=== PATIENT | male | born 1935 | race Caucasian/White ===

== ENCOUNTER 2017-06-16 09:56 | Inpatient (IN) | payer MEDICARE ==
[~2017-06-16] VITALS: Ht 180.3 cm; Wt 91.7 kg
[~2017-06-16 09:56] MED LIST: AMLO5TAB2 PO; ASP325T PO; ASPI-933 PO; CARV80CP PO; CYAN10007 PO; DCS100C PO; EZET10TA5 PO; FENO134C PO; HYDR-3714 PO; METF-380 PO; MTF500T PO; OMEG1CAP PO; RAMI10CA PO; TELM40T PO; TRAV5DRO OP; [UNRECOGNIZED DRUG - CODE] PO
[2017-06-16] MEDS ORDERED: METF1000 PO (13:32)
[2017-06-16] MEDS ORDERED: RAMI10CA PO (13:32)
[2017-06-16] MEDS ORDERED: FENO130C5 PO (13:32)
[2017-06-16] MEDS ORDERED: TELM80TA5 PO (13:32)
[2017-06-16] MEDS ORDERED: OMEG-105 PO (13:32)
[2017-06-16] MEDS ORDERED: OMEP20CA12 PO (13:32)
[2017-06-16 13:40] VITALS: BP 166/76
[2017-06-16] MEDS ORDERED: RT-ALBUTEROL SULF 2.5 MG/3 ML PRE-MIX VIAL IH PRN (16:15)
[2017-06-16 16:59] VITALS: BP 177/79
[2017-06-16] MEDS ORDERED: fentaNYL INJECTION 100 MCG/2 ML AMP IVP PRN (17:15)
[2017-06-16] MEDS ORDERED: CATHETER FLUSH 10 ML SYR IV PRN (17:30)
--- NOTE | 2017-06-16 20:00 | Diagnostic Imaging Report ---
EXAM: CHEST 1 VIEW, AP/PA ONLY INDICATION: Shortness of breath. COMPARISON: None. FINDINGS: Low lung volumes accentuate the heart size and pulmonary vascularity. There is a large airspace opacity in the perihilar left lung. Smaller airspace opacity in the right mid and lower lung. Small right pleural effusion. No pneumothorax. No acute osseous findings. IMPRESSION: Bilateral airspace opacities, greater on the left. Dictated by: Dictated on workstation # [id number]
[2017-06-16] MEDS: RT-ALBUTEROL/IPRATROPIUM 3 ML (DUONEB) VIAL INH SCH (20:12)
[2017-06-16 20:59] VITALS: BP 174/81
[2017-06-16] MEDS ORDERED: NITROGLYCERIN SUBLINGUAL 0.4 MG TAB (NITROSTAT) SL PRN (22:15)
[2017-06-16] MEDS ORDERED: ACETAMINOPHEN 500 MG TAB (TYLENOL) PO PRN (22:15)
[2017-06-16] MEDS: CATHETER FLUSH 10 ML SYR IV SCH (22:25)
[2017-06-16] MEDS: inSUlin (REGULAR) HUMAN 1 UNIT/0.01 ML (CHARGE PER UNIT) SC SCH (23:12)
[2017-06-17] VITALS: BP 169/77
[2017-06-17 04:00] VITALS: BP 152/62
[2017-06-17 06:21] LABS: BASOPHILS % (AUTO) 0 % (0-10); EOSINOPHILS % (AUTO) 0 % (0-10); LYMPHOCYTES # (AUTO) 1.1 X 10^3 (1.0-4.0); LYMPHOCYTES % (AUTO) 17 % (12-44); MEAN CORPUSCULAR HEMOGLOBIN 34 PG (25-34); MEAN CORPUSCULAR HGB CONC 34 G/DL (32-36); MEAN CORPUSCULAR VOLUME 100 FL (80-99); MEAN PLATELET VOLUME 9.7 FL (7.4-10.4); MONOCYTES # (AUTO) 4.1 X 10^3 (0.0-1.0); MONOCYTES % (AUTO) 64 % (0-12); NEUTROPHILS # (AUTO) 1.2 X 10^3 (1.8-7.8); NEUTROPHILS % (AUTO) 19 % (42-75); PLATELET COUNT 89 10^3/uL (130-400); RED BLOOD COUNT 2.53 10^6/uL (4.35-5.85); RED CELL DISTRIBUTION WIDTH 15.5 % (10.0-14.5); WHITE BLOOD COUNT 6.4 10^3/uL (4.3-11.0)
[2017-06-17] MEDS: inSUlin (REGULAR) HUMAN 1 UNIT/0.01 ML (CHARGE PER UNIT) SC SCH ×4 (06:21→20:53)
[2017-06-17] MEDS: CATHETER FLUSH 10 ML SYR IV SCH ×3 (06:21→22:30)
[2017-06-17] MEDS: PANTOPRAZOLE 40 MG (PROTONIX) TAB PO SCH (06:39)
[2017-06-17 06:45] LABS: ALBUMIN 2.8 GM/DL (3.2-4.5); BILIRUBIN,TOTAL 0.9 MG/DL (0.1-1.0); CALCIUM 9.7 MG/DL (8.5-10.1); CREATININE SERUM 1.67 MG/DL (0.60-1.30); POTASSIUM 3.6 MMOL/L (3.6-5.0); TOTAL PROTEIN 5.8 GM/DL (6.4-8.2); URIC ACID 5.8 MG/DL (2.6-7.2)
[2017-06-17] MEDS: RT-ALBUTEROL/IPRATROPIUM 3 ML (DUONEB) VIAL INH SCH ×3 (07:20→19:09)
[2017-06-17] MEDS: IBUPROFEN 600 MG (MOTRIN) TAB PO PRN ×2 (08:11→19:16)
[2017-06-17 08:31] VITALS: BP 172/86
[2017-06-17 08:44] LABS: BAND NEUTROPHILS 2 %; BASOPHILS % (MANUAL) 0 %; EOSINOPHILS % (MANUAL) 0 %; LYMPHOCYTES % (MANUAL) 26 %; MYELOCYTES % 3 %; NEUTROPHILS % (MANUAL) 25 %; PROMYELOCYTES % 1 %
[2017-06-17 08:45] LABS: ANISOCYTOSIS SLIGHT; POLYCHROMASIA SLIGHT
--- NOTE | 2017-06-17 10:00 | CONSULTATION REPORT ---
DATE OF CONSULTATION: 06/16/2017 The patient is admitted to room 411. REFERRING PHYSICIAN: Sebastian Gonzalez M.D. PRIMARY PHYSICIAN: Faustino Pearce M.D. IMPRESSION: 1. 82-year-old male with recent pancytopenia, status post bone marrow aspiration and biopsy on 06/13/2017 with preliminary report showing acute myeloid leukemia. 2. History of coronary artery disease and diabetes melitis type II. RECOMMENDATIONS: 1. Await final pathology report from the bone marrow aspiration and biopsy including cytogenetics. 2. Discussed broadly with the patient and family that if this is a primary acute myeloid leukemia, he will not be a candidate for induction therapy because of his age and general condition. If this is a secondary acute leukemia or a myelodysplastic syndrome in transformation, he may be a candidate for treatment with agents like decitabine. 3. If temperature spikes more than 101 degrees Fahrenheit, we will obtain casillas cultures and start on broad spectrum antibiotics because of the risk of infection. 4. Recommend cardiology evaluation concurrently because of history of coronary artery disease and recent fluid overload. 5. Obtain lab work including peripheral smear tomorrow morning and will transfuse as needed based on his blood counts. Mr. Hernandez is an 82-year-old male who was transferred from [facility] to [place] because of diagnosis of acute myeloid leukemia. The patient and his family indicated that he has not been feeling well for the last several months. Initially was felt to have a tickborne illness and treated for this without benefit. Then he started developing cellulitis in the perianal area and groin and was treated for staph aureus. He was brought to the hospital last week because of significantly increasing weakness and was found to be anemic as well as thrombocytopenic. He received a transfusion with 3 units of packed red blood cells as well as IV fluids and had fluid overload. He was also complaining of generalized pain which was being treated with morphine and fentanyl. Because of the pancytopenia, he underwent a bone marrow aspiration and biopsy on Friday with the initial report showing possible acute myeloid leukemia and hence the transfer. PAST MEDICAL HISTORY: Significant for: 1. Coronary artery disease requiring cardiac stent in 1999. 2. He had an arrhythmia requiring electrical cardioversion whether it was atrial flutter or not, it is unclear. 3. He has diabetes melitis that is controlled with diet and medications. PRIOR SURGERIES: 4. Plastic surgery on his face. 5. TURP. 6. Appendectomy. 7. Cardiac stents. SOCIAL HISTORY: The patient is and lives in [place], [place]. 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 Prior to that, he worked for the [employer] for a few years. He denied any exposure to chemicals. He has 3 daughters all of whom live close by. He denied any tobacco use and used alcohol socially. No history of any recreational drug use. FAMILY HISTORY: Significant for coronary artery disease and diabetes melitis in his family. No significant malignancies or hematologic problems in the family that the patient knows of. PHYSICAL EXAMINATION: Today showed an elderly male, morbidly obese, awake and in mild discomfort at the time of evaluation. His temperature was 100.8, pulse rate 99, respirations 20, blood pressure 177/79 with oxygen saturation of 90% on 6 liters of oxygen by nasal cannula. HEENT: Normocephalic with male pattern baldness. Extraocular muscles intact. Conjunctivae slightly pale, oral mucosa moist without lesions. NECK: Supple with no JVD. No cervical, supraclavicular, or axillary lymphadenopathy palpable. CHEST: Chest was symmetrical. LUNGS: With slightly diminished breath sounds bilaterally with few scattered wheezes especially in the lower lobes. No rales heard. CARDIOVASCULAR EXAM: Was regular without murmurs or gallops. ABDOMEN: Obese, soft, nontender with no hepatosplenomegaly or other masses palpable. EXTREMITIES: Showed trace edema of the lower extremities. No petechiae noted. There is erythema of the left upper thigh area with dressing from recent attempted incision and drainage. NEUROLOGICAL EXAM: Showed no focal motor deficits. Overall motor strength was 4/5 bilaterally. The patient did not have any lab work done here at [place] today. His recent labs from [facility] were reviewed. The total white blood cell count was in the 5 to 6 range. I do not have a manual differential to compare. Hemoglobin has been low in the 7 g/dL range pretransfusion. Platelet count has been in 70,000 range. The flow cytometry from a bone marrow aspiration and biopsy done on 06/13/2017 showed increased population of myeloid blasts accounting for 46% of viable cells. The rest of the bone marrow report as well as cytogenetic results are pending. Thank you for allowing me to participate in this patient's care. I will follow the patient with you and make appropriate recommendations. Job ID: [id number] Dictated Date: 06/16/2017 17:33:59 Driver License Reviewing Officer Date: 06/17/2017 09:27:38/jaquelin HILL
[2017-06-17 12:00] VITALS: BP 149/85
--- NOTE | 2017-06-17 12:00 | Consultation-Cardiology ---
HPI-Cardiology Cardiology Consultation: Date of Consultation 06/17/17 Date of Admission Attending Physician Sebastian Gonzalez MD Admitting Physician Faustino Pearce MD Consulting Physician Asher ABREU MD HPI: Time Seen by Provider: 11:56 Chief Complaint: Irregular heart rhythm This is a 82-year-old gentleman who has history of coronary artery disease with PCI and stent 15 years ago. 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 He also had an ablation for SVT. He presents with possible AML. He was found to be tachycardic. EKG showed atrial fibrillation with rapid ventricular rate. The patient denies having having any chest pain, shortness of breath or palpitations. Review of Systems-Cardiology Review of Systems Constitutional: No As described under HPI, No no symptoms reported, No chills, No fever, No lightheadedness, No malaise, No tiredness, No weight loss, No weight gain, No other Eyes: No As described under HPI, No no symptoms reported, No blindness, No blurred vision, No contact lenses, No drainage, No decreased acuity, No foreign body sensation, No glasses, No inflammation, No pain, No photophobia, No previous injury, No shadows, No tunnel vision, No other, No vision change Ears/Nose/Throat: No As described under HPI, No no symptoms reported, No chronic hearing loss, No epistaxis, No ear discharge, No ear pain, No loose teeth, No mouth pain, No mouth swelling, No nasal drainage, No nose pain, No recent hearing loss, No throat pain, No throat swelling, No ulcerations, No other Respiratory: No no symptoms reported, No As described under HPI, No cough, No orthopnea, No shortness of breath, No SOB with excertion, No SOB at rest, No stridor, No wheezing, No other Cardiovascular: irregular heart rate Gastrointestinal: No no symptoms reported, No As described under HPI, No abdomen distended, No abdominal pain, No blood streaked bowels, No constipation , No diarrhea, No difficulty swallowing, No nausea, No poor appetite, No poor fluid intake, No rectal bleeding, No vomiting, No other, No nausea/vomiting/ diarrhea, No stool coloration changes Genitourinary: No no symptoms reported, No As described under HPI, No burning, No dysuria, No discharge, No frequency, No flank pain, No hematuria, No incontinence, No pain, No urgency, No other, No urine frequency changes, No urine coloration changes Musculoskeletal: No no symptoms reported, No As describe under HPI, No back pain, No gout, No joint pain, No joint swelling, No muscle pain, No muscle stiffness, No neck pain, No other Skin: No no symptoms reported, No As described under HPI, No change in color, No change in hair/nails, No dryness, No lesions, No lumps, No rash, No other, No skin related problems, No ulcerations, No rash on exposed areas, No ulcerations on exposed areas Psychiatric/Neurological: No As described under HPI, No anxiety, No depression , No emotional problems, No focal weakness, No headache, No no symptoms reported , No numbness, No other, No pre-existing deficit, No seizure, No syncope, No tingling, No tremors, No weakness NXG-Fidljx-Mekahj Hx Patient Social History Alcohol Use: Denies Use Recreational Drug Use: No Smoking Status: Never a Smoker Recent Foreign Travel: No Recent Infectious Disease Expo: No Hospitalization with Isolation: Denies Physical Abuse Screen: No Sexual Abuse: No Past Medical History PMH As described under Assessment. Family Medical History Family History: Cardiovascular disease Deafness or hearing loss Diabetes mellitus Myocardial infarction Allergies and Home Medications Allergies Coded Allergies: saxagliptin (Verified Allergy, Intermediate, 06/16/17) swelling Pentazocine Lactate (Unverified Allergy, Unknown, 06/16/17) sulfamethoxazole (Verified Allergy, Unknown, 06/16/17) METABOLIC REACTION trimethoprim (Verified Allergy, Unknown, 06/16/17) CHEST TIGHTNESS doxycycline (Verified Adverse Reaction, Unknown, HIVES, ACHES, 06/16/17) hydrocodone (Verified Adverse Reaction, Unknown, 06/16/17) HALUCINATIONS Home Medications Amlodipine Besylate 5 Mg Tablet, 5 MG PO BID, (Reported) Aspirin 81 Mg Tablet.dr, 81 MG PO MoWeFr, (Reported) Carvedilol Phosphate 80 Mg Cpmp.24hr, 80 MG PO DAILY, (Reported) Cyanocobalamin 1,000 Mcg Tablet.sa, 1,000 MCG PO DAILY, (Reported) Ezetimibe 10 Mg Tablet, 10 MG PO HS, (Reported) Fenofibrate,Micronized 130 Mg Capsule, 135 MG PO 1200, (Reported) Metformin HCl 1,000 Mg Tablet, 1,000 MG PO BID WITH MEALS, (Reported) Multivits,Stress Formula/Zinc 1 Each Tablet, 1 TAB PO DAILY, (Reported) [place]-3 Acid Ethyl Esters 1 Gm Capsule, 1 GM PO HS, (Reported) Omeprazole 20 Mg Capsule.dr, 20 MG PO DAILY PRN for HEARTBURN, (Reported) Ramipril 10 Mg Capsule, 10 MG PO DAILY, (Reported) Telmisartan 80 Mg Tablet, 80 MG PO DAILY, (Reported) Physical Exam-Cardiology Physical Exam Vital Signs/I&O Vital Sign - Last 12Hours 06/17/17 06/17/17 06/17/17 06/17/17 00:00 01:00 04:00 07:20 Temp 98.6 98.9 Pulse 91 90 92 Resp 20 24 B/P (MAP) 169/77 152/62 Pulse Ox 93 92 93 O2 Delivery Nasal Cannula Nasal Cannula Nasal Cannula O2 Flow Rate 6.00 6.00 5.00 06/17/17 08:31 Temp 99.8 Pulse 107 Resp 22 B/P (MAP) 172/86 Pulse Ox 93 O2 Delivery Nasal Cannula O2 Flow Rate 6.00 Intake and Output 06/17/17 00:00 Intake Total 400 ml Output Total 500 ml Balance -100 ml Capillary Refill : Constitutional: No appears stated age, No AAO x 3, No apparent distress, No PERRL, No well-developed, No well-nourished, No other HEENT: No PERRL, No normal ENT inspection, No TMs normal, No pharynx normal, No scleral icterus (R), No scleral icterus (L), No pale conjunctivae (R), No pale conjunctivae (L), No photophobia, No TM abnormal (R), No TM abnormal (L), No pharyngeal erythema, No tonsillar exudate, No other, No discharge, No EOMI, No hearing is well preserved, No hard of hearing, No oral hygience is good, No ulceration, No xanthelasmas are seen Neck: No non-tender, No full range of motion, No supple, No normal inspection, No carotid bruit, No limited range of motion, No lymphadenopathy (R), No lymphadenopathy (L), No tender lateral, No tender midline, No thyromegaly, No other, No carotid pulses are 2 + bilaterally, No with good upstrokes Respiratory: No accessory muscle use, No respiratory distress, No chest tender , No chest expansion is symmetric, No chest is bilaterally symmetric, No lungs clear to percussion, No lungs clear to auscultation, No crackles, No rhonchi, No rales, No stridor, No wheezing, No pleural rub, No other Cardiovascular: regular rate-rhythm, S1 and S2 Gastrointestinal: No tender, No soft, No round, No distended, No pulsatile mass , No organomegaly, No guarding, No rebound, No tenderness, No hernia, No mass, No audible bowel sounds, No abnormal bowel sounds, No abdominal bruits, No spleenomegaly, No other Rectal: deferred Extremities: No normal range of motion, No non-tender, No normal inspection, No pedal edema, No calf tenderness, No normal capillary refill, No pelvis stable , No calf tenderness, No inflammation, No pedal edema, No slow capillary refill , No swelling, No other, No abrasion, No clubbing, No cyanosis, No ecchymosis, No laceration, No no lower extremity edema bilateral, No significant edema, No tenderness, No wound Neurologic/Psychiatric: No shell core and molding supervisor II-XII nml as tested, No no motor/sensory deficits, No alert, No normal mood/affect, No oriented x 3, No abnormal cerebellar tests, No abnormal shell core and molding supervisor II-XII, No abnormal gait, No aphasia, No EOM palsy, No facial droop, No motor weakness, No sensory deficit, No depressed affect, No disoriented x 3, No other, No grossly intact, No power is 5/5 both on sides Skin: No normal color, No warm/dry, No cyanosis, No cool, No diaphoresis, No damp, No ecchymosis, No jaundice, No mottled, No pallor, No rash, No tattoos/ piercings, No ulcerations, No rash on exposed areas, No ulcerations on exposed areas, No other Data Review Labs Laboratory Tests 06/16/17 14:45: Glucometer 160H 06/16/17 21:21: Glucometer 229H 06/17/17 05:56: Glucometer 178H 06/17/17 06:08: White Blood Count 6.4, Red Blood Count 2.53L, Hemoglobin 8.6L, Hematocrit 25L, Mean Corpuscular Volume 100H, Mean Corpuscular Hemoglobin 34, Mean Corpuscular Hemoglobin Concent 34, Red Cell Distribution Width 15.5H, Platelet Count 89L, Mean Platelet Volume 9.7, Neutrophils (%) (Auto) 19L, Lymphocytes (%) (Auto) 17 , Monocytes (%) (Auto) 64H, Eosinophils (%) (Auto) 0, Basophils (%) (Auto) 0, Neutrophils # (Auto) 1.2L, Lymphocytes # (Auto) 1.1, Monocytes # (Auto) 4.1H, Eosinophils # (Auto) 0.0, Basophils # (Auto) 0.0, Neutrophils % (Manual) 25, Lymphocytes % (Manual) 26, Monocytes % (Manual) 23, Eosinophils % (Manual) 0, Basophils % (Manual) 0, Myelocytes % 3, Promyelocytes % 1, Band Neutrophils 2, Nucleated Red Blood Cells 2, Blast Cells 20, Polychromasia SLIGHT, Anisocytosis SLIGHT, Macrocytosis SLIGHT, Sodium Level 139, Potassium Level 3.6, Chloride Level 110H, Carbon Dioxide Level 18L, Anion Gap 11, Blood Urea Nitrogen 13, Creatinine 1.67H, Estimat Glomerular Filtration Rate 39, BUN/Creatinine Ratio 8 , Glucose Level 174H, Uric Acid 5.8, Calcium Level 9.7, Total Bilirubin 0.9, Aspartate Amino Transf (AST/SGOT) 42H, Alanine Aminotransferase (ALT/SGPT) 54, Alkaline Phosphatase 89, Lactate Dehydrogenase 254H, Total Protein 5.8L, Albumin 2.8L 06/17/17 11:01: Glucometer 207H ECG Impression ECG Initial ECG Impression: Atrial Fibrillation w/RVR Comment One EKG shows atrial fibrillation with rapid ventricular rate. Another EKG shows normal sinus rhythm. A/P-Cardiology Assessment/Admission Diagnosis 1.AML. 2. Atrial fibrillation. 3. CAD. Plan Deferred treatment of AML to Dr. Scott and the primary team. Continue outpatient medications for CAD including aspirin, ezetimibe, DANIELA inhibitor, beta german. Paroxysmal atrial fibrillation. Continue beta german. I will not start oral anti-coagulation therapy till we know final diagnosis, treatment and bleeding risk of the primary diagnosis. Discussed with patient and family as well. Thank you for your consultation. Please call me if you have any questions. Rogelio Abreu MD, FACP, FACC, FSCAI, FHRS, CCDS Interventional Cardiology Cardiac Electrophysiology Vascular Medicine and Endovascular Interventions Clinical Quality Measures DVT/VTE Risk/Contraindication: Risk Factor Score Per Nursin RFS Level Per Nursing on Admit: 4+=Very High Asher ABREU MD Jun 17, 2017 12:00 pm
[2017-06-17] MEDS ORDERED: OMEPRAZOLE 20 MG (PriLOSEC) CAP NON-FORMULARY PO PRN (13:45)
--- NOTE | 2017-06-17 13:50 | History & Physical-Hospitalist ---
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 He was referred here by Dr. Faustino Pearce his primary care. In a workup at [place] over the past week it has become apparent that he has AML although the final details are still pending referral lab processing. His daughter who has been known to me for 40 years as she was a new nursing grad when I came here at that time, reports that he has been in a slow decline for some 6-9 months. This was mostly characterized by declining vigor and activity. He had a tick bite on the right thigh or groin area about 4 months ago. About 5 weeks ago developed a nodule on his left thigh. This was treated with hot compresses and eventually pointed and was incised and drained by a [place] surgeon. There was a minimum of creamy material obtained. He reports that very shortly after that 2 new areas appeared in the same vicinity. Dr. Pearce said that this was first thought to be recurrent cellulitis or abscesses however with the relative casillas cytopenia, on the CBC, a bone marrow was done and a preliminary report stated AML although a final diagnosis has not been returned. The initial data showed clearly malignant elements with greatest likelihood of AML Source: patient Exam Limitations: no limitations Date Seen 06/17/17 Time Seen by Provider: 13:45 Attending Physician Sebastian Marcos MD PCP Faustino Pearce MD Referring Physician Date of Admission Jun 16, 2017 at 13:10 Home Medications & Allergies Home Medications Reviewed patient Home Medication Reconciliation Form Allergies Allergies Coded Allergies saxagliptin (Verified Allergy, Intermediate, 06/16/17) swelling Pentazocine Lactate (Unverified Allergy, Unknown, 06/16/17) sulfamethoxazole (Verified Allergy, Unknown, 06/16/17) METABOLIC REACTION trimethoprim (Verified Allergy, Unknown, 06/16/17) CHEST TIGHTNESS doxycycline (Verified Adverse Reaction, Unknown, HIVES, ACHES, 06/16/17) hydrocodone (Verified Adverse Reaction, Unknown, HALLUCINATIONS, 06/23/17) HALUCINATIONS Past Dlasjxe-Oilbjf-Nfbtum Hx Patient Social History Alcohol Use: Denies Use Recreational Drug Use: No Smoking Status: Never a Smoker Physical Abuse Screen: No Sexual Abuse: No Recent Foreign Travel: No Contact w/other who traveled: No Recent Hopitalizations: Yes ([facility] ) Recent Infectious Disease Expo: No Seasonal Allergies Seasonal Allergies: No Respiratory Hx Respiratory Disorders: No Cardiovascular Hx Cardiovascular Disorders: Yes Neurological Hx Neurological Disorders: No Reproductive System Sexually Transmitted Disease: No HIV/AIDS: No Genitourinary Hx Genitourinary Disorders: No Gastrointestinal Hx Gastrointestinal Disorders: Yes (HIATAL HERNIA, ) Gastrointestinal Disorders: Gastroesophageal Reflux Musculoskeletal Hx Musculoskeletal Disorders: No Musculoskeletal Disorders: Degenerate Disk Disease Endocrine Hx Endocrine Disorders: Yes HEENT HX ENT Disorders: Yes (DENTURES) HEENT Disorders: Cataract, Glaucoma Loss of Vision: Denies Hearing Impairment: Hard of Hearing Integumentary Skin/Integumentary Disorders: Eczema Blood Transfusions Hx Blood Disorders: No Adverse Reaction to a Blood Tr: No Family Medical History Family Hx: Cardiovascular disease Deafness or hearing loss Diabetes mellitus Myocardial infarction Review of Systems Constitutional: see HPI EENTM: no symptoms reported Respiratory: no symptoms reported Cardiovascular: other Gastrointestinal: no symptoms reported Genitourinary: frequency, hesitancy, other (2 previous TURPs) Musculoskeletal: muscle weakness Skin: lumps, other (skin lesions as described in history and physical) Psychiatric/Neurological: Other Physical Exam Physical Exam Vital Signs Capillary Refill : General Appearance: Other (alert elderly white male who is slightly tachypneic at rest) Eyes: Bilateral Eye Normal Inspection HEENT: Normal ENT Inspection Neck: Full Range of Motion, Normal Inspection, Non Tender, Supple, Carotid Bruit Respiratory: Chest Non Tender, Lungs Clear, Normal Breath Sounds, No Accessory Muscle Use, No Respiratory Distress Cardiovascular: Irregularly Irregular Gastrointestinal: Normal Bowel Sounds, No Organomegaly, No Pulsatile Mass, Non Tender, Soft Back: Normal Inspection, No CVA Tenderness, No Vertebral Tenderness Neurologic/Psychiatric: Other Skin: Normal Color, Warm/Dry Lymphatic: No Adenopathy Results Results/Procedures Lab Assessment/Plan Admission Diagnosis AML. 2.previous history of coronary artery disease. 3.hypertension. 4.diabetes mellitus type II Clinical Quality Measures DVT/VTE Risk/Contraindication: Risk Factor Score Per Nursin RFS Level Per Nursing on Admit: 4+=Very High SEBASTIAN MARCOS MD Jun 17, 2017 13:50
--- NOTE | 2017-06-17 15:21 | Physical Therapy Progress Note ---
Therapy Progress Note Order received, chart reviewed, wai attempted. Patient's daughter states that she just got through walking with her father in the hallway and that he is pretty tired now. Patient is given the opportunity to work with PT but he declines, he states he is too tired after ambulating with his daughter. Evaluation will be attempted again in the morning. AKIRA MARTINEZ PT Jun 17, 2017 15:21
[2017-06-17 16:00] VITALS: BP 175/76
[2017-06-17] MEDS: metFORMIN 500 MG (GLUCOPHAGE) TAB PO SCH (17:00)
--- NOTE | 2017-06-17 17:19 | Progress Note-Standard ---
Standard Progress Note Progress Notes/Assess & Plan Date Seen by Provider: Jun 17, 2017 Time Seen by Provider: 17:11 Progress/Assessment & Plan 82-year-old male with pancytopenia, transferred from [facility]. Patient had a bone marrow aspiration biopsy on 06/13/2017. Flow cytometry indicated possible AML. Today I discussed the case with Dr. Maciel at [facility]. The preliminary bone marrow report showed hypercellular marrow with 60-65 percent cellularity and 30 percent blasts consistent with AML. FISH studies and cytogenetics is pending. Today I reviewed management of AML with the patient and his daughter and answered their questions. According to NCCN guidelines, options for patients who are not candidates for intensive therapy include the lower intensity treatments with 5 azacitidine or decitabine versus best supportive care. Patient wanted to talk to all of his family before making a decision tomorrow. I will follow with them tomorrow and try to answer any questions before they make their final decision. We will reorder lab work for tomorrow. SINA GREEN Jun 17, 2017 17:18
[2017-06-17 20:00] VITALS: BP 176/80
[2017-06-17] MEDS: amLODIPine 5 MG (NORVASC) TAB PO SCH (20:53)
[2017-06-17] MEDS ORDERED: DIAZEPAM 5 MG (VALIUM) TABLET PO NR (21:00)
[2017-06-18 00:45] VITALS: BP 158/78
[2017-06-18 04:20] VITALS: BP 155/74
[2017-06-18] MEDS: inSUlin (REGULAR) HUMAN 1 UNIT/0.01 ML (CHARGE PER UNIT) SC SCH ×4 (06:16→21:55)
[2017-06-18] MEDS: CATHETER FLUSH 10 ML SYR IV SCH ×3 (06:16→22:02)
[2017-06-18] MEDS: metFORMIN 500 MG (GLUCOPHAGE) TAB PO SCH ×2 (06:21→16:51)
[2017-06-18] MEDS: PANTOPRAZOLE 40 MG (PROTONIX) TAB PO SCH (06:21)
[2017-06-18 06:35] LABS: BASOPHILS % (AUTO) 0 % (0-10); EOSINOPHILS % (AUTO) 0 % (0-10); LYMPHOCYTES # (AUTO) 3.9 X 10^3 (1.0-4.0); LYMPHOCYTES % (AUTO) 56 % (12-44); MEAN CORPUSCULAR HEMOGLOBIN 34 PG (25-34); MEAN CORPUSCULAR HGB CONC 34 G/DL (32-36); MEAN CORPUSCULAR VOLUME 100 FL (80-99); MEAN PLATELET VOLUME 9.2 FL (7.4-10.4); MONOCYTES # (AUTO) 1.6 X 10^3 (0.0-1.0); MONOCYTES % (AUTO) 23 % (0-12); NEUTROPHILS # (AUTO) 1.4 X 10^3 (1.8-7.8); NEUTROPHILS % (AUTO) 21 % (42-75); PLATELET COUNT 87 10^3/uL (130-400); RED BLOOD COUNT 2.51 10^6/uL (4.35-5.85); RED CELL DISTRIBUTION WIDTH 15.4 % (10.0-14.5); WHITE BLOOD COUNT 6.9 10^3/uL (4.3-11.0)
[2017-06-18 06:48] LABS: INR 1.3 (0.8-1.4); PROTHROMBIN TIME PATIENT 16.2 SEC (12.2-14.7)
[2017-06-18 06:55] LABS: CALCIUM 9.8 MG/DL (8.5-10.1); CREATININE SERUM 1.69 MG/DL (0.60-1.30); POTASSIUM 3.5 MMOL/L (3.6-5.0)
[2017-06-18 08:00] VITALS: BP 133/65
[2017-06-18] MEDS: RT-ALBUTEROL/IPRATROPIUM 3 ML (DUONEB) VIAL INH SCH ×3 (08:22→19:26)
[2017-06-18] MEDS: amLODIPine 5 MG (NORVASC) TAB PO SCH ×2 (08:46→20:23)
[2017-06-18] MEDS ORDERED: CARVEDILOL 12.5 MG (COREG) TABLET PO SCH (09:00)
[2017-06-18] MEDS ORDERED: RAMIPRIL 5 MG (ALTACE) CAP PO SCH (09:00)
[2017-06-18] MEDS ORDERED: DAKIN'S 1/4 STRENGTH (0.125%) 473 ML BTL TOP SCH (09:00)
[2017-06-18] MEDS ORDERED: NON-FORMULARY MEDICATION 1 EA EA (Ramipril 10 MG) PO SCH (09:00)
[2017-06-18] MEDS ORDERED: CARVEDILOL 80 MG PO SCH (09:00)
[2017-06-18] MEDS ORDERED: ASPIRIN E.C. 81 MG (ECOTRIN) TAB PO SCH (09:00)
--- NOTE | 2017-06-18 09:35 | Physical Therapy Evaluation ---
PT Evaluation-General Medical Diagnosis Admission Date Jun 16, 2017 at 13:10 Medical Diagnosis: acute myeloid leukemia Onset Date: Jun 16, 2017 Therapy Diagnosis Therapy Diagnosis: impaired mobility, strength, endurance Height/Weight Height (Feet): 5 Height (Inches): 11.00 Weight (Pounds): 202 Weight (Ounces): 1.0 Precautions Precautions/Isolations: Fall Prevention, Standard Precautions Referral Physician: Sebastian Gonzalez MD Reason for Referral: Evaluation/Treatment Medical History Pertinent Medical History: GERD Additional Medical History hiatal hernia, DDD, cataracts, glaucoma, JENA, eczema, surg (plastic surg on face , TURP, appendectomy, cardiac stents) Current History came via EMS with pneumonia Reviewed History: Yes Social History Home: Multilevel Current Living Status: Spouse Entry Into Home: Stairs Without Railing PT Steps Into Home: 2 states it would be no problem to get a handrail installed Prior/Core FIM Prior Level of Function Functional [place] Measure 0=Not Assessed/NA 4=Minimal Assistance 1=Total Assistance 5=Supervision or Setup 2=Maximal Assistance 6=Modified [place] 3=Moderate Assistance 7=Complete [place] Bed Mobility: 7 Transfers (B,C,W/C) (FIM): 7 Gait: 7 PT Evaluation-Current Subjective Patient in recliner pre tx, agrees to PT, has no complaints of pain. Pt/Family Goals "I want to get stronger. Objective Patient Orientation: Person, Place, Situation Attachments: Oxygen 5L of O2 nasal canula ROM/Strength ROM Lower Extremities WNL Strenght Lower Extremities 4/5 gross bilateral lower extremities Neuromuscular (Tone, Coordination, Reflexes) WNL Sensory Vision: Functional Hearing: Impaired Sensation Right Lower Extremit: Intact Sensation Left Lower Extremity: Intact Transfers Functional [place] Measure 0=Not Assessed/NA 4=Minimal Assistance 1=Total Assistance 5=Supervision or Setup 2=Maximal Assistance 6=Modified [place] 3=Moderate Assistance 7=Complete [place] Transfers (B, C, W/C) (FIM): 5 Sit to/from Stand: 5 safe positioning Gait Mode of Locomotion: Walk Anticipated Mode of Locomotion: Walk Gait (FIM): 5 Distance: 600' Gait Level of Assist: 5 Gait Persons Needed: 1 Gait Assistive Device: FWW Comments/Gait Description slow, patient gets a little SOB, cues for purse lip breathing Balance Sitting Static: Normal Sitting Dynamic: Normal Standing Static: Good Standing Dynamic: Good Treatment seated exercises x20, LAQ, AP Assessment/Needs Patient has impaired mobility, strength, endurance Rehab Potential: Fair PT Plan Problem List Problem List: Activity Tolerance, Functional Strength, Safety, Balance, Gait, Transfer, Bed Mobility Treatment/Plan Treatment Plan: Continue Plan of Care Treatment Plan: Bed Mobility, Education, Functional Activity Mona, Functional Strength, Gait, Safety, Therapeutic Exercise, Transfers Treatment Duration: Jun 25, 2017 Frequency: 6 times per week Estimated Hrs Per Day: .5 hour per day (15-30 min) Patient and/or Family Agrees t: Yes Safety Risks/Education Patient Education: Gait Training, Transfer Techniques, Correct Positioning, Safety Issues Teaching Recipient: Patient Teaching Methods: Demonstration, Discussion Response to Teaching: Reinforcement Needed Discharge Recommendations Plan Patient will perform bed mobility and transfer training, balance and endurance training, functional strengthening, stair training, gait training, and education , to improve functional mobility and independence at home. Therapy D/C Recommendations: Home w/ Family Support Time/GCodes Time In: 908 Time Out: 927 Total Billed Treatment Time: 19 Total Billed Treatment 1 visit AKIRA MARQUEZ PT Jun 18, 2017 09:35
--- NOTE | 2017-06-18 10:55 | Cardiology Progress Note ---
Cardiology SOAP Progress Note Subjective: No cardiac complaints Objective: I&O/Vital Signs Vital Sign - Last 12Hours 06/18/17 06/18/17 06/18/17 06/18/17 00:45 01:00 04:20 07:00 Temp 97.7 98.0 Pulse 85 89 98 113 Resp 18 22 B/P (MAP) 158/78 155/74 Pulse Ox 96 96 O2 Delivery Nasal Cannula Nasal Cannula O2 Flow Rate 6.00 5.00 06/18/17 06/18/17 08:00 08:22 Temp 99.5 Pulse 90 Resp 18 B/P (MAP) 133/65 Pulse Ox 94 94 O2 Delivery Nasal Cannula Nasal Cannula O2 Flow Rate 5.00 5.50 Intake and Output 06/18/17 00:00 Intake Total 1180 ml Output Total 500 ml Balance 680 ml Weight (Pounds): 202 Weight (Ounces): 1.0 Weight (Calculated Kilograms): 91.298852 Constitutional: No appears stated age, No AAO x 3, No apparent distress, No PERRL, No well-developed, No well-nourished, No other Respiratory: No accessory muscle use, No respiratory distress, No chest tender , No chest expansion is symmetric, No chest is bilaterally symmetric, No lungs clear to percussion, No lungs clear to auscultation, No crackles, No rhonchi, No rales, No stridor, No wheezing, No pleural rub, No other Cardiovascular: regular rate-rhythm, S1 and S2 Gastrointestional: No tender, No soft, No round, No distended, No pulsatile mass, No organomegaly, No guarding, No rebound, No tenderness, No hernia, No mass, No audible bowel sounds, No abnormal bowel sounds, No abdominal bruits, No spleenomegaly, No other Extremities: No normal range of motion, No non-tender, No normal inspection, No pedal edema, No calf tenderness, No normal capillary refill, No pelvis stable , No calf tenderness, No inflammation, No pedal edema, No slow capillary refill , No swelling, No other, No abrasion, No clubbing, No cyanosis, No ecchymosis, No laceration, No no lower extremity edema bilateral, No significant edema, No tenderness, No wound Neurologic/Psychiatric: No ferruler II-XII nml as tested, No no motor/sensory deficits, No alert, No normal mood/affect, No oriented x 3, No abnormal cerebellar tests, No abnormal ferruler II-XII, No abnormal gait, No aphasia, No EOM palsy, No facial droop, No motor weakness, No sensory deficit, No depressed affect, No disoriented x 3, No other, No grossly intact, No power is 5/5 both on sides Skin: No normal color, No warm/dry, No cyanosis, No cool, No diaphoresis, No damp, No ecchymosis, No jaundice, No mottled, No pallor, No rash, No tattoos/ piercings, No ulcerations, No rash on exposed areas, No ulcerations on exposed areas, No other Results/Procedures: Labs Laboratory Tests 06/17/17 16:14: Glucometer 199H 06/17/17 20:35: Glucometer 200H 06/18/17 06:05: Glucometer 187H 06/18/17 06:06: White Blood Count 6.9, Red Blood Count 2.51L, Hemoglobin 8.4L, Hematocrit 25L, Mean Corpuscular Volume 100H, Mean Corpuscular Hemoglobin 34, Mean Corpuscular Hemoglobin Concent 34, Red Cell Distribution Width 15.4H, Platelet Count 87L, Mean Platelet Volume 9.2, Neutrophils (%) (Auto) 21L, Lymphocytes (%) (Auto) 56H , Monocytes (%) (Auto) 23H, Eosinophils (%) (Auto) 0, Basophils (%) (Auto) 0, Neutrophils # (Auto) 1.4L, Lymphocytes # (Auto) 3.9, Monocytes # (Auto) 1.6H, Eosinophils # (Auto) 0.0, Basophils # (Auto) 0.0, Prothrombin Time 16.2H, INR Comment 1.3, Activated Partial Thromboplast Time 37H, Sodium Level 141, Potassium Level 3.5L, Chloride Level 111H, Carbon Dioxide Level 20L, Anion Gap 10, Blood Urea Nitrogen 14, Creatinine 1.69H, Estimat Glomerular Filtration Rate 39, BUN/Creatinine Ratio 8, Glucose Level 179H, Calcium Level 9.8 06/18/17 11:05: Glucometer 262H A/P: Assessment/Dx: 1.AML. 2. Atrial fibrillation. 3. CAD. Plan: Deferred treatment of AML to Dr. Scott and the primary team. Continue outpatient medications for CAD including aspirin, ezetimibe, DANIELA inhibitor, beta german. Paroxysmal atrial fibrillation. Continue beta german. I will not start oral anti-coagulation therapy till we know final diagnosis, treatment and bleeding risk of the primary diagnosis. Discussed with patient and family as well. The family agrees that due to AML the risk of bleeding may be higher than the risk of stroke prevention therefore we will hold off on oral anticoagulation therapy and continue aspirin alone. Thank you for your consultation. Please call me if you have any questions. Rogelio Abreu MD, FACP, FACC, FSCAI, FHRS, CCDS Interventional Cardiology Cardiac Electrophysiology Vascular Medicine and Endovascular Interventions Asher ABREU MD Jun 18, 2017 10:55
[2017-06-18 12:00] VITALS: BP 144/66
--- NOTE | 2017-06-18 14:03 | Progress Note-Hospitalist ---
Standard Progress Note Progress Notes/Assess & Plan Date Seen 06/18/17 Time Seen by Provider: 13:57 Diagnosis AML. 2.previous history of coronary artery disease. 3.hypertension. 4.diabetes mellitus type II Assess & Plan/Chief Complaint Dr. Person informs me that he was able to get Clear confirmation yesterday that the diagnosis is that of AML. He had a discussion with the family last evening and it has been elected that the patient attempt a modified induction. Accordingly he will be transferred to swing bed status, a port will be placed, and hyperuricemia prophylaxis will be started. Physical exam: The patient is alert and oriented. Lungs are clear to auscultation. CV is irregular. Abdomen is obese without masses or tenderness. Extremity shows 1-2+ pedal edema. Impression: Acute myelogenous leukemia. 2.atrial fibrillation. 3.diabetes mellitus type II. 4.hypertension. 5.previous history of coronary artery disease with stenting. Plan: Advanced to swing bed status and initiate AML Rx Labs Laboratory Tests 06/17/17 06:08 06/18/17 06:06 ELVIA MARCOS MD Jun 18, 2017 14:03
--- NOTE | 2017-06-18 15:43 | Progress Note-Standard ---
Standard Progress Note Progress Notes/Assess & Plan Date Seen by Provider: Jun 18, 2017 Time Seen by Provider: 15:36 Progress/Assessment & Plan 82-year-old male with pancytopenia, transferred from [facility]. Patient had a bone marrow aspiration biopsy on 06/13/2017. Flow cytometry indicated possible AML. The preliminary bone marrow report showed hypercellular marrow with 60-65 percent cellularity and 30 percent blasts consistent with AML. FISH studies and cytogenetics are pending. Today met with the patient, his and 2 daughters and once again discussed management options. According to NCCN guidelines, options for patients who are not candidates for intensive therapy include the lower intensity treatments with 5 azacitidine or decitabine versus best supportive care. Patient has decided to proceed with lower intensity treatment and I would recommend treatment with Dacogen. I will start the patient on allopurinol today and plan on starting treatment tomorrow. Would recommend swing bed evaluation for IV medications and possible transfusions as needed. He would also benefit from a port for administration of chemotherapy. I'll consult Dr. Garrison for the same. Patient and his family understands that his prognosis is poor but wants to try the treatment. Cardiology evaluation noted. Patient has evidence of paroxysmal atrial fibrillation but I would not recommend anticoagulation because of thrombocytopenia, diagnosis of AML as well as starting on chemotherapy. He is on aspirin 3 days a week and I will continue this cautiously. I have discussed these recommendations with Dr. Gonzalez today who concurs. SINA GREEN Jun 18, 2017 15:43
[2017-06-18] MEDS ORDERED: DIAZEPAM 5 MG (VALIUM) TABLET PO PRN (15:45)
[2017-06-18 16:00] VITALS: BP 130/79
--- NOTE | 2017-06-18 17:14 | Consultation ---
History of Present Illness History of Present Illness Patient Consulted On(xin/time) 06/18/17 17:09 Date Seen by Provider: Jun 18, 2017 Time Seen by Provider: 17:09 History of Present Illness Consult requested by Dr. Butterfield for port placement. Patient is an 82-year-old male who is going to be treated for AML. He's elected for treatment and is felt that the port would be best fitting for administration of chemotherapy. Patient recently had not been feeling well and was found to be anemic and had blood work and bone marrow biopsy at outlying facility. Patient workup suggestive of AML and was transferred to [facility]. Patient today states he's doing a little bit better. He is tolerating diet. His hemoglobin was 8.2 his platelet counts was 87. Patient has required packed red blood cells. He is having a fibrillation which she is not at this time being placed on anticoagulation he states. Patient overall is filling slightly weak compared to where it normally as he states. He has no other complaints at this time. He denies any nausea vomiting fever sweats chills shortness of breath or chest pain. Allergies and Home Medications Allergies Coded Allergies: saxagliptin (Verified Allergy, Intermediate, 06/16/17) swelling Pentazocine Lactate (Unverified Allergy, Unknown, 06/16/17) sulfamethoxazole (Verified Allergy, Unknown, 06/16/17) METABOLIC REACTION trimethoprim (Verified Allergy, Unknown, 06/16/17) CHEST TIGHTNESS doxycycline (Verified Adverse Reaction, Unknown, HIVES, ACHES, 06/16/17) hydrocodone (Verified Adverse Reaction, Unknown, 06/16/17) HALUCINATIONS Home Medications Amlodipine Besylate 5 Mg Tablet, 5 MG PO BID, (Reported) Aspirin 81 Mg Tablet.dr, 81 MG PO MoWeFr, (Reported) Carvedilol Phosphate 80 Mg Cpmp.24hr, 80 MG PO DAILY, (Reported) Cyanocobalamin 1,000 Mcg Tablet.sa, 1,000 MCG PO DAILY, (Reported) Ezetimibe 10 Mg Tablet, 10 MG PO HS, (Reported) Fenofibrate,Micronized 130 Mg Capsule, 135 MG PO 1200, (Reported) Metformin HCl 1,000 Mg Tablet, 1,000 MG PO BID WITH MEALS, (Reported) Multivits,Stress Formula/Zinc 1 Each Tablet, 1 TAB PO DAILY, (Reported) Darby-3 Acid Ethyl Esters 1 Gm Capsule, 1 GM PO HS, (Reported) Omeprazole 20 Mg Capsule.dr, 20 MG PO DAILY PRN for HEARTBURN, (Reported) Ramipril 10 Mg Capsule, 10 MG PO DAILY, (Reported) Telmisartan 80 Mg Tablet, 80 MG PO DAILY, (Reported) Past Fhwroda-Foloah-Hpsrok Hx Patient Social History Alcohol Use: Denies Use Recreational Drug Use: No Smoking Status: Never a Smoker Recent Foreign Travel: No Contact w/Someone Who Travel: No Recent Infectious Disease Expo: No Recent Hopitalizations: Yes ([facility] ) Physical Abuse Screen: No Sexual Abuse: No Seasonal Allergies Seasonal Allergies: No Surgeries HX Surgeries: Yes (hernia, face surgery) Surgeries: Appendectomy Respiratory Hx Respiratory Disorders: No Respiratory Disorders: Pneumonia Cardiovascular Hx Cardiac Disorders: Yes Neurological Hx Neurological Disorders: No Reproductive System Sexually Transmitted Disease: No HIV/AIDS: No Genitourinary Hx Genitourinary Disorders: No Gastrointestinal Hx Gastrointestinal Disorders: Yes (HIATAL HERNIA, ) Gastrointestinal Disorders: Abdominal Hernia, Gastroesophageal Reflux Musculoskeletal Hx Musculoskeletal Disorders: No Musculoskeletal Disorders: Degenerate Disk Disease Endocrine Hx Endocrine Disorders: Yes HEENT HX ENT Disorders: Yes (DENTURES) HEENT Disorders: Cataract, Glaucoma Loss of Vision: Denies Hearing Impairment: Hard of Hearing Integumentary Skin/Integumentary Disorders: Eczema Blood Transfusions Hx Blood Disorders: No Adverse Reaction to a Blood Tr: No Family Medical History Significant Family History: No Pertinent Family Hx Family Medial History: Cardiovascular disease Deafness or hearing loss Diabetes mellitus Myocardial infarction Review of Systems-General Constitutional: see HPI EENTM: no symptoms reported Respiratory: no symptoms reported Cardiovascular: no symptoms reported Gastrointestinal: no symptoms reported Genitourinary: no symptoms reported Musculoskeletal: no symptoms reported Skin: no symptoms reported Psychiatric/Neurological: No Symptoms Reported Physical Exam-General Problems Physical Exam Vital Signs Vital Sign - Last 12Hours 06/16/17 13:40 Temp 99.5 Pulse 114 Resp 20 B/P (MAP) 166/76 Pulse Ox 94 O2 Delivery Nasal Cannula O2 Flow Rate 6.00 Capillary Refill : General Appearance: no apparent distress HEENT: normal ENT inspection Neck: supple Respiratory: no respiratory distress, no accessory muscle use Cardiovascular: irregularly irregular Gastrointestinal: non tender, soft, no organomegaly Rectal: deferred Back: normal inspection Extremities: non-tender, normal inspection Neurologic/Psychiatric: alert, normal mood/affect Skin: warm/dry Data Review Labs Laboratory Tests 06/17/17 20:35: Glucometer 200H 06/18/17 06:05: Glucometer 187H 06/18/17 06:06: White Blood Count 6.9, Red Blood Count 2.51L, Hemoglobin 8.4L, Hematocrit 25L, Mean Corpuscular Volume 100H, Mean Corpuscular Hemoglobin 34, Mean Corpuscular Hemoglobin Concent 34, Red Cell Distribution Width 15.4H, Platelet Count 87L, Mean Platelet Volume 9.2, Neutrophils (%) (Auto) 21L, Lymphocytes (%) (Auto) 56H , Monocytes (%) (Auto) 23H, Eosinophils (%) (Auto) 0, Basophils (%) (Auto) 0, Neutrophils # (Auto) 1.4L, Lymphocytes # (Auto) 3.9, Monocytes # (Auto) 1.6H, Eosinophils # (Auto) 0.0, Basophils # (Auto) 0.0, Prothrombin Time 16.2H, INR Comment 1.3, Activated Partial Thromboplast Time 37H, Sodium Level 141, Potassium Level 3.5L, Chloride Level 111H, Carbon Dioxide Level 20L, Anion Gap 10, Blood Urea Nitrogen 14, Creatinine 1.69H, Estimat Glomerular Filtration Rate 39, BUN/Creatinine Ratio 8, Glucose Level 179H, Calcium Level 9.8 06/18/17 11:05: Glucometer 262H 06/18/17 15:58: Glucometer 205H Assessment/Plan Assessment/Plan Assessment/Plan Patient with AML, pancytopenia. It's been requested a port be placed. Risk and benefits discussed. Continue current medical management. Patient to start chemotherapy tomorrow we' ll plan on placing port Friday morning Clinical Quality Measures DVT/VTE Risk/Contraindication: Risk Factor Score Per Nursin RFS Level Per Nursing on Admit: 4+=Very High LUZ HOLT DO Jun 18, 2017 17:14
[2017-06-18] MEDS ORDERED: FUROSEMIDE 40 MG (LASIX) TAB PO NR (17:15)
[2017-06-18] MEDS ORDERED: ALLOPURINOL 100 MG (ZYLOPRIM) TAB PO SCH (18:00)
[2017-06-18] MEDS: POLYETHYLENE GLYCOL 17 GM (MIRALAX) PACK PO SCH ×2 (19:18→20:23)
[2017-06-18] MEDS ORDERED: PROMETHAZINE/ CODEINE SYRUP 5 ML UDC PO PRN (19:45)
[2017-06-18 19:48] VITALS: BP 158/70
[2017-06-18] MEDS: IBUPROFEN 600 MG (MOTRIN) TAB PO PRN (20:23)
[2017-06-19] VITALS: BP 126/57
[2017-06-19] MEDS: NYSTATIN ORAL SUSP 5 ML UDC PO SCH ×2 (00:07→05:35)
[2017-06-19 04:00] VITALS: BP 120/58
[2017-06-19] MEDS: CATHETER FLUSH 10 ML SYR IV SCH (05:35)
[2017-06-19] MEDS: metFORMIN 500 MG (GLUCOPHAGE) TAB PO SCH (05:35)
[2017-06-19] MEDS: PANTOPRAZOLE 40 MG (PROTONIX) TAB PO SCH (05:35)
[2017-06-19 05:39] LABS: BASOPHILS % (AUTO) 0 % (0-10); EOSINOPHILS % (AUTO) 0 % (0-10); LYMPHOCYTES # (AUTO) 1.7 X 10^3 (1.0-4.0); LYMPHOCYTES % (AUTO) 28 % (12-44); MEAN CORPUSCULAR HEMOGLOBIN 34 PG (25-34); MEAN CORPUSCULAR HGB CONC 33 G/DL (32-36); MEAN CORPUSCULAR VOLUME 101 FL (80-99); MEAN PLATELET VOLUME 9.2 FL (7.4-10.4); MONOCYTES # (AUTO) 3.6 X 10^3 (0.0-1.0); MONOCYTES % (AUTO) 60 % (0-12); NEUTROPHILS # (AUTO) 0.7 X 10^3 (1.8-7.8); NEUTROPHILS % (AUTO) 12 % (42-75); PLATELET COUNT 81 10^3/uL (130-400); RED BLOOD COUNT 2.14 10^6/uL (4.35-5.85); RED CELL DISTRIBUTION WIDTH 15.3 % (10.0-14.5); WHITE BLOOD COUNT 6.1 10^3/uL (4.3-11.0)
[2017-06-19] MEDS: inSUlin (REGULAR) HUMAN 1 UNIT/0.01 ML (CHARGE PER UNIT) SC SCH (05:39)
[2017-06-19 06:02] LABS: CALCIUM 9.6 MG/DL (8.5-10.1); CREATININE SERUM 1.9 MG/DL (0.60-1.30); POTASSIUM 3.4 MMOL/L (3.6-5.0)
[2017-06-19] MEDS ORDERED: ACETAMINOPHEN 500 MG TAB (TYLENOL) PO NR (08:00)
[2017-06-19] MEDS ORDERED: NS IV 500 ML 500 ML IV SCH (08:15)
[2017-06-19] MEDS: RT-ALBUTEROL/IPRATROPIUM 3 ML (DUONEB) VIAL INH SCH (08:15)
[2017-06-19] MEDS ORDERED: [UNRECOGNIZED DRUG - OTHER] IV SCH (08:15)
[2017-06-19] MEDS ORDERED: ONDANSETRON IV SCH (08:15)
[2017-06-19] MEDS ORDERED: DECITABINE 40 MG in NS (IVPB) CANCER CENTER 50 ML IV SCH (08:15)
[2017-06-19] MEDS ORDERED: DEXAMETHASONE IV SCH (08:15)
[2017-06-19] MEDS ORDERED: NS IV 500 ML (CANCER CENTER) 500 ML IV SCH (08:30)
[2017-06-20] MEDS ORDERED: LACTATED RINGERS 1,000 ML IV PRN (08:15)
[2017-06-20] MEDS ORDERED: fentaNYL INJECTION 100 MCG/2 ML AMP IVP PRN (09:30)
[2017-06-20] MEDS ORDERED: ONDANSETRON 4 MG/2 ML (SDV) Z0FRAN IVP PRN (09:30)
--- NOTE | 2017-07-09 14:17 | Discharge Summary-Hospitalist ---
Diagnosis/Chief Complaint Date of Admission Jun 16, 2017 at 13:10 Date of Discharge Jun 19, 2017 at 08:26 Discharge Date: Jun 19, 2017 Admission Diagnosis AML. 2.previous history of coronary artery disease. 3.hypertension. 4.diabetes mellitus type II Discharge Diagnosis Acute myelogenous leukemia. 2.previous history of coronary artery disease with intervention. 3.hypertension. 4.diabetes mellitus type II. 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 He had been referred from [place] to the hospitalist service with acute myelogenous leukemia. His course had probably begun some 4-6 months prior with a general decline in energy and physical capability. He had apparently gotten a tick bite on a thigh several months prior to this. He described the healing as slow and then 2 additional nodules developed in the area of the bite. These were at first thought to be cellulitis and abscess formation. Biopsies and attempted drainage were made at [place] several weeks ago. Very little pus had been obtained. It was noted that he had a considerable decline in hemoglobin and also a low normal white count. Ultimately a bone marrow biopsy was performed and his physician in [place] had received a phone notification that the preliminary diagnosis was to be acute myelogenous leukemia. He was referred here in order that he might see Dr. Sanderson. He saw Dr. Sanderson in consultation and ultimately confirmation of the AML was forwarded to us. Given his status Dr. Sanderson felt that he was not an appropriate candidate for attempt at remission. He elected to offer a palliative program which the patient and family thought to be reasonable. He was transferred to swing bed status to initiate this process. Discharge Home Medications: Active Scripts Active Reported Omeprazole 20 Mg Capsule.dr 20 Mg PO DAILY PRN Metformin HCl 1,000 Mg Tablet 1,000 Mg PO BID WITH MEALS Fenofibrate (Fenofibrate,Micronized) 130 Mg Capsule 135 Mg PO 1200 [place]-3 Acid Ethyl Esters 1 Gm Capsule 1 Gm PO HS Ramipril 10 Mg Capsule 10 Mg PO DAILY Telmisartan 80 Mg Tablet 80 Mg PO DAILY Stress Formula Vit-Zinc Tab (Multivits,Stress Formula/Zinc) 1 Each Tablet 1 Tab PO DAILY Vitamin B12 (Cyanocobalamin) 1,000 Mcg Tablet.sa 1,000 Mcg PO DAILY Ecotrin (Aspirin) 81 Mg Tablet.dr 81 Mg PO MOWEFR Coreg Cr (Carvedilol Phosphate) 80 Mg Cpmp.24hr 80 Mg PO DAILY Zetia (Ezetimibe) 10 Mg Tablet 10 Mg PO HS Amlodipine Besylate 5 Mg Tablet 5 Mg PO BID Instructions to patient/family Please see electonic discharge instructions given to patient. Clinical Quality Measures DVT/VTE Risk/Contraindication: Risk Factor Score Per Nursin RFS Level Per Nursing on Admit: 4+=Very High ELVIA MARCOS MD Jul 09, 2017 14:17
== END 2017-06-19 08:26 | disposition swing bed (61) | DRG 836 ==
LOC: 4TH 13:10
PROVIDERS: ADMIT Internal Medicine; ATTEND Internal Medicine
DX: C92.00 Acute myeloblastic leukemia, not having achieved remission (principal); I25.10 Atherosclerotic heart disease of native coronary artery without angina pectoris; I48.0 Paroxysmal atrial fibrillation; I10 Essential (primary) hypertension; E11.9 Type 2 diabetes mellitus without complications; K21.9 Gastro-esophageal reflux disease without esophagitis; K44.9 Diaphragmatic hernia without obstruction or gangrene; Z66 Do not resuscitate; L30.9 Dermatitis, unspecified; Z95.5 Presence of coronary angioplasty implant and graft
CPT/HCPCS: 36415; 71010; 80048; 80053; 82962; 83615; 84550; 85007; 85025; 85027; 85610; 85730; 93005; 94640; 94664; 94760

== ENCOUNTER 2017-06-19 08:32 | Inpatient (IN) | payer MEDICARE ==
[~2017-06-19] VITALS: Ht 180.3 cm; Wt 91.7 kg
[~2017-06-19 08:32] MED LIST changes: +ACETAMINOPHEN 500 MG TAB (TYLENOL) PO NR; +DIAZEPAM 5 MG (VALIUM) TABLET PO PRN; +FENO130C5 PO; +IBUPROFEN 600 MG (MOTRIN) TAB PO PRN; +METF1000 PO; +NITROGLYCERIN SUBLINGUAL 0.4 MG TAB (NITROSTAT) SL PRN; +NS IV 500 ML 500 ML IV SCH; +OMEG-105 PO; +OMEP20CA12 PO; +PROMETHAZINE/ CODEINE SYRUP 5 ML UDC PO PRN; +RT-ALBUTEROL SULF 2.5 MG/3 ML PRE-MIX VIAL IH PRN; +TELM80TA5 PO; +fentaNYL INJECTION 100 MCG/2 ML AMP IVP PRN
[2017-06-19] MEDS ORDERED: NS IV 500 ML (CANCER CENTER) 0 ML ONE (08:47)
[2017-06-19] MEDS ORDERED: CATHETER FLUSH 10 ML SYR IV PRN (09:00)
[2017-06-19] MEDS ORDERED: DEXAMETHASONE IV SCH (09:15)
[2017-06-19] MEDS ORDERED: ONDANSETRON IV SCH (09:15)
[2017-06-19] MEDS ORDERED: DECITABINE 40 MG in NS (IVPB) CANCER CENTER 50 ML IV SCH (09:15)
[2017-06-19] MEDS ORDERED: NS IV 500 ML (CANCER CENTER) 500 ML IV SCH (09:15)
[2017-06-19] MEDS ORDERED: [UNRECOGNIZED DRUG - OTHER] IV SCH (09:15)
[2017-06-19] MEDS: RAMIPRIL 5 MG (ALTACE) CAP PO SCH (10:54)
[2017-06-19] MEDS: amLODIPine 5 MG (NORVASC) TAB PO SCH ×2 (10:54→21:59)
[2017-06-19] MEDS: CARVEDILOL 80 MG PO SCH (10:55)
[2017-06-19] MEDS: DAKIN'S 1/4 STRENGTH (0.125%) 473 ML BTL TOP SCH (10:55)
[2017-06-19] MEDS: CATHETER FLUSH 10 ML SYR IV SCH ×2 (11:08→22:05)
[2017-06-19] MEDS: NYSTATIN ORAL SUSP 5 ML UDC PO SCH ×3 (11:08→23:55)
[2017-06-19] MEDS: inSUlin (REGULAR) HUMAN 1 UNIT/0.01 ML (CHARGE PER UNIT) SC SCH ×3 (11:08→22:00)
[2017-06-19 11:30] VITALS: BP 140/65
[2017-06-19] MEDS: ALLOPURINOL 100 MG (ZYLOPRIM) TAB PO SCH ×2 (11:41→17:01)
[2017-06-19 11:49] VITALS: BP 130/69
[2017-06-19 13:50] VITALS: BP 147/79
[2017-06-19] MEDS ORDERED: RT-ALBUTEROL/IPRATROPIUM 3 ML (DUONEB) VIAL INH SCH (14:00)
--- NOTE | 2017-06-19 14:18 | Progress Note ---
Subjective Date Seen by Provider: Jun 19, 2017 Time Seen by Provider: 14:15 Subjective/Events-last exam Patient just transfused prbc. No new complaints. States chemo went well today. denies n/v fever sweats chills shortness of breath or chest pain. Objective Exam Vital Signs Date Time Temp Pulse Resp B/P (MAP) Pulse Ox O2 Delivery O2 Flow Rate FiO2 06/19/17 13:50 98.4 18 147/79 97 Nasal Cannula 3.00 06/19/17 11:49 98.6 89 18 130/69 96 Nasal Cannula 3.00 06/19/17 11:48 98.6 06/19/17 11:30 98.6 85 18 140/65 100 Nasal Cannula 3.00 Capillary Refill : General Appearance: No Apparent Distress HEENT: PERRL/EOMI Neck: Supple Respiratory: No Accessory Muscle Use, No Respiratory Distress Cardiovascular: Irregularly Irregular Gastrointestinal: non tender, soft, no organomegaly Extremity: Non Tender (left lower extremity s/p i and d wound clean no significant drainage) Neurologic/Psychiatric: Alert, Oriented x3, Normal Mood/Affect Skin: Warm/Dry Results Lab Laboratory Tests 06/19/17 10:52: Glucometer 228H Assessment/Plan Assessment/Plan Assessment/Plan AML, pancytopenia, s/p left lower extremity i and d at outlying facility patient to transfused for anemia plan port placement in am. daily dressing change to lower extremity LUZ HOLT DO Jun 19, 2017 14:18
--- NOTE | 2017-06-19 14:24 | Physical Therapy Evaluation ---
PT Evaluation-General Medical Diagnosis Admission Date Jun 19, 2017 at 08:32 Medical Diagnosis: acute mycloid leukemia Onset Date: Jun 16, 2017 Therapy Diagnosis Therapy Diagnosis: general debility Height/Weight Height (Feet): 5 Height (Inches): 11.00 Weight (Pounds): 202 Weight (Ounces): 1.0 Precautions Precautions/Isolations: Fall Prevention, Standard Precautions Referral Physician: Kat Reason for Referral: Evaluation/Treatment Medical History Pertinent Medical History: GERD Additional Medical History per patient report, multiple recent medical issues (refer to acute chart) Current History SWB status Reviewed History: Yes Social History Home: Single Level Current Living Status: Spouse Entry Into Home: Stairs Without Railing PT Steps Into Home: 2 Prior/Core FIM Prior Level of Function Functional [place] Measure 0=Not Assessed/NA 4=Minimal Assistance 1=Total Assistance 5=Supervision or Setup 2=Maximal Assistance 6=Modified [place] 3=Moderate Assistance 7=Complete [place] Bed Mobility: 7 Transfers (B,C,W/C) (FIM): 7 Gait: 7 Locomotion: 7 PT Evaluation-Current Subjective Patient agrees to PT. Pain Numeric Pain Scale: 0-No Pain Location: No Pain Reported Objective Patient Orientation: Normal For Age Problem Solving: Good Attachments: Oxygen, IV ROM/Strength ROM Lower Extremities bilateral LE WNL Strenght Lower Extremities bilateral LE WNL Integumentary/Posture Integumentary refer to nursing notes Bowel Incontinence: No Bladder Incontinence: No Posture WNL Neuromuscular (Tone, Coordination, Reflexes) grossly intact Sensory Vision: Functional Hearing: Functional Sensation Right Lower Extremit: Intact Sensation Left Lower Extremity: Intact Transfers Functional [place] Measure 0=Not Assessed/NA 4=Minimal Assistance 1=Total Assistance 5=Supervision or Setup 2=Maximal Assistance 6=Modified [place] 3=Moderate Assistance 7=Complete [place] Transfers (B, C, W/C) (FIM): 5 Scootin Rollin Supine to/from Sit: 5 Sit to/from Stand: 5 Sit to Lying (QC): 4 Lying to Sitting/Side of Bed(Q: 4 Sit to Stand (QC): 4 Chair/Wzb-fe-Hkrgn Xfer(QC): 4 Gait Does the Patient Walk?: Yes Mode of Locomotion: Walk Anticipated Mode of Locomotion: Walk Gait (FIM): 5 Distance (FIM): 3=150 ft Distance: 225' Walk 50 ft with 2 Turns(QC): 4 Walk 150 ft (QC): 4 Gait Level of Assist: 5 Gait Persons Needed: 1 Gait Assistive Device: FWW Comments/Gait Description assist for IV pole; safe and functional gait sequence Wheelchair Training Does the Pt Use a Wheelchair?: No Balance Sitting Static: Normal Sitting Dynamic: Normal Standing Static: Normal Standing Dynamic: Normal Treatment Patient performed ambulation and exercises SBA. Ambulate with FWW SBA x 225' with safe and functional gait sequence. bilateral LE exercises in sit 15 reps AP, LAQ. Assessment/Needs 82 y.o. male, will benefit from short term skilled PT to address functional strength and mobility to improve current LOF and to safely return to home with spouse at maximum LOF. Rehab Potential: Good PT Custodial Goals Custodial Goals PT [place] Goals Time Frame: Jul 04, 2017 Transfers (B,C,W/C) (FIM): 7 Sit to Lying (QC): 6 Lying-Sitting on Side/Bed(QC): 6 Sit to Stand (QC): 6 Rollin Chair/Lec-rz-Ohquy Xfer(QC): 6 Does the Patient Walk: Yes Gait (FIM): 6 Gait distance (FIM): 3=150 ft Walk 50ft with 2 Turns (QC): 6 Walk 150 ft (QC): 6 Gait Level of Assist: 6 Gait Assistive Device: None, FWW PT Plan Problem List Problem List: Activity Tolerance Treatment/Plan Treatment Plan: Continue Plan of Care Treatment Plan: Bed Mobility, Education, Functional Activity Mona, Functional Strength, Gait, Safety, Therapeutic Exercise, Transfers Treatment Duration: Jul 04, 2017 Frequency: 6 times per week Estimated Hrs Per Day: .5 hour per day (or PRN) Patient and/or Family Agrees t: Yes Discharge Recommendations Therapy D/C Recommendations: Home w/ Family Support, Physical Therapy Home Care Time/GCodes Time In: 1320 Time Out: 1350 Total Billed Treatment Time: 30 Total Billed Treatment 1 visit Melany 15 min FA 15 min LUCIANO BELTRE PT Jun 19, 2017 14:24
[2017-06-19] MEDS ORDERED: metFORMIN 500 MG (GLUCOPHAGE) TAB PO SCH (17:00)
[2017-06-19] MEDS ORDERED: BENZONATATE 100 MG (TESSALON) CAPSULE PO SCH ×2 (17:20→21:00)
[2017-06-19 17:34] VITALS: BP 131/69
[2017-06-19] MEDS ORDERED: BENZONATATE 100 MG (TESSALON) CAPSULE PO PRN (18:00)
--- NOTE | 2017-06-19 18:01 | Progress Note-Standard ---
Standard Progress Note Progress Notes/Assess & Plan Date Seen by Provider: Jun 19, 2017 Time Seen by Provider: 17:48 Progress/Assessment & Plan 82-year-old male with recent diagnosis of acute myeloid leukemia, transferred from [facility]. Patient is not a candidate for intensive induction therapy. He was not ready for best supportive care and hence chose less intense treatment. He started chemotherapy with Dacogen today and tolerated the first dose. He denied any nausea or vomiting. He complained of increased cough since yesterday. No temperature spikes. He complained of sore throat with increased cough. He walked with assistance today. His appetite is fair and he is eating well. Vital Sign - Last 12Hours Date Time Temp Pulse Resp B/P (MAP) Pulse Ox O2 Delivery O2 Flow Rate FiO2 06/19/17 17:34 98.5 83 30 131/69 95 Room Air 3.00 Physical examination today showed an elderly male, awake and oriented, weak- appearing, in mild distress due to paroxysmal cough. HEENT normocephalic, extraocular muscles intact, conjunctivae pale, oral mucosa moist, erythema of the posterior pharynx noted. Neck was supple with no JVD. No cervical, supraclavicular or axillary lymphadenopathy palpable. Chest was symmetrical. Lungs with slightly diminished breath sounds bilaterally without wheezes or rales. Cardiovascular exam was regular with a few missed beats. No murmurs or gallops heard. Abdomen was obese, soft, nontender with no hepatosplenomegaly or other masses palpable. Extremities showed slight edema around the ankles. Neurological examination showed no focal motor deficits. Overall motor strength 4/5. Lab: CBC was stable except for hemoglobin level of 7.1 today a.m. Impression/plan: 1. Acute myeloid leukemia, cytogenetic studies normal and FISH panel are not available. 2. Patient is not a candidate for intensive therapy and chose to proceed with less intensive treatment. Started on chemotherapy with Dacogen today and tolerated this well. 3. Increased cough of undetermined etiology, I will order a chest x-ray for tomorrow a.m. Will order Tessalon Perles 3 times a day when necessary for the cough. 4. Probable oral candidiasis. Patient is on nystatin. If not better by tomorrow, we will start on Diflucan. 5. Anemia, status post transfusion with 1 unit of PRBCs today. Recheck labs tomorrow. 6. Chronic kidney disease stage III, continue to monitor serially. 7. His overall prognosis is guarded. SINA GREEN Jun 19, 2017 6:01 pm
[2017-06-19] MEDS: POLYETHYLENE GLYCOL 17 GM (MIRALAX) PACK PO SCH (22:00)
[2017-06-19] MEDS: MICONAZOLE 2% POWDER (DESENEX AF) 90 GM TOP SCH (22:01)
[2017-06-20 05:16] LABS: BASOPHILS % (AUTO) 1 % (0-10); EOSINOPHILS % (AUTO) 0 % (0-10); LYMPHOCYTES # (AUTO) 1.1 X 10^3 (1.0-4.0); LYMPHOCYTES % (AUTO) 33 % (12-44); MEAN CORPUSCULAR HEMOGLOBIN 33 PG (25-34); MEAN CORPUSCULAR HGB CONC 33 G/DL (32-36); MEAN CORPUSCULAR VOLUME 98 FL (80-99); MEAN PLATELET VOLUME 9.8 FL (7.4-10.4); MONOCYTES # (AUTO) 1.2 X 10^3 (0.0-1.0); MONOCYTES % (AUTO) 35 % (0-12); NEUTROPHILS # (AUTO) 1.1 X 10^3 (1.8-7.8); NEUTROPHILS % (AUTO) 31 % (42-75); PLATELET COUNT 75 10^3/uL (130-400); RED BLOOD COUNT 2.38 10^6/uL (4.35-5.85); RED CELL DISTRIBUTION WIDTH 16.1 % (10.0-14.5); WHITE BLOOD COUNT 3.4 10^3/uL (4.3-11.0)
[2017-06-20] MEDS: NYSTATIN ORAL SUSP 5 ML UDC PO SCH ×4 (06:00→23:14)
[2017-06-20 06:13] VITALS: BP 138/74
[2017-06-20 06:18] LABS: ALBUMIN 2.6 GM/DL (3.2-4.5); BILIRUBIN,TOTAL 0.5 MG/DL (0.1-1.0); CALCIUM 9.1 MG/DL (8.5-10.1); CREATININE SERUM 1.94 MG/DL (0.60-1.30); MAGNESIUM 1.3 MG/DL (1.8-2.4); POTASSIUM 3.7 MMOL/L (3.6-5.0); TOTAL PROTEIN 5.2 GM/DL (6.4-8.2); URIC ACID 7.2 MG/DL (2.6-7.2)
[2017-06-20] MEDS: inSUlin (REGULAR) HUMAN 1 UNIT/0.01 ML (CHARGE PER UNIT) SC SCH ×4 (06:20→20:56)
--- NOTE | 2017-06-20 06:22 | Diagnostic Imaging Report ---
EXAM: CHEST 1 VIEW, AP/PA ONLY INDICATION: Cough. Shortness of air. COMPARISON: Chest radiograph 06/16/2017. FINDINGS: Persistent low lung volumes. The airspace opacities throughout left lung have progressed. Persistent airspace opacities in the mid right lung. Stable small right pleural effusion. No pneumothorax. No acute osseous findings. IMPRESSION: Interval progression of the airspace opacities throughout the left lung. Dictated by: Dictated on workstation # [id number]
[2017-06-20] MEDS: CATHETER FLUSH 10 ML SYR IV SCH ×3 (06:23→21:00)
[2017-06-20] MEDS ORDERED: BUPIVACAINE 0.5% 30 ML (SENSORCAINE) VIAL ONE (07:12)
[2017-06-20] MEDS ORDERED: HEParin (CENTRAL IV FLUSH) 500 UNIT/5 ML SYR ONE (07:13)
[2017-06-20] MEDS ORDERED: 0.9% SODIUM CHLORIDE PF INJ 20 ML VIAL ONE (07:13)
[2017-06-20] MEDS ORDERED: LIDOCAINE 1% INJ 20 ML (XYLOCAINE) VIAL ONE (07:13)
--- NOTE | 2017-06-20 08:16 | Progress Note-Pre Operative ---
Pre-Operative Progress Note H&P Reviewed The H&P was reviewed, patient examined and no changes noted. Date Seen by Provider: Jun 20, 2017 Time Seen by Provider: 08:16 Date H&P Reviewed: Jun 20, 2017 Time H&P Reviewed: 08:16 Pre-Operative Diagnosis: AML LUZ HOLT DO Jun 20, 2017 08:16
[2017-06-20] MEDS ORDERED: fentaNYL INJECTION 100 MCG/2 ML AMP ONE (08:32)
[2017-06-20] MEDS ORDERED: LIDOCAINE PF 2% 5 ML (XYLOCAINE) VIAL ONE (08:32)
[2017-06-20] MEDS ORDERED: proPOfol 200 MG/20 ML (DIPRIVAN) VIAL IV ONE (08:32)
[2017-06-20] MEDS ORDERED: ceFAZolin 1,000 MG (ANCEF) VIAL ONE (08:33)
[2017-06-20] MEDS ORDERED: MIDAZOLAM 2 MG/2 ML (VERSED) VIAL ONE (08:53)
[2017-06-20] MEDS ORDERED: ASPIRIN E.C. 81 MG (ECOTRIN) TAB PO SCH (09:00)
[2017-06-20] MEDS ORDERED: ONDANSETRON 4 MG/2 ML (SDV) Z0FRAN ONE (09:09)
[2017-06-20] MEDS ORDERED: LACTATED RINGERS 1,000 ML IV ONE (09:09)
--- NOTE | 2017-06-20 09:21 | Diagnostic Imaging Report ---
EXAMINATION: Intraoperative radiograph of the chest. INDICATION: Port placement by Dr. Garrison. FLUOROSCOPY TIME: 28 seconds. IMPRESSION: The provided image demonstrates a right internal jugular port with the tip at the cavoatrial junction. Dictated by: Dictated on workstation # [id number]
--- NOTE | 2017-06-20 09:26 | Progress Note-Post Operative ---
Post-Operative Progess Note Surgeon (s)/Zigzag Topstitcher (s) Surgeon LUZ HOLT DO Zigzag Topstitcher: NA Pre-Operative Diagnosis AML Post-Operative Diagnosis SAME Procedure & Operative Findings Date of Procedure 06/20/17 Procedure Performed/Findings PORT PLACEMENT USING U/S GUIDANCE RIGHT IJ VEIN Anesthesia Type MAC Estimated Blood Loss Estimated blood loss (mL): MINIMAL Specimens/Packing Specimens Removed NONE LUZ HOLT DO Jun 20, 2017 09:26
[2017-06-20] MEDS: PANTOPRAZOLE 40 MG (PROTONIX) TAB PO SCH (09:44)
[2017-06-20] MEDS: amLODIPine 5 MG (NORVASC) TAB PO SCH ×2 (10:13→20:55)
[2017-06-20] MEDS: RAMIPRIL 5 MG (ALTACE) CAP PO SCH (10:13)
[2017-06-20] MEDS: MICONAZOLE 2% POWDER (DESENEX AF) 90 GM TOP SCH ×2 (10:14→20:56)
[2017-06-20] MEDS: CARVEDILOL 80 MG PO SCH (10:15)
[2017-06-20] MEDS: ALLOPURINOL 100 MG (ZYLOPRIM) TAB PO SCH (10:17)
--- NOTE | 2017-06-20 10:24 | Diagnostic Imaging Report ---
EXAMINATION: Portable upright radiograph of the chest. INDICATION: Port placement. FINDINGS: There is a right IJ infusion port placed with the tip at the distal SVC level. There is bilateral mixed air space and predominantly interstitial infiltrates, worse on the left side. The heart size is mildly enlarged. No effusion or pneumothorax. The mediastinum and minerva appear unremarkable. IMPRESSION: Stable bilateral infiltrates, more on the left side, with interstitial and less prominent airspace components. Dictated by: Dictated on workstation # [id number]
--- NOTE | 2017-06-20 11:58 | Physical Therapy Daily Note ---
PT Daily Note-Current Subjective Pt. states he is a little sleepy/tired. Comments on having a port placement earlier and then chemo, willing to walk and exercise then wants to sit up Pain Numeric Pain Scale: 0-No Pain Appearance slurring speech a little, Mental Status Patient Orientation: Normal For Age Transfers Functional [place] Measure 0=Not Assessed/NA 4=Minimal Assistance 1=Total Assistance 5=Supervision or Setup 2=Maximal Assistance 6=Modified [place] 3=Moderate Assistance 7=Complete IndependenceIRFPAI Quality Coding Scale 6 Independent with activity with or without an assistive device 5 Patient requires set up or clean up by helper. Patient completes activity by themselves 4 Supervision or touching assist (CGA). [place] provide cues , steadying assist 3 The helper provides less than half the effort to complete the activity 2 The helper provides more than half the effort to complete the activity 1 Dependent. The helper does all the effort to complete an activity 7 Patient refused to complete or attempt activity 9 The patient did not perform the activity before the current illness or injury 88 Not attempted due to Medical conditions or safety concerns Transfers (B, C, W/C) (FIM): 5 All TRFs sup to sit and sit to stand SBA Gait Training Gait (FIM): 5 Distance (FIM): 3=150 ft (250) Gait Assistive Device: FWW heavy wt bearing on FWW, flexed at trunk, assist for O2 and cues for heel strike , lazy gait Exercises Seated Therapy Exercises: Ankle pumps, Sit to stand, Long arc quads, Hip flexion Seated Reps: 10 Assessment Current Status: Good Progress PT Halfway Goals Ladler Goals PT Halfway Goals Time Frame: Jul 04, 2017 Transfers (B,C,W/C) (FIM): 7 Gait (FIM): 6 Gait distance (FIM): 3=150 ft Gait Level of Assist: 6 Gait Assistive Device: None, FWW PT Plan Treatment/Plan Treatment Plan: Continue Plan of Care Treatment Plan: Bed Mobility, Education, Functional Activity Mona, Functional Strength, Gait, Safety, Therapeutic Exercise, Transfers Treatment Duration: Jul 04, 2017 Frequency: 6 times per week Estimated Hrs Per Day: .5 hour per day (or PRN) Patient and/or Family Agrees t: Yes Safety Risks/Education Patient Education: Gait Training, Transfer Techniques Teaching Recipient: Patient Teaching Methods: Demonstration, Discussion Response to Teaching: Verbalize Understanding, Return Demonstration, Reinforcement Needed Time/GCodes Time In: 1135 Time Out: 1155 Total Billed Treatment Time: 20 Total Billed Treatment 1,GT20m G Codes Necessary: NIK Garcia FILAMENT TESTER Jun 20, 2017 11:58
[2017-06-20] MEDS: DAKIN'S 1/4 STRENGTH (0.125%) 473 ML BTL TOP SCH (12:13)
--- NOTE | 2017-06-20 17:04 | Progress Note-Standard ---
Standard Progress Note Progress Notes/Assess & Plan Date Seen by Provider: Jun 20, 2017 Time Seen by Provider: 16:57 Progress/Assessment & Plan 82-year-old male with recent diagnosis of acute myeloid leukemia, transferred from [facility]. Patient is not a candidate for intensive induction therapy. He was not ready for best supportive care and hence chose less intense treatment. He is on chemotherapy with Dacogen and has completed D # 2 and is tolerating well. He denied any nausea or vomiting. Cough is better today and he was able to sleep well last night. No temperature spikes. He walked with assistance today. His appetite is fair and he is eating well. Vital Sign - Last 12Hours Date Time Temp Pulse Resp B/P (MAP) Pulse Ox O2 Delivery O2 Flow Rate FiO2 06/20/17 08:00 97 Nasal Cannula 3.00 06/20/17 07:17 59 06/20/17 06:13 97.0 20 138/74 Physical examination today showed an elderly male, awake and oriented, weak- appearing, resting in chair. HEENT normocephalic, extraocular muscles intact, conjunctivae pale, oral mucosa moist without lesions. Neck was supple with no JVD. No cervical, supraclavicular or axillary lymphadenopathy palpable. Chest exam showed a port. Lungs with slightly diminished breath sounds bilaterally without wheezes or rales. Cardiovascular exam was regular with a few missed beats. No murmurs or gallops heard. Abdomen was obese, soft, nontender with no hepatosplenomegaly or other masses palpable. Extremities showed slight edema around the ankles. Neurological examination showed no focal motor deficits. Overall motor strength 4/5. Laboratory Tests 06/20/17 04:42 Impression/plan: 1. Acute myeloid leukemia, cytogenetic studies normal and FISH panel are not available. 2. Patient is not a candidate for intensive therapy and chose to proceed with less intensive treatment. Started on chemotherapy with Dacogen D # 2 today and tolerated this well. 3. Paroxysmal cough of undetermined etiology, better with Tessalon perles. 4. Probable oral candidiasis. Patient is on nystatin. Improving. 5. Anemia, status post transfusion with 1 unit of PRBC on 06/19. Recheck labs tomorrow. 6. Chronic kidney disease stage III, continue to monitor serially. 7. His overall prognosis is guarded. SINA GREEN Jun 20, 2017 17:04
[2017-06-20 18:00] VITALS: BP 140/66
[2017-06-20] MEDS: POLYETHYLENE GLYCOL 17 GM (MIRALAX) PACK PO SCH (20:55)
[2017-06-21 05:16] LABS: BASOPHILS % (AUTO) 1 % (0-10); EOSINOPHILS % (AUTO) 0 % (0-10); LYMPHOCYTES % (AUTO) 26 % (12-44); MEAN CORPUSCULAR HEMOGLOBIN 33 PG (25-34); MEAN CORPUSCULAR HGB CONC 34 G/DL (32-36); MEAN CORPUSCULAR VOLUME 98 FL (80-99); MEAN PLATELET VOLUME 9.8 FL (7.4-10.4); MONOCYTES # (AUTO) 1.2 X 10^3 (0.0-1.0); MONOCYTES % (AUTO) 34 % (0-12); NEUTROPHILS # (AUTO) 1.4 X 10^3 (1.8-7.8); NEUTROPHILS % (AUTO) 39 % (42-75); PLATELET COUNT 71 10^3/uL (130-400); RED BLOOD COUNT 2.38 10^6/uL (4.35-5.85); RED CELL DISTRIBUTION WIDTH 15.8 % (10.0-14.5); WHITE BLOOD COUNT 3.6 10^3/uL (4.3-11.0)
[2017-06-21 05:44] LABS: CALCIUM 9.6 MG/DL (8.5-10.1); CREATININE SERUM 1.91 MG/DL (0.60-1.30); POTASSIUM 3.8 MMOL/L (3.6-5.0)
[2017-06-21] MEDS: CATHETER FLUSH 10 ML SYR IV SCH ×3 (06:40→21:56)
[2017-06-21] MEDS: NYSTATIN ORAL SUSP 5 ML UDC PO SCH ×3 (06:40→17:27)
[2017-06-21] MEDS: inSUlin (REGULAR) HUMAN 1 UNIT/0.01 ML (CHARGE PER UNIT) SC SCH (06:40)
[2017-06-21] MEDS: PANTOPRAZOLE 40 MG (PROTONIX) TAB PO SCH (06:40)
[2017-06-21 07:06] VITALS: BP 136/72
[2017-06-21 07:07] VITALS: BP 133/70
[2017-06-21] MEDS: amLODIPine 5 MG (NORVASC) TAB PO SCH ×2 (10:06→21:43)
[2017-06-21] MEDS: CARVEDILOL 80 MG PO SCH (10:07)
[2017-06-21] MEDS: ALLOPURINOL 100 MG (ZYLOPRIM) TAB PO SCH (10:07)
[2017-06-21] MEDS: RAMIPRIL 5 MG (ALTACE) CAP PO SCH (10:07)
[2017-06-21] MEDS: MICONAZOLE 2% POWDER (DESENEX AF) 90 GM TOP SCH ×2 (10:07→21:46)
[2017-06-21] MEDS: DAKIN'S 1/4 STRENGTH (0.125%) 473 ML BTL TOP SCH (10:07)
[2017-06-21] MEDS: RT-ALBUTEROL/IPRATROPIUM 3 ML (DUONEB) VIAL INH PRN ×2 (11:01→19:33)
--- NOTE | 2017-06-21 11:31 | Progress Note-Standard ---
Standard Progress Note Progress Notes/Assess & Plan Date Seen by Provider: Jun 21, 2017 Time Seen by Provider: 11:25 Progress/Assessment & Plan 82-year-old male with recent diagnosis of acute myeloid leukemia, transferred from [facility]. Patient is not a candidate for intensive induction therapy. He was not ready for best supportive care and hence chose less intense treatment. He is on chemotherapy with Dacogen and has completed D # 2 and is tolerating well. He denied any nausea or vomiting. Still having paroxysmal cough but is able to sleep well last night. Patient is still complaining of sore throat but no difficulty swallowing. No temperature spikes. He is ambulating with physical therapy and feels stronger. His appetite is fair and he is eating well. He denied any diarrhea or constipation. Vital Sign - Last 12Hours Date Time Temp Pulse Resp B/P (MAP) Pulse Ox O2 Delivery O2 Flow Rate FiO2 06/21/17 11:01 98 Nasal Cannula 3.00 06/21/17 07:07 96.9 75 18 133/70 Physical examination today showed an elderly male, awake and oriented, weak- appearing, resting in chair. HEENT normocephalic, extraocular muscles intact, conjunctivae pale, oral mucosa moist with a few whitish lesions. Neck was supple with no JVD. No cervical, supraclavicular or axillary lymphadenopathy palpable. Chest exam showed a port. Lungs with slightly diminished breath sounds bilaterally without wheezes or rales. Cardiovascular exam was regular in rate and rhythm. No murmurs or gallops heard. Abdomen was obese, soft, nontender with no hepatosplenomegaly or other masses palpable. Extremities showed slight edema around the ankles. Neurological examination showed no focal motor deficits. Overall motor strength 4/5. Laboratory Tests 06/21/17 04:54 Impression/plan: 1. Acute myeloid leukemia, cytogenetic studies normal and FISH panel not available. 2. Patient is not a candidate for intensive therapy and chose to proceed with less intensive treatment. Started on chemotherapy with Dacogen and is tolerating this well. 3. Paroxysmal cough of undetermined etiology, on Tessalon pearles . 4. Probable oral candidiasis. Patient is on nystatin. Will add Diflucan daily. 5. Anemia, status post transfusion with 1 unit of PRBC on 06/19. Recheck labs tomorrow. 6. Chronic kidney disease stage III, stable today. Continue to monitor serially. 7. His overall prognosis is guarded. SINA GREEN Jun 21, 2017 11:31
[2017-06-21] MEDS ORDERED: inSUlin DETERMIR 1 UNIT/0.01 ML (LEVEMIR) CHARGE PER UNIT SQ ONE (12:15)
[2017-06-21] MEDS ORDERED: inSUlin ASPART (NovoLOG) 1 UNIT/0.01 ML (CHARGE PER UNIT) ONE (12:23)
[2017-06-21] MEDS: inSUlin ASPART (NovoLOG) 1 UNIT/0.01 ML (CHARGE PER UNIT) SC SCH ×3 (12:31→21:44)
--- NOTE | 2017-06-21 12:59 | Physical Therapy Daily Note ---
PT Daily Note-Current Subjective pt. and family present. Pt unavailable x2 as he was in shower and then had lal come to his room. Pt.agreeable to gait but tired on 3rd attempt Pain Numeric Pain Scale: 0-No Pain Appearance looks fatigued Mental Status Patient Orientation: Normal For Age Attachments: Oxygen Transfers Functional [place] Measure 0=Not Assessed/NA 4=Minimal Assistance 1=Total Assistance 5=Supervision or Setup 2=Maximal Assistance 6=Modified [place] 3=Moderate Assistance 7=Complete IndependenceIRFPAI Quality Coding Scale 6 Independent with activity with or without an assistive device 5 Patient requires set up or clean up by helper. Patient completes activity by themselves 4 Supervision or touching assist (CGA). [place] provide cues , steadying assist 3 The helper provides less than half the effort to complete the activity 2 The helper provides more than half the effort to complete the activity 1 Dependent. The helper does all the effort to complete an activity 7 Patient refused to complete or attempt activity 9 The patient did not perform the activity before the current illness or injury 88 Not attempted due to Medical conditions or safety concerns Transfers (B, C, W/C) (FIM): 6 bed and chair, mod I Gait Training Gait (FIM): 5 Distance (FIM): 3=150 ft (250) Gait Assistive Device: FWW slow, CGA to SBA, fatigues with min SOB, no LOB Exercises Seated Therapy Exercises: Ankle pumps, Sit to stand, Long arc quads Seated Reps: 6 Assessment Current Status: Good Progress fatigued with Rx PT Snf Goals Snf Goals PT Senior Business Objects Developer Goals Time Frame: Jul 04, 2017 Transfers (B,C,W/C) (FIM): 7 Gait (FIM): 6 Gait distance (FIM): 3=150 ft Gait Level of Assist: 6 Gait Assistive Device: None, FWW PT Plan Treatment/Plan Treatment Plan: Continue Plan of Care Treatment Plan: Bed Mobility, Education, Functional Activity Mona, Functional Strength, Gait, Safety, Therapeutic Exercise, Transfers Treatment Duration: Jul 04, 2017 Frequency: 6 times per week Estimated Hrs Per Day: .5 hour per day (or PRN) Patient and/or Family Agrees t: Yes Safety Risks/Education Patient Education: Gait Training, Transfer Techniques, Correct Positioning, Disease Process, Safety Issues Teaching Recipient: Patient Teaching Methods: Demonstration, Discussion Response to Teaching: Verbalize Understanding, Return Demonstration, Reinforcement Needed Time/GCodes Time In: 1205 Time Out: 1220 Total Billed Treatment Time: 15 Total Billed Treatment 1,GT15m G Codes Necessary: NIK Garcia RIPENING ROOM OPERATOR Jun 21, 2017 12:59
--- NOTE | 2017-06-21 14:01 | Anesthesia-General Post-Op ---
General Patient Condition Mental Status/LOC: Same as Preop Cardiovascular: Satisfactory Nausea/Vomiting: Absent Respiratory: Satisfactory Pain: Controlled Complications: Absent Post Op Complications Complications None Follow Up Care/Instructions Patient Instructions None needed. Anesthesia/Patient Condition Patient Condition Patient is doing well, no complaints, stable vital signs, no apparent adverse anesthesia problems. No complications reported per nursing. RENATA KRAUSE CRNA Jun 21, 2017 14:01
[2017-06-21 18:30] VITALS: BP 135/73
[2017-06-21] MEDS ORDERED: inSUlin DETERMIR 1 UNIT/0.01 ML (LEVEMIR) CHARGE PER UNIT SQ SCH (21:00)
[2017-06-21 21:30] VITALS: BP 124/62
[2017-06-21] MEDS: POLYETHYLENE GLYCOL 17 GM (MIRALAX) PACK PO SCH (21:43)
[2017-06-21] MEDS ORDERED: ASPIRIN E.C. 81 MG (ECOTRIN) TAB PO ONE (22:15)
[2017-06-22] MEDS ORDERED: fluCOnazole (DIFLUCAN) 100 MG TAB PO SCH (09:00)
--- NOTE | 2017-06-22 10:51 | Progress Note-Standard ---
Standard Progress Note Progress Notes/Assess & Plan Date Seen by Provider: Jun 22, 2017 Time Seen by Provider: 10:40 Progress/Assessment & Plan 82-year-old male with recent diagnosis of acute myeloid leukemia, transferred from [facility]. Patient is not a candidate for intensive induction therapy. He was not ready for best supportive care and hence chose less intense treatment. He is on chemotherapy with Dacogen and has completed D # 2 and is tolerating well. He denied any nausea or vomiting. patient developed chest pain last evening and the troponin was elevated slightly. Chest pain resolved with one nitroglycerin. Patient was evaluated by Dr. Abreu and moved to ICU. He was started on heparin drip and baby aspirin. It was decided to transfuse him with PRBCs because of the anemia and non-ST CT. Had extensive discussion with the patient and family by me and Dr. Abreu about further options. Patient is comfortable with the medical management of coronary artery disease and continuing treatment for the AML. He will be on long-acting nitrates and baby aspirin as well as readjusting cardiac medications. I will try to maintain his hemoglobin level closer to 10 g/dL with transfusions as needed. I will plan on continuing chemotherapy with Dacogen restarting tomorrow. Answered all of patient's and his family's questions and they were agreeable with this plan. Vital Sign - Last 12Hours Date Time Temp Pulse Resp B/P (MAP) Pulse Ox O2 Delivery O2 Flow Rate FiO2 06/21/17 22:00 Nasal Cannula 3.00 06/21/17 21:30 100.0 77 20 124/62 95 Physical examination today showed an elderly male, awake and oriented, weak- appearing, resting in chair. HEENT normocephalic, extraocular muscles intact, conjunctivae pale, oral mucosa moist. Neck was supple with no JVD. No cervical, supraclavicular or axillary lymphadenopathy palpable. Chest exam showed a port. Lungs with slightly diminished breath sounds bilaterally without wheezes or rales. Cardiovascular exam was regular with occasional missed beats. No murmurs or gallops heard. Abdomen was obese, soft, nontender with no hepatosplenomegaly or other masses palpable. Extremities showed slight edema around the ankles. Neurological examination showed no focal motor deficits. Overall motor strength 4/5. Laboratory Tests 06/21/17 11:12: Glucometer 299H 06/21/17 16:08: Glucometer 204H 06/21/17 20:28: Troponin I 3.59*H 06/21/17 20:43: Glucometer 237H 06/22/17 08:00: Troponin I 3.45*H Microbiology 06/20/17 MRSA Screen - Final, Complete MRSA not isolated Impression/plan: 1. Acute myeloid leukemia, cytogenetic studies normal and FISH panel not available. 2. Patient is not a candidate for intensive therapy and chose to proceed with less intensive treatment. Started on chemotherapy with Dacogen and is tolerating this well. 3. CAD with acute NSTEMI last evening. Discussion as mentioned above. On heparin and baby aspirin. Optimize medical management. If any further symptoms , reevaluate. 4. Anemia and CAD with non-STEMI, we will try to maintain hemoglobin close to 10 g/dL with transfusions as needed. 5. Chronic kidney disease stage III, continue to monitor serially. 6. His overall prognosis is guarded. SINA GREEN Jun 22, 2017 10:51
--- NOTE | 2017-06-23 00:45 | OPERATIVE REPORT ---
PROCEDURE PHYSICIAN: LUZ HOLT DATE OF PROCEDURE: 06/20/2017 PREOPERATIVE DIAGNOSIS: AML. POSTOPERATIVE DIAGNOSIS: AML. PROCEDURE: Port placement using ultrasound guidance, right internal jugular vein. SURGEON: Bladimir. ANESTHESIA: MAC. ESTIMATED BLOOD LOSS: Minimal. COMPLICATIONS: None. INDICATIONS: This is an 82-year-old male with recent diagnosis of AML. He is having chemotherapy and has been requested that a port be placed. He understands the risks and benefits and wishes to proceed with the procedure. Consent was signed on the chart. PROCEDURE: The patient was taken to the operating suite. He was prepped and draped in sterile fashion. A surgical pause was performed. Ultrasound was used to locate the right internal jugular vein. Local anesthetic was infiltrated in the area. The right internal jugular vein was accessed using a micro-access needle and dark nonpulsatile blood was withdrawn. The micro-access wire was inserted and fluoroscopy assured proper placement. The micro-access dilator was then advanced over the wire after small stab incision was made at the insertion point and the wire was removed. The regular access wire was then inserted through the micro-access sheath and secured, fluoroscopy assured proper placement. Local anesthetic was then infiltrated from the insertion point down to the chest where a pocket was to be created. 15 blade scalpel was used to make an incision and cautery dissection was taken down to the pectoral fascia and a pocket was created for the port placement. The dilator sheath was then advanced over the guidewire under fluoroscopy. The wire and dilator were removed. The Groshong catheter was then inserted through the sheath and the sheath was then removed. The Groshong wire was removed and then the catheter was then tunneled down to the pocket that was created. The catheter was then cut to length. The port was secured in the usual fashion and placed within the pocket. The port was then accessed without difficulty. Blood was withdrawn without difficulty and then flushed with saline and then with heparin. The subcutaneous tissues were then reapproximated using 3-0 Vicryl. The skin was then closed using 4-0 Vicryl in a running subcuticular fashion. The area was then washed and dried. Mastisol and Steri-Strips were applied and sterile bandages were applied. The patient tolerated the procedure well without any complications. He was taken to the recovery room in stable condition. Chest x-ray is pending. Job ID: [id number] Dictated Date: 06/20/2017 09:31:36 Restaurant Shift Leader Date: 06/23/2017 00:31:42 / jaquelin
--- OUTSIDE RECORDS SUMMARY | 2017-06-26 02:51 | XMS REPORT | Continuity of Care Document ---
Author Author [facility] Organization [facility] Address Unknown Phone Unavailable Allergies Active Description Code Type Severity Reaction Onset Reported/Identified Relationship to Patient Clinical Status Yes saxagliptin [id number] Drug Allergy Moderate N/A 06/16/2017 Yes doxycycline [id number] Drug Allergy Unknown HIVES, ACHES 06/16/2017 Yes hydrocodone [id number] Drug Allergy Unknown N/A 06/16/2017 Yes Pentazocine Lactate [id number] Drug Allergy Unknown N/A 06/16/2017 Yes sulfamethoxazole [id number] Drug Allergy Unknown N/A 06/16/2017 Yes trimethoprim [id number] Drug Allergy Unknown N/A 06/16/2017 Yes hydrocodone [id number] Drug Allergy Unknown HALLUCINATIONS 06/23/2017 Medications Problems Date Dx Coded Attending Type Code Diagnosis Diagnosed By 06/17/2017 ELVIA MARCOS MD, Ot C92.00 ACUTE MYELOBLASTIC LEUKEMIA, NOT HAVING 06/17/2017 ELVIA MARCOS MD, Ot E11.9 TYPE 2 DIABETES MELLITUS WITHOUT COMPLIC 06/17/2017 ELVIA MARCOS MD Ot E66.01 MORBID (SEVERE) OBESITY DUE TO EXCESS CA 06/17/2017 ELVIA MARCOS MD Ot I25.10 ATHSCL HEART DISEASE OF [place] CORONARY 06/17/2017 ELVIA MARCOS MD Ot Z66 DO NOT RESUSCITATE 06/17/2017 ELVIA MARCOS MD, Ot Z68.28 BODY MASS INDEX (BMI) 28.0-28.9, ADULT 06/17/2017 ELVIA MARCOS MD Ot Z95.5 PRESENCE OF CORONARY ANGIOPLASTY IMPLANT 06/18/2017 ELVIA MARCOS MD, Ot C92.00 ACUTE MYELOBLASTIC LEUKEMIA, NOT HAVING 06/18/2017 ELVIA MARCOS MD Ot E11.9 TYPE 2 DIABETES MELLITUS WITHOUT COMPLIC 06/18/2017 ELVIA MARCOS MD Ot E66.01 MORBID (SEVERE) OBESITY DUE TO EXCESS CA 06/18/2017 ELVIA MARCOS MD Ot I25.10 ATHSCL HEART DISEASE OF [place] CORONARY 06/18/2017 ELVIA MARCOS MD Ot Z66 DO NOT RESUSCITATE 06/18/2017 ELVIA MARCOS MD Ot Z68.28 BODY MASS INDEX (BMI) 28.0-28.9, ADULT 06/18/2017 ELVIA MARCOS MD Ot Z95.5 PRESENCE OF CORONARY ANGIOPLASTY IMPLANT 06/18/2017 ELVIA MARCOS MD Ot C92.00 ACUTE MYELOBLASTIC LEUKEMIA, NOT HAVING 06/18/2017 ELVIA MARCOS MD Ot E11.9 TYPE 2 DIABETES MELLITUS WITHOUT COMPLIC 06/18/2017 ELVIA MARCOS MD Ot E66.01 MORBID (SEVERE) OBESITY DUE TO EXCESS CA 06/18/2017 ELVIA MARCOS MD Ot I25.10 ATHSCL HEART DISEASE OF [place] CORONARY 06/18/2017 ELVIA MARCOS MD Ot Z66 DO NOT RESUSCITATE 06/18/2017 ELVIA MARCOS MD Ot Z68.28 BODY MASS INDEX (BMI) 28.0-28.9, ADULT 06/18/2017 ELVIA MARCOS MD Ot Z95.5 PRESENCE OF CORONARY ANGIOPLASTY IMPLANT 06/20/2017 CONTRERAS DO ROSETTE Ot B37.0 CANDIDAL STOMATITIS 06/20/2017 BEN DO ROSETTE Ot C92.00 ACUTE MYELOBLASTIC LEUKEMIA, NOT HAVING 06/20/2017 CONTRERAS DO ROSETTE Ot E11.22 TYPE 2 DIABETES MELLITUS W DIABETIC REFRIGERATING OILER 06/20/2017 BEN DO ROSETTE Ot I12.9 HYPERTENSIVE CHRONIC KIDNEY DISEASE W ST 06/20/2017 BEN DO ROSETTE Ot I25.10 ATHSCL HEART DISEASE OF [place] CORONARY 06/20/2017 CONTRERAS DO ROSETTE Ot I48.0 PAROXYSMAL ATRIAL FIBRILLATION 06/20/2017 CONTRERAS DO ROSETTE Ot K21.9 GASTRO-ESOPHAGEAL REFLUX DISEASE WITHOUT 06/20/2017 CONTRERAS DO, ROSETTE Ot K44.9 DIAPHRAGMATIC HERNIA WITHOUT OBSTRUCTION 06/20/2017 CONTRERAS DO ROSETTE Ot L30.9 DERMATITIS, UNSPECIFIED 06/20/2017 CONTRERAS DO ROSETTE Ot N18.3 CHRONIC KIDNEY DISEASE, STAGE 3 (MODERAT 06/20/2017 CONTRERAS DO ROSETTE Ot R05 COUGH 06/20/2017 CONTRERAS DO, ROSETTE Ot Z66 DO NOT RESUSCITATE 06/20/2017 CONTRERAS DO, ROSETTE Ot Z95.5 PRESENCE OF CORONARY ANGIOPLASTY IMPLANT 06/20/2017 CONTRERAS DO, ROSETTE Ot B37.0 CANDIDAL STOMATITIS 06/20/2017 CONTRERAS DO, ROSETTE Ot C92.00 ACUTE MYELOBLASTIC LEUKEMIA, NOT HAVING 06/20/2017 CONTRERAS DO, ROSETTE Ot E11.22 TYPE 2 DIABETES MELLITUS W DIABETIC REFRIGERATING OILER 06/20/2017 CONTRERAS DO, ROSETTE Ot I12.9 HYPERTENSIVE CHRONIC KIDNEY DISEASE W ST 06/20/2017 CONTRERAS DO, ROSETTE Ot I25.10 ATHSCL HEART DISEASE OF [place] CORONARY 06/20/2017 CONTRERAS DO, ROSETTE Ot I48.0 PAROXYSMAL ATRIAL FIBRILLATION 06/20/2017 CONTRERAS DO, ROSETTE Ot K21.9 GASTRO-ESOPHAGEAL REFLUX DISEASE WITHOUT 06/20/2017 CONTRERAS DO, ROSETTE Ot K44.9 DIAPHRAGMATIC HERNIA WITHOUT OBSTRUCTION 06/20/2017 CONTRERAS DO, ROSETTE Ot L30.9 DERMATITIS, UNSPECIFIED 06/20/2017 CONTRERAS DO, ROSETTE Ot N18.3 CHRONIC KIDNEY DISEASE, STAGE 3 (MODERAT 06/20/2017 CONTRERAS DO, ORSETTE Ot R05 COUGH 06/20/2017 CONTRERAS DO, ROSETTE Ot Z66 DO NOT RESUSCITATE 06/20/2017 CONTRERAS DO, ROSETTE Ot Z95.5 PRESENCE OF CORONARY ANGIOPLASTY IMPLANT 06/20/2017 CONTRERAS DO, ROSETTE Ot B37.0 CANDIDAL STOMATITIS 06/20/2017 CONTRERAS DO, ROSETTE Ot C92.00 ACUTE MYELOBLASTIC LEUKEMIA, NOT HAVING 06/20/2017 CONTRERAS DO, ROSETTE Ot E11.22 TYPE 2 DIABETES MELLITUS W DIABETIC REFRIGERATING OILER 06/20/2017 CONTRERAS DO, ROSETTE Ot I12.9 HYPERTENSIVE CHRONIC KIDNEY DISEASE W ST 06/20/2017 CONTRERAS DO, ROSETTE Ot I25.10 ATHSCL HEART DISEASE OF [place] CORONARY 06/20/2017 CONTRERAS DO, ROSETTE Ot I48.0 PAROXYSMAL ATRIAL FIBRILLATION 06/20/2017 CONTRERAS DO, ROSETTE Ot K21.9 GASTRO-ESOPHAGEAL REFLUX DISEASE WITHOUT 06/20/2017 CONTRERAS DO, ROSETTE Ot K44.9 DIAPHRAGMATIC HERNIA WITHOUT OBSTRUCTION 06/20/2017 CONTRERAS DO, ROSETTE Ot L30.9 DERMATITIS, UNSPECIFIED 06/20/2017 CONTRERAS DO, ROSETTE Ot N18.3 CHRONIC KIDNEY DISEASE, STAGE 3 (MODERAT 06/20/2017 CONTRERAS DO, ROSETTE Ot R05 COUGH 06/20/2017 CONTRERAS DO, ROSETTE Ot Z66 DO NOT RESUSCITATE 06/20/2017 CONTRERAS DO, ROSETTE Ot Z95.5 PRESENCE OF CORONARY ANGIOPLASTY IMPLANT 06/22/2017 CONTRERAS DO, ROSETTE Ot B37.0 CANDIDAL STOMATITIS 06/22/2017 CONTRERAS DO, ROSETTE Ot C92.00 ACUTE MYELOBLASTIC LEUKEMIA, NOT HAVING 06/22/2017 CONTRERAS DO, ROSETTE Ot E11.22 TYPE 2 DIABETES MELLITUS W DIABETIC REFRIGERATING OILER 06/22/2017 CONTRERAS DO, ROSETTE Ot I12.9 HYPERTENSIVE CHRONIC KIDNEY DISEASE W ST 06/22/2017 CONTRERAS DO, ROSETTE Ot I25.10 ATHSCL HEART DISEASE OF [place] CORONARY 06/22/2017 CONTRERAS DO, ROSETTE Ot I48.0 PAROXYSMAL ATRIAL FIBRILLATION 06/22/2017 CONTRERAS DO, ROSETTE Ot K21.9 GASTRO-ESOPHAGEAL REFLUX DISEASE WITHOUT 06/22/2017 CONTRERAS DO, ROSETTE Ot K44.9 DIAPHRAGMATIC HERNIA WITHOUT OBSTRUCTION 06/22/2017 CONTRERAS DO, ROSETTE Ot L30.9 DERMATITIS, UNSPECIFIED 06/22/2017 CONTRERAS DO, ROSETTE Ot N18.3 CHRONIC KIDNEY DISEASE, STAGE 3 (MODERAT 06/22/2017 CONTRERAS DO, ROSETTE Ot R05 COUGH 06/22/2017 CONTRERAS DO, ROSETTE Ot Z66 DO NOT RESUSCITATE 06/22/2017 OCNTRERAS DO, ROSETTE Ot Z95.5 PRESENCE OF CORONARY ANGIOPLASTY IMPLANT 06/22/2017 CONTRERAS DO, ROSETTE Ot B37.0 CANDIDAL STOMATITIS 06/22/2017 CONTRERAS DO, ROSETTE Ot C92.00 ACUTE MYELOBLASTIC LEUKEMIA, NOT HAVING 06/22/2017 CONTRERAS DO, ROSETTE Ot E11.22 TYPE 2 DIABETES MELLITUS W DIABETIC REFRIGERATING OILER 06/22/2017 CONTRERAS DO, ROSETTE Ot I12.9 HYPERTENSIVE CHRONIC KIDNEY DISEASE W ST 06/22/2017 CONTRERAS DO, ROSETTE Ot I25.10 ATHSCL HEART DISEASE OF [place] CORONARY 06/22/2017 CONTRERAS DO, ROSETTE Ot I48.0 PAROXYSMAL ATRIAL FIBRILLATION 06/22/2017 CONTRERAS DO, ROSETTE Ot K21.9 GASTRO-ESOPHAGEAL REFLUX DISEASE WITHOUT 06/22/2017 CONTRERAS DO, ROSETTE Ot K44.9 DIAPHRAGMATIC HERNIA WITHOUT OBSTRUCTION 06/22/2017 BEN DO ROSETTE Ot L30.9 DERMATITIS, UNSPECIFIED 06/22/2017 BEN DO ROSETTE Ot N18.3 CHRONIC KIDNEY DISEASE, STAGE 3 (MODERAT 06/22/2017 CONTRERAS DO, ROSETTE Ot R05 COUGH 06/22/2017 BEN PAK ROSETTE Ot Z66 DO NOT RESUSCITATE 06/22/2017 [place] CONTRERAS DOI Ot Z95.5 PRESENCE OF CORONARY ANGIOPLASTY IMPLANT 06/22/2017 HOLT DO, LUZ D Ot 550.90 UNILAT INGUINAL HERNIA 06/22/2017 HOLT DO, LUZ D Ot V58.69 OTH MED,LT,CURRENT USE 06/22/2017 HOLT DO, LUZ D Ot 550.90 UNILAT INGUINAL HERNIA 06/22/2017 HOLT DO, LUZ D Ot V58.69 OTH MED,LT,CURRENT USE 06/22/2017 HOLT DO, LUZ D Ot 550.90 UNILAT INGUINAL HERNIA 06/22/2017 HOLT DO, LUZ D Ot V58.69 OTH MED,LT,CURRENT USE 06/23/2017 BEN PAK ROSETTE Ot B37.0 CANDIDAL STOMATITIS 06/23/2017 BEN PAK ROSETTE Ot C92.00 ACUTE MYELOBLASTIC LEUKEMIA, NOT HAVING 06/23/2017 BEN PAK ROSETTE Ot E11.22 TYPE 2 DIABETES MELLITUS W DIABETIC REFRIGERATING OILER 06/23/2017 BEN PAK ROSETTE Ot I12.9 HYPERTENSIVE CHRONIC KIDNEY DISEASE W ST 06/23/2017 BEN PAK ROSETTE Ot I25.10 ATHSCL HEART DISEASE OF [place] CORONARY 06/23/2017 BEN PAK ROSETTE Ot I48.0 PAROXYSMAL ATRIAL FIBRILLATION 06/23/2017 BEN DO ROSETTE Ot K21.9 GASTRO-ESOPHAGEAL REFLUX DISEASE WITHOUT 06/23/2017 BEN DO ROSETTE Ot K44.9 DIAPHRAGMATIC HERNIA WITHOUT OBSTRUCTION 06/23/2017 BEN DO ROSETTE Ot L30.9 DERMATITIS, UNSPECIFIED 06/23/2017 BEN DO ROSETTE Ot N18.3 CHRONIC KIDNEY DISEASE, STAGE 3 (MODERAT 06/23/2017 BEN DO, ROSETTE Ot R05 COUGH 06/23/2017 [place] CONTRERAS DOI Ot Z66 DO NOT RESUSCITATE 06/23/2017 ROSETTE CONTRERAS DO Ot Z95.5 PRESENCE OF CORONARY ANGIOPLASTY IMPLANT 06/23/2017 ROSETTE CONTRERAS DO Ot C92.00 ACUTE MYELOBLASTIC LEUKEMIA, NOT HAVING 06/23/2017 BEN PAK ROSETTE Ot D64.9 ANEMIA, UNSPECIFIED 06/23/2017 BEN PAK ROSETTE Ot D69.6 THROMBOCYTOPENIA, UNSPECIFIED 06/23/2017 [place] CONTRERAS DOI Ot E11.65 TYPE 2 DIABETES MELLITUS WITH HYPERGLYCE 06/23/2017 [place] CONTRERAS DOI Ot E83.42 HYPOMAGNESEMIA 06/23/2017 [place] CONTRERAS DOI Ot E87.6 HYPOKALEMIA 06/23/2017 [place] CONTRERAS DOI Ot H40.9 UNSPECIFIED GLAUCOMA 06/23/2017 [place] CONTRERAS DOI Ot H91.90 UNSPECIFIED HEARING LOSS, UNSPECIFIED EA 06/23/2017 [place] CONTRERAS DOI Ot I10 ESSENTIAL (PRIMARY) HYPERTENSION 06/23/2017 [place] CONTRERAS DOI Ot I21.4 NON-ST ELEVATION (NSTEMI) MYOCARDIAL INF 06/23/2017 [place] CONTRERAS DOI Ot I25.10 ATHSCL HEART DISEASE OF [place] CORONARY 06/23/2017 ROSETTE CONTRERAS DO Ot I48.91 UNSPECIFIED ATRIAL FIBRILLATION 06/23/2017 ROSETTE CONTRERAS DO Ot J81.1 CHRONIC PULMONARY EDEMA 06/23/2017 [place] CONTRERAS DOI Ot K21.9 GASTRO-ESOPHAGEAL REFLUX DISEASE WITHOUT 06/23/2017 [place] CONTRERAS DOI Ot K44.9 DIAPHRAGMATIC HERNIA WITHOUT OBSTRUCTION 06/23/2017 ROSETTE CONTRERAS DO Ot T45.1X5A ADVERSE EFFECT OF ANTINEOPLASTIC AND IMM 06/23/2017 [place] CONTRERAS DOI Ot Z66 DO NOT RESUSCITATE 06/23/2017 ROSETTE CONTRERAS DO Ot Z79.4 DETENTION (CURRENT) USE OF INSULIN 06/23/2017 ROSETTE CONTRERAS DO Ot Z95.1 PRESENCE OF AORTOCORONARY BYPASS GRAFT 06/23/2017 ROSETTE CONTRERAS DO Ot C92.00 ACUTE MYELOBLASTIC LEUKEMIA, NOT HAVING 06/23/2017 [place] CONTRERAS DOI Ot D64.9 ANEMIA, UNSPECIFIED 06/23/2017 [place] CONTRERAS DOI Ot D69.6 THROMBOCYTOPENIA, UNSPECIFIED 06/23/2017 ROSETTE CONTRERAS DO Ot E11.65 TYPE 2 DIABETES MELLITUS WITH HYPERGLYCE 06/23/2017 [place] CONTRERAS DOI Ot E83.42 HYPOMAGNESEMIA 06/23/2017 [place] CONTRERAS DOI Ot E87.6 HYPOKALEMIA 06/23/2017 [place] CONTRERAS DOI Ot H40.9 UNSPECIFIED GLAUCOMA 06/23/2017 [place] CONTRERAS DOI Ot H91.90 UNSPECIFIED HEARING LOSS, UNSPECIFIED EA 06/23/2017 [place] CONTRERAS DOI Ot I10 ESSENTIAL (PRIMARY) HYPERTENSION 06/23/2017 [place] CONTRERAS DOI Ot I21.4 NON-ST ELEVATION (NSTEMI) MYOCARDIAL INF 06/23/2017 [place] CONTRERAS DOI Ot I25.10 ATHSCL HEART DISEASE OF [place] CORONARY 06/23/2017 [place] CONTRERAS DOI Ot I48.91 UNSPECIFIED ATRIAL FIBRILLATION 06/23/2017 [place] CONTRERAS DOI Ot J81.1 CHRONIC PULMONARY EDEMA 06/23/2017 ROSETTE CONTRERAS DO Ot K21.9 GASTRO-ESOPHAGEAL REFLUX DISEASE WITHOUT 06/23/2017 [place] CONTRERAS DOI Ot K44.9 DIAPHRAGMATIC HERNIA WITHOUT OBSTRUCTION 06/23/2017 ROSETTE CONTERRAS DO Ot T45.1X5A ADVERSE EFFECT OF ANTINEOPLASTIC AND IMM 06/23/2017 ROSETTE CONTRERAS DO Ot Z66 DO NOT RESUSCITATE 06/23/2017 ROSETTE CONTRERAS DO Ot Z79.4 DETENTION (CURRENT) USE OF INSULIN 06/23/2017 ROSETTE CONTRERAS DO Ot Z95.1 PRESENCE OF AORTOCORONARY BYPASS GRAFT 06/24/2017 ROSETTE CONTRERAS DO Ot C92.00 ACUTE MYELOBLASTIC LEUKEMIA, NOT HAVING 06/24/2017 ROSETTE CONTRERAS DO Ot D64.9 ANEMIA, UNSPECIFIED 06/24/2017 [place] CONTRERAS DOI Ot D69.6 THROMBOCYTOPENIA, UNSPECIFIED 06/24/2017 ROSETTE CONTRERAS DO Ot E11.65 TYPE 2 DIABETES MELLITUS WITH HYPERGLYCE 06/24/2017 [place] CONTRERAS DOI Ot E83.42 HYPOMAGNESEMIA 06/24/2017 BEN PAK ROSETTE Ot E87.6 HYPOKALEMIA 06/24/2017 [place] CONTRERAS DOI Ot H40.9 UNSPECIFIED GLAUCOMA 06/24/2017 ROSETTE CONTRERAS DO Ot H91.90 UNSPECIFIED HEARING LOSS, UNSPECIFIED EA 06/24/2017 ROSETTE CONTRERAS DO Ot I10 ESSENTIAL (PRIMARY) HYPERTENSION 06/24/2017 ROSETTE CONTRERAS DO Ot I21.4 NON-ST ELEVATION (NSTEMI) MYOCARDIAL INF 06/24/2017 ROSETTE CONTRERAS DO Ot I25.10 ATHSCL HEART DISEASE OF [place] CORONARY 06/24/2017 ROSETTE CONTRERAS DO Ot I48.91 UNSPECIFIED ATRIAL FIBRILLATION 06/24/2017 ROSETTE CONTRERAS DO Ot J81.1 CHRONIC PULMONARY EDEMA 06/24/2017 ROSETTE CONTRERAS DO Ot K21.9 GASTRO-ESOPHAGEAL REFLUX DISEASE WITHOUT 06/24/2017 [place] CONTRERAS DOI Ot K44.9 DIAPHRAGMATIC HERNIA WITHOUT OBSTRUCTION 06/24/2017 ROSETTE CONTRERAS DO Ot T45.1X5A ADVERSE EFFECT OF ANTINEOPLASTIC AND IMM 06/24/2017 ROSETTE CONTRERAS DO Ot Z66 DO NOT RESUSCITATE 06/24/2017 ROSETTE CONTRERAS DO Ot Z79.4 DETENTION (CURRENT) USE OF INSULIN 06/24/2017 ROSETTE CONTRERAS DO Ot Z95.1 PRESENCE OF AORTOCORONARY BYPASS GRAFT Procedures Encounters ACCT No. Visit Date/Time Discharge Status Pt. Type Provider Facility Loc./Unit Complaint [id number] 06/21/2017 22:50:00 2016 11:39:00 DIS Inpatient ROSETTE CONTRERAS DO Via [address] A-FIB, CP [id number] 06/19/2017 08:32:00 2016 22:49:00 DIS Inpatient ROSETTE CONTRERAS DO [facility] 4TH SWB-AML [id number] 06/16/2017 13:10:00 2016 08:26:00 DIS Inpatient ELVIA MARCOS MD Via [address] AML [id number] 12/30/2013 08:04:00 2013 08:04:00 [facility] [id number] 12/23/2013 12:06:00 2013 23:59:59 CLS Outpatient [id number] 12/07/2013 11:56:00 2013 23:59:59 CLS Outpatient [id number] 12/06/2013 15:47:00 2013 23:59:59 CLS Outpatient [id number] 06/24/2017 11:40:00 ACT Inpatient PRITI MCDANIEL, ELVIA Mullins [facility] 4TH SWB-ACUTE MYELOGENOUS LEUKEMIA [id number] 06/19/2017 14:47:00 PEN Preadmit SINA GREEN [facility] ONC
== END 2017-06-21 22:49 | disposition short-term general hospital (02) | DRG 834 ==
LOC: 4TH 08:32 → ENPENDDIS 06-21 22:50 → UNDOLOA 06-21 22:50 → 4TH 06-22 22:01
PROVIDERS: ADMIT Internal Medicine; ATTEND Internal Medicine
PROC: 0JH60XZ Insertion of Tunneled Vascular Access Device into Chest Subcutaneous Tissue and Fascia, Open Approach (ICD-10-PCS; 2017-06-20)
PROC: 02HV33Z Insertion of Infusion Device into Superior Vena Cava, Percutaneous Approach (ICD-10-PCS; principal; 2017-06-20 08:50)
DX: C92.00 Acute myeloblastic leukemia, not having achieved remission (principal); I21.4 Non-ST elevation (NSTEMI) myocardial infarction; B37.0 Candidal stomatitis; I25.10 Atherosclerotic heart disease of native coronary artery without angina pectoris; I48.0 Paroxysmal atrial fibrillation; I12.9 Hypertensive chronic kidney disease with stage 1 through stage 4 chronic kidney disease, or unspecified chronic kidney disease; E11.22 Type 2 diabetes mellitus with diabetic chronic kidney disease; N18.3 Chronic kidney disease, stage 3 (moderate); Z66 Do not resuscitate; R05 Cough; K21.9 Gastro-esophageal reflux disease without esophagitis; K44.9 Diaphragmatic hernia without obstruction or gangrene; L30.9 Dermatitis, unspecified; Z95.5 Presence of coronary angioplasty implant and graft
CPT/HCPCS: 36415; 71010; 80048; 80053; 82962; 83735; 84484; 84550; 85025; 86850; 86900; 86901; 86920; 87081; 93005; 94640; 94760; 96375; 96413

== ENCOUNTER 2017-06-21 22:50 | Inpatient (IN) | payer MEDICARE ==
[~2017-06-21] VITALS: Ht 180.3 cm; Wt 94.8 kg
[~2017-06-21 22:50] MED LIST changes: -ACETAMINOPHEN 500 MG TAB (TYLENOL) PO NR; -DIAZEPAM 5 MG (VALIUM) TABLET PO PRN; -IBUPROFEN 600 MG (MOTRIN) TAB PO PRN; -NITROGLYCERIN SUBLINGUAL 0.4 MG TAB (NITROSTAT) SL PRN; -NS IV 500 ML 500 ML IV SCH; -PROMETHAZINE/ CODEINE SYRUP 5 ML UDC PO PRN; -RT-ALBUTEROL SULF 2.5 MG/3 ML PRE-MIX VIAL IH PRN; -fentaNYL INJECTION 100 MCG/2 ML AMP IVP PRN
[2017-06-21 22:57] VITALS: BP 152/82
[2017-06-21 23:00] VITALS: BP 147/74
[2017-06-22] VITALS (29 sets, daily range): BP systolic 118–172; BP diastolic 65–100
[2017-06-22] MEDS: DIAZEPAM 5 MG (VALIUM) TABLET PO PRN ×2 (00:30→23:06)
[2017-06-22] MEDS: HEParin DRIP 25000 UNIT/500ML (ACS THERAPY) IV SCH ×2 (01:00→22:19)
[2017-06-22] MEDS ORDERED: HEParin 1000 UNIT/ML BOLUS (ACS THERAPY) IV PRN (02:45)
[2017-06-22] MEDS ORDERED: CATHETER FLUSH 10 ML SYR IV PRN (02:45)
[2017-06-22] MEDS ORDERED: fentaNYL INJECTION 100 MCG/2 ML AMP IVP PRN (03:15)
[2017-06-22] MEDS ORDERED: IBUPROFEN 600 MG (MOTRIN) TAB PO PRN (03:15)
[2017-06-22] MEDS ORDERED: NITROGLYCERIN SUBLINGUAL 0.4 MG TAB (NITROSTAT) SL PRN (03:15)
[2017-06-22 03:39] LABS: BASOPHILS # (AUTO) 0.1 10^3/uL (0.0-0.1); BASOPHILS % (AUTO) 1 % (0-10); EOSINOPHILS % (AUTO) 0 % (0-10); LYMPHOCYTES # (AUTO) 2.3 X 10^3 (1.0-4.0); LYMPHOCYTES % (AUTO) 38 % (12-44); MEAN CORPUSCULAR HEMOGLOBIN 33 PG (25-34); MEAN CORPUSCULAR HGB CONC 33 G/DL (32-36); MEAN CORPUSCULAR VOLUME 100 FL (80-99); MEAN PLATELET VOLUME 10.3 FL (7.4-10.4); MONOCYTES # (AUTO) 2.2 X 10^3 (0.0-1.0); MONOCYTES % (AUTO) 36 % (0-12); NEUTROPHILS # (AUTO) 1.5 X 10^3 (1.8-7.8); NEUTROPHILS % (AUTO) 25 % (42-75); PLATELET COUNT 73 10^3/uL (130-400); RED BLOOD COUNT 2.38 10^6/uL (4.35-5.85)
[2017-06-22] MEDS: NS IV 500 ML 500 ML IV SCH ×2 (03:42→19:43)
[2017-06-22 03:58] LABS: CALCIUM 9.2 MG/DL (8.5-10.1); CREATININE SERUM 1.88 MG/DL (0.60-1.30); MAGNESIUM 1.5 MG/DL (1.8-2.4); PHOSPHORUS 3.2 MG/DL (2.3-4.7); POTASSIUM 3.4 MMOL/L (3.6-5.0)
[2017-06-22 04:56] LABS: WHITE BLOOD COUNT 5.7 10^3/uL (4.3-11.0)
[2017-06-22] MEDS: inSUlin (REGULAR) HUMAN 1 UNIT/0.01 ML (CHARGE PER UNIT) SC SCH ×5 (06:13→20:50)
[2017-06-22] MEDS: NYSTATIN ORAL SUSP 5 ML UDC PO SCH ×5 (06:13→23:06)
[2017-06-22] MEDS: CATHETER FLUSH 10 ML SYR IV SCH ×3 (06:13→20:51)
[2017-06-22] MEDS: PANTOPRAZOLE 40 MG (PROTONIX) TAB PO SCH ×2 (06:19→11:38)
[2017-06-22] MEDS ORDERED: CARVEDILOL 12.5 MG (COREG) TABLET PO SCH (09:00)
--- NOTE | 2017-06-22 10:09 | Diagnostic Imaging Report ---
INDICATION: Arrhythmia. EXAM: Portable chest at 5:34 AM FINDINGS: Right IJ Port-A-Cath tip projects over the SVC. There are large consolidating alveolar infiltrates in the left lung which appear to be slightly more dense and confluent compared to the previous day. Right perihilar infiltrate appears stable from prior study. IMPRESSION: Bilateral pulmonary infiltrates, worse on left than on the right. The infiltrates in the left lung appear slightly more consolidated than on the comparison study from 06/20/2017. Dictated by: Dictated on workstation # [id number]
--- NOTE | 2017-06-22 10:20 | Consultation-Cardiology ---
HPI-Cardiology Cardiology Consultation: Date of Consultation 06/22/17 Date of Admission Attending Physician Ivone Stephens DO Admitting Physician Faustino Pearce MD Consulting Physician Asher ABREU MD HPI: Time Seen by Provider: 09:30 Chief Complaint: Chest pain This is a 82-year-old gentleman who has a diagnosis of acute myelogenous leukemia under treatment with Dr. Scott with chemotherapy. The patient also has severe anemia and thrombocytopenia. He has history of coronary artery disease with PCI and stent done 15 years ago. During this hospitalization I had initially seen him for new onset atrial fibrillation however the decision was not to start oral anticoagulation therapy and only continue beta blockers. However, last night the patient had chest pain for 10 minutes which responded to nitroglycerin. Serial troponins were done; the first troponin was VUS-Mpsbeb-Xklhue Hx Patient Social History Alcohol Use: Denies Use Recreational Drug Use: No Smoking Status: Never a Smoker Recent Foreign Travel: No Recent Infectious Disease Expo: No Physical Abuse Screen: No Sexual Abuse: No Past Medical History PMH As described under Assessment. Family Medical History Family History: Cardiovascular disease Deafness or hearing loss Diabetes mellitus Myocardial infarction Allergies and Home Medications Allergies Coded Allergies: saxagliptin (Verified Allergy, Intermediate, 06/16/17) swelling Pentazocine Lactate (Unverified Allergy, Unknown, 06/16/17) sulfamethoxazole (Verified Allergy, Unknown, 06/16/17) METABOLIC REACTION trimethoprim (Verified Allergy, Unknown, 06/16/17) CHEST TIGHTNESS doxycycline (Verified Adverse Reaction, Unknown, HIVES, ACHES, 06/16/17) hydrocodone (Verified Adverse Reaction, Unknown, 06/16/17) HALUCINATIONS Home Medications Amlodipine Besylate 5 Mg Tablet, 5 MG PO BID, (Reported) Aspirin 81 Mg Tablet.dr, 81 MG PO MoWeFr, (Reported) Carvedilol Phosphate 80 Mg Cpmp.24hr, 80 MG PO DAILY, (Reported) Cyanocobalamin 1,000 Mcg Tablet.sa, 1,000 MCG PO DAILY, (Reported) Ezetimibe 10 Mg Tablet, 10 MG PO HS, (Reported) Fenofibrate,Micronized 130 Mg Capsule, 135 MG PO 1200, (Reported) Metformin HCl 1,000 Mg Tablet, 1,000 MG PO BID WITH MEALS, (Reported) Multivits,Stress Formula/Zinc 1 Each Tablet, 1 TAB PO DAILY, (Reported) [place]-3 Acid Ethyl Esters 1 Gm Capsule, 1 GM PO HS, (Reported) Omeprazole 20 Mg Capsule.dr, 20 MG PO DAILY PRN for HEARTBURN, (Reported) Ramipril 10 Mg Capsule, 10 MG PO DAILY, (Reported) Telmisartan 80 Mg Tablet, 80 MG PO DAILY, (Reported) Physical Exam-Cardiology Physical Exam Vital Signs/I&O Vital Sign - Last 12Hours 06/22/17 06/22/17 06/22/17 06/22/17 00:00 01:00 01:00 02:00 Pulse 62 71 69 82 Resp 36 29 23 B/P (MAP) 147/77 140/76 148/68 Pulse Ox 94 94 98 O2 Delivery Nasal Cannula Nasal Cannula Nasal Cannula O2 Flow Rate 3.00 3.00 3.00 06/22/17 06/22/17 06/22/17 06/22/17 03:00 03:43 04:00 04:02 Temp 98.0 98.3 Pulse 68 69 55 68 Resp 14 24 22 21 B/P (MAP) 148/78 147/85 147/85 Pulse Ox 93 92 94 95 O2 Delivery Nasal Cannula Nasal Cannula Nasal Cannula Nasal Cannula O2 Flow Rate 3.00 3.00 3.00 3.00 FiO2 93 06/22/17 06/22/17 06/22/17 06/22/17 04:28 05:00 06:00 06:22 Temp 98.0 Pulse 65 70 67 Resp 32 26 21 B/P (MAP) 118/70 147/75 127/75 Pulse Ox 92 95 95 O2 Delivery Nasal Cannula Nasal Cannula Nasal Cannula Nasal Cannula O2 Flow Rate 3.00 3.00 3.00 3.00 06/22/17 06/22/17 06/22/17 06/22/17 07:00 07:00 07:04 07:19 Temp 98.0 97.9 Pulse 64 64 76 78 Resp 23 25 22 B/P (MAP) 133/70 133/70 135/72 Pulse Ox 94 93 96 O2 Delivery Nasal Cannula Nasal Cannula Nasal Cannula O2 Flow Rate 3.00 3.00 2.00 06/22/17 06/22/17 08:00 09:18 Temp 97.6 Pulse 68 80 Resp 22 18 B/P (MAP) 131/65 137/91 Pulse Ox 94 97 O2 Delivery Nasal Cannula Nasal Cannula O2 Flow Rate 3.00 2.00 Capillary Refill : Data Review Labs Laboratory Tests 06/22/17 02:45: White Blood Count 5.7, Red Blood Count 2.38L, Hemoglobin 7.9L, Hematocrit 24L, Mean Corpuscular Volume 100H, Mean Corpuscular Hemoglobin 33, Mean Corpuscular Hemoglobin Concent 33, Red Cell Distribution Width 16.0H, Platelet Count 73L, Mean Platelet Volume 10.3, Neutrophils (%) (Auto) 25L, Lymphocytes (%) (Auto) 38 , Monocytes (%) (Auto) 36H, Eosinophils (%) (Auto) 0, Basophils (%) (Auto) 1, Neutrophils # (Auto) 1.5L, Lymphocytes # (Auto) 2.3, Monocytes # (Auto) 2.2H, Eosinophils # (Auto) 0.0, Basophils # (Auto) 0.1, Sodium Level 143, Potassium Level 3.4L, Chloride Level 110H, Carbon Dioxide Level 20L, Anion Gap 13, Blood Urea Nitrogen 37H, Creatinine 1.88H, Estimat Glomerular Filtration Rate 34, BUN/ Creatinine Ratio 20, Glucose Level 68L, Calcium Level 9.2, Phosphorus Level 3.2 , Magnesium Level 1.5L, Smear Scan YES 06/22/17 05:05: Activated Partial Thromboplast Time 48H ECG Impression ECG Initial ECG Impression: Atrial Fibrillation A/P-Cardiology Assessment/Admission Diagnosis Acute myelogenous leukemia, Non-STEMI, Atrial fibrillation, Anemia, Thrombocytopenia, Hypokalemia, Hypomagnesemia. Plan This is a complicated patient with complex decision making. It took over 60 minutes to discuss with the patient and family. The patient has non-STEMI with previous history of coronary artery disease. However coronary angiography and possible PCI will be high risk for severe bleeding especially since we'll have to give aspirin, Plavix bolus, high-dose heparin. The patient already has thrombocytopenia and severe anemia. We therefore discussed at length the various options including interventional therapy with drug-eluting stent, interventional therapy with bare metal stent, coronary angiography alone and medical therapy alone. We discussed the various risks and benefits associated with every strategy. Off a thorough discussion we decided to proceed with medical therapy alone and reconsider invasive strategy if the patient has recurrent symptoms. I'll request an echocardiogram. Daily aspirin, no Plavix, continue IV heparin for another 36 hours. We will start start beta blockers, Imdur, continue Gabriel inhibitors. We will see his response to therapy and proceed. Blood transfusion will be given for anemia to keep hemoglobin over 10. Potassium and magnesium supplementation: Will defer to primary team. Thank you for your consultation. Please call me if you have any questions. Rogelio Abreu MD, FACP, FACC, FSCAI, FHRS, CCDS Interventional Cardiology Cardiac Electrophysiology Vascular Medicine and Endovascular Interventions Clinical Quality Measures DVT/VTE Risk/Contraindication: Risk Factor Score Per Nursin RFS Level Per Nursing on Admit: 3=High Asher ABREU MD Jun 22, 2017 10:20 am
[2017-06-22] MEDS: amLODIPine 5 MG (NORVASC) TAB PO SCH ×2 (11:15→20:50)
[2017-06-22] MEDS: RAMIPRIL 5 MG (ALTACE) CAP PO SCH (11:38)
[2017-06-22] MEDS: ASPIRIN E.C. 81 MG (ECOTRIN) TAB PO SCH (11:38)
[2017-06-22] MEDS: fluCOnazole (DIFLUCAN) 100 MG TAB PO SCH (11:39)
--- NOTE | 2017-06-22 12:40 | History & Physical-Hospitalist ---
HPI History of Present Illness: HPI/Chief Complaint CC: Chest pain with NSTEMI with AF w/RVR HPI: This is an 82-year-old white male who was previously on swing bed for chemotherapy for acute leukemia that required transfer to the ICU for chest pain with atrial fibrillation with rapid ventricular response and NSTEMI under cardiology recommendation. At this current time patient doesn't have much of an appetite but he is eating breakfast does not report any pain issues no shortness of breath and after long discussion with cardiology and oncology medical treatment was recommended to keep conservative for the non-ST elevation TN and atrial defibrillation and Source: patient, RN/MD Exam Limitations: no limitations Date Seen 06/22/17 Time Seen by Provider: 10:30 Attending Physician Ivone Stephens John M MD Referring Physician Date of Admission Jun 21, 2017 at 22:50 Home Medications & Allergies Home Medications Reviewed patient Home Medication Reconciliation Form Allergies Allergies Coded Allergies saxagliptin (Verified Allergy, Intermediate, 06/16/17) swelling Pentazocine Lactate (Unverified Allergy, Unknown, 06/16/17) sulfamethoxazole (Verified Allergy, Unknown, 06/16/17) METABOLIC REACTION trimethoprim (Verified Allergy, Unknown, 06/16/17) CHEST TIGHTNESS doxycycline (Verified Adverse Reaction, Unknown, HIVES, ACHES, 06/16/17) hydrocodone (Verified Adverse Reaction, Unknown, 06/16/17) HALUCINATIONS Past Hpemxyc-Mcvolv-Kdrktu Hx Patient Social History Marrital Status: Employed/Student: retired Alcohol Use: Denies Use Recreational Drug Use: No Smoking Status: Never a Smoker Physical Abuse Screen: No Sexual Abuse: No Recent Foreign Travel: No Contact w/other who traveled: No Recent Hopitalizations: Yes ([facility] ) Recent Infectious Disease Expo: No Seasonal Allergies Seasonal Allergies: No Surgeries HX Surgeries: No Respiratory Hx Respiratory Disorders: No Cardiovascular Hx Cardiovascular Disorders: Yes Cardiac Disorders: Atrial Fibrillation, Hypertension Neurological Hx Neurological Disorders: No Reproductive System Sexually Transmitted Disease: No HIV/AIDS: No Genitourinary Hx Genitourinary Disorders: No Gastrointestinal Hx Gastrointestinal Disorders: Yes (HIATAL HERNIA, ) Gastrointestinal Disorders: Abdominal Hernia, Gastroesophageal Reflux Musculoskeletal Hx Musculoskeletal Disorders: Yes Musculoskeletal Disorders: Degenerate Disk Disease Endocrine Hx Endocrine Disorders: Yes Endocrine Disorders: Diabetes, Insulin dep HEENT HX ENT Disorders: Yes (DENTURES) HEENT Disorders: Cataract, Glaucoma Loss of Vision: Denies Hearing Impairment: Hard of Hearing Cancer Hx Cancer: Yes Cancer: Leukemia (06/16) Psychosocial Hx Psychiatric Problems: No Integumentary HX Skin/Integumentary Disorder: No Skin/Integumentary Disorders: Eczema Blood Transfusions Hx Blood Disorders: No Adverse Reaction to a Blood Tr: No Reviewed Nursing Assessment Reviewed/Agree w Nursing PMH: Yes Family Medical History Family Hx: Cardiovascular disease Deafness or hearing loss Diabetes mellitus Myocardial infarction Review of Systems Constitutional: see HPI EENTM: no symptoms reported Respiratory: short of breath Cardiovascular: chest pain Gastrointestinal: no symptoms reported Genitourinary: no symptoms reported Musculoskeletal: no symptoms reported Skin: no symptoms reported Psychiatric/Neurological: No Symptoms Reported All Other Systems Reviewed Negative Unless Noted: Yes Physical Exam Physical Exam Vital Signs Vital Sign - Last 12Hours 06/22/17 03:43 FiO2 93 Capillary Refill : General Appearance: No Apparent Distress, WD/WN, Chronically ill Eyes: Bilateral Eye Normal Inspection, Bilateral Eye PERRL HEENT: PERRL/EOMI, Normal ENT Inspection, Pharynx Normal Neck: Full Range of Motion, Normal Inspection, Non Tender, Supple, Carotid Bruit Respiratory: Chest Non Tender, Lungs Clear, Normal Breath Sounds, No Accessory Muscle Use, No Respiratory Distress Cardiovascular: No Edema, No Gallop, No JVD, No Murmur, Normal Peripheral Pulses, Irregularly Irregular Gastrointestinal: Normal Bowel Sounds, No Organomegaly, No Pulsatile Mass, Non Tender, Soft Back: Normal Inspection, No CVA Tenderness, No Vertebral Tenderness Extremity: Normal Capillary Refill, Normal Inspection, Normal Range of Motion, Non Tender, No Calf Tenderness, Swelling Neurologic/Psychiatric: Alert, Oriented x3, No Motor/Sensory Deficits, Normal Mood/Affect Skin: Normal Color, Warm/Dry Lymphatic: No Adenopathy Results Results/Procedures Lab Laboratory Tests 06/22/17 02:45 Assessment/Plan Admission Diagnosis Assessment: Episode of chest pain with results of non-ST elevation TN with atrial fibrillation with rapid ventricular response Acute myelogenous leukemia poor prognosis but chemotherapy for palliative care Severe anemia requiring transfusions 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
[2017-06-22] MEDS: meTOprolol TARTRATE 25 MG (LOPRESSOR) TABLET PO SCH ×2 (13:14→20:50)
[2017-06-22] MEDS: ALLOPURINOL 100 MG (ZYLOPRIM) TAB PO SCH (13:14)
[2017-06-22 13:31] LABS: BASOPHILS # (AUTO) 0.1 10^3/uL (0.0-0.1); BASOPHILS % (AUTO) 1 % (0-10); EOSINOPHILS % (AUTO) 1 % (0-10); LYMPHOCYTES # (AUTO) 1.6 X 10^3 (1.0-4.0); LYMPHOCYTES % (AUTO) 28 % (12-44); MEAN CORPUSCULAR HEMOGLOBIN 33 PG (25-34); MEAN CORPUSCULAR HGB CONC 34 G/DL (32-36); MEAN CORPUSCULAR VOLUME 97 FL (80-99); MEAN PLATELET VOLUME 9.9 FL (7.4-10.4); MONOCYTES # (AUTO) 2.3 X 10^3 (0.0-1.0); MONOCYTES % (AUTO) 40 % (0-12); NEUTROPHILS # (AUTO) 1.8 X 10^3 (1.8-7.8); NEUTROPHILS % (AUTO) 31 % (42-75); PLATELET COUNT 73 10^3/uL (130-400); RED BLOOD COUNT 3.03 10^6/uL (4.35-5.85); RED CELL DISTRIBUTION WIDTH 16.5 % (10.0-14.5); WHITE BLOOD COUNT 5.8 10^3/uL (4.3-11.0)
[2017-06-22] MEDS: DAKIN'S 1/4 STRENGTH (0.125%) 473 ML BTL TOP SCH (14:38)
[2017-06-22] MEDS: MICONAZOLE 2% POWDER (DESENEX AF) 90 GM TOP SCH ×2 (14:38→20:51)
[2017-06-22] MEDS: BENZONATATE 100 MG (TESSALON) CAPSULE PO PRN ×2 (14:39→20:50)
[2017-06-22] MEDS: PROMETHAZINE/ CODEINE SYRUP 5 ML UDC PO PRN ×2 (14:39→20:49)
[2017-06-22] MEDS: CARVEDILOL PHOSPHATE 80 MG PO SCH (14:41)
[2017-06-22] MEDS: RT-ALBUTEROL/IPRATROPIUM 3 ML (DUONEB) VIAL INH PRN ×2 (15:50→21:30)
[2017-06-22] MEDS: RT-ALBUTEROL/IPRATROPIUM 3 ML (DUONEB) VIAL INH SCH (19:32)
[2017-06-22] MEDS: inSUlin DETERMIR 1 UNIT/0.01 ML (LEVEMIR) CHARGE PER UNIT SQ SCH (20:49)
[2017-06-22] MEDS: POLYETHYLENE GLYCOL 17 GM (MIRALAX) PACK PO SCH (20:50)
[2017-06-23] VITALS (19 sets, daily range): BP systolic 120–155; BP diastolic 56–101
[2017-06-23 02:55] LABS: BASOPHILS % (AUTO) 0 % (0-10); EOSINOPHILS % (AUTO) 1 % (0-10); LYMPHOCYTES # (AUTO) 1.8 X 10^3 (1.0-4.0); LYMPHOCYTES % (AUTO) 31 % (12-44); MEAN CORPUSCULAR HEMOGLOBIN 32 PG (25-34); MEAN CORPUSCULAR HGB CONC 34 G/DL (32-36); MEAN CORPUSCULAR VOLUME 97 FL (80-99); MEAN PLATELET VOLUME 10.1 FL (7.4-10.4); MONOCYTES # (AUTO) 2.5 X 10^3 (0.0-1.0); MONOCYTES % (AUTO) 44 % (0-12); NEUTROPHILS # (AUTO) 1.3 X 10^3 (1.8-7.8); NEUTROPHILS % (AUTO) 24 % (42-75); PLATELET COUNT 67 10^3/uL (130-400); RED BLOOD COUNT 2.81 10^6/uL (4.35-5.85); RED CELL DISTRIBUTION WIDTH 16.2 % (10.0-14.5); WHITE BLOOD COUNT 5.7 10^3/uL (4.3-11.0)
[2017-06-23 03:21] LABS: CALCIUM 9.1 MG/DL (8.5-10.1); CREATININE SERUM 1.61 MG/DL (0.60-1.30); MAGNESIUM 1.6 MG/DL (1.8-2.4); POTASSIUM 3.5 MMOL/L (3.6-5.0)
[2017-06-23] MEDS: MAGNESIUM 1 GM/100 ML IVPB 100 ML IV SCH ×2 (04:25→05:32)
[2017-06-23] MEDS: CATHETER FLUSH 10 ML SYR IV SCH ×2 (04:26→14:03)
[2017-06-23] MEDS: POTASSIUM CL 10MEQ/50ML IVPB 50 ML IV SCH ×6 (04:26→09:26)
--- NOTE | 2017-06-23 05:51 | Pulmonary Consultation ---
History of Present Illness History of Present Illness Date of Consultation 06/23/17 05:46 Time Seen by Provider: 05:46 Date of Admission History of Present Illness 82yo male with hx of acute leukemia and is undergoing chemotherapy had been on swing bed 4th floor however transferred to ICU secondary to Afib RVR and chest pain. He was dx with NSTEMI and is currently on a heparin gtt. Cardiology is following. He is complaining of SOB and is hypoxic requiring 3 liters NC. I am consulted for pulmonary/CC management. Allergies and Home Medications Allergies Coded Allergies: saxagliptin (Verified Allergy, Intermediate, 06/16/17) swelling Pentazocine Lactate (Unverified Allergy, Unknown, 06/16/17) sulfamethoxazole (Verified Allergy, Unknown, 06/16/17) METABOLIC REACTION trimethoprim (Verified Allergy, Unknown, 06/16/17) CHEST TIGHTNESS doxycycline (Verified Adverse Reaction, Unknown, HIVES, ACHES, 06/16/17) hydrocodone (Verified Adverse Reaction, Unknown, HALLUCINATIONS, 06/23/17) HALUCINATIONS Home Medications Amlodipine Besylate 5 Mg Tablet, 5 MG PO BID, (Reported) Aspirin 81 Mg Tablet.dr, 81 MG PO MoWeFr, (Reported) Haloperidol 2 Mg Tablet, 1 MG PO Q8H PRN for AGITATION, #30 Ref 3 Prescribed by: SINA GREEN on 07/23/17 1426 Ipratropium/Albuterol Sulfate 3 Ml Ampul.neb, 3 ML INH RTQID, #100 Ref 3 Prescribed by: SINA GREEN on 07/23/17 1426 Isosorbide Mononitrate 60 Mg Tab, 60 MG PO DAILY, #30 Ref 3 Prescribed by: SINA GREEN on 07/23/17 1426 Metformin HCl 1,000 Mg Tablet, 1,000 MG PO BID WITH MEALS, (Reported) Metoprolol Tartrate 25 Mg Tablet, 25 MG PO TID, #90 Ref 3 Prescribed by: SINA GREEN on 07/23/17 1426 Morphine Sulfate/Pf 30 Mg/30 Ml Soln, 0 MG IV PRN, #100 morphine 1.2 mg/hr continuous infusion by FACILITY MAINTENANCE WORKER with 1 mg bolus every 1 hour as needed. Prescribed by: SINA GREEN on 07/23/17 1426 Multivits,Stress Formula/Zinc 1 Each Tablet, 1 TAB PO DAILY, (Reported) Nitroglycerin 0.4 Mg Tab.subl, 0.4 MG SL Q5M PRN for CHEST PAIN, #20 Ref 3 Prescribed by: SINA GREEN on 07/23/17 1426 [place]-3 Acid Ethyl Esters 1 Gm Capsule, 1 GM PO HS, (Reported) Omeprazole 20 Mg Capsule.dr, 20 MG PO DAILY PRN for HEARTBURN, (Reported) Polyethylene Glycol 3350 17 Gm Powd.pack, 17 GM PO HS, #30 Ref 3 Prescribed by: SINA GREEN on 07/23/17 1426 Telmisartan 80 Mg Tablet, 80 MG PO DAILY, (Reported) Triamcinolone Acetonide 15 Gm Oint, 0 GM TOP BID, #1 Prescribed by: SINA GREEN on 07/23/17 1426 Past Wmoabpn-Akhdki-Gsemvs Hx Patient Social History Alcohol Use: Denies Use Recreational Drug Use: No Smoking Status: Never a Smoker Recent Foreign Travel: No Contact w/Someone Who Travel: No Recent Infectious Disease Expo: No Recent Hopitalizations: Yes ( ) Physical Abuse Screen: No Sexual Abuse: No Seasonal Allergies Seasonal Allergies: No Surgeries HX Surgeries: No Respiratory Hx Respiratory Disorders: No Respiratory Disorders: Pneumonia Cardiovascular Hx Cardiac Disorders: Yes Cardiac Disorders: Atrial Fibrillation, Hypertension Neurological Hx Neurological Disorders: No Reproductive System Sexually Transmitted Disease: No HIV/AIDS: No Genitourinary Hx Genitourinary Disorders: No Gastrointestinal Hx Gastrointestinal Disorders: Yes (HIATAL HERNIA, ) Gastrointestinal Disorders: Abdominal Hernia, Gastroesophageal Reflux Musculoskeletal Hx Musculoskeletal Disorders: Yes Musculoskeletal Disorders: Degenerate Disk Disease Endocrine Hx Endocrine Disorders: Yes Endocrine Disorders: Diabetes, Insulin dep HEENT HX ENT Disorders: Yes (DENTURES) HEENT Disorders: Cataract, Glaucoma Loss of Vision: Denies Hearing Impairment: Hard of Hearing Cancer Hx Cancer: Yes Cancer: Leukemia (06/16) Psychosocial Hx Psychiatric Problems: No Integumentary HX Skin/Integumentary Disorder: No Skin/Integumentary Disorders: Eczema Blood Transfusions Hx Blood Disorders: No Adverse Reaction to a Blood Tr: No Reviewed Nursing Assessment Reviewed/Agree w Nursing PMH: Yes Family Medical History Family Medial History: Cardiovascular disease Deafness or hearing loss Diabetes mellitus Myocardial infarction Review of Systems Time Seen by Provider: 13:45 Constitutional: Sweats, Weakness, Malaise, No: Fever, Chills, Other Respiratory: Cough, Dry, Shortness of breath, SOB with excertion, No: Wheezing , Sputum Cardiovascular: Chest Pain, Palpitations, Orthopnea, Paroxysmal Noc. Dyspnea, Edema, Lt Headedness Gastrointestinal: No: Nausea, Vomiting, Abdominal Pain, Diarrhea, Constipation , Melena, Hematochezia, Other Genitourinary: No Dysuria, No Frequency, No Incontinence, No Hematuria, No Retention, No Other Musculoskeletal: No: other, neck pain, shoulder pain, arm pain, back pain, hand pain, leg pain, foot pain Neurological: Weakness, Incoordination Exam Exam Vital Signs Date Time Temp Pulse Resp B/P (MAP) Pulse Ox O2 Delivery O2 Flow Rate FiO2 06/23/17 05:00 72 20 142/101 92 Nasal Cannula 3.00 06/23/17 04:14 98.9 Nasal Cannula 3.00 06/23/17 04:00 92 Nasal Cannula 3.00 06/23/17 04:00 76 21 127/65 91 Nasal Cannula 3.00 06/23/17 03:00 58 19 130/84 95 Nasal Cannula 3.00 06/23/17 02:00 69 22 124/62 91 Nasal Cannula 3.00 06/23/17 01:00 80 06/23/17 01:00 80 20 122/56 93 Nasal Cannula 3.00 06/23/17 00:00 73 20 155/89 92 Nasal Cannula 3.00 06/23/17 00:00 92 Nasal Cannula 3.00 06/22/17 23:09 98.4 Nasal Cannula 3.00 06/22/17 23:00 76 17 134/79 92 Nasal Cannula 3.00 06/22/17 22:00 78 23 142/88 93 Nasal Cannula 4.00 06/22/17 21:31 Nasal Cannula 3.00 92 06/22/17 21:00 75 30 147/83 91 Nasal Cannula 4.00 06/22/17 20:09 Nasal Cannula 4.00 06/22/17 20:00 80 29 151/90 93 Nasal Cannula 3.00 06/22/17 20:00 92 Nasal Cannula 4.00 06/22/17 19:32 94 Nasal Cannula 3.00 06/22/17 19:23 99.6 Nasal Cannula 3.00 06/22/17 19:00 86 06/22/17 19:00 86 13 152/73 93 Nasal Cannula 3.00 06/22/17 18:00 78 17 150/89 92 Nasal Cannula 3.00 06/22/17 17:00 81 22 131/86 94 Nasal Cannula 3.00 06/22/17 16:52 94 Nasal Cannula 2.00 06/22/17 16:00 84 24 134/69 93 Nasal Cannula 3.00 06/22/17 15:51 Nasal Cannula 3.00 06/22/17 15:06 95 06/22/17 15:00 81 24 172/88 96 Nasal Cannula 3.00 06/22/17 14:51 Nasal Cannula 3.00 06/22/17 14:00 92 21 136/85 94 Nasal Cannula 3.00 06/22/17 13:00 80 06/22/17 13:00 80 20 158/83 95 Nasal Cannula 3.00 06/22/17 12:35 96 Nasal Cannula 2.00 06/22/17 12:00 86 14 161/92 96 Nasal Cannula 3.00 06/22/17 11:00 93 26 149/100 95 Nasal Cannula 3.00 06/22/17 10:00 80 17 151/82 95 Nasal Cannula 3.00 06/22/17 09:18 97.6 80 18 137/91 97 Nasal Cannula 2.00 06/22/17 09:00 73 27 145/92 97 Nasal Cannula 3.00 06/22/17 08:45 93 Nasal Cannula 3.00 06/22/17 08:00 68 22 131/65 94 Nasal Cannula 3.00 06/22/17 07:19 97.9 78 22 135/72 96 Nasal Cannula 2.00 06/22/17 07:04 98.0 76 25 133/70 93 Nasal Cannula 3.00 06/22/17 07:00 64 06/22/17 07:00 64 23 133/70 94 Nasal Cannula 3.00 06/22/17 06:22 98.0 67 21 127/75 95 Nasal Cannula 3.00 06/22/17 06:00 70 26 147/75 95 Nasal Cannula 3.00 I & O 06/23/17 07:00 Intake Total 700 ml Output Total 1170 ml Balance -470 ml General Appearance: No Apparent Distress, WD/WN, Chronically ill HEENT: PERRL/EOMI, Normal ENT Inspection, Pharynx Normal Neck: Full Range of Motion, Normal Inspection, Non Tender, Supple, Carotid Bruit Respiratory: Chest Non Tender, Lungs Clear, Normal Breath Sounds, No Accessory Muscle Use, No Respiratory Distress Cardiovascular: No Edema, No Gallop, No JVD, No Murmur, Normal Peripheral Pulses, Irregularly Irregular Extremity: Normal Capillary Refill, Normal Inspection, Normal Range of Motion, Non Tender, No Calf Tenderness, Swelling Neurologic/Psychiatric: Alert, Oriented x3, No Motor/Sensory Deficits, Normal Mood/Affect Skin: Normal Color, Warm/Dry Lymphatic: No Adenopathy Results Lab Laboratory Tests 06/22/17 02:45 06/22/17 13:20 06/23/17 02:50 Assessment/Plan Assessment/Plan Pulmonary edema -start Lasix -Echo is pending -monitor CXR NSTEMI with CP -Cardiology following Acute myelogenous leukemia -Oncology following Anemia s/p 2units of PRBC -Monitor H&H Hypokalemia, Hypomagnesium -replace Afib - currently controlled Severe anemia s/p 2 units of PRBC DM- uncontrolled secondary to chemo 255 Clinical Quality Measures DVT/VTE Risk/Contraindication: Risk Factor Score Per Nursin RFS Level Per Nursing on Admit: 3=High KERI KIM DO Jun 23, 2017 05:51
[2017-06-23] MEDS ORDERED: MAGNESIUM 1 GM/100 ML IVPB 100 ML IV SCH (06:00)
[2017-06-23] MEDS ORDERED: POTASSIUM CL 10MEQ/50ML IVPB 50 ML IV SCH (06:00)
[2017-06-23] MEDS ORDERED: KCL 20 MEQ TAB (K-DUR) PO SCH (06:00)
[2017-06-23] MEDS: inSUlin (REGULAR) HUMAN 1 UNIT/0.01 ML (CHARGE PER UNIT) SC SCH ×4 (06:02→22:04)
[2017-06-23] MEDS: NYSTATIN ORAL SUSP 5 ML UDC PO SCH ×4 (06:16→22:53)
[2017-06-23] MEDS: RT-ALBUTEROL/IPRATROPIUM 3 ML (DUONEB) VIAL INH SCH ×4 (06:42→19:39)
[2017-06-23] MEDS: RAMIPRIL 5 MG (ALTACE) CAP PO SCH (07:50)
[2017-06-23] MEDS: ISOSORBIDE MONONITRATE 60 MG (IMDUR) TAB PO SCH (07:50)
[2017-06-23] MEDS: PANTOPRAZOLE 40 MG (PROTONIX) TAB PO SCH (07:50)
[2017-06-23] MEDS: amLODIPine 5 MG (NORVASC) TAB PO SCH ×2 (07:51→22:05)
[2017-06-23] MEDS: ALLOPURINOL 100 MG (ZYLOPRIM) TAB PO SCH (07:51)
[2017-06-23] MEDS: ASPIRIN E.C. 81 MG (ECOTRIN) TAB PO SCH (07:51)
[2017-06-23] MEDS: BENZONATATE 100 MG (TESSALON) CAPSULE PO PRN (07:51)
[2017-06-23] MEDS: meTOprolol TARTRATE 25 MG (LOPRESSOR) TABLET PO SCH ×3 (07:51→22:05)
[2017-06-23] MEDS: fluCOnazole (DIFLUCAN) 100 MG TAB PO SCH (07:51)
[2017-06-23] MEDS: FUROSEMIDE 40 MG/4 ML INJ (LASIX) IVP SCH (07:54)
[2017-06-23] MEDS: CARVEDILOL PHOSPHATE 80 MG PO SCH (07:55)
--- NOTE | 2017-06-23 08:52 | Diagnostic Imaging Report ---
EXAM: CHEST 1 VIEW, AP/PA ONLY INDICATION: Chest pain. Atrial fibrillation. Shortness of air. COMPARISON: Chest radiograph 06/22/2017. FINDINGS: There remains dense airspace opacities throughout the left lung. Mild linear consolidation in the right midlung is also stable. Normal heart size and central pulmonary vascularity. Calcified aorta. No pleural effusion or pneumothorax. No acute osseous findings. Right IJ tunneled port CVC tip mid to low SVC. IMPRESSION: Overall stable airspace opacities throughout both lungs, greater on the left. Dictated by: Dictated on workstation # [id number]
[2017-06-23] MEDS: DAKIN'S 1/4 STRENGTH (0.125%) 473 ML BTL TOP SCH (09:26)
[2017-06-23] MEDS: MICONAZOLE 2% POWDER (DESENEX AF) 90 GM TOP SCH ×2 (09:26→22:06)
--- NOTE | 2017-06-23 10:59 | Physical Therapy Progress Note ---
Therapy Progress Note Patient has been transferred to ICU and is now on inpatient status. PT will require new orders to resume/continue with therapy needs. LUCIANO BELTRE PT Jun 23, 2017 10:59
--- NOTE | 2017-06-23 11:12 | Cardiology Progress Note ---
Cardiology SOAP Progress Note Subjective: No further chest pain Objective: I&O/Vital Signs Vital Sign - Last 12Hours 06/23/17 06/23/17 06/23/17 06/23/17 00:00 00:00 01:00 01:00 Pulse 73 80 80 Resp 20 20 B/P (MAP) 155/89 122/56 Pulse Ox 92 92 93 O2 Delivery Nasal Cannula Nasal Cannula Nasal Cannula O2 Flow Rate 3.00 3.00 3.00 06/23/17 06/23/17 06/23/17 06/23/17 02:00 03:00 04:00 04:00 Pulse 69 58 76 Resp 22 19 21 B/P (MAP) 124/62 130/84 127/65 Pulse Ox 91 95 91 92 O2 Delivery Nasal Cannula Nasal Cannula Nasal Cannula Nasal Cannula O2 Flow Rate 3.00 3.00 3.00 3.00 06/23/17 06/23/17 06/23/17 06/23/17 04:14 05:00 06:00 06:42 Temp 98.9 Pulse 72 70 Resp 20 21 B/P (MAP) 142/101 129/72 Pulse Ox 92 95 92 O2 Delivery Nasal Cannula Nasal Cannula Nasal Cannula Nasal Cannula O2 Flow Rate 3.00 3.00 3.00 3.00 06/23/17 06/23/17 06/23/17 06/23/17 07:00 08:00 08:00 10:38 Temp 97.7 Pulse 67 B/P (MAP) Pulse Ox 91 93 O2 Delivery Nasal Cannula Nasal Cannula Nasal Cannula O2 Flow Rate 3.00 3.00 3.00 Intake and Output 06/23/17 00:00 Intake Total 550 ml Output Total 920 ml Balance -370 ml Weight (Pounds): 210 Weight (Ounces): 1.0 Weight (Calculated Kilograms): 95.326612 Results/Procedures: Labs Laboratory Tests 06/22/17 11:45: Activated Partial Thromboplast Time 59H 06/22/17 13:20: White Blood Count 5.8, Red Blood Count 3.03L, Hemoglobin 10.0#L, Hematocrit 29L , Mean Corpuscular Volume 97, Mean Corpuscular Hemoglobin 33, Mean Corpuscular Hemoglobin Concent 34, Red Cell Distribution Width 16.5H, Platelet Count 73L, Mean Platelet Volume 9.9, Neutrophils (%) (Auto) 31L, Lymphocytes (%) (Auto) 28 , Monocytes (%) (Auto) 40H, Eosinophils (%) (Auto) 1, Basophils (%) (Auto) 1, Neutrophils # (Auto) 1.8, Lymphocytes # (Auto) 1.6, Monocytes # (Auto) 2.3H, Eosinophils # (Auto) 0.0, Basophils # (Auto) 0.1 06/22/17 13:24: Glucometer 140H 06/22/17 17:52: Glucometer 149H 06/22/17 19:55: Activated Partial Thromboplast Time 76H 06/22/17 20:38: Glucometer 255H 06/23/17 02:50: Activated Partial Thromboplast Time 107H, White Blood Count 5.7, Red Blood Count 2.81L, Hemoglobin 9.1L, Hematocrit 27L, Mean Corpuscular Volume 97, Mean Corpuscular Hemoglobin 32, Mean Corpuscular Hemoglobin Concent 34, Red Cell Distribution Width 16.2H, Platelet Count 67L, Mean Platelet Volume 10.1, Neutrophils (%) (Auto) 24L, Lymphocytes (%) (Auto) 31, Monocytes (%) (Auto) 44H , Eosinophils (%) (Auto) 1, Basophils (%) (Auto) 0, Neutrophils # (Auto) 1.3L, Lymphocytes # (Auto) 1.8, Monocytes # (Auto) 2.5H, Eosinophils # (Auto) 0.0, Basophils # (Auto) 0.0, Sodium Level 140, Potassium Level 3.5L, Chloride Level 107, Carbon Dioxide Level 24, Anion Gap 9, Blood Urea Nitrogen 33H, Creatinine 1.61H, Estimat Glomerular Filtration Rate 41, BUN/Creatinine Ratio 20, Glucose Level 92, Calcium Level 9.1, Phosphorus Level 4.0, Magnesium Level 1.6L, B-Type Natriuretic Peptide 781.3H 06/23/17 08:32: Activated Partial Thromboplast Time 107H A/P: Assessment/Dx: Acute myelogenous leukemia, Non-STEMI, Atrial fibrillation, Anemia, Thrombocytopenia, Hypokalemia, Hypomagnesemia. Plan: Non-STEMI; Daily aspirin, no Plavix, continue IV heparin for another 36 hours. We will start start beta blockers, Imdur, continue Gabriel inhibitors. We will see his response to therapy and proceed. Blood transfusion will be given for anemia to keep hemoglobin over 10. Potassium and magnesium supplementation: Will defer to primary team. Thank you for your consultation. Please call me if you have any questions. Rogelio Abreu MD, FACP, FACC, FSCAI, FHRS, CCDS Interventional Cardiology Cardiac Electrophysiology Vascular Medicine and Endovascular Interventions Asher ABREU MD Jun 23, 2017 11:12
--- NOTE | 2017-06-23 13:46 | Physician Query Clarification ---
PQ-Further Specificity Admission/Discharge Admission Date: Jun 21, 2017 at 22:50 Discharge Date: The medical record reflects the following clinical scenario: History/Risk Factors: NSTEMI Acute myelogenous leukemia Clinical Findings: BNP 781.[address] Anthony Treatment: IV Lasix, EF 45-50% per echocardiogram Question: Can you further specify Pulmonary Edema per the clinical indicators above? Please document below. 1. Acute pulmonary edema. 2. Chronic pulmonary edema. 3. Acute systolic congestive heart failure. 4. Acute diastolic congestive heart failure. 5. Acute combined systolic and diastolic congestive heart failure. 6.. Other, with explanation of the clinical findings. 7. Clinically undetermined, no explanation for the clinical findings. PHYSICIAN RESPONSE Explanation/Clinical Findings Your request requires statement of date relative to this question as the patient has had multiple status changes during this continuum of hospitalization. In responding to this query, please exercise your independent professional judgment. The purpose of this communication is to more accurately reflect the complexity of your patients condition. The fact that a question is asked does not imply that any particular answer is desired or expected. Thank you for your timely response to this clarification. Requestors name: Glenda Bravo [facility] Phone # [phone] or [phone] THIS PHYSICIAN QUERY FORM IS A PERMANENT PART OF THE MEDICAL RECORD GLENDA BRAVO Jun 23, 2017 13:46 ELVIA MARCOS MD Jul 09, 2017 13:04
[2017-06-23] MEDS: NS IV 500 ML 500 ML IV SCH (14:00)
--- NOTE | 2017-06-23 15:30 | Progress Note-Hospitalist ---
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 He is stable post non-ST segment elevation IA and a bout of rapid ventricular response with his chronic atrial fibrillation. He is anxious to get back to his room and resume his chemotherapy as a palliative for his acute myelogenous leukemia. Physical exam: Lungs show scattered rhonchi. CV is irregular rate is controlled. Abdomen is soft without tenderness. Impression: NST KIMMY. 2.acute myelogenous leukemia. 3.chronic atrial fibrillation. 4.COPD. Plan: Chemotherapy at the cancer center. Transfer back to fourth floor at swing bed status Labs Laboratory Tests 06/22/17 02:45 06/22/17 13:20 06/23/17 02:50 ELVIA MARCOS MD Jun 23, 2017 15:30
[2017-06-23] MEDS ORDERED: ONDANSETRON IV SCH (15:47)
[2017-06-23] MEDS ORDERED: [UNRECOGNIZED DRUG - OTHER] IV SCH (15:47)
[2017-06-23] MEDS ORDERED: DEXAMETHASONE IV SCH (15:47)
[2017-06-23] MEDS ORDERED: DECITABINE 40 MG in NS (IVPB) CANCER CENTER 50 ML IV SCH (15:47)
[2017-06-23] MEDS ORDERED: NS IV 500 ML (CANCER CENTER) 500 ML ONE (16:07)
[2017-06-23] MEDS: morphine INJ 4 MG/ML 1 ML (VIAL/SYRINGE) IVP PRN ×2 (18:09→22:17)
--- NOTE | 2017-06-23 18:17 | Progress Note-Standard ---
Standard Progress Note Progress Notes/Assess & Plan Date Seen by Provider: Jun 23, 2017 Time Seen by Provider: 18:06 Progress/Assessment & Plan 82-year-old male with recent diagnosis of acute myeloid leukemia and not a candidate for intensive therapy. Patient was started on palliative low intensive treatment using Dacogen and completed 2 treatments last week and the third treatment today. Over the weekend he suffered a non-STEMI as well as atrial fibrillation with rapid ventricular response. Peak troponin level was 3.58. After discussing all the options it was decided to proceed with medical management and continue chemotherapy for the AML. He is on heparin infusion for total of 48 hours and aspirin 81 mg daily. Still has cough and shortness of breath intermittently although better than before. Eating small amounts and using nutritional supplements. Vital Sign - Last 12Hours Date Time Temp Pulse Resp B/P (MAP) Pulse Ox O2 Delivery O2 Flow Rate FiO2 06/23/17 15:00 73 21 141/67 94 Nasal Cannula 3.00 06/23/17 11:54 97.7 06/22/17 21:31 92 physical examination showed an elderly male, weak-appearing, well-developed and nourished, in mild respiratory distress. Neck was supple with no JVD. No lymphadenopathy palpable. Lungs with bilateral rhonchi. No wheezes heard. Cardiovascular exam was fairly regular with occasional missed beats with controlled rate in upper 60s. Abdomen was soft, nontender with no hepatosplenomegaly or other masses palpable. Extremities with the 1+ edema around ankles. Neurological exam showed no focal motor deficits. Laboratory Tests 06/23/17 02:50 A/P: 1. Acute myeloid leukemia, candidate for intensive therapy. Currently on chemotherapy with Dacogen day #3. Continue. 2. Non-STEMI, on medical management per cardiology. 3. Pancytopenia due to AML and chemotherapy. Monitor CBC daily and transfuse as needed. 4. Chronic kidney disease stage III. Monitor. 5. We'll administer morphine 1 mg IV every 3 hours when necessary for shortness of breath. 6. Overall prognosis guarded. SINA GREEN Jun 23, 2017 18:17
[2017-06-23] MEDS: inSUlin DETERMIR 1 UNIT/0.01 ML (LEVEMIR) CHARGE PER UNIT SQ SCH (22:04)
[2017-06-23] MEDS: POLYETHYLENE GLYCOL 17 GM (MIRALAX) PACK PO SCH (22:04)
[2017-06-23] MEDS: HEParin DRIP 25000 UNIT/500ML (ACS THERAPY) IV SCH (22:53)
[2017-06-24 03:10] VITALS: BP 171/79
[2017-06-24] MEDS: morphine INJ 4 MG/ML 1 ML (VIAL/SYRINGE) IVP PRN (03:28)
[2017-06-24] MEDS: NS IV 500 ML 500 ML IV SCH (05:20)
[2017-06-24 05:27] LABS: BASOPHILS % (AUTO) 0 % (0-10); EOSINOPHILS % (AUTO) 0 % (0-10); LYMPHOCYTES # (AUTO) 1.1 X 10^3 (1.0-4.0); LYMPHOCYTES % (AUTO) 26 % (12-44); MEAN CORPUSCULAR HEMOGLOBIN 33 PG (25-34); MEAN CORPUSCULAR HGB CONC 34 G/DL (32-36); MEAN CORPUSCULAR VOLUME 97 FL (80-99); MEAN PLATELET VOLUME 10.2 FL (7.4-10.4); MONOCYTES # (AUTO) 1.1 X 10^3 (0.0-1.0); MONOCYTES % (AUTO) 27 % (0-12); NEUTROPHILS # (AUTO) 1.8 X 10^3 (1.8-7.8); NEUTROPHILS % (AUTO) 46 % (42-75); PLATELET COUNT 63 10^3/uL (130-400); RED BLOOD COUNT 2.61 10^6/uL (4.35-5.85); RED CELL DISTRIBUTION WIDTH 15.5 % (10.0-14.5)
[2017-06-24 06:14] LABS: ALBUMIN 2.8 GM/DL (3.2-4.5); BILIRUBIN,TOTAL 0.8 MG/DL (0.1-1.0); CREATININE SERUM 1.6 MG/DL (0.60-1.30); TOTAL PROTEIN 5.4 GM/DL (6.4-8.2)
[2017-06-24] MEDS: NYSTATIN ORAL SUSP 5 ML UDC PO SCH ×2 (06:43→11:23)
[2017-06-24] MEDS: inSUlin (REGULAR) HUMAN 1 UNIT/0.01 ML (CHARGE PER UNIT) SC SCH ×2 (06:44→11:21)
[2017-06-24] MEDS: PROMETHAZINE/ CODEINE SYRUP 5 ML UDC PO PRN (06:44)
[2017-06-24] MEDS: PANTOPRAZOLE 40 MG (PROTONIX) TAB PO SCH (06:44)
[2017-06-24] MEDS: RT-ALBUTEROL/IPRATROPIUM 3 ML (DUONEB) VIAL INH SCH ×2 (06:49→10:13)
--- NOTE | 2017-06-24 08:26 | Pulmonary Progress Note ---
Subjective Time Seen by Provider: 08:26 Subjective/Events-last exam NO complications noted. Exam Exam Vital Signs Date Time Temp Pulse Resp B/P (MAP) Pulse Ox O2 Delivery O2 Flow Rate FiO2 06/24/17 06:49 91 Nasal Cannula 4.50 06/24/17 03:10 97.4 79 20 171/79 92 Nasal Cannula 3.00 06/24/17 01:00 81 06/23/17 23:35 97.8 86 20 143/67 93 Nasal Cannula 3.00 06/23/17 20:00 Nasal Cannula 3.50 06/23/17 19:30 98.5 82 24 151/70 92 Nasal Cannula 3.00 06/23/17 19:04 97.7 06/23/17 19:00 80 06/23/17 18:58 97.7 06/23/17 18:09 97.7 06/23/17 17:40 91 Nasal Cannula 3.00 06/23/17 15:00 73 21 141/67 94 Nasal Cannula 3.00 06/23/17 14:48 94 Nasal Cannula 3.00 06/23/17 14:15 72 19 138/65 94 Nasal Cannula 3.00 06/23/17 13:00 70 31 131/65 94 Nasal Cannula 3.00 06/23/17 13:00 73 06/23/17 12:00 71 30 125/64 91 Nasal Cannula 3.00 06/23/17 11:54 97.7 70 23 120/66 92 Nasal Cannula 3.00 06/23/17 11:53 91 Nasal Cannula 3.00 06/23/17 11:00 70 24 123/67 92 Nasal Cannula 3.00 06/23/17 10:38 93 Nasal Cannula 3.00 06/23/17 10:00 68 17 126/59 92 Nasal Cannula 3.00 06/23/17 09:00 69 24 128/66 90 Nasal Cannula 3.00 I & O 06/24/17 07:00 Intake Total 1280 ml Output Total 2300 ml Balance -1020 ml General Appearance: No Apparent Distress, WD/WN, Chronically ill HEENT: PERRL/EOMI, Normal ENT Inspection, Pharynx Normal Neck: Full Range of Motion, Normal Inspection, Non Tender, Supple, Carotid Bruit Respiratory: Chest Non Tender, Lungs Clear, Normal Breath Sounds, No Accessory Muscle Use, No Respiratory Distress Cardiovascular: No Edema, No Gallop, No JVD, No Murmur, Normal Peripheral Pulses, Irregularly Irregular Extremity: Normal Capillary Refill, Normal Inspection, Normal Range of Motion, Non Tender, No Calf Tenderness, Swelling Neurologic/Psychiatric: Alert, Oriented x3, No Motor/Sensory Deficits, Normal Mood/Affect Skin: Normal Color, Warm/Dry Lymphatic: No Adenopathy Results Lab Laboratory Tests 06/22/17 13:20 06/23/17 02:50 06/24/17 04:55 Assessment/Plan Assessment/Plan Pulmonary edema - Lasix -Echo is pending -monitor CXR NSTEMI with CP -Cardiology following Acute myelogenous leukemia -Oncology following Anemia s/p 2units of PRBC -Monitor H&H Hypokalemia, Hypomagnesium -replace Afib - currently controlled Severe anemia s/p 2 units of PRBC DM- uncontrolled secondary to chemo 232 Clinical Quality Measures DVT/VTE Risk/Contraindication: Risk Factor Score Per Nursin RFS Level Per Nursing on Admit: 3=High KERI KIM DO Jun 24, 2017 08:26
[2017-06-24] MEDS: amLODIPine 5 MG (NORVASC) TAB PO SCH (08:40)
[2017-06-24] MEDS: ALLOPURINOL 100 MG (ZYLOPRIM) TAB PO SCH (08:40)
[2017-06-24] MEDS: meTOprolol TARTRATE 25 MG (LOPRESSOR) TABLET PO SCH (08:40)
[2017-06-24] MEDS: RAMIPRIL 5 MG (ALTACE) CAP PO SCH (08:40)
[2017-06-24] MEDS: ASPIRIN E.C. 81 MG (ECOTRIN) TAB PO SCH (08:40)
[2017-06-24] MEDS: fluCOnazole (DIFLUCAN) 100 MG TAB PO SCH (08:40)
[2017-06-24] MEDS: ISOSORBIDE MONONITRATE 60 MG (IMDUR) TAB PO SCH (08:40)
[2017-06-24] MEDS: FUROSEMIDE 40 MG/4 ML INJ (LASIX) IVP SCH (08:40)
[2017-06-24] MEDS: CARVEDILOL PHOSPHATE 80 MG PO SCH (08:43)
[2017-06-24] MEDS: MICONAZOLE 2% POWDER (DESENEX AF) 90 GM TOP SCH (08:50)
[2017-06-24] MEDS: DAKIN'S 1/4 STRENGTH (0.125%) 473 ML BTL TOP SCH (08:57)
[2017-06-24] MEDS ORDERED: DECITABINE 40 MG in NS (IVPB) CANCER CENTER 50 ML IV SCH (09:15)
[2017-06-24] MEDS ORDERED: [UNRECOGNIZED DRUG - OTHER] IV SCH (09:15)
[2017-06-24] MEDS ORDERED: DEXAMETHASONE IV SCH (09:15)
[2017-06-24] MEDS ORDERED: ONDANSETRON IV SCH (09:15)
[2017-06-24 10:57] VITALS: BP 162/71
--- NOTE | 2017-06-24 11:43 | Diagnostic Imaging Report ---
INDICATION: Pneumonia. PA and lateral views of the chest are obtained. Comparison is made study of one day earlier. FINDINGS: Since previous study, there is dense airspace disease seen in the left lung. On the current study, there is moderate bilateral airspace disease. No pneumothorax is seen. There is no evidence of significant pleural fluid. IMPRESSION: Moderate bilateral airspace disease which may be due to edema or pneumonitis. There has been aeration of the left lung in the interim. Dictated by: Dictated on workstation # [id number]
--- NOTE | 2017-06-24 15:05 | Progress Note-Hospitalist ---
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 After exploration it appears the best bet is to continue this is swing bed and this has been executed. In addition given the circumstances there should be a discussion with the family about and agreement not to return to acute care as he was with the [facility] TN over the weekend. Labs Laboratory Tests 06/23/17 02:50 06/24/17 04:55 ELVIA MARCOS MD Jun 24, 2017 15:05
--- OUTSIDE RECORDS SUMMARY | 2017-07-02 15:21 | XMS REPORT | Continuity of Care Document ---
Author Author [facility] Organization [facility] Address Unknown Phone Unavailable Allergies Active Description Code Type Severity Reaction Onset Reported/Identified Relationship to Patient Clinical Status Yes saxagliptin [id number] Drug Allergy Moderate N/A 06/16/2017 Yes doxycycline [id number] Drug Allergy Unknown HIVES, ACHES 06/16/2017 Yes hydrocodone [id number] Drug Allergy Unknown N/A 06/16/2017 Yes Pentazocine Lactate [id number] Drug Allergy Unknown N/A 06/16/2017 Yes sulfamethoxazole [id number] Drug Allergy Unknown N/A 06/16/2017 Yes trimethoprim [id number] Drug Allergy Unknown N/A 06/16/2017 Yes hydrocodone [id number] Drug Allergy Unknown HALLUCINATIONS 06/23/2017 Medications Problems Date Dx Coded Attending Type Code Diagnosis Diagnosed By 06/17/2017 ELVIA MARCOS MD, Ot C92.00 ACUTE MYELOBLASTIC LEUKEMIA, NOT HAVING 06/17/2017 ELVIA MARCOS MD, Ot E11.9 TYPE 2 DIABETES MELLITUS WITHOUT COMPLIC 06/17/2017 ELVIA MARCOS MD Ot E66.01 MORBID (SEVERE) OBESITY DUE TO EXCESS CA 06/17/2017 ELVIA MAROCS MD Ot I25.10 ATHSCL HEART DISEASE OF [place] CORONARY 06/17/2017 ELVIA MARCOS MD Ot Z66 [...] MD Ot I25.10 ATHSCL HEART DISEASE OF [place] CORONARY 06/18/2017 ELVIA MARCOS MD Ot Z66 [...] MD Ot I25.10 ATHSCL HEART DISEASE OF [place] CORONARY 06/18/2017 ELVIA MARCOS MD Ot Z66 DO NOT RESUSCITATE 06/18/2017 ELVIA MARCOS MD Ot Z68.28 BODY MASS INDEX (BMI) 28.0-28.9, ADULT 06/18/2017 ELVIA MARCOS MD Ot Z95.5 PRESENCE OF CORONARY ANGIOPLASTY IMPLANT 06/19/2017 ELVIA MARCOS MD, Ot C92.00 ACUTE MYELOBLASTIC LEUKEMIA, NOT HAVING 06/19/2017 ELVIA MARCOS MD Ot E11.9 TYPE 2 DIABETES MELLITUS WITHOUT COMPLIC 06/19/2017 ELVIA MARCOS MD Ot I10 ESSENTIAL (PRIMARY) HYPERTENSION 06/19/2017 ELVIA MARCOS MD Ot I25.10 ATHSCL HEART DISEASE OF [place] CORONARY 06/19/2017 ELVIA MARCOS MD Ot I48.0 PAROXYSMAL ATRIAL FIBRILLATION 06/19/2017 ELVIA MARCOS MD Ot K21.9 GASTRO-ESOPHAGEAL REFLUX DISEASE WITHOUT 06/19/2017 ELVIA MARCOS MD Ot K44.9 DIAPHRAGMATIC HERNIA WITHOUT OBSTRUCTION 06/19/2017 ELVIA MARCOS MD Ot L30.9 DERMATITIS, UNSPECIFIED 06/19/2017 ELVIA MARCOS MD Ot Z66 DO NOT RESUSCITATE 06/19/2017 ELVIA MARCOS MD Ot Z95.5 PRESENCE OF CORONARY ANGIOPLASTY IMPLANT 06/20/2017 ROSETTE CONTRERAS DO Ot B37.0 CANDIDAL STOMATITIS 06/20/2017 CONTRERAS DO, ROSETTE Ot C92.00 ACUTE MYELOBLASTIC LEUKEMIA, NOT HAVING 06/20/2017 CONTRERAS DO, ROSETTE Ot E11.22 TYPE 2 DIABETES MELLITUS W DIABETIC PHOTO MASK PATTERN GENERATOR 06/20/2017 CONTRERAS DO, ROSETTE Ot I12.9 HYPERTENSIVE CHRONIC KIDNEY DISEASE W ST 06/20/2017 CONTRERSA DO, ROSETTE Ot I25.10 ATHSCL HEART DISEASE OF [place] CORONARY 06/20/2017 CONTRERAS DO, ROSETTE Ot I48.0 [...] E11.22 TYPE 2 DIABETES MELLITUS W DIABETIC PHOTO MASK PATTERN GENERATOR 06/20/2017 CONTRERAS DO, ROSETTE Ot I12.9 HYPERTENSIVE CHRONIC KIDNEY DISEASE W ST 06/20/2017 CONTRERAS DO, ROSETTE Ot I25.10 ATHSCL HEART DISEASE OF [place] CORONARY 06/20/2017 CONTRERAS DO, ROSETTE Ot I48.0 [...] E11.22 TYPE 2 DIABETES MELLITUS W DIABETIC PHOTO MASK PATTERN GENERATOR 06/20/2017 CONTRERAS DO, ROSETTE Ot I12.9 HYPERTENSIVE CHRONIC KIDNEY DISEASE W ST 06/20/2017 CONTRERAS DO, ROSETTE Ot I25.10 ATHSCL HEART DISEASE OF [place] CORONARY 06/20/2017 CONTRERAS DO, ROSETTE Ot I48.0 PAROXYSMAL ATRIAL FIBRILLATION 06/20/2017 CONTRERAS DO, ROSETTE Ot K21.9 GASTRO-ESOPHAGEAL REFLUX DISEASE WITHOUT 06/20/2017 CONTRERAS DO, ROSETTE Ot K44.9 DIAPHRAGMATIC HERNIA WITHOUT OBSTRUCTION 06/20/2017 CONTRERAS DO, RSOETTE Ot L30.9 DERMATITIS, UNSPECIFIED 06/20/2017 CONTRERAS DO, [...] E11.22 TYPE 2 DIABETES MELLITUS W DIABETIC PHOTO MASK PATTERN GENERATOR 06/22/2017 CONTRERAS DO, ROSETTE Ot I12.9 HYPERTENSIVE CHRONIC KIDNEY DISEASE W ST 06/22/2017 CONTRERAS DO, ROSETTE Ot I25.10 ATHSCL HEART DISEASE OF [place] CORONARY 06/22/2017 CONTRERAS DO, ROSETTE Ot I48.0 PAROXYSMAL ATRIAL FIBRILLATION 06/22/2017 CONTRERAS DO, ROSETTE Ot K21.9 GASTRO-ESOPHAGEAL REFLUX DISEASE WITHOUT 06/22/2017 CONTRERAS DO, ROSETTE Ot K44.9 DIAPHRAGMATIC HERNIA WITHOUT OBSTRUCTION 06/22/2017 CONTRERAS DO, ROSETTE Ot L30.9 DERMATITIS, UNSPECIFIED 06/22/2017 CONTRERAS DO, ROSETTE Ot N18.3 CHRONIC KIDNEY DISEASE, STAGE 3 (MODERAT 06/22/2017 CONTRERAS DO, ROSETTE Ot R05 COUGH 06/22/2017 BEN DO ROSETTE Ot Z66 DO NOT RESUSCITATE 06/22/2017 BEN PAK ROSETTE Ot Z95.5 PRESENCE OF CORONARY ANGIOPLASTY IMPLANT 06/22/2017 BEN PAK ROSETTE Ot B37.0 CANDIDAL STOMATITIS 06/22/2017 BEN PAK ROSETTE Ot C92.00 ACUTE MYELOBLASTIC LEUKEMIA, NOT HAVING 06/22/2017 BEN DO ROSETTE Ot E11.22 TYPE 2 DIABETES MELLITUS W DIABETIC PHOTO MASK PATTERN GENERATOR 06/22/2017 BEN DO ROSETTE Ot I12.9 HYPERTENSIVE CHRONIC KIDNEY DISEASE W ST 06/22/2017 BEN PAK ROSETTE Ot I25.10 ATHSCL HEART DISEASE OF [place] CORONARY 06/22/2017 BEN PAK ROSETTE Ot I48.0 PAROXYSMAL ATRIAL FIBRILLATION 06/22/2017 BEN PAK ROSETTE Ot K21.9 GASTRO-ESOPHAGEAL REFLUX DISEASE WITHOUT 06/22/2017 BEN DO ROSETTE Ot K44.9 DIAPHRAGMATIC HERNIA WITHOUT OBSTRUCTION 06/22/2017 BEN PAK ROSETTE Ot L30.9 DERMATITIS, UNSPECIFIED 06/22/2017 BEN DO ROSETTE Ot N18.3 CHRONIC KIDNEY DISEASE, STAGE 3 (MODERAT 06/22/2017 BEN DO ROSETTE Ot R05 COUGH 06/22/2017 BEN PAK ROSETTE Ot Z66 DO NOT RESUSCITATE 06/22/2017 BEN PAK ROSETTE Ot Z95.5 PRESENCE OF CORONARY ANGIOPLASTY IMPLANT 06/22/2017 LUZ HOLT DO Ot 550.90 UNILAT INGUINAL HERNIA 06/22/2017 LUZ HOLT DO Ot V58.69 OTH MED,LT,CURRENT USE 06/22/2017 ROZINA HOLT DOTT D Ot 550.90 UNILAT INGUINAL HERNIA 06/22/2017 LUZ HOLT DO Ot V58.69 OTH MED,LT,CURRENT USE 06/22/2017 LUZ HOLT DO Ot 550.90 UNILAT INGUINAL HERNIA 06/22/2017 LUZ HOLT DO Ot V58.69 OTH MED,LT,CURRENT USE 06/23/2017 BEN PAK ROSETTE Ot B37.0 CANDIDAL STOMATITIS 06/23/2017 CONTRERAS DO, ROSETTE Ot C92.00 ACUTE MYELOBLASTIC LEUKEMIA, NOT HAVING 06/23/2017 BEN DO ROSETTE Ot E11.22 TYPE 2 DIABETES MELLITUS W DIABETIC PHOTO MASK PATTERN GENERATOR 06/23/2017 BEN DO ROSETTE Ot I12.9 HYPERTENSIVE CHRONIC KIDNEY DISEASE W ST 06/23/2017 BEN PAK ROSETTE Ot I25.10 ATHSCL HEART DISEASE OF [place] CORONARY 06/23/2017 BEN PAK ROSETTE Ot I48.0 PAROXYSMAL ATRIAL FIBRILLATION 06/23/2017 BEN DO, ROSETTE Ot K21.9 GASTRO-ESOPHAGEAL REFLUX DISEASE WITHOUT 06/23/2017 CONTRERAS DO, ROSETTE Ot K44.9 DIAPHRAGMATIC HERNIA WITHOUT OBSTRUCTION 06/23/2017 BEN DO ROSETTE Ot L30.9 DERMATITIS, UNSPECIFIED 06/23/2017 BEN DO ROSETTE Ot N18.3 CHRONIC KIDNEY DISEASE, STAGE 3 (MODERAT 06/23/2017 BEN DO ROSETTE Ot R05 COUGH 06/23/2017 BEN PAK ROSETTE Ot Z66 DO NOT RESUSCITATE 06/23/2017 BEN PAK ROSETTE Ot Z95.5 PRESENCE OF CORONARY ANGIOPLASTY IMPLANT 06/23/2017 BEN DO ROSETTE Ot C92.00 ACUTE MYELOBLASTIC LEUKEMIA, NOT HAVING 06/23/2017 BEN DO ROSETTE Ot D64.9 ANEMIA, UNSPECIFIED 06/23/2017 BEN DO ROSETTE Ot D69.6 THROMBOCYTOPENIA, UNSPECIFIED 06/23/2017 BEN DO ROSETTE Ot E11.65 TYPE 2 DIABETES MELLITUS WITH HYPERGLYCE 06/23/2017 BEN DO ROSETTE Ot E83.42 HYPOMAGNESEMIA 06/23/2017 BEN PAK ROSETTE Ot E87.6 HYPOKALEMIA 06/23/2017 BEN PAK ROSETTE Ot H40.9 UNSPECIFIED GLAUCOMA 06/23/2017 BEN DO ROSETTE Ot H91.90 UNSPECIFIED HEARING LOSS, UNSPECIFIED EA 06/23/2017 BEN PAK ROSETTE Ot I10 ESSENTIAL (PRIMARY) HYPERTENSION 06/23/2017 BEN DO ROSETTE Ot I21.4 NON-ST ELEVATION (NSTEMI) MYOCARDIAL INF 06/23/2017 BEN PAK ROSETTE Ot I25.10 ATHSCL HEART DISEASE OF [place] CORONARY 06/23/2017 BEN PAK ROSETTE Ot I48.91 UNSPECIFIED ATRIAL FIBRILLATION 06/23/2017 ROSETTE CONTRERAS DO Ot J81.1 CHRONIC PULMONARY EDEMA 06/23/2017 ROSETTE CONTRERAS DO Ot K21.9 GASTRO-ESOPHAGEAL REFLUX DISEASE WITHOUT 06/23/2017 ROSETTE CONTRERAS DO Ot K44.9 DIAPHRAGMATIC HERNIA WITHOUT OBSTRUCTION 06/23/2017 ROSETTE CONTRERAS DO Ot T45.1X5A ADVERSE EFFECT OF ANTINEOPLASTIC AND IMM 06/23/2017 ROSETTE CONTRERAS DO Ot Z66 DO NOT RESUSCITATE 06/23/2017 ROSETTE CONTRERAS DO Ot Z79.4 FCI (CURRENT) USE OF INSULIN 06/23/2017 ROSETTE CONTRERAS DO Ot Z95.1 PRESENCE OF AORTOCORONARY BYPASS GRAFT 06/23/2017 ROSETTE CONTRERAS DO Ot C92.00 ACUTE MYELOBLASTIC LEUKEMIA, NOT HAVING 06/23/2017 ROSETTE CONTRERAS DO Ot D64.9 ANEMIA, UNSPECIFIED 06/23/2017 ROSETTE CONTRERAS DO Ot D69.6 THROMBOCYTOPENIA, UNSPECIFIED 06/23/2017 ROSETTE CONTRERAS DO Ot E11.65 TYPE 2 DIABETES MELLITUS WITH HYPERGLYCE 06/23/2017 ROSETTE CONTRERAS DO Ot E83.42 HYPOMAGNESEMIA 06/23/2017 ROSETTE CONTRERAS DO Ot E87.6 HYPOKALEMIA 06/23/2017 ROSETTE CONTRERAS DO Ot H40.9 UNSPECIFIED GLAUCOMA 06/23/2017 [place] CONTRERAS DOI Ot H91.90 UNSPECIFIED HEARING LOSS, UNSPECIFIED EA 06/23/2017 ROSETTE CONTRERAS DO Ot I10 ESSENTIAL (PRIMARY) HYPERTENSION 06/23/2017 ROSETTE CONTRERAS DO Ot I21.4 NON-ST ELEVATION (NSTEMI) MYOCARDIAL INF 06/23/2017 ROSETTE CONTRERAS DO Ot I25.10 ATHSCL HEART DISEASE OF [place] CORONARY 06/23/2017 ROSETTE CONTRERAS DO Ot I48.91 UNSPECIFIED ATRIAL FIBRILLATION 06/23/2017 ROSETTE CONTRERAS DO Ot J81.1 CHRONIC PULMONARY EDEMA 06/23/2017 ROSETTE CONTRERAS DO Ot K21.9 GASTRO-ESOPHAGEAL REFLUX DISEASE WITHOUT 06/23/2017 ROSETTE CONTRERAS DO Ot K44.9 DIAPHRAGMATIC HERNIA WITHOUT OBSTRUCTION 06/23/2017 ROSETTE CONTRERAS DO Ot T45.1X5A ADVERSE EFFECT OF ANTINEOPLASTIC AND IMM 06/23/2017 BEN PAK ROSETTE Ot Z66 DO NOT RESUSCITATE 06/23/2017 ROSETTE CONTRERAS DO Ot Z79.4 RADIATION PROTECTION ENGINEER (CURRENT) USE OF INSULIN 06/23/2017 [place] CONTRERAS DOI Ot Z95.1 PRESENCE OF AORTOCORONARY BYPASS GRAFT 06/24/2017 BEN PAK ROSETTE Ot C92.00 ACUTE MYELOBLASTIC LEUKEMIA, NOT HAVING 06/24/2017 [place] CONTRERAS DOI Ot D64.9 ANEMIA, UNSPECIFIED 06/24/2017 BEN PAK ROSETTE Ot D69.6 THROMBOCYTOPENIA, UNSPECIFIED 06/24/2017 [place]ST[place] CONTRERAS DOI Ot E11.65 TYPE 2 DIABETES MELLITUS WITH HYPERGLYCE 06/24/2017 [place]ST[place] CONTRERAS DOI Ot E83.42 HYPOMAGNESEMIA 06/24/2017 BEN PAK ROSETTE Ot E87.6 HYPOKALEMIA 06/24/2017 [place]ST[place] CONTRERAS DOI Ot H40.9 UNSPECIFIED GLAUCOMA 06/24/2017 [place] CONTRERAS DOI Ot H91.90 UNSPECIFIED HEARING LOSS, UNSPECIFIED EA 06/24/2017 BEN PAK ROSETTE Ot I10 ESSENTIAL (PRIMARY) HYPERTENSION 06/24/2017 BEN PAK ROSETTE Ot I21.4 NON-ST ELEVATION (NSTEMI) MYOCARDIAL INF 06/24/2017 K[place]ST[place] CONTRERAS DOI Ot I25.10 ATHSCL HEART DISEASE OF [place] CORONARY 06/24/2017 BEN PAK ROSETTE Ot I48.91 UNSPECIFIED ATRIAL FIBRILLATION 06/24/2017 KINGST[place] CONTRERAS DOI Ot J81.1 CHRONIC PULMONARY EDEMA 06/24/2017 K[place]ST[place] CONTRERAS DOI Ot K21.9 GASTRO-ESOPHAGEAL REFLUX DISEASE WITHOUT 06/24/2017 BEN PAK ROSETTE Ot K44.9 DIAPHRAGMATIC HERNIA WITHOUT OBSTRUCTION 06/24/2017 BEN PAK ROSETTE Ot T45.1X5A ADVERSE EFFECT OF ANTINEOPLASTIC AND IMM 06/24/2017 [place]ST[place] CONTRERAS DOI Ot Z66 DO NOT RESUSCITATE 06/24/2017 ROSETTE CONTRERAS DO Ot Z79.4 FCI (CURRENT) USE OF INSULIN 06/24/2017 KINGST[place] CONTRERAS DOI Ot Z95.1 PRESENCE OF AORTOCORONARY BYPASS GRAFT 06/24/2017 KINGST[place] CONTRERAS DOI Ot C92.00 ACUTE MYELOBLASTIC LEUKEMIA, NOT HAVING 06/24/2017 ROSETTE CONTRERAS DO Ot D61.811 OTHER DRUG-INDUCED PANCYTOPENIA 06/24/2017 ROSETTE CONTRERAS DO Ot E11.65 TYPE 2 DIABETES MELLITUS WITH HYPERGLYCE 06/24/2017 ROSETTE CONTRERAS DO Ot E83.42 HYPOMAGNESEMIA 06/24/2017 ROSETTE CONTRERAS DO Ot E87.6 HYPOKALEMIA 06/24/2017 ROSETTE CONTRERAS DO Ot H40.9 UNSPECIFIED GLAUCOMA 06/24/2017 ROSETTE CONTRERAS DO Ot H91.90 UNSPECIFIED HEARING LOSS, UNSPECIFIED EA 06/24/2017 ROSETTE CONTRERAS DO Ot I12.9 HYPERTENSIVE CHRONIC KIDNEY DISEASE W ST 06/24/2017 ROSETTE CONTRERAS DO Ot I21.4 NON-ST ELEVATION (NSTEMI) MYOCARDIAL INF 06/24/2017 ROESTTE CONTRERAS DO Ot I25.10 ATHSCL HEART DISEASE OF [place] CORONARY 06/24/2017 ROSETTE CONTRERAS DO Ot I48.2 CHRONIC ATRIAL FIBRILLATION 06/24/2017 ROSETTE CONTRERAS DO Ot J81.1 CHRONIC PULMONARY EDEMA 06/24/2017 ROSETTE CONTRERAS DO Ot K21.9 GASTRO-ESOPHAGEAL REFLUX DISEASE WITHOUT 06/24/2017 ROSETTE CONTRERAS DO Ot K44.9 DIAPHRAGMATIC HERNIA WITHOUT OBSTRUCTION 06/24/2017 ROSETTE CONTRERAS DO Ot N18.3 CHRONIC KIDNEY DISEASE, STAGE 3 (MODERAT 06/24/2017 ROSETTE CONTRERAS DO Ot T45.1X5A ADVERSE EFFECT OF ANTINEOPLASTIC AND IMM 06/24/2017 ROSETTE CONTRERAS DO Ot Z66 DO NOT RESUSCITATE 06/24/2017 ROSETTE CONTRERAS DO Ot Z79.4 RADIATION PROTECTION ENGINEER (CURRENT) USE OF INSULIN 06/24/2017 ROSETTE CONTRERAS DO Ot Z95.1 PRESENCE OF AORTOCORONARY BYPASS GRAFT Procedures Encounters ACCT No. Visit Date/Time Discharge Status Pt. Type Provider Facility Loc./Unit Complaint [id number] 06/21/2017 22:50:00 2016 11:39:00 DIS Inpatient ROSETTE CONTRERAS DO [facility] 4TH A-FIB, CP [id number] 06/19/2017 08:32:00 2016 22:49:00 DIS Inpatient ROSETTE CONTRERAS DO [facility] 4TH SWB-AML [id number] 06/16/2017 13:10:00 2016 08:26:00 DIS Inpatient ELVIA MARCOS MD [facility] 4TH AML [id number] 12/30/2013 08:04:00 2013 08:04:00 CAN Outpatient LUZ HOLT DO [facility] SDC LEFT INGUINAL HERNIA [id number] 12/23/2013 12:06:00 2013 23:59:59 CLS Outpatient [id number] 12/07/2013 11:56:00 2013 23:59:59 CLS Outpatient [id number] 12/06/2013 15:47:00 2013 23:59:59 CLS Outpatient [id number] 06/24/2017 11:40:00 ACT Inpatient ELVIA MARCOS MD [facility] 4TH SWB-ACUTE MYELOGENOUS LEUKEMIA [id number] 06/24/2017 01:00:00 ACT Outpatient SINA GREEN [facility] ONC
--- NOTE | 2017-07-16 13:49 | Discharge Summary-Hospitalist ---
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 While on swing bed and receiving chemotherapy he developed palpitations and then chest pain. He was transferred to the ICU and found to be in rapid ventricular response of his long-standing atrial fibrillation. Subsequently his troponin carlita. He was not considered a candidate for invasive therapy. His rate was controlled. He was transferred back to swing bed to complete his chemotherapy. With his multiple morbidities, his condition is very guarded. Diagnosis: 1.chronic atrial fibrillation with episode of rapid ventricular response. 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 3.COPD. 4.acute myelogenous leukemia. 5.diabetes Discharge Summary Discharge Physical Examination Allergies: Coded Allergies: saxagliptin (Verified Allergy, Intermediate, 06/16/17) swelling Pentazocine Lactate (Unverified Allergy, Unknown, 06/16/17) sulfamethoxazole (Verified Allergy, Unknown, 06/16/17) METABOLIC REACTION trimethoprim (Verified Allergy, Unknown, 06/16/17) CHEST TIGHTNESS doxycycline (Verified Adverse Reaction, Unknown, HIVES, ACHES, 06/16/17) hydrocodone (Verified Adverse Reaction, Unknown, HALLUCINATIONS, 06/23/17) HALUCINATIONS Discharge Home Medications: Active Scripts Active Reported Omeprazole 20 Mg Capsule.dr 20 Mg PO DAILY PRN Metformin HCl 1,000 Mg Tablet 1,000 Mg PO BID WITH MEALS Fenofibrate (Fenofibrate,Micronized) 130 Mg Capsule 135 Mg PO 1200 Ragan-3 Acid Ethyl Esters 1 Gm Capsule 1 Gm PO HS Ramipril 10 Mg Capsule 10 Mg PO DAILY Telmisartan 80 Mg Tablet 80 Mg PO DAILY Stress Formula Vit-Zinc Tab (Multivits,Stress Formula/Zinc) 1 Each Tablet 1 Tab PO DAILY Vitamin B12 (Cyanocobalamin) 1,000 Mcg Tablet.sa 1,000 Mcg PO DAILY Ecotrin (Aspirin) 81 Mg Tablet. 81 Mg PO MOWEFR Coreg Cr (Carvedilol Phosphate) 80 Mg Cpmp.24hr 80 Mg PO DAILY Zetia (Ezetimibe) 10 Mg Tablet 10 Mg PO HS Amlodipine Besylate 5 Mg Tablet 5 Mg PO BID Instructions to patient/family Please see electonic discharge instructions given to patient. Clinical Quality Measures DVT/VTE Risk/Contraindication: Risk Factor Score Per Nursin RFS Level Per Nursing on Admit: 3=High ELVIA MARCOS MD Jul 16, 2017 13:49
== END 2017-06-24 11:39 | disposition swing bed (61) | DRG 280 ==
LOC: ICU 22:50 → 4TH 06-23 16:06
PROVIDERS: ADMIT Internal Medicine Interventional Cardiology; ATTEND Internal Medicine
DX: I21.4 Non-ST elevation (NSTEMI) myocardial infarction (principal); I25.10 Atherosclerotic heart disease of native coronary artery without angina pectoris; C92.Z0 Other myeloid leukemia not having achieved remission; D61.811 Other drug-induced pancytopenia; J81.0 Acute pulmonary edema; I48.2 Chronic atrial fibrillation; I12.9 Hypertensive chronic kidney disease with stage 1 through stage 4 chronic kidney disease, or unspecified chronic kidney disease; N18.3 Chronic kidney disease, stage 3 (moderate); Z66 Do not resuscitate; E11.65 Type 2 diabetes mellitus with hyperglycemia; J44.9 Chronic obstructive pulmonary disease, unspecified; K21.9 Gastro-esophageal reflux disease without esophagitis; K44.9 Diaphragmatic hernia without obstruction or gangrene; T45.1X5A Adverse effect of antineoplastic and immunosuppressive drugs, initial encounter; E87.6 Hypokalemia; E83.42 Hypomagnesemia; H91.90 Unspecified hearing loss, unspecified ear; H40.9 Unspecified glaucoma; Z95.1 Presence of aortocoronary bypass graft; Z79.4 Long term (current) use of insulin
CPT/HCPCS: 36415; 71010; 71020; 80048; 80053; 82962; 83735; 83880; 84100; 85025; 85027; 85730; 86850; 86900; 86901; 86920; 93005; 93306; 94640; 94664; 94760; 96375; 96413

== ENCOUNTER 2017-06-24 10:58 | Inpatient (IN) | payer MEDICARE ==
[~2017-06-24] VITALS: Ht 180.3 cm; Wt 94.8 kg
[2017-06-24] MEDS ORDERED: NITROGLYCERIN SUBLINGUAL 0.4 MG TAB (NITROSTAT) SL PRN (11:45)
[2017-06-24] MEDS ORDERED: IBUPROFEN 600 MG (MOTRIN) TAB PO PRN (11:45)
[2017-06-24] MEDS ORDERED: HEParin DRIP 25000 UNIT/500ML 500 ML IV SCH (11:45)
[2017-06-24] MEDS ORDERED: NS IV 500 ML 500 ML IV SCH (11:45)
[2017-06-24] MEDS ORDERED: fentaNYL INJECTION 100 MCG/2 ML AMP IVP PRN (11:45)
[2017-06-24] MEDS ORDERED: HEParin 1000 UNIT/ML (10ML VIAL) FOR BOLUS IV PRN (11:45)
[2017-06-24] MEDS ORDERED: NYSTATIN ORAL SUSP 5 ML UDC PO SCH (12:00)
[2017-06-24] MEDS ORDERED: DECITABINE 40 MG in NS (IVPB) CANCER CENTER 50 ML IV SCH (12:15)
[2017-06-24] MEDS: RT-ALBUTEROL/IPRATROPIUM 3 ML (DUONEB) VIAL INH SCH ×2 (13:59→19:14)
[2017-06-24] MEDS: DEXAMETHASONE IV SCH (14:30)
[2017-06-24] MEDS: [UNRECOGNIZED DRUG - OTHER] IV SCH (14:30)
[2017-06-24] MEDS: ONDANSETRON IV SCH (14:30)
[2017-06-24] MEDS: DECITABINE 40 MG in NS (IVPB) CANCER CENTER 50 ML IV SCH (14:40)
[2017-06-24] MEDS: meTOprolol TARTRATE 25 MG (LOPRESSOR) TABLET PO SCH ×2 (15:57→21:41)
[2017-06-24] MEDS: PROMETHAZINE/ CODEINE SYRUP 5 ML UDC PO PRN (15:57)
[2017-06-24] MEDS: inSUlin (REGULAR) HUMAN 1 UNIT/0.01 ML (CHARGE PER UNIT) SC SCH ×2 (16:49→21:42)
[2017-06-24] MEDS: NYSTATIN ORAL SUSP 5 ML UDC PO SCH ×2 (18:18→23:32)
--- NOTE | 2017-06-24 19:03 | Progress Note-Standard ---
Standard Progress Note Progress Notes/Assess & Plan Date Seen by Provider: Jun 24, 2017 Time Seen by Provider: 18:56 Progress/Assessment & Plan 82-year-old male with recent diagnosis of AML and pancytopenia. Patient was not felt to be a candidate for intensive therapy and decided to proceed with less intensive therapy. He is on treatment with Dacogen daily and has completed day # 4 of chemotherapy today. He developed chest pain and suffered a Non STEMI and atrial fibrillation with RVR this past weekend. After extensive discussions it was decided to proceed with medical management for the coronary artery disease as well as the atrial fibrillation. His main complaint today is generalized weakness and paroxysmal cough. Antitussive use and occasional morphine is controlling his symptoms fairly. Because of coronary artery disease and [place], it was decided to maintain his hemoglobin closer to 10 g/ dL. This has gradually dropped to 8.5 g/dL today and I will transfuse him with 1 unit of PRBCs with appropriate premedication tonight. May consider restarting physical therapy for strengthening and ambulation. Continue chemotherapy with Dacogen daily. We will repeat lab work tomorrow morning. His overall prognosis is guarded. SINA GREEN Jun 24, 2017 19:03
[2017-06-24 19:15] VITALS: BP 146/65
[2017-06-24] MEDS: morphine INJ 4 MG/ML 1 ML (VIAL/SYRINGE) IVP PRN (20:26)
[2017-06-24] MEDS ORDERED: NS IV 500 ML 500 ML IV ONE ×2 (21:30→22:15)
[2017-06-24] MEDS ORDERED: ACETAMINOPHEN 500 MG TAB (TYLENOL) PO ONE ×2 (21:30)
[2017-06-24] MEDS ORDERED: diphenhydrAMINE 25 MG TAB (BENADRYL) PO ONE ×2 (21:30)
[2017-06-24] MEDS: inSUlin DETERMIR 1 UNIT/0.01 ML (LEVEMIR) CHARGE PER UNIT SQ SCH (21:42)
[2017-06-24] MEDS: amLODIPine 5 MG (NORVASC) TAB PO SCH (21:42)
[2017-06-24] MEDS: POLYETHYLENE GLYCOL 17 GM (MIRALAX) PACK PO SCH (21:42)
[2017-06-24] MEDS: MICONAZOLE 2% POWDER (DESENEX AF) 90 GM TOP SCH (21:47)
[2017-06-24 22:43] VITALS: BP 144/67
[2017-06-24 23:04] VITALS: BP 157/72
[2017-06-25 01:56] VITALS: BP 132/60
[2017-06-25] MEDS: morphine INJ 4 MG/ML 1 ML (VIAL/SYRINGE) IVP PRN ×2 (01:57→18:48)
[2017-06-25] MEDS: RT-ALBUTEROL/IPRATROPIUM 3 ML (DUONEB) VIAL INH SCH ×4 (02:16→19:41)
[2017-06-25 06:00] VITALS: BP 132/60
[2017-06-25] MEDS: PANTOPRAZOLE 40 MG (PROTONIX) TAB PO SCH (06:18)
[2017-06-25] MEDS: NYSTATIN ORAL SUSP 5 ML UDC PO SCH ×3 (06:18→17:56)
[2017-06-25] MEDS: inSUlin (REGULAR) HUMAN 1 UNIT/0.01 ML (CHARGE PER UNIT) SC SCH ×4 (06:18→21:53)
[2017-06-25 06:37] LABS: BASOPHILS % (AUTO) 0 % (0-10); EOSINOPHILS % (AUTO) 0 % (0-10); LYMPHOCYTES # (AUTO) 1.3 X 10^3 (1.0-4.0); LYMPHOCYTES % (AUTO) 26 % (12-44); MEAN CORPUSCULAR HEMOGLOBIN 33 PG (25-34); MEAN CORPUSCULAR HGB CONC 34 G/DL (32-36); MEAN CORPUSCULAR VOLUME 97 FL (80-99); MEAN PLATELET VOLUME 9.3 FL (7.4-10.4); MONOCYTES # (AUTO) 1.9 X 10^3 (0.0-1.0); MONOCYTES % (AUTO) 37 % (0-12); NEUTROPHILS # (AUTO) 1.9 X 10^3 (1.8-7.8); NEUTROPHILS % (AUTO) 37 % (42-75); PLATELET COUNT 55 10^3/uL (130-400); RED CELL DISTRIBUTION WIDTH 15.6 % (10.0-14.5); WHITE BLOOD COUNT 5.2 10^3/uL (4.3-11.0)
[2017-06-25 06:50] LABS: INR 1.2 (0.8-1.4); PROTHROMBIN TIME PATIENT 14.6 SEC (12.2-14.7)
[2017-06-25 06:58] LABS: CALCIUM 9.2 MG/DL (8.5-10.1); CREATININE SERUM 1.7 MG/DL (0.60-1.30); POTASSIUM 3.9 MMOL/L (3.6-5.0)
[2017-06-25] MEDS ORDERED: [UNRECOGNIZED DRUG - OTHER] IV SCH (08:45)
[2017-06-25] MEDS ORDERED: ONDANSETRON IV SCH (08:45)
[2017-06-25] MEDS ORDERED: DEXAMETHASONE IV SCH (08:45)
[2017-06-25] MEDS ORDERED: RAMIPRIL 5 MG (ALTACE) CAP PO SCH (09:00)
[2017-06-25] MEDS ORDERED: DAKIN'S 1/4 STRENGTH (0.125%) 473 ML BTL TOP SCH (09:00)
[2017-06-25] MEDS ORDERED: ASPIRIN E.C. 81 MG (ECOTRIN) TAB PO SCH (09:00)
[2017-06-25] MEDS: RT-ALBUTEROL/IPRATROPIUM 3 ML (DUONEB) VIAL INH PRN ×4 (09:00→22:42)
[2017-06-25] MEDS: FUROSEMIDE 40 MG/4 ML INJ (LASIX) IVP SCH (09:41)
[2017-06-25] MEDS: BENZONATATE 100 MG (TESSALON) CAPSULE PO PRN ×2 (09:41→22:38)
[2017-06-25] MEDS: ALLOPURINOL 100 MG (ZYLOPRIM) TAB PO SCH (09:43)
[2017-06-25] MEDS: fluCOnazole (DIFLUCAN) 100 MG TAB PO SCH (09:43)
[2017-06-25] MEDS: ISOSORBIDE MONONITRATE 60 MG (IMDUR) TAB PO SCH (09:44)
[2017-06-25] MEDS: amLODIPine 5 MG (NORVASC) TAB PO SCH ×2 (09:44→20:27)
[2017-06-25] MEDS: meTOprolol TARTRATE 25 MG (LOPRESSOR) TABLET PO SCH ×3 (09:44→20:30)
[2017-06-25] MEDS: MICONAZOLE 2% POWDER (DESENEX AF) 90 GM TOP SCH (09:45)
[2017-06-25] MEDS: PROMETHAZINE/ CODEINE SYRUP 5 ML UDC PO PRN ×3 (09:46→22:38)
--- NOTE | 2017-06-25 13:29 | Progress Note-Cardiology ---
Cardiology SOAP Progress Note Subjective: Reports cough and shortness of breath. Denies cp. Cough is generally dry. Denies palp or syncope Objective: I&O/Vital Signs Vital Sign - Last 12Hours 06/25/17 06/25/17 06/25/17 06/25/17 01:56 02:16 06:00 07:01 Temp 98.0 98.0 Pulse 70 70 Resp 22 18 B/P (MAP) 132/60 132/60 Pulse Ox 91 89 91 94 O2 Delivery Nasal Cannula Nasal Cannula Nasal Cannula Nasal Cannula O2 Flow Rate 5.00 5.00 5.00 6.00 06/25/17 06/25/17 06/25/17 06/25/17 07:14 09:00 11:05 12:21 Pulse Ox 94 84 90 89 O2 Delivery Nasal Cannula Nasal Cannula Nasal Cannula O2 Flow Rate 6.00 6.00 10.00 Intake and Output 06/25/17 00:00 Intake Total 1630 ml Output Total 1500 ml Balance 130 ml Weight (Pounds): 209 Weight (Ounces): 1.0 Weight (Calculated Kilograms): 94.722628 Constitutional: AAO x 3, well-developed, well-nourished Respiratory: No accessory muscle use, other (diminished air entry at the bases ; a few scattered rhonchi and wheezes) Cardiovascular: regular rate-rhythm, S1 and S2, systolic murmur (soft RADHA at card base) Gastrointestional: soft, No guarding, No rebound, audible bowel sounds Extremities: No clubbing, No cyanosis, significant edema (3+ bilat leg edema) Neurologic/Psychiatric: oriented x 3, grossly intact, power is 5/5 both on sides Skin: No rash on exposed areas, No ulcerations on exposed areas Results/Procedures: Labs Laboratory Tests 06/24/17 16:04: Glucometer 244H 06/24/17 21:26: Glucometer 301H 06/25/17 05:35: Glucometer 170H 06/25/17 06:23: White Blood Count 5.2, Red Blood Count 2.70L, Hemoglobin 8.8L, Hematocrit 26L, Mean Corpuscular Volume 97, Mean Corpuscular Hemoglobin 33, Mean Corpuscular Hemoglobin Concent 34, Red Cell Distribution Width 15.6H, Platelet Count 55L, Mean Platelet Volume 9.3, Neutrophils (%) (Auto) 37L, Lymphocytes (%) (Auto) 26 , Monocytes (%) (Auto) 37H, Eosinophils (%) (Auto) 0, Basophils (%) (Auto) 0, Neutrophils # (Auto) 1.9, Lymphocytes # (Auto) 1.3, Monocytes # (Auto) 1.9H, Eosinophils # (Auto) 0.0, Basophils # (Auto) 0.0, Prothrombin Time 14.6, INR Comment 1.2, Activated Partial Thromboplast Time 78H, Sodium Level 143, Potassium Level 3.9, Chloride Level 107, Carbon Dioxide Level 30, Anion Gap 6, Blood Urea Nitrogen 27H, Creatinine 1.70H, Estimat Glomerular Filtration Rate 39 , BUN/Creatinine Ratio 16, Glucose Level 154H, Calcium Level 9.2 Laboratory Tests 06/25/17 06:23 A/P: Assessment: Ac NSTEMI Ac diastolic CHF Acute myeloid leukemia, on chemotherapy with Dacogen day #3. Continue. Pancytopenia due to AML and chemotherapy Chronic kidney disease stage III. Monitor. 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
[2017-06-25] MEDS ORDERED: NS IV 500 ML (CANCER CENTER) 500 ML ONE (14:24)
[2017-06-25] MEDS: ONDANSETRON IV SCH (14:53)
[2017-06-25] MEDS: [UNRECOGNIZED DRUG - OTHER] IV SCH (14:53)
[2017-06-25] MEDS: DEXAMETHASONE IV SCH (14:53)
[2017-06-25] MEDS: DECITABINE 40 MG in NS (IVPB) CANCER CENTER 50 ML IV SCH (15:08)
[2017-06-25 17:23] VITALS: BP 145/62
--- NOTE | 2017-06-25 18:43 | Progress Note-Standard ---
Standard Progress Note Progress Notes/Assess & Plan Date Seen by Provider: Jun 25, 2017 Time Seen by Provider: 18:37 Progress/Assessment & Plan 82-year-old male with recent diagnosis of AML and pancytopenia. Patient was not felt to be a candidate for intensive therapy and decided to proceed with less intensive therapy. He is on treatment with Dacogen daily and has completed day # 5 of chemotherapy today. He developed chest pain and suffered a Non STEMI and atrial fibrillation with RVR this past weekend. After extensive discussions it was decided to proceed with medical management for the coronary artery disease as well as the atrial fibrillation. His main complaint today is generalized weakness and paroxysmal cough. Antitussive use and occasional morphine is controlling his symptoms fairly. Because of coronary artery disease and [place], it was decided to maintain his hemoglobin closer to 10 g/ dL. Patient continues to have paroxysmal cough which improves with nebulizers and morphine. He complained of small amount of hemoptysis today. May consider d /cing heparin gtt if okay with cardiology. Platelet count dropping secondary to chemo and leukemia. Continue chemotherapy with Dacogen day#5 today. Labs from today noted and hemoglobin 8.8 and platelets 55,000. May need PRBCs tomorrow. We will repeat lab work tomorrow morning. His overall prognosis is guarded. SINA GREEN Jun 25, 2017 18:43
[2017-06-25] MEDS: POLYETHYLENE GLYCOL 17 GM (MIRALAX) PACK PO SCH (20:27)
[2017-06-25] MEDS: inSUlin DETERMIR 1 UNIT/0.01 ML (LEVEMIR) CHARGE PER UNIT SQ SCH (21:53)
[2017-06-26] MEDS: NYSTATIN ORAL SUSP 5 ML UDC PO SCH ×4 (00:20→18:37)
[2017-06-26] MEDS: RT-ALBUTEROL/IPRATROPIUM 3 ML (DUONEB) VIAL INH PRN (03:18)
[2017-06-26] MEDS: PANTOPRAZOLE 40 MG (PROTONIX) TAB PO SCH (05:37)
[2017-06-26] MEDS: inSUlin (REGULAR) HUMAN 1 UNIT/0.01 ML (CHARGE PER UNIT) SC SCH ×4 (05:41→21:24)
[2017-06-26 05:53] LABS: BASOPHILS % (AUTO) 0 % (0-10); EOSINOPHILS % (AUTO) 0 % (0-10); LYMPHOCYTES # (AUTO) 1.2 X 10^3 (1.0-4.0); LYMPHOCYTES % (AUTO) 25 % (12-44); MEAN CORPUSCULAR HEMOGLOBIN 33 PG (25-34); MEAN CORPUSCULAR HGB CONC 33 G/DL (32-36); MEAN CORPUSCULAR VOLUME 99 FL (80-99); MEAN PLATELET VOLUME 9.5 FL (7.4-10.4); MONOCYTES # (AUTO) 1.6 X 10^3 (0.0-1.0); MONOCYTES % (AUTO) 35 % (0-12); NEUTROPHILS # (AUTO) 1.9 X 10^3 (1.8-7.8); NEUTROPHILS % (AUTO) 40 % (42-75); PLATELET COUNT 49 10^3/uL (130-400); RED CELL DISTRIBUTION WIDTH 15.5 % (10.0-14.5); WHITE BLOOD COUNT 4.6 10^3/uL (4.3-11.0)
[2017-06-26 06:00] VITALS: BP 156/67
[2017-06-26 06:10] LABS: ALBUMIN 2.8 GM/DL (3.2-4.5); BILIRUBIN,TOTAL 1.1 MG/DL (0.1-1.0); CALCIUM 9.2 MG/DL (8.5-10.1); CREATININE SERUM 1.59 MG/DL (0.60-1.30); POTASSIUM 3.7 MMOL/L (3.6-5.0); TOTAL PROTEIN 5.4 GM/DL (6.4-8.2)
[2017-06-26] MEDS: RT-ALBUTEROL/IPRATROPIUM 3 ML (DUONEB) VIAL INH SCH ×4 (07:58→19:25)
[2017-06-26] MEDS ORDERED: ASPIRIN E.C. 81 MG (ECOTRIN) TAB PO SCH (09:00)
[2017-06-26] MEDS: ALLOPURINOL 100 MG (ZYLOPRIM) TAB PO SCH (09:20)
[2017-06-26] MEDS: PROMETHAZINE/ CODEINE SYRUP 5 ML UDC PO PRN (09:20)
[2017-06-26] MEDS: BENZONATATE 100 MG (TESSALON) CAPSULE PO PRN (09:20)
[2017-06-26] MEDS: FUROSEMIDE 40 MG/4 ML INJ (LASIX) IVP SCH (09:20)
[2017-06-26] MEDS: amLODIPine 5 MG (NORVASC) TAB PO SCH ×2 (09:20→21:21)
[2017-06-26] MEDS: meTOprolol TARTRATE 25 MG (LOPRESSOR) TABLET PO SCH ×3 (09:21→21:25)
[2017-06-26] MEDS: fluCOnazole (DIFLUCAN) 100 MG TAB PO SCH (09:21)
[2017-06-26] MEDS: ISOSORBIDE MONONITRATE 60 MG (IMDUR) TAB PO SCH (09:21)
[2017-06-26] MEDS: ASPIRIN 81 MG CHEW (CHILDREN'S ASA) PO SCH (09:21)
--- NOTE | 2017-06-26 10:26 | Progress Note-Hospitalist ---
Standard Progress Note Progress Notes/Assess & Plan Date Seen 06/25/17 Time Seen by Provider: 11:55 Assess & Plan/Chief Complaint The patient is sitting at the bedside on my visit. He had a shave the incumbent his hair looks much better. He is awaiting his next chemotherapy. He has had a low-grade fever. The most disturbing thing is his rather persistent cough which has been refractory to antitussives. It troubles him during the sleeping hours more than any other time. It is occasionally productive of a mucoid plug. Physical exam: He is alert and appears comfortable. Lungs show distant breath sounds but are clear. CV is irregular consistent with atrial fibrillation. Extremities show 1+ pedal edema. Impression: Acute myelogenous leukemia. 2.COPD. 3.nonspecific cough. 4.chronic atrial fibrillation. 5.arteriosclerotic heart disease with previous intervention. Plan: Continue supportive therapy and leukemia Induction therapy Labs Laboratory Tests 06/25/17 06:23 06/26/17 05:43 ELVIA MARCOS MD Jun 26, 2017 10:26
--- NOTE | 2017-06-26 11:25 | Progress Note-Hospitalist ---
Standard Progress Note Progress Notes/Assess & Plan Date Seen 06/26/17 Time Seen by Provider: 11:18 Assess & Plan/Chief Complaint He is sitting at bedside recliner. He appears quite comfortable. He and his agree that his cough particularly at bedtime is the most disturbing part of his present status. This was present while he was still at home. It is noted that on admission he was taking both an DANIELA inhibitor and an ARB. I had discontinued the ARB this was duplicative. MARCOS Harrison discontinued the RamIPRIL yesterday. It may take as long as one month to determine whether this is the culprit. Tessalon has been of no particular use and he reports difficulties with hydrocodone in the past. Physical exam: He appears comfortable. Lungs are distant but clear. CV is regular. Impression: AML. 2.COPD. 3.arteriosclerotic heart disease. Plan: DC DANIELA inhibitor and observe. Labs Laboratory Tests 06/25/17 06:23 06/26/17 05:43 ELVIA MARCOS MD Jun 26, 2017 11:24
[2017-06-26] MEDS: morphine INJ 4 MG/ML 1 ML (VIAL/SYRINGE) IVP PRN ×2 (11:29→13:03)
--- NOTE | 2017-06-26 11:37 | Progress Note-Cardiology ---
Cardiology SOAP Progress Note Subjective: No new c/o Objective: I&O/Vital Signs Vital Sign - Last 12Hours 06/26/17 06/26/17 06/26/17 06/26/17 07:58 08:00 10:00 10:44 Temp 97.9 Pulse Ox 92 94 O2 Delivery OxyMask OxyMask High Flow N/C O2 Flow Rate 8.00 6.00 8.00 06/26/17 06/26/17 06/26/17 13:05 15:08 16:42 Temp 97.9 97.9 Pulse Ox 94 O2 Delivery High Flow N/C O2 Flow Rate 8.00 Intake and Output 06/26/17 00:00 Intake Total 1250 ml Output Total 2745 ml Balance -1495 ml Weight (Pounds): 209 Weight (Ounces): 1.0 Weight (Calculated Kilograms): [id number] Constitutional: AAO x 3, well-developed, well-nourished Respiratory: No accessory muscle use, other (diminished air entry at the bases ; a few scattered rhonchi and wheezes) Cardiovascular: regular rate-rhythm, S1 and S2, systolic murmur (soft RADHA at card base) Gastrointestional: soft, No guarding, No rebound, audible bowel sounds Extremities: No clubbing, No cyanosis, significant edema (3+ bilat leg edema) Neurologic/Psychiatric: oriented x 3, grossly intact, power is 5/5 both on sides Skin: No rash on exposed areas, No ulcerations on exposed areas Results/Procedures: Labs Laboratory Tests 06/25/17 20:50: Glucometer 298H 06/26/17 05:41: Glucometer 107 06/26/17 05:43: White Blood Count 4.6, Red Blood Count 2.60L, Hemoglobin 8.5L, Hematocrit 26L, Mean Corpuscular Volume 99, Mean Corpuscular Hemoglobin 33, Mean Corpuscular Hemoglobin Concent 33, Red Cell Distribution Width 15.5H, Platelet Count 49L, Mean Platelet Volume 9.5, Neutrophils (%) (Auto) 40L, Lymphocytes (%) (Auto) 25 , Monocytes (%) (Auto) 35H, Eosinophils (%) (Auto) 0, Basophils (%) (Auto) 0, Neutrophils # (Auto) 1.9, Lymphocytes # (Auto) 1.2, Monocytes # (Auto) 1.6H, Eosinophils # (Auto) 0.0, Basophils # (Auto) 0.0, Activated Partial Thromboplast Time 30, Sodium Level 142, Potassium Level 3.7, Chloride Level 105 , Carbon Dioxide Level 26, Anion Gap 11, Blood Urea Nitrogen 27H, Creatinine 1.59H, Estimat Glomerular Filtration Rate 42, BUN/Creatinine Ratio 17, Glucose Level 101, Calcium Level 9.2, Total Bilirubin 1.1H, Aspartate Amino Transf (AST/ SGOT) 18, Alanine Aminotransferase (ALT/SGPT) 19, Alkaline Phosphatase 90, Total Protein 5.4L, Albumin 2.8L 06/26/17 11:39: Glucometer 234H A/P: Assessment: Cough likely due to DANIELA-inhibitors and/or ac babb CHF Ac NSTEMI, clinically stable Ac diastolic CHF Acute myeloid leukemia, on chemotherapy with Dacogen day #3. Continue. Pancytopenia due to AML and chemotherapy Chronic kidney disease stage III. Monitor. Plan: Complex management due to multiple comorbidities Med therapy for ac cor syndrome (due to pancytopenia and CKD) Diuretics for CHF Echo to eval LVEF - pending Monitor labs closely Dr. Ham has had a detailed discussion with him and his , and answered questions Physician Assessment Physician Assessment Cough and shortness of breath have improved to some degree Lungs: Good bilat air entry Cor: reg Legs: moderate bilateral pitting edema A&R: * As documented in our note above, that I updated at the time of this writing, and as documented belos * Cough seems to have improved following d/c ramipril. Continue to hold * Continue therapy for diastolic CHF * Monitor labs * I had a detailed discussion with him and his regarding cardiac issues LOIS RAMIREZ [facility] Jun 26, 2017 11:37 MARCOS HAM MD [facility] Jun 26, 2017 18:17
[2017-06-26] MEDS ORDERED: NS IV 500 ML (CANCER CENTER) 500 ML ONE (13:10)
[2017-06-26] MEDS: DEXAMETHASONE IV SCH (13:35)
[2017-06-26] MEDS: ONDANSETRON IV SCH (13:35)
[2017-06-26] MEDS: [UNRECOGNIZED DRUG - OTHER] IV SCH (13:35)
[2017-06-26] MEDS: DECITABINE 40 MG in NS (IVPB) CANCER CENTER 50 ML IV SCH (13:45)
--- NOTE | 2017-06-26 18:12 | Progress Note-Standard ---
Standard Progress Note Progress Notes/Assess & Plan Date Seen by Provider: Jun 26, 2017 Time Seen by Provider: 18:06 Progress/Assessment & Plan 82-year-old male with recent diagnosis of AML and pancytopenia. Patient was not felt to be a candidate for intensive therapy and decided to proceed with less intensive therapy. He is on treatment with Dacogen daily and has completed day # 6 of chemotherapy today. He developed chest pain and suffered a Non STEMI and atrial fibrillation with RVR this past weekend. After extensive discussions it was decided to proceed with medical management for the coronary artery disease as well as the atrial fibrillation. Because of coronary artery disease and [place], it was decided to maintain his hemoglobin closer to 10 g/dL. Patient continues to have paroxysmal cough which improves with nebulizers and morphine. He complained of small amount of hemoptysis today. Platelet count dropping secondary to chemo and leukemia. Continue chemotherapy with Dacogen day#7 tomorrow. I will stop first course of chemotherapy after tomorrow and monitor his lab work 2-3 times a week with transfusion as needed. If he is stable, I would like to repeat second course of chemotherapy in 3-4 weeks and evaluate him for response after that. Laboratory Tests 06/26/17 05:43 I will transfuse him with 1 unit of PRBC today with appropriate premedication. Continue to monitor his lab work daily and transfuse as needed. Continue physical therapy for strengthening and ambulation. Optimize cardiac medications. Dr. Brito is covering for me this weekend and Dr. Snaders is covering next week. SINA GREEN Jun 26, 2017 18:12
[2017-06-26] MEDS ORDERED: NS IV 500 ML 500 ML IV ONE (18:30)
[2017-06-26 18:45] VITALS: BP 159/72
[2017-06-26] MEDS ORDERED: ACETAMINOPHEN 500 MG TAB (TYLENOL) PO ONE (21:15)
[2017-06-26] MEDS ORDERED: diphenhydrAMINE 25 MG TAB (BENADRYL) PO ONE (21:15)
[2017-06-26] MEDS: POLYETHYLENE GLYCOL 17 GM (MIRALAX) PACK PO SCH (21:23)
[2017-06-26] MEDS: inSUlin DETERMIR 1 UNIT/0.01 ML (LEVEMIR) CHARGE PER UNIT SQ SCH (21:24)
[2017-06-26 22:36] VITALS: BP 152/66
[2017-06-26 22:53] VITALS: BP 149/65
[2017-06-27] MEDS: NYSTATIN ORAL SUSP 5 ML UDC PO SCH ×4 (00:50→18:51)
[2017-06-27 01:28] VITALS: BP 154/71
[2017-06-27] MEDS: RT-ALBUTEROL/IPRATROPIUM 3 ML (DUONEB) VIAL INH PRN ×2 (02:47→12:56)
[2017-06-27] MEDS: morphine INJ 4 MG/ML 1 ML (VIAL/SYRINGE) IVP PRN ×4 (03:01→16:04)
[2017-06-27 05:01] VITALS: BP 164/70
[2017-06-27 05:09] LABS: BASOPHILS % (AUTO) 0 % (0-10); EOSINOPHILS % (AUTO) 0 % (0-10); LYMPHOCYTES # (AUTO) 1.2 X 10^3 (1.0-4.0); LYMPHOCYTES % (AUTO) 21 % (12-44); MEAN CORPUSCULAR HEMOGLOBIN 32 PG (25-34); MEAN CORPUSCULAR HGB CONC 33 G/DL (32-36); MEAN CORPUSCULAR VOLUME 97 FL (80-99); MEAN PLATELET VOLUME 9.5 FL (7.4-10.4); MONOCYTES # (AUTO) 2.1 X 10^3 (0.0-1.0); MONOCYTES % (AUTO) 36 % (0-12); NEUTROPHILS # (AUTO) 2.5 X 10^3 (1.8-7.8); NEUTROPHILS % (AUTO) 43 % (42-75); PLATELET COUNT 42 10^3/uL (130-400); RED BLOOD COUNT 2.94 10^6/uL (4.35-5.85); RED CELL DISTRIBUTION WIDTH 15.2 % (10.0-14.5); WHITE BLOOD COUNT 5.9 10^3/uL (4.3-11.0)
[2017-06-27] MEDS: inSUlin (REGULAR) HUMAN 1 UNIT/0.01 ML (CHARGE PER UNIT) SC SCH ×4 (05:10→21:10)
[2017-06-27 05:29] LABS: CALCIUM 9.5 MG/DL (8.5-10.1); CREATININE SERUM 1.52 MG/DL (0.60-1.30); MAGNESIUM 1.6 MG/DL (1.8-2.4); POTASSIUM 3.8 MMOL/L (3.6-5.0)
[2017-06-27] MEDS: PANTOPRAZOLE 40 MG (PROTONIX) TAB PO SCH (05:40)
[2017-06-27] MEDS: RT-ALBUTEROL/IPRATROPIUM 3 ML (DUONEB) VIAL INH SCH ×4 (06:26→18:37)
--- NOTE | 2017-06-27 06:52 | Pulmonary Progress Note ---
Subjective Time Seen by Provider: 06:52 Subjective/Events-last exam No complications noted. Exam Exam Vital Signs Date Time Temp Pulse Resp B/P (MAP) Pulse Ox O2 Delivery O2 Flow Rate FiO2 06/27/17 06:31 91 High Flow N/C 10.00 06/27/17 05:01 99.5 74 22 164/70 92 Nasal Cannula 10.00 06/27/17 02:47 91 High Flow N/C 10.00 06/27/17 01:28 99.3 70 18 154/71 94 High Flow N/C 10.00 06/26/17 22:53 99.6 70 16 149/65 97 High Flow N/C 10.00 06/26/17 22:36 99.2 72 16 152/66 98 High Flow N/C 10.00 06/26/17 20:00 High Flow N/C 6.00 06/26/17 19:25 90 High Flow N/C 9.00 06/26/17 18:45 99.4 81 24 159/72 92 OxyMask 8.00 06/26/17 16:42 97.9 06/26/17 15:08 97.9 06/26/17 13:05 94 High Flow N/C 8.00 06/26/17 10:44 94 High Flow N/C 8.00 06/26/17 10:00 97.9 06/26/17 08:00 OxyMask 6.00 06/26/17 07:58 92 OxyMask 8.00 I & O 06/27/17 07:00 Intake Total 1240 ml Output Total 2225 ml Balance -985 ml General Appearance: Moderate Distress Neck: Full Range of Motion, Normal Inspection Respiratory: Crackles, Decreased Breath Sounds, Respiratory Distress, Rhonci Cardiovascular: Regular Rate, Rhythm, Other (bilateral edema) Gastrointestinal: non tender, soft, no organomegaly, no pulsatile mass Extremity: Normal Capillary Refill, Normal Inspection Neurologic/Psychiatric: Alert, Depressed Affect Skin: Normal Color, Cool Lymphatic: No Adenopathy Results Lab Laboratory Tests 06/26/17 05:43 06/27/17 05:00 Assessment/Plan Assessment/Plan Pulmonary edema- requiring 8-10liters of oxygen - Lasix will give 80mg x 1 this morning then continue 40mg daily -repeat CXR -ABG NSTEMI with CP -Cardiology following Acute myelogenous leukemia -Oncology following Anemia s/p 2units of PRBC -Monitor H&H Afib - currently controlled Severe anemia s/p 2 units of PRBC DM- uncontrolled secondary to chemo 233 KERI KIM DO Jun 27, 2017 06:52
[2017-06-27] MEDS ORDERED: FUROSEMIDE 40 MG/4 ML INJ (LASIX) IVP NR (07:30)
--- NOTE | 2017-06-27 08:02 | Diagnostic Imaging Report ---
EXAM: CHEST 1 VIEW, AP/PA ONLY INDICATION: Shortness of air. Cough. COMPARISON: Chest radiograph 06/24/2017. FINDINGS: Normal heart size. Diffuse bilateral interstitial and airspace opacities have progressed since the prior exam. Calcified aorta. Right IJ tunneled port CVC tip mid SVC. No definite pleural effusion or pneumothorax. No acute osseous findings. IMPRESSION: Interval progression of the diffuse interstitial and airspace opacities throughout both lungs. Dictated by: Dictated on workstation # [id number]
[2017-06-27 08:21] LABS: ABG BASE EXCESS 7.2 MMOL/L (-2.5-2.5); ABG HCO3 32 MMOL/L (23-27); ABG OXYGEN SATURATION 92 % (94-100); ABG PCO2 49 MMHG (35-45); ABG PH 7.43 (7.37-7.43); ABG PO2 61 MMHG (79-93)
[2017-06-27 08:22] LABS: ALLENS TEST YES-POS; PATIENT TEMP 99.6
[2017-06-27] MEDS: ASPIRIN 81 MG CHEW (CHILDREN'S ASA) PO SCH (09:10)
[2017-06-27] MEDS: ALLOPURINOL 100 MG (ZYLOPRIM) TAB PO SCH (09:10)
[2017-06-27] MEDS: TELMISARTAN 40 MG (MICARDIS) TAB PO SCH (09:10)
[2017-06-27] MEDS: amLODIPine 5 MG (NORVASC) TAB PO SCH ×2 (09:10→20:39)
[2017-06-27] MEDS: fluCOnazole (DIFLUCAN) 100 MG TAB PO SCH (09:10)
[2017-06-27] MEDS: ISOSORBIDE MONONITRATE 60 MG (IMDUR) TAB PO SCH (09:10)
[2017-06-27] MEDS: meTOprolol TARTRATE 25 MG (LOPRESSOR) TABLET PO SCH ×3 (09:11→20:40)
[2017-06-27] MEDS: FUROSEMIDE 40 MG/4 ML INJ (LASIX) IVP SCH (09:11)
[2017-06-27] MEDS: PROMETHAZINE/ CODEINE SYRUP 5 ML UDC PO PRN ×2 (10:29→22:04)
--- NOTE | 2017-06-27 12:14 | Progress Note (SOAP) ---
Subjective Date Seen by Provider: Jun 27, 2017 Time Seen by Provider: 12:10 Subjective/Events-last exam Reported brief nosebleed and still has intermittent cough; Denies having any chest pain. Objective Exam Vital Signs Date Time Temp Pulse Resp B/P (MAP) Pulse Ox O2 Delivery O2 Flow Rate FiO2 06/27/17 09:57 81 High Flow N/C 10.00 06/27/17 06:31 91 High Flow N/C 10.00 06/27/17 05:01 99.5 74 22 164/70 92 Nasal Cannula 10.00 06/27/17 02:47 91 High Flow N/C 10.00 06/27/17 01:28 99.3 70 18 154/71 94 High Flow N/C 10.00 06/26/17 22:53 99.6 70 16 149/65 97 High Flow N/C 10.00 06/26/17 22:36 99.2 72 16 152/66 98 High Flow N/C 10.00 06/26/17 20:00 High Flow N/C 6.00 06/26/17 19:25 90 High Flow N/C 9.00 06/26/17 18:45 99.4 81 24 159/72 92 OxyMask 8.00 06/26/17 16:42 97.9 06/26/17 15:08 97.9 06/26/17 13:05 94 High Flow N/C 8.00 I & O 06/27/17 07:00 Intake Total 1240 ml Output Total 2225 ml Balance -985 ml Capillary Refill : General Appearance: Chronically ill Respiratory: Crackles (both bases crackles noted;) Cardiovascular: Irregularly Irregular Gastrointestinal: normal bowel sounds, non tender, soft Extremity: Swelling Neurologic/Psychiatric: Alert, Oriented x3 Results Lab Laboratory Tests 06/26/17 16:07: Glucometer 283H 06/26/17 20:47: Glucometer 304H 06/27/17 05:00: White Blood Count 5.9, Red Blood Count 2.94L, Hemoglobin 9.4L, Hematocrit 29L, Mean Corpuscular Volume 97, Mean Corpuscular Hemoglobin 32, Mean Corpuscular Hemoglobin Concent 33, Red Cell Distribution Width 15.2H, Platelet Count 42L, Mean Platelet Volume 9.5, Neutrophils (%) (Auto) 43, Lymphocytes (%) (Auto) 21, Monocytes (%) (Auto) 36H, Eosinophils (%) (Auto) 0, Basophils (%) (Auto) 0, Neutrophils # (Auto) 2.5, Lymphocytes # (Auto) 1.2, Monocytes # (Auto) 2.1H, Eosinophils # (Auto) 0.0, Basophils # (Auto) 0.0, Sodium Level 142, Potassium Level 3.8, Chloride Level 103, Carbon Dioxide Level 33H, Anion Gap 6, Blood Urea Nitrogen 30H, Creatinine 1.52H, Estimat Glomerular Filtration Rate 44, BUN/ Creatinine Ratio 20, Glucose Level 104, Calcium Level 9.5, Magnesium Level 1.6L , B-Type Natriuretic Peptide 646.6H 06/27/17 05:01: Glucometer 108 06/27/17 08:10: Blood Gas Puncture Site LRAD, Blood Gas Patient Temperature 99.6, Arterial Blood pH 7.43, Arterial Blood Partial Pressure CO2 49H, Arterial Blood Partial Pressure O2 61L, Arterial Blood HCO3 32H, Arterial Blood Total CO2 33.0H, Arterial Blood Oxygen Saturation 92L, Arterial Blood Base Excess 7.2H, Randy Test YES-POS, Blood Gas Ventilator Setting NO, Blood Gas Inspired Oxygen 10 Radiology Chest x-ray done today-FINDINGS: Normal heart size. Diffuse bilateral interstitial and airspace opacities have progressed since the prior exam. Calcified aorta. Right IJ tunneled port CVC tip mid SVC. No definite pleural effusion or pneumothorax. No acute osseous findings. IMPRESSION: Interval progression of the diffuse interstitial and airspace opacities throughout both lungs. Assessment/Plan Assessment/Plan Assess & Plan/Chief Complaint 1. AML -receiving Day 7 of 7 planned days of Dacogen 2. [id number] followed by cardiology and receiving medical/conservative management; 3. Low grade Fever/Cough/ worsening CXR findings--Will cover with Cefepime and Levoflox starting now and Pharmacy to dose; a. Obtain blood cultures 2, urinalysis and urine C and S if indicated, sputum C and S and repeat chest x-ray in the a.m. for fever spike greater than equal to 100.4 4. Pulmonary edema- Lasix given and pulmonary following 5. Atrial fibrillation-rate is in the 70s 6. Diabetes mellitus- 7. CAD history of stent placement; CORDELL CASTILLO MD Jun 27, 2017 12:14
[2017-06-27] MEDS: CEFEPIME 2 GM/NS 50 ML IVPB IV SCH ×2 (15:15)
--- NOTE | 2017-06-27 15:18 | Progress Note-Cardiology ---
Cardiology SOAP Progress Note Subjective: Sitting up in a chair at bedside. States he received a blood transfusion overnight. He is reporting some increased shortness of breath. Continue non- productive cough. C/O fatigue following chemo tx. No c/o CP. Objective: I&O/Vital Signs Vital Sign - Last 12Hours 06/27/17 06/27/17 06/27/17 06/27/17 06:31 09:57 12:58 15:19 Pulse Ox 91 81 91 92 O2 Delivery High Flow N/C High Flow N/C High Flow N/C High Flow N/C O2 Flow Rate 10.00 10.00 10.00 10.00 06/27/17 16:04 Pulse Ox 94 O2 Delivery OxyMask O2 Flow Rate 15.00 Intake and Output 06/27/17 00:00 Intake Total 1240 ml Output Total 1800 ml Balance -560 ml Weight (Pounds): 209 Weight (Ounces): 1.0 Weight (Calculated Kilograms): 94.000560 Constitutional: AAO x 3, well-developed, well-nourished Respiratory: No accessory muscle use, other (diminished air entry at the bases ; coarse breath sounds mid- left side) Cardiovascular: regular rate-rhythm, S1 and S2, systolic murmur (soft RADHA at card base) Gastrointestional: soft, No guarding, No rebound, audible bowel sounds Extremities: No clubbing, No cyanosis, significant edema (3+ bilat leg edema) Neurologic/Psychiatric: oriented x 3, grossly intact, power is 5/5 both on sides Skin: No rash on exposed areas, No ulcerations on exposed areas Results/Procedures: Labs Laboratory Tests 06/26/17 20:47: Glucometer 304H 06/27/17 05:00: White Blood Count 5.9, Red Blood Count 2.94L, Hemoglobin 9.4L, Hematocrit 29L, Mean Corpuscular Volume 97, Mean Corpuscular Hemoglobin 32, Mean Corpuscular Hemoglobin Concent 33, Red Cell Distribution Width 15.2H, Platelet Count 42L, Mean Platelet Volume 9.5, Neutrophils (%) (Auto) 43, Lymphocytes (%) (Auto) 21, Monocytes (%) (Auto) 36H, Eosinophils (%) (Auto) 0, Basophils (%) (Auto) 0, Neutrophils # (Auto) 2.5, Lymphocytes # (Auto) 1.2, Monocytes # (Auto) 2.1H, Eosinophils # (Auto) 0.0, Basophils # (Auto) 0.0, Sodium Level 142, Potassium Level 3.8, Chloride Level 103, Carbon Dioxide Level 33H, Anion Gap 6, Blood Urea Nitrogen 30H, Creatinine 1.52H, Estimat Glomerular Filtration Rate 44, BUN/ Creatinine Ratio 20, Glucose Level 104, Calcium Level 9.5, Magnesium Level 1.6L , B-Type Natriuretic Peptide 646.6H 06/27/17 05:01: Glucometer 108 06/27/17 08:10: Blood Gas Puncture Site LRAD, Blood Gas Patient Temperature 99.6, Arterial Blood pH 7.43, Arterial Blood Partial Pressure CO2 49H, Arterial Blood Partial Pressure O2 61L, Arterial Blood HCO3 32H, Arterial Blood Total CO2 33.0H, Arterial Blood Oxygen Saturation 92L, Arterial Blood Base Excess 7.2H, Randy Test YES-POS, Blood Gas Ventilator Setting NO, Blood Gas Inspired Oxygen 10 06/27/17 11:37: Glucometer 208H 06/27/17 12:21: Lab Scanned Report Transfusion Reaction Form 06/27/17 16:25: Lactic Acid Level 0.81 06/27/17 17:04: Urine Color YELLOW, Urine Clarity SLIGHTLY CLOUDY, Urine pH 7, Urine Specific [place] 1.010L, Urine Protein 1+H, Urine Glucose (UA) NEGATIVE, Urine Ketones NEGATIVE, Urine Nitrite NEGATIVE, Urine Bilirubin NEGATIVE, Urine Urobilinogen NORMAL, Urine Leukocyte Esterase NEGATIVE, Urine RBC (Auto) NEGATIVE, Urine RBC RARE, Urine WBC RARE, Urine Crystals NONE, Urine Bacteria NEGATIVE, Urine Casts NONE, Urine Mucus NEGATIVE, Urine Culture Indicated NO Procedures NAME: TYLER PEREZ I [facility] REC#: [id number] PT STATUS: ADM IN : 1935 PHYSICIAN: KERI KIM DO ADMIT DATE: 06/24/17 Signed Date of Exam: 06/27/17 CHEST 1 VIEW, AP/PA ONLY EXAM: CHEST 1 VIEW, AP/PA ONLY INDICATION: Shortness of air. Cough. COMPARISON: Chest radiograph 06/24/2017. FINDINGS: Normal heart size. Diffuse bilateral interstitial and airspace opacities have progressed since the prior exam. Calcified aorta. Right IJ tunneled port CVC tip mid SVC. No definite pleural effusion or pneumothorax. No acute osseous findings. IMPRESSION: Interval progression of the diffuse interstitial and airspace opacities throughout both lungs. 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 Monitor. Plan: Complex management due to multiple comorbidities Med therapy for ac cor syndrome (due to pancytopenia and CKD) Probable pneumonia - pulmonary services managing Diuretics for CHF - additional Lasix given this morning per pulmonology Anemia - followed by oncology - received 1 unit PRBC overnight Monitor labs closely Dr. Ham has had a detailed discussion with him and his , and answered questions Physician Assessment Physician Assessment Lungs: good bilat air entry, rhonchi over large airways Cor: reg Leg edema: improved but not resolved A&R * As documented in our note above, that I updated at the time of this writing, and as documented below * Currently on antibiotic therapy, per Dr Brito. This is likely to help suspected resp tract infection * Continue to monitor labs * Adjust diuretics as needed LOIS RAMIREZ BEAD CUTTER Jun 27, 2017 15:17 MARCOS HAM MD FACP [facility] Jun 27, 2017 18:03
[2017-06-27] MEDS: LEVOFLOXACIN 750 MG/D5W 150 ML (PRE-MIX) IV SCH (15:19)
[2017-06-27 17:49] LABS: BILIRUBIN,URINE NEGATIVE (NEGATIVE); KETONES,URINE NEGATIVE (NEGATIVE); LEUKOCYTE ESTERASE ,URINE NEGATIVE (NEGATIVE); NITRITE,URINE NEGATIVE (NEGATIVE); PH,URINE 7 (5-9); PROTEIN,URINE 1+ (NEGATIVE); UROBILINOGEN,URINE NORMAL (NORMAL)
[2017-06-27 17:57] LABS: WBC,URINE RARE /HPF
[2017-06-27 18:00] VITALS: BP 158/69
[2017-06-27] MEDS: POLYETHYLENE GLYCOL 17 GM (MIRALAX) PACK PO SCH (20:40)
[2017-06-27] MEDS: inSUlin DETERMIR 1 UNIT/0.01 ML (LEVEMIR) CHARGE PER UNIT SQ SCH (21:10)
[2017-06-28] MEDS: morphine INJ 4 MG/ML 1 ML (VIAL/SYRINGE) IVP PRN ×4 (01:24→21:44)
[2017-06-28] MEDS: BENZONATATE 100 MG (TESSALON) CAPSULE PO PRN ×2 (05:30→11:55)
[2017-06-28] MEDS: NYSTATIN ORAL SUSP 5 ML UDC PO SCH ×4 (05:30→16:47)
[2017-06-28 05:40] LABS: BASOPHILS % (AUTO) 0 % (0-10); EOSINOPHILS % (AUTO) 0 % (0-10); LYMPHOCYTES % (AUTO) 13 % (12-44); MEAN CORPUSCULAR HEMOGLOBIN 31 PG (25-34); MEAN CORPUSCULAR HGB CONC 32 G/DL (32-36); MEAN CORPUSCULAR VOLUME 97 FL (80-99); MEAN PLATELET VOLUME 10.2 FL (7.4-10.4); MONOCYTES # (AUTO) 2.5 X 10^3 (0.0-1.0); MONOCYTES % (AUTO) 34 % (0-12); NEUTROPHILS # (AUTO) 3.7 X 10^3 (1.8-7.8); NEUTROPHILS % (AUTO) 52 % (42-75); PLATELET COUNT 47 10^3/uL (130-400); RED BLOOD COUNT 2.84 10^6/uL (4.35-5.85); WHITE BLOOD COUNT 7.2 10^3/uL (4.3-11.0)
[2017-06-28 05:56] LABS: CALCIUM 9.4 MG/DL (8.5-10.1); CREATININE SERUM 1.57 MG/DL (0.60-1.30); POTASSIUM 3.6 MMOL/L (3.6-5.0)
[2017-06-28] MEDS: inSUlin (REGULAR) HUMAN 1 UNIT/0.01 ML (CHARGE PER UNIT) SC SCH ×4 (06:00→20:33)
[2017-06-28] MEDS: PANTOPRAZOLE 40 MG (PROTONIX) TAB PO SCH (06:04)
[2017-06-28] MEDS: RT-ALBUTEROL/IPRATROPIUM 3 ML (DUONEB) VIAL INH SCH ×5 (07:06→22:47)
[2017-06-28 08:00] VITALS: BP 158/88
--- NOTE | 2017-06-28 09:25 | Diagnostic Imaging Report ---
INDICATION: CHF COMPARISON: 06/27/17 FINDINGS: Single view of the chest demonstrates worsening bilateral pulmonary infiltrates. The heart remains enlarged. No large effusion seen. There is no pneumothorax. Port-A-Cath is stable. IMPRESSION: Slightly worsening bilateral pulmonary infiltrates. Dictated by: Dictated on workstation # [id number]
[2017-06-28] MEDS: meTOprolol TARTRATE 25 MG (LOPRESSOR) TABLET PO SCH ×3 (09:42→20:22)
[2017-06-28] MEDS: CEFEPIME 2 GM/NS 50 ML IVPB IV SCH ×2 (09:42)
[2017-06-28] MEDS: ALLOPURINOL 100 MG (ZYLOPRIM) TAB PO SCH (09:42)
[2017-06-28] MEDS: ASPIRIN 81 MG CHEW (CHILDREN'S ASA) PO SCH (09:43)
[2017-06-28] MEDS: fluCOnazole (DIFLUCAN) 100 MG TAB PO SCH (09:43)
[2017-06-28] MEDS: ISOSORBIDE MONONITRATE 60 MG (IMDUR) TAB PO SCH (09:43)
[2017-06-28] MEDS: amLODIPine 5 MG (NORVASC) TAB PO SCH ×2 (09:43→20:22)
[2017-06-28] MEDS: TELMISARTAN 40 MG (MICARDIS) TAB PO SCH (09:44)
[2017-06-28] MEDS: FUROSEMIDE 40 MG/4 ML INJ (LASIX) IVP SCH (09:45)
[2017-06-28] MEDS: RT-ALBUTEROL/IPRATROPIUM 3 ML (DUONEB) VIAL INH PRN (09:46)
[2017-06-28] MEDS ORDERED: ACETAMINOPHEN 325 MG TABLET/CAPLET (TYLENOL) PO PRN (10:30)
--- NOTE | 2017-06-28 10:37 | Progress Note-Hospitalist ---
Subjective HPI/CC On Admission Date Seen by Provider: Jun 28, 2017 Time Seen by Provider: 10:20 Subjective/Events-last exam patient reports shortness of breath is about the same. He's had no Reiger's MAXIMUM TEMPERATURE 100.5. Cough persists and is been nonproductive except for small volume hemoptysis yesterday. This occurred only once. He denies chest pain but has had some subscapular pain on the left shoulder. Several days ago he had severe right subscapular pain but this has not recurred. He denies abdominal pain or nausea. Daughter reports that he does have cholelithiasis. Objective Exam Vital Signs Vital Sign - Last 12Hours 06/24/17 06/24/17 06/27/17 13:59 19:15 20:00 Temp 99.1 Pulse 74 Resp 24 B/P (MAP) 146/65 Pulse Ox 91 O2 Delivery Nasal Cannula O2 Flow Rate 4.50 FiO2 70 Capillary Refill : General Appearance: Chronically ill, Moderate Distress Respiratory: Accessory Muscle Use, Other (patient has coarse rales throughout all lung [place] without wheezing. He is tachypneic with respiratory rate of 24 with use of accessory muscles.) Cardiovascular: Other (rhythm is regular heart tones are somewhat distant no murmur appreciated unable to evaluate for S3 or S4.) Gastrointestinal: Normal Bowel Sounds, No Organomegaly, No Pulsatile Mass, Non Tender, Soft, Other (lower abdominal purpura noted) Extremity: No Pedal Edema Skin: Pallor Results/Procedures Lab Laboratory Tests 06/28/17 05:25 Assessment/Plan Assessment and Plan Assess & Plan/Chief Complaint 1. Progressive respiratory failure likely due to capillary leak syndrome. Infectious/pneumonia versus leukemic etiologies are most likely. Considering recent echo study on the revealing an ejection fraction of 45-50 percent heart failure is less likely. Condition was discussed with the patient daughter and his who was on speaker phone and questions were answered. His prognosis is extremely poor with progressive respiratory failure more likely than stabilization. The patient has not had problems with morphine in the past and discussed if he is feeling more short of breath or having significant pain that this should be the medication that is utilized first for either condition. continue broad-spectrum antibiotics. High medical complexity. 2. Pancytopenia secondary to AML. 3. Reduced GFR will DC when necessary ibuprofen that the patient has not received and replace with when necessary Tylenol. SADA MURILLO MD Jun 28, 2017 10:37
[2017-06-28] MEDS: ACETAMINOPHEN 500 MG TAB (TYLENOL) PO PRN (11:29)
--- NOTE | 2017-06-28 11:41 | Progress Note-Cardiology ---
Cardiology SOAP Progress Note Subjective: Still has cough and shortness of breath No cp or palp Objective: I&O/Vital Signs Vital Sign - Last 12Hours 06/28/17 06/28/17 06/28/17 02:11 07:06 09:50 Pulse Ox 91 93 93 O2 Delivery Vapotherm Vapotherm Vapotherm O2 Flow Rate 17.00 17.00 20.00 FiO2 70 70 100 Intake and Output 06/28/17 00:00 Intake Total 675 ml Output Total 2301 ml Balance -1626 ml Weight (Pounds): 209 Weight (Ounces): 1.0 Weight (Calculated Kilograms): 94.994921 Constitutional: AAO x 3, well-developed, well-nourished Respiratory: No accessory muscle use, other (diminished air entry at the bases ; coarse breath sounds mid- left side) Cardiovascular: regular rate-rhythm, S1 and S2, systolic murmur (soft RADHA at card base) Gastrointestional: soft, No guarding, No rebound, audible bowel sounds Extremities: No clubbing, No cyanosis, significant edema (3+ bilat leg edema) Neurologic/Psychiatric: oriented x 3, grossly intact, power is 5/5 both on sides Skin: No rash on exposed areas, No ulcerations on exposed areas Results/Procedures: Labs Laboratory Tests 06/27/17 12:21: Lab Scanned Report Transfusion Reaction Form 06/27/17 16:25: Lactic Acid Level 0.81 06/27/17 17:04: Urine Color YELLOW, Urine Clarity SLIGHTLY CLOUDY, Urine pH 7, Urine Specific [place] 1.010L, Urine Protein 1+H, Urine Glucose (UA) NEGATIVE, Urine Ketones NEGATIVE, Urine Nitrite NEGATIVE, Urine Bilirubin NEGATIVE, Urine Urobilinogen NORMAL, Urine Leukocyte Esterase NEGATIVE, Urine RBC (Auto) NEGATIVE, Urine RBC RARE, Urine WBC RARE, Urine Crystals NONE, Urine Bacteria NEGATIVE, Urine Casts NONE, Urine Mucus NEGATIVE, Urine Culture Indicated NO 06/27/17 17:41: Glucometer 236H 06/27/17 21:01: Glucometer 360H 06/28/17 05:25: White Blood Count 7.2, Red Blood Count 2.84L, Hemoglobin 8.9L, Hematocrit 28L, Mean Corpuscular Volume 97, Mean Corpuscular Hemoglobin 31, Mean Corpuscular Hemoglobin Concent 32, Red Cell Distribution Width 15.0H, Platelet Count 47L, Mean Platelet Volume 10.2, Neutrophils (%) (Auto) 52, Lymphocytes (%) (Auto) 13 , Monocytes (%) (Auto) 34H, Eosinophils (%) (Auto) 0, Basophils (%) (Auto) 0, Neutrophils # (Auto) 3.7, Lymphocytes # (Auto) 1.0, Monocytes # (Auto) 2.5H, Eosinophils # (Auto) 0.0, Basophils # (Auto) 0.0, Sodium Level 141, Potassium Level 3.6, Chloride Level 100, Carbon Dioxide Level 26, Anion Gap 15H, Blood Urea Nitrogen 37H, Creatinine 1.57H, Estimat Glomerular Filtration Rate 42, BUN/ Creatinine Ratio 24, Glucose Level 89, Calcium Level 9.4 Laboratory Tests 06/27/17 05:00 06/28/17 05:25 A/P: Assessment: Cough likely due to DANIELA-inhibitors and/or ac babb CHF and/or pneumonia/ bronchitis Ac NSTEMI, clinically stable Ac diastolic CHF - diuretics Echo during this hosp (Dr Abreu): LVEF 45-50%, RVSP 70 mmHg Acute myeloid leukemia, 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 Monitor. Plan: Complex management due to multiple comorbidities Med therapy for ac cor syndrome (due to pancytopenia and CKD) Probable pneumonia - pulmonary services managing Diuretics for CHF Anemia - followed by oncology Monitor labs closely MARC[facility] RONDON MD [facility] Jun 28, 2017 11:40
[2017-06-28] MEDS: PROMETHAZINE/ CODEINE SYRUP 5 ML UDC PO PRN (11:52)
--- NOTE | 2017-06-28 14:30 | Progress Note (SOAP) ---
Subjective Date Seen by Provider: Jun 28, 2017 Time Seen by Provider: 12:55 Subjective/Events-last exam States he feels slightly better than yesterday. He also describes having an episode of increased shortness of breath this morning. Objective Exam Vital Signs Date Time Temp Pulse Resp B/P (MAP) Pulse Ox O2 Delivery O2 Flow Rate FiO2 06/28/17 13:30 100.2 06/28/17 12:30 100.5 06/28/17 09:50 93 Vapotherm 20.00 100 06/28/17 08:00 Vapotherm 20.00 70 06/28/17 08:00 99.3 88 22 158/88 94 Vapotherm 20.00 06/28/17 07:06 93 Vapotherm 17.00 70 06/28/17 02:11 91 Vapotherm 17.00 70 06/27/17 20:30 98.9 06/27/17 20:00 Vapotherm 17.00 70 06/27/17 18:37 91 High Flow N/C 10.00 06/27/17 18:00 100.5 78 16 158/69 91 OxyMask 10.00 06/27/17 16:04 94 OxyMask 15.00 06/27/17 15:19 92 High Flow N/C 10.00 I & O 06/28/17 07:00 Intake Total 900 ml Output Total 2701 ml Balance -1801 ml Capillary Refill : General Appearance: Chronically ill HEENT: PERRL/EOMI Neck: Full Range of Motion, Normal Inspection, Non Tender Respiratory: Crackles, Decreased Breath Sounds Cardiovascular: Regular Rate, Rhythm Gastrointestinal: normal bowel sounds, non tender, soft, no organomegaly Extremity: Non Tender, No Calf Tenderness Neurologic/Psychiatric: Alert, Oriented x3 Skin: Ecchymosis (lower abdomen ecchymosis;) Results Lab Laboratory Tests 06/27/17 16:25: Lactic Acid Level 0.81 06/27/17 17:04: Urine Color YELLOW, Urine Clarity SLIGHTLY CLOUDY, Urine pH 7, Urine Specific [place] 1.010L, Urine Protein 1+H, Urine Glucose (UA) NEGATIVE, Urine Ketones NEGATIVE, Urine Nitrite NEGATIVE, Urine Bilirubin NEGATIVE, Urine Urobilinogen NORMAL, Urine Leukocyte Esterase NEGATIVE, Urine RBC (Auto) NEGATIVE, Urine RBC RARE, Urine WBC RARE, Urine Crystals NONE, Urine Bacteria NEGATIVE, Urine Casts NONE, Urine Mucus NEGATIVE, Urine Culture Indicated NO 06/27/17 17:41: Glucometer 236H 06/27/17 21:01: Glucometer 360H 06/28/17 05:25: White Blood Count 7.2, Red Blood Count 2.84L, Hemoglobin 8.9L, Hematocrit 28L, Mean Corpuscular Volume 97, Mean Corpuscular Hemoglobin 31, Mean Corpuscular Hemoglobin Concent 32, Red Cell Distribution Width 15.0H, Platelet Count 47L, Mean Platelet Volume 10.2, Neutrophils (%) (Auto) 52, Lymphocytes (%) (Auto) 13 , Monocytes (%) (Auto) 34H, Eosinophils (%) (Auto) 0, Basophils (%) (Auto) 0, Neutrophils # (Auto) 3.7, Lymphocytes # (Auto) 1.0, Monocytes # (Auto) 2.5H, Eosinophils # (Auto) 0.0, Basophils # (Auto) 0.0, Sodium Level 141, Potassium Level 3.6, Chloride Level 100, Carbon Dioxide Level 26, Anion Gap 15H, Blood Urea Nitrogen 37H, Creatinine 1.57H, Estimat Glomerular Filtration Rate 42, BUN/ Creatinine Ratio 24, Glucose Level 89, Calcium Level 9.4 06/28/17 11:23: Glucometer 287H Laboratory Tests 06/27/17 05:00 06/28/17 05:25 Radiology Chest x-ray done in 06/28/17:IMPRESSION: Slightly worsening bilateral pulmonary infiltrates. Assessment/Plan Assessment/Plan Assess & Plan/Chief Complaint 1. AML - he has completed 7 planned days of Dacogen 2. [id number] followed by cardiology and receiving medical/conservative management; 3. Bilateral pneumonia with Fever/Cough/ worsening CXR findings--continue Cefepime and Levoflox 4. Pulmonary edema- Lasix given and pulmonary following 5. Atrial fibrillation-rate is in the 70s 6. Diabetes mellitus- 7. CAD history of stent placement; 8. Prognosis poor. CORDELL CASTILLO MD Jun 28, 2017 14:30
[2017-06-28 15:44] VITALS: BP 158/88
[2017-06-28 16:09] VITALS: BP 139/57
[2017-06-28 19:12] VITALS: BP 150/66
[2017-06-28] MEDS: POLYETHYLENE GLYCOL 17 GM (MIRALAX) PACK PO SCH (20:22)
[2017-06-28] MEDS: inSUlin DETERMIR 1 UNIT/0.01 ML (LEVEMIR) CHARGE PER UNIT SQ SCH (20:33)
[2017-06-29] VITALS (8 sets, daily range): BP systolic 133–160; BP diastolic 61–74
[2017-06-29] MEDS: PROMETHAZINE/ CODEINE SYRUP 5 ML UDC PO PRN ×2 (02:30→23:59)
[2017-06-29] MEDS: RT-ALBUTEROL/IPRATROPIUM 3 ML (DUONEB) VIAL INH SCH ×6 (02:57→21:28)
[2017-06-29 05:48] LABS: BASOPHILS % (AUTO) 0 % (0-10); EOSINOPHILS % (AUTO) 1 % (0-10); LYMPHOCYTES # (AUTO) 1.4 X 10^3 (1.0-4.0); LYMPHOCYTES % (AUTO) 21 % (12-44); MEAN CORPUSCULAR HEMOGLOBIN 32 PG (25-34); MEAN CORPUSCULAR HGB CONC 33 G/DL (32-36); MEAN CORPUSCULAR VOLUME 98 FL (80-99); MEAN PLATELET VOLUME 9.9 FL (7.4-10.4); MONOCYTES % (AUTO) 31 % (0-12); NEUTROPHILS % (AUTO) 47 % (42-75); WHITE BLOOD COUNT 6.4 10^3/uL (4.3-11.0)
[2017-06-29 05:50] LABS: PLATELET COUNT 37 10^3/uL (130-400)
[2017-06-29] MEDS: inSUlin (REGULAR) HUMAN 1 UNIT/0.01 ML (CHARGE PER UNIT) SC SCH ×4 (06:00→21:09)
[2017-06-29 06:06] LABS: CALCIUM 9.3 MG/DL (8.5-10.1); CREATININE SERUM 1.55 MG/DL (0.60-1.30); POTASSIUM 3.7 MMOL/L (3.6-5.0)
[2017-06-29] MEDS: NYSTATIN ORAL SUSP 5 ML UDC PO SCH ×5 (06:15→23:54)
[2017-06-29] MEDS: PANTOPRAZOLE 40 MG (PROTONIX) TAB PO SCH (06:15)
[2017-06-29] MEDS: FUROSEMIDE 40 MG/4 ML INJ (LASIX) IVP SCH (08:41)
[2017-06-29] MEDS: CEFEPIME 2 GM/NS 50 ML IVPB IV SCH ×2 (08:41)
[2017-06-29] MEDS: ALLOPURINOL 100 MG (ZYLOPRIM) TAB PO SCH (08:42)
[2017-06-29] MEDS: meTOprolol TARTRATE 25 MG (LOPRESSOR) TABLET PO SCH ×3 (08:42→21:22)
[2017-06-29] MEDS: BENZONATATE 100 MG (TESSALON) CAPSULE PO PRN ×2 (08:42→21:22)
[2017-06-29] MEDS: fluCOnazole (DIFLUCAN) 100 MG TAB PO SCH (08:42)
[2017-06-29] MEDS: amLODIPine 5 MG (NORVASC) TAB PO SCH ×2 (08:42→21:22)
[2017-06-29] MEDS: ISOSORBIDE MONONITRATE 60 MG (IMDUR) TAB PO SCH (08:42)
[2017-06-29] MEDS: ASPIRIN 81 MG CHEW (CHILDREN'S ASA) PO SCH (08:42)
[2017-06-29] MEDS: morphine INJ 4 MG/ML 1 ML (VIAL/SYRINGE) IVP PRN ×3 (09:06→21:22)
[2017-06-29] MEDS: ACETAMINOPHEN 500 MG TAB (TYLENOL) PO PRN (09:07)
[2017-06-29] MEDS: TELMISARTAN 40 MG (MICARDIS) TAB PO SCH (09:09)
--- NOTE | 2017-06-29 11:50 | Progress Note-Hospitalist ---
Subjective HPI/CC On Admission Date Seen by Provider: Jun 29, 2017 Time Seen by Provider: 10:45 Subjective/Events-last exam Mr. Hernandez has required at least 2 doses of morphine for shortness of breath at rest. He received a shot just before I arrived and reports no current shortness of breath. He's had no sputum production and denies chills or fever. MAXIMUM TEMPERATURE 100.4 there is been no evidence for bleeding. Objective Exam Vital Signs Vital Sign - Last 12Hours 06/24/17 06/24/17 06/27/17 13:59 19:15 20:00 Temp 99.1 Pulse 74 Resp 24 B/P (MAP) 146/65 Pulse Ox 91 O2 Delivery Nasal Cannula O2 Flow Rate 4.50 FiO2 70 Capillary Refill : General Appearance: Chronically ill, Moderate Distress Respiratory: Accessory Muscle Use, Other (Richardson rales without wheezing unchanged from yesterday.) Cardiovascular: Regular Rate, Rhythm, No Gallop Gastrointestinal: Other (lower abdominal wall purpura without evidence for hematoma.) Extremity: Pedal Edema, Other (other than senile purpura no rashes noted.) Results/Procedures Lab Laboratory Tests 06/29/17 05:35 Assessment/Plan Assessment and Plan Assess & Plan/Chief Complaint 1. Progressive respiratory failure likely due to capillary leak syndrome. Infectious/pneumonia versus leukemic etiologies are most likely. Considering recent echo study on the revealing an ejection fraction of 45-50 percent heart failure is less likely. Condition was discussed with the patient daughter and his who was on speaker phone and questions were answered. His prognosis is extremely poor with progressive respiratory failure more likely than stabilization. his daughter voices understanding has been appreciated of the care that her father has been receiving. Continue broad- spectrum antibiotics and when necessary morphine. High medical complexity. 2. Pancytopenia secondary to AML relatively stable. 3. Reduced GFR will DC when necessary ibuprofen that the patient has not received and replace with when necessary Tylenol. SADA MURILLO MD Jun 29, 2017 11:50
--- NOTE | 2017-06-29 14:18 | Progress Note (SOAP) ---
Subjective Date Seen by Provider: Jun 29, 2017 Time Seen by Provider: 13:00 Subjective/Events-last exam Had some shortness of air earlier today but he states he is feeling better than yesterday; Cough persists but patient states feels it is better. Objective Exam Vital Signs Date Time Temp Pulse Resp B/P (MAP) Pulse Ox O2 Delivery O2 Flow Rate FiO2 06/29/17 14:05 99 Vapotherm 17.00 70 06/29/17 12:42 99.2 80 19 138/65 95 Vapotherm 20.00 06/29/17 10:11 94 Vapotherm 20.00 80 06/29/17 09:07 100.3 06/29/17 08:36 99.9 88 19 152/66 94 Vapotherm 20.00 06/29/17 08:00 Vapotherm 20.00 80 06/29/17 06:55 92 Vapotherm 20.00 80 06/29/17 04:30 98.9 06/29/17 04:25 82 20 160/74 93 Vapotherm 20.00 06/29/17 02:57 94 Vapotherm 20.00 80 06/29/17 00:00 99.2 79 24 148/65 93 Vapotherm 20.00 06/28/17 22:48 96 Vapotherm 20.00 90 06/28/17 20:00 Vapotherm 20.00 90 06/28/17 19:19 97 Vapotherm 20.00 100 06/28/17 19:12 98.0 76 20 150/66 98 Vapotherm 20.00 06/28/17 16:09 98.9 72 20 139/57 98 Vapotherm 20.00 06/28/17 15:44 95 Vapotherm 20.00 100 06/28/17 15:44 75 95 100 I & O 06/29/17 07:00 Intake Total 1360 ml Output Total 2605 ml Balance -1245 ml Capillary Refill : General Appearance: Chronically ill HEENT: PERRL/EOMI Neck: Full Range of Motion, Non Tender, Supple Respiratory: Crackles (Bibasilar crackles right more than left;), Rales Cardiovascular: Regular Rate, Rhythm, No Edema, No Gallop, No JVD, No Murmur Gastrointestinal: normal bowel sounds, non tender, soft, no organomegaly Neurologic/Psychiatric: Alert, Oriented x3, No Motor/Sensory Deficits, socket welder helper II- XII Norm as Tested Skin: Ecchymosis (lower abdomen) Results Lab Laboratory Tests 06/28/17 16:12: Glucometer 218H 06/28/17 20:27: Glucometer 244H 06/29/17 05:35: White Blood Count 6.4, Red Blood Count 2.90L, Hemoglobin 9.3L, Hematocrit 28L, Mean Corpuscular Volume 98, Mean Corpuscular Hemoglobin 32, Mean Corpuscular Hemoglobin Concent 33, Red Cell Distribution Width 15.0H, Platelet Count 37*L, Mean Platelet Volume 9.9, Neutrophils (%) (Auto) 47, Lymphocytes (%) (Auto) 21, Monocytes (%) (Auto) 31H, Eosinophils (%) (Auto) 1, Basophils (%) (Auto) 0, Neutrophils # (Auto) 3.0, Lymphocytes # (Auto) 1.4, Monocytes # (Auto) 2.0H, Eosinophils # (Auto) 0.0, Basophils # (Auto) 0.0, Sodium Level 142, Potassium Level 3.7, Chloride Level 101, Carbon Dioxide Level 35H, Anion Gap 6, Blood Urea Nitrogen 35H, Creatinine 1.55H, Estimat Glomerular Filtration Rate 43, BUN/ Creatinine Ratio 23, Glucose Level 66L, Calcium Level 9.3 06/29/17 07:49: Glucometer 198H 06/29/17 10:34: Glucometer 165H Microbiology 06/27/17 Blood Culture - Preliminary, Resulted No growth Laboratory Tests 06/28/17 05:25 06/29/17 05:35 Assessment/Plan Assessment/Plan Assess & Plan/Chief Complaint 1. AML - he has completed 7 planned days of Dacogen 2. [id number] followed by cardiology and receiving medical/conservative management; 3. Bilateral pneumonia with Fever/Cough/ worsening CXR findings--continue Cefepime and Levoflox 4. Pulmonary edema- Lasix given and pulmonary following 5. Atrial fibrillation-rate is in the 70s 6. Diabetes mellitus- 7. CAD history of stent placement; 8. Prognosis poor. CORDELL CASTILLO MD Jun 29, 2017 14:17
[2017-06-29] MEDS: LEVOFLOXACIN 750 MG/D5W 150 ML (PRE-MIX) IV SCH (14:51)
[2017-06-29] MEDS: POLYETHYLENE GLYCOL 17 GM (MIRALAX) PACK PO SCH (21:22)
[2017-06-29] MEDS: inSUlin DETERMIR 1 UNIT/0.01 ML (LEVEMIR) CHARGE PER UNIT SQ SCH (21:23)
[2017-06-30] VITALS (7 sets, daily range): BP systolic 133–158; BP diastolic 55–65
[2017-06-30] MEDS: RT-ALBUTEROL/IPRATROPIUM 3 ML (DUONEB) VIAL INH PRN (00:11)
[2017-06-30] MEDS: RT-ALBUTEROL/IPRATROPIUM 3 ML (DUONEB) VIAL INH SCH ×6 (01:57→22:49)
[2017-06-30] MEDS: morphine INJ 4 MG/ML 1 ML (VIAL/SYRINGE) IVP PRN ×2 (04:57→09:38)
[2017-06-30] MEDS: inSUlin (REGULAR) HUMAN 1 UNIT/0.01 ML (CHARGE PER UNIT) SC SCH ×4 (05:28→20:33)
[2017-06-30] MEDS: PANTOPRAZOLE 40 MG (PROTONIX) TAB PO SCH (06:46)
[2017-06-30] MEDS: NYSTATIN ORAL SUSP 5 ML UDC PO SCH ×3 (06:46→17:45)
[2017-06-30 07:01] LABS: BASOPHILS % (AUTO) 0 % (0-10); EOSINOPHILS % (AUTO) 0 % (0-10); LYMPHOCYTES % (AUTO) 17 % (12-44); MEAN CORPUSCULAR HEMOGLOBIN 32 PG (25-34); MEAN CORPUSCULAR HGB CONC 33 G/DL (32-36); MEAN CORPUSCULAR VOLUME 98 FL (80-99); MEAN PLATELET VOLUME 10.3 FL (7.4-10.4); MONOCYTES # (AUTO) 1.7 X 10^3 (0.0-1.0); MONOCYTES % (AUTO) 30 % (0-12); NEUTROPHILS # (AUTO) 3.1 X 10^3 (1.8-7.8); NEUTROPHILS % (AUTO) 53 % (42-75); RED BLOOD COUNT 2.77 10^6/uL (4.35-5.85); RED CELL DISTRIBUTION WIDTH 14.9 % (10.0-14.5); WHITE BLOOD COUNT 5.8 10^3/uL (4.3-11.0)
[2017-06-30 07:09] LABS: PLATELET COUNT 34 10^3/uL (130-400)
[2017-06-30 07:15] LABS: CALCIUM 9.1 MG/DL (8.5-10.1); CREATININE SERUM 1.51 MG/DL (0.60-1.30); POTASSIUM 3.8 MMOL/L (3.6-5.0)
--- NOTE | 2017-06-30 08:16 | Pulmonary Progress Note ---
Subjective Time Seen by Provider: 08:08 Subjective/Events-last exam No complications noted. Exam Exam Vital Signs Date Time Temp Pulse Resp B/P (MAP) Pulse Ox O2 Delivery O2 Flow Rate FiO2 06/30/17 07:16 98 Vapotherm 17.00 75 06/30/17 04:00 97.7 84 20 145/63 95 Vapotherm 17.00 06/30/17 01:57 90 Vapotherm 17.00 75 06/30/17 00:12 90 Vapotherm 17.00 65 06/30/17 00:00 99.0 91 22 138/60 90 Vapotherm 17.00 06/29/17 21:28 92 Vapotherm 17.00 65 06/29/17 21:19 86 150/68 06/29/17 20:00 Vapotherm 20.00 65 06/29/17 19:45 83 92 65 06/29/17 19:35 97.9 87 20 143/65 90 Vapotherm 20.00 06/29/17 18:55 92 Vapotherm 17.00 70 06/29/17 16:30 97.9 77 18 133/61 95 Vapotherm 20.00 06/29/17 14:05 99 Vapotherm 17.00 70 06/29/17 12:42 99.2 80 19 138/65 95 Vapotherm 20.00 06/29/17 10:11 94 Vapotherm 20.00 80 06/29/17 09:07 100.3 06/29/17 08:36 99.9 88 19 152/66 94 Vapotherm 20.00 I & O 06/30/17 07:00 Intake Total 950 ml Output Total 1930 ml Balance -980 ml General Appearance: Chronically ill HEENT: PERRL/EOMI Neck: Full Range of Motion, Non Tender, Supple Respiratory: Crackles (Bibasilar crackles right more than left;), Rales Cardiovascular: Regular Rate, Rhythm, No Edema, No Gallop, No JVD, No Murmur Gastrointestinal: normal bowel sounds, non tender, soft, no organomegaly Extremity: Pedal Edema, Other (other than senile purpura no rashes noted.) Neurologic/Psychiatric: Alert, Oriented x3, No Motor/Sensory Deficits, hot worker II- XII Norm as Tested Skin: Ecchymosis (lower abdomen) Lymphatic: No Adenopathy Results Lab Laboratory Tests 06/29/17 05:35 06/30/17 06:30 Assessment/Plan Assessment/Plan Pulmonary edema- requiring 8-10liters of oxygen - Lasix 40mg daily -monitor -repeat CXR and BNP PNA -Currently on levaquin and cefepime -BC are neg -UA was negative and no sputum C&S NSTEMI with CP -Cardiology following Acute myelogenous leukemia -Oncology following Anemia s/p 2units of PRBC -Monitor H&H Afib - currently controlled Severe anemia s/p 2 units of PRBC 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
--- NOTE | 2017-06-30 08:47 | Diagnostic Imaging Report ---
CLINICAL INDICATION: Patient complains of shortness of breath and coughing. Patient with pneumonia. EXAM: Portable chest x-ray upright view. COMPARISON: Portable chest x-ray upright view dated 06/28/2017. FINDINGS: There is interval slight improved aeration of both lungs with continued bilateral lung infiltrates/patchy areas of consolidation bilaterally (left side more than the right). There is interval development of mild discoid atelectasis in the right lung base. There is slight blunting of the left costophrenic angle, and small left pleural effusion cannot be completely excluded. Pulmonary vasculature is partially obscured but appears to be within normal limits. Cardiac silhouette is within normal limits. Slight low lung volumes noted bilaterally are again seen. Stable Port-A-Cath overlying right chest with tip in the distal superior vena cava region. The remainder of this exam shows no significant interval change compared to the prior study of comparison. IMPRESSION: 1: There is interval slight improved aeration of both lungs with continued bilateral lung infiltrates (left side more than the right). 2: There is interval development of mild discoid atelectasis in the right lung base. Dictated by: Dictated on workstation # [id number]
[2017-06-30] MEDS: CEFEPIME 2 GM/NS 50 ML IVPB IV SCH ×2 (08:52)
[2017-06-30] MEDS: FUROSEMIDE 40 MG/4 ML INJ (LASIX) IVP SCH (08:52)
[2017-06-30] MEDS: ALLOPURINOL 100 MG (ZYLOPRIM) TAB PO SCH (08:53)
[2017-06-30] MEDS: ISOSORBIDE MONONITRATE 60 MG (IMDUR) TAB PO SCH (08:53)
[2017-06-30] MEDS: ASPIRIN 81 MG CHEW (CHILDREN'S ASA) PO SCH (08:53)
[2017-06-30] MEDS: amLODIPine 5 MG (NORVASC) TAB PO SCH ×2 (08:53→20:25)
[2017-06-30] MEDS: BENZONATATE 100 MG (TESSALON) CAPSULE PO PRN ×2 (08:53→16:56)
[2017-06-30] MEDS: meTOprolol TARTRATE 25 MG (LOPRESSOR) TABLET PO SCH ×3 (08:53→20:25)
[2017-06-30] MEDS: TELMISARTAN 40 MG (MICARDIS) TAB PO SCH (08:53)
[2017-06-30] MEDS: fluCOnazole (DIFLUCAN) 100 MG TAB PO SCH (08:53)
--- NOTE | 2017-06-30 09:39 | Progress Note-Cardiology ---
Cardiology SOAP Progress Note Subjective: Sitting up in bed. States he felt more short of breath when he first woke up this morning, but that is feeling better. No c/o CP, palpitations. Continued general weakness. Continued LE edema bilat which he feels has improved. Continues to c/o frequent, dry, non-productive cough. Objective: I&O/Vital Signs Vital Sign - Last 12Hours 06/30/17 06/30/17 06/30/17 06/30/17 00:00 00:12 01:57 04:00 Temp 99.0 97.7 Pulse 91 84 Resp 22 20 B/P (MAP) 138/60 145/63 Pulse Ox 90 90 90 95 O2 Delivery Vapotherm Vapotherm Vapotherm Vapotherm O2 Flow Rate 17.00 17.00 17.00 17.00 FiO2 65 75 06/30/17 06/30/17 07:16 08:56 Temp 97.6 Pulse 86 Resp 20 B/P (MAP) 158/63 Pulse Ox 98 98 O2 Delivery Vapotherm Vapotherm O2 Flow Rate 17.00 70.00 17.00 FiO2 75 Intake and Output 06/30/17 00:00 Intake Total 700 ml Output Total 1630 ml Balance -930 ml Weight (Pounds): 209 Weight (Ounces): 1.0 Weight (Calculated Kilograms): 94.177350 Constitutional: AAO x 3, well-developed, well-nourished Respiratory: No accessory muscle use, other (diminished air entry at the bases ; coarse breath sounds mid- left side) Cardiovascular: regular rate-rhythm, S1 and S2, systolic murmur (soft RADHA at card base) Gastrointestional: soft, No guarding, No rebound, audible bowel sounds Extremities: No clubbing, No cyanosis, significant edema (mild bilat ankle edema) Neurologic/Psychiatric: oriented x 3, grossly intact, power is 5/5 both on sides Skin: No rash on exposed areas, No ulcerations on exposed areas Results/Procedures: Labs Laboratory Tests 06/29/17 10:34: Glucometer 165H 06/29/17 16:32: Glucometer 261H 06/29/17 21:01: Glucometer 133H 06/30/17 05:14: Glucometer 129H 06/30/17 06:30: White Blood Count 5.8, Red Blood Count 2.77L, Hemoglobin 8.9L, Hematocrit 27L, Mean Corpuscular Volume 98, Mean Corpuscular Hemoglobin 32, Mean Corpuscular Hemoglobin Concent 33, Red Cell Distribution Width 14.9H, Platelet Count 34*L, Mean Platelet Volume 10.3, Neutrophils (%) (Auto) 53, Lymphocytes (%) (Auto) 17 , Monocytes (%) (Auto) 30H, Eosinophils (%) (Auto) 0, Basophils (%) (Auto) 0, Neutrophils # (Auto) 3.1, Lymphocytes # (Auto) 1.0, Monocytes # (Auto) 1.7H, Eosinophils # (Auto) 0.0, Basophils # (Auto) 0.0, Sodium Level 141, Potassium Level 3.8, Chloride Level 99, Carbon Dioxide Level 29, Anion Gap 13, Blood Urea Nitrogen 37H, Creatinine 1.51H, Estimat Glomerular Filtration Rate 44, BUN/ Creatinine Ratio 25, Glucose Level 108H, Calcium Level 9.1, B-Type Natriuretic Peptide 351.7H Microbiology 06/27/17 Blood Culture - Preliminary, Resulted No growth Laboratory Tests 06/29/17 05:35 06/30/17 06:30 Procedures NAME: TYLER PEREZ I [facility] REC#: [id number] PT STATUS: ADM IN : 1935 PHYSICIAN: KERI KIM DO ADMIT DATE: 06/24/17 Draft Date of Exam:06/30/17 CHEST 1 VIEW, AP/PA ONLY CLINICAL INDICATION: Patient complains of shortness of breath and coughing. Patient with pneumonia. EXAM: Portable chest x-ray upright view. COMPARISON: Portable chest x-ray upright view dated 06/28/2017. FINDINGS: There is interval slight improved aeration of both lungs with continued bilateral lung infiltrates/patchy areas of consolidation bilaterally (left side more than the right). There is interval development of mild discoid atelectasis in the right lung base. There is slight blunting of the left costophrenic angle, and small left pleural effusion cannot be completely excluded. Pulmonary vasculature is partially obscured but appears to be within normal limits. Cardiac silhouette is within normal limits. Slight low lung volumes noted bilaterally are again seen. Stable Port-A-Cath overlying right chest with tip in the distal superior vena cava region. The remainder of this exam shows no significant interval change compared to the prior study of comparison. IMPRESSION: 1: There is interval slight improved aeration of both lungs with continued bilateral lung infiltrates (left side more than the right). 2: There is interval development of mild discoid atelectasis in the right lung base. 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 Monitor. Plan: Complex management due to multiple comorbidities Med therapy for ac cor syndrome (due to pancytopenia and CKD) Probable pneumonia - pulmonary services managing - CXR improving Diuretics for CHF Anemia - followed by oncology Monitor labs closely LOIS RAMIREZ Jun 30, 2017 09:39
--- NOTE | 2017-06-30 10:37 | Progress Note-Hospitalist ---
Standard Progress Note Progress Notes/Assess & Plan Date Seen 06/30/17 Time Seen by Provider: 10:32 Assess & Plan/Chief Complaint The patient and his reports being discouraged. The believes that they have completed the first round of chemotherapy. She has been told the concern now is relative to his falling platelet count and whether that is chemotherapy or disease related. He reports continued cough particularly at night. The chest x-ray shows significant abnormalities and has since his inpatient admission, with regard to an interstitial infiltrate appearance much greater on the left than on the right. He has been largely afebrile. Platelet count appears to be hovering in the 35,000 range. Physical exam: He graded me rather weakly. Lungs show shallow distant breath sounds. CV is irregular. No skin changes are noted. Impression: Acute myelogenous leukemia. 2.atrial fibrillation. 3.COPD. 4.arteriosclerotic heart disease with previous intervention. 5.extensive bilateral pulmonary infiltrates. 6.diabetes mellitus type II Note: He appears frail and the immediate prognosis is very guarded. Plan: Supportive care Labs Laboratory Tests 06/29/17 05:35 06/30/17 06:30 ELVIA MARCOS MD Jun 30, 2017 10:37
[2017-06-30] MEDS: PROMETHAZINE/ CODEINE SYRUP 5 ML UDC PO PRN (16:46)
--- NOTE | 2017-06-30 18:26 | Oncology Progress Note ---
Subjective Time Seen by Provider: 17:30 Subjective/Events-last exam Feeling slightly better today. Tmax 99.7 Cough with yellow sputum Data Review Labs Laboratory Tests 06/30/17 06:30 Laboratory Tests 06/27/17 21:01: Glucometer 360H 06/28/17 05:25: Red Blood Count 2.84L, Hemoglobin 8.9L, Hematocrit 28L, Red Cell Distribution Width 15.0H, Platelet Count 47L, Monocytes (%) (Auto) 34H, Monocytes # (Auto) 2.5H, Anion Gap 15H, Blood Urea Nitrogen 37H, Creatinine 1.57H 06/28/17 11:23: Glucometer 287H 06/28/17 16:12: Glucometer 218H 06/28/17 20:27: Glucometer 244H 06/29/17 05:35: Red Blood Count 2.90L, Hemoglobin 9.3L, Hematocrit 28L, Red Cell Distribution Width 15.0H, Platelet Count 37*L, Monocytes (%) (Auto) 31H, Monocytes # (Auto) 2.0H, Carbon Dioxide Level 35H, Blood Urea Nitrogen 35H, Creatinine 1.55H, Glucose Level 66L 06/29/17 07:49: Glucometer 198H 06/29/17 10:34: Glucometer 165H 06/29/17 16:32: Glucometer 261H 06/29/17 21:01: Glucometer 133H 06/30/17 05:14: Glucometer 129H 06/30/17 06:30: Red Blood Count 2.77L, Hemoglobin 8.9L, Hematocrit 27L, Red Cell Distribution Width 14.9H, Platelet Count 34*L, Monocytes (%) (Auto) 30H, Monocytes # (Auto) 1.7H, Blood Urea Nitrogen 37H, Creatinine 1.51H, Glucose Level 108H, B-Type Natriuretic Peptide 351.7H 06/30/17 11:06: Glucometer 150H Laboratory Tests 06/30/17 06:30 Physical Exam Vital Signs Vital Sign - Last 12Hours 06/24/17 06/24/17 06/27/17 13:59 19:15 20:00 Temp 99.1 Pulse 74 Resp 24 B/P (MAP) 146/65 Pulse Ox 91 O2 Delivery Nasal Cannula O2 Flow Rate 4.50 FiO2 70 Capillary Refill : General Appearance: No Apparent Distress, Other (mild SOB) HEENT: PERRL/EOMI Neck: Supple Respiratory: No Accessory Muscle Use, No Respiratory Distress, Crackles Cardiovascular: Irregularly Irregular Gastrointestinal: Non Tender, Soft Neurologic/Psychiatric: Alert, Oriented x3 Impression & Plan Impression & Plan Assess & Plan 1. 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 Plt counts are slight lower today as expected from chemo. No bleeding. Hb 8.9 closely monitor for now. 2. Tbv-JSUIP-gyexd followed by cardiology and receiving medical/conservative management; 3. Bilateral pneumonia with Fever/Cough/ worsening CXR findings--continue Cefepime and Levoflox. Pt is feeling better. O2 sat 90% on NC. 4. Pulmonary edema- Lasix given and pulmonary following 5. Atrial fibrillation-rate is in the 70s 6. Diabetes mellitus- 7. CAD history of stent placement; 8. Prognosis poor. MANPREET GARCIA MD Jun 30, 2017 18:26
[2017-06-30] MEDS: ACETAMINOPHEN 500 MG TAB (TYLENOL) PO PRN (20:25)
[2017-06-30] MEDS: POLYETHYLENE GLYCOL 17 GM (MIRALAX) PACK PO SCH (20:26)
[2017-06-30] MEDS: inSUlin DETERMIR 1 UNIT/0.01 ML (LEVEMIR) CHARGE PER UNIT SQ SCH (20:32)
[2017-07-01] VITALS (7 sets, daily range): BP systolic 109–142; BP diastolic 50–73
[2017-07-01] MEDS: NYSTATIN ORAL SUSP 5 ML UDC PO SCH ×4 (00:14→18:26)
[2017-07-01] MEDS: morphine INJ 4 MG/ML 1 ML (VIAL/SYRINGE) IVP PRN ×2 (01:50→13:43)
[2017-07-01] MEDS: RT-ALBUTEROL/IPRATROPIUM 3 ML (DUONEB) VIAL INH SCH ×6 (02:55→22:00)
[2017-07-01] MEDS: PROMETHAZINE/ CODEINE SYRUP 5 ML UDC PO PRN ×3 (04:45→15:55)
[2017-07-01] MEDS: BENZONATATE 100 MG (TESSALON) CAPSULE PO PRN ×2 (04:45→10:26)
[2017-07-01] MEDS: PANTOPRAZOLE 40 MG (PROTONIX) TAB PO SCH (06:29)
[2017-07-01] MEDS: inSUlin (REGULAR) HUMAN 1 UNIT/0.01 ML (CHARGE PER UNIT) SC SCH ×4 (06:29→21:03)
--- NOTE | 2017-07-01 07:47 | Pulmonary Progress Note ---
Subjective Date Seen by Provider: Jul 16, 2017 Time Seen by Provider: 07:42 Subjective/Events-last exam No complications. Exam Exam Vital Signs Date Time Temp Pulse Resp B/P (MAP) Pulse Ox O2 Delivery O2 Flow Rate FiO2 07/01/17 07:07 96 Vapotherm 14.00 50 07/01/17 04:00 96.7 88 16 121/56 90 Vapotherm 45.00 12.00 07/01/17 02:55 90 Vapotherm 12.00 45 07/01/17 02:00 98.7 98 20 124/73 94 Vapotherm 45.00 12.00 07/01/17 00:00 96.6 86 24 109/50 91 Vapotherm 45.00 12.00 06/30/17 22:49 92 Vapotherm 12.00 45 06/30/17 21:00 100.2 06/30/17 20:00 100.2 89 24 142/65 91 Vapotherm 45.00 17.00 06/30/17 20:00 Vapotherm 12.00 45 06/30/17 18:37 95 Vapotherm 12.00 45 06/30/17 16:00 99.3 83 20 133/62 88 Vapotherm 45.00 17.00 06/30/17 14:34 94 Vapotherm 17.00 45 06/30/17 12:00 98.2 82 22 139/55 90 Vapotherm 45.00 17.00 06/30/17 10:49 97 Vapotherm 17.00 55 06/30/17 08:56 97.6 86 20 158/63 98 Vapotherm 70.00 17.00 06/30/17 08:00 Vapotherm 17.00 70 I & O 07/01/17 07:00 Intake Total 1070 ml Output Total 1575 ml Balance -505 ml General Appearance: No Apparent Distress, Other (mild SOB) HEENT: PERRL/EOMI Neck: Supple Respiratory: No Accessory Muscle Use, No Respiratory Distress, Crackles Cardiovascular: Irregularly Irregular Gastrointestinal: normal bowel sounds, non tender, soft, no organomegaly Extremity: Pedal Edema, Other (other than senile purpura no rashes noted.) Neurologic/Psychiatric: Alert, Oriented x3 Skin: Ecchymosis (lower abdomen) Lymphatic: No Adenopathy Results Lab Laboratory Tests 06/30/17 06:30 Assessment/Plan Assessment/Plan Pulmonary edema- requiring 8-10liters of oxygen - Lasix 40mg daily -- increase to 80mg daily -monitor -repeat CXR and BNP PNA -Currently on levaquin and cefepime -BC are neg -UA was negative and no sputum C&S NSTEMI with CP -Cardiology following Acute myelogenous leukemia -Oncology following Anemia s/p 2units of PRBC -Monitor H&H Afib - currently controlled Severe anemia s/p 2 units of PRBC 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
[2017-07-01] MEDS: FUROSEMIDE 40 MG/4 ML INJ (LASIX) IVP SCH (09:43)
[2017-07-01] MEDS: ASPIRIN 81 MG CHEW (CHILDREN'S ASA) PO SCH (09:44)
[2017-07-01] MEDS: ALLOPURINOL 100 MG (ZYLOPRIM) TAB PO SCH (09:44)
[2017-07-01] MEDS: meTOprolol TARTRATE 25 MG (LOPRESSOR) TABLET PO SCH ×3 (09:44→21:03)
[2017-07-01] MEDS: CEFEPIME 2 GM/NS 50 ML IVPB IV SCH ×2 (09:44)
[2017-07-01] MEDS: ISOSORBIDE MONONITRATE 60 MG (IMDUR) TAB PO SCH (09:44)
[2017-07-01] MEDS: amLODIPine 5 MG (NORVASC) TAB PO SCH ×2 (09:44→21:03)
[2017-07-01] MEDS: fluCOnazole (DIFLUCAN) 100 MG TAB PO SCH (09:44)
[2017-07-01] MEDS: TELMISARTAN 40 MG (MICARDIS) TAB PO SCH (09:47)
--- NOTE | 2017-07-01 12:21 | Progress Note-Cardiology ---
Cardiology SOAP Progress Note Subjective: Sitting up in bed. States his shortness of breath is unchanged from yesterday. He does not report any CP. C/O generalized fatigue. No c/o palpitations. Objective: I&O/Vital Signs Vital Sign - Last 12Hours 07/01/17 07/01/17 07/01/17 07/01/17 02:00 02:55 04:00 07:07 Temp 98.7 96.7 Pulse 98 88 Resp 20 16 B/P (MAP) 124/73 121/56 Pulse Ox 94 90 90 96 O2 Delivery Vapotherm Vapotherm Vapotherm Vapotherm O2 Flow Rate 45.00 12.00 45.00 14.00 12.00 12.00 FiO2 45 50 07/01/17 07/01/17 08:12 10:43 Temp 99.3 Pulse 87 Resp 20 B/P (MAP) 142/61 Pulse Ox 94 95 O2 Delivery Vapotherm Vapotherm O2 Flow Rate 50.00 12.00 12.00 FiO2 50 Intake and Output 07/01/17 00:00 Intake Total 820 ml Output Total 975 ml Balance -155 ml Weight (Pounds): 209 Weight (Ounces): 1.0 Weight (Calculated Kilograms): 94.715866 Constitutional: AAO x 3, well-developed, well-nourished Respiratory: No accessory muscle use, other (diminished air entry at the bases ; coarse breath sounds mid- left side) Cardiovascular: regular rate-rhythm, S1 and S2, systolic murmur (soft RADHA at card base) Gastrointestional: soft, No guarding, No rebound, audible bowel sounds Extremities: No clubbing, No cyanosis, significant edema (mild bilat ankle edema) Neurologic/Psychiatric: oriented x 3, grossly intact, power is 5/5 both on sides Skin: No rash on exposed areas, No ulcerations on exposed areas Results/Procedures: Labs Laboratory Tests 06/30/17 16:50: Glucometer 239H 06/30/17 20:24: Glucometer 159H 07/01/17 05:21: Glucometer 166H 07/01/17 11:46: Glucometer 147H Microbiology 06/27/17 Blood Culture - Preliminary, Resulted No growth A/P: Assessment: Cough likely due to DANIELA-inhibitors and/or ac babb CHF and/or pneumonia/ bronchitis Ac NSTEMI, clinically stable Ac diastolic CHF - diuretics Echo during this hosp (Dr bAreu): LVEF 45-50%, RVSP 70 mmHg Acute myeloid leukemia, 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 Monitor. Plan: Complex management due to multiple comorbidities Med therapy for ac cor syndrome (due to pancytopenia and CKD) Probable pneumonia - pulmonary services managing Diuretics for CHF - received 80mg IV today Anemia - followed by oncology Monitor labs closely LOIS RAMIREZ Jul 01, 2017 12:21
[2017-07-01] MEDS: LEVOFLOXACIN 750 MG/D5W 150 ML (PRE-MIX) IV SCH (15:52)
[2017-07-01 17:07] LABS: BASOPHILS % (AUTO) 0 % (0-10); EOSINOPHILS % (AUTO) 0 % (0-10); LYMPHOCYTES # (AUTO) 1.1 X 10^3 (1.0-4.0); LYMPHOCYTES % (AUTO) 22 % (12-44); MEAN CORPUSCULAR HEMOGLOBIN 32 PG (25-34); MEAN CORPUSCULAR HGB CONC 31 G/DL (32-36); MEAN CORPUSCULAR VOLUME 100 FL (80-99); MEAN PLATELET VOLUME 10.3 FL (7.4-10.4); MONOCYTES # (AUTO) 1.4 X 10^3 (0.0-1.0); MONOCYTES % (AUTO) 29 % (0-12); NEUTROPHILS # (AUTO) 2.3 X 10^3 (1.8-7.8); NEUTROPHILS % (AUTO) 48 % (42-75); RED CELL DISTRIBUTION WIDTH 15.3 % (10.0-14.5); WHITE BLOOD COUNT 4.8 10^3/uL (4.3-11.0)
[2017-07-01 17:18] LABS: PLATELET COUNT 25 10^3/uL (130-400)
[2017-07-01 17:35] LABS: CALCIUM 9.3 MG/DL (8.5-10.1); CREATININE SERUM 1.7 MG/DL (0.60-1.30); MAGNESIUM 1.4 MG/DL (1.8-2.4); PHOSPHORUS 3.3 MG/DL (2.3-4.7); POTASSIUM 3.4 MMOL/L (3.6-5.0)
--- NOTE | 2017-07-01 18:11 | Oncology Progress Note ---
Subjective Time Seen by Provider: 17:45 Subjective/Events-last exam Pt is more tired today. Cough last night and did not have a good sleep O2 sat 92-95% Data Review Labs Laboratory Tests 07/01/17 08:31 Laboratory Tests 06/28/17 20:27: Glucometer 244H 06/29/17 05:35: Red Blood Count 2.90L, Hemoglobin 9.3L, Hematocrit 28L, Red Cell Distribution Width 15.0H, Platelet Count 37*L, Monocytes (%) (Auto) 31H, Monocytes # (Auto) 2.0H, Carbon Dioxide Level 35H, Blood Urea Nitrogen 35H, Creatinine 1.55H, Glucose Level 66L 06/29/17 07:49: Glucometer 198H 06/29/17 10:34: Glucometer 165H 06/29/17 16:32: Glucometer 261H 06/29/17 21:01: Glucometer 133H 06/30/17 05:14: Glucometer 129H 06/30/17 06:30: Red Blood Count 2.77L, Hemoglobin 8.9L, Hematocrit 27L, Red Cell Distribution Width 14.9H, Platelet Count 34*L, Monocytes (%) (Auto) 30H, Monocytes # (Auto) 1.7H, Blood Urea Nitrogen 37H, Creatinine 1.51H, Glucose Level 108H, B-Type Natriuretic Peptide 351.7H 06/30/17 11:06: Glucometer 150H 06/30/17 16:50: Glucometer 239H 06/30/17 20:24: Glucometer 159H 07/01/17 05:21: Glucometer 166H 07/01/17 08:31: Red Blood Count 2.60L, Hemoglobin 8.2L, Hematocrit 26L, Mean Corpuscular Volume 100H, Mean Corpuscular Hemoglobin Concent 31L, Red Cell Distribution Width 15.3H , Platelet Count 25*L, Monocytes (%) (Auto) 29H, Monocytes # (Auto) 1.4H, Potassium Level 3.4L, Carbon Dioxide Level 35H, Blood Urea Nitrogen 37H, Creatinine 1.70H, Glucose Level 149H, Magnesium Level 1.4L 07/01/17 11:46: Glucometer 147H 07/01/17 16:22: Glucometer 220H Physical Exam Vital Signs Vital Sign - Last 12Hours 06/25/17 06/27/17 01:56 20:00 Temp 98.0 Pulse 70 Resp 22 B/P (MAP) 132/60 Pulse Ox 91 O2 Delivery Nasal Cannula O2 Flow Rate 5.00 FiO2 70 Capillary Refill : General Appearance: No Apparent Distress, Other (tired) HEENT: PERRL/EOMI Neck: Supple Respiratory: No Accessory Muscle Use, No Respiratory Distress, Crackles Cardiovascular: Regular Rate, Rhythm, No Edema, No JVD Gastrointestinal: Soft Extremity: No Calf Tenderness, No Pedal Edema Neurologic/Psychiatric: Alert, Oriented x3 Impression & Plan Impression & Plan Assess & Plan 1. 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 Plt counts are lower today at 25 as expected from chemo. No bleeding. Closely monitoring for now. Hb 8.2 and very tired. Will transfuse one unit RBC tomorrow morning per pt request. He wants to have a good sleep tonight. 2. Wfm-NUOAD-ieccw followed by cardiology and receiving medical/conservative management; 3. Bilateral pneumonia with Fever/Cough/ worsening CXR findings--continue Cefepime and Levoflox. Appreciate Dr Anthony's help. 4. Pulmonary edema- Lasix given and pulmonary following 5. Atrial fibrillation-rate is in the 70s 6. Diabetes mellitus- 7. CAD history of stent placement; 8. Prognosis is poor. 9. Chronic renal failure. Cr 1.7 today. Cr range 1.6-1.9 in the past. Closely monitoring 10. Pt is DNR MANPREET GARCIA MD Jul 01, 2017 18:11
[2017-07-01] MEDS: ACETAMINOPHEN 500 MG TAB (TYLENOL) PO PRN (19:44)
[2017-07-01] MEDS: POLYETHYLENE GLYCOL 17 GM (MIRALAX) PACK PO SCH (19:47)
[2017-07-01] MEDS: inSUlin DETERMIR 1 UNIT/0.01 ML (LEVEMIR) CHARGE PER UNIT SQ SCH (21:03)
[2017-07-01] MEDS: DIAZEPAM 5 MG (VALIUM) TABLET PO PRN (21:18)
[2017-07-02] VITALS (11 sets, daily range): BP systolic 113–160; BP diastolic 57–75
[2017-07-02] MEDS: NYSTATIN ORAL SUSP 5 ML UDC PO SCH ×4 (00:15→18:00)
[2017-07-02] MEDS: RT-ALBUTEROL/IPRATROPIUM 3 ML (DUONEB) VIAL INH SCH ×6 (02:00→20:54)
[2017-07-02] MEDS: morphine INJ 4 MG/ML 1 ML (VIAL/SYRINGE) IVP PRN ×2 (02:38→13:42)
[2017-07-02] MEDS: RT-ALBUTEROL/IPRATROPIUM 3 ML (DUONEB) VIAL INH PRN (05:20)
[2017-07-02] MEDS: inSUlin (REGULAR) HUMAN 1 UNIT/0.01 ML (CHARGE PER UNIT) SC SCH ×4 (05:53→20:25)
[2017-07-02] MEDS ORDERED: ACETAMINOPHEN 500 MG TAB (TYLENOL) PO NR (06:00)
[2017-07-02] MEDS: PANTOPRAZOLE 40 MG (PROTONIX) TAB PO SCH (06:00)
[2017-07-02] MEDS: CEFEPIME 2 GM/NS 50 ML IVPB IV SCH ×2 (09:37)
[2017-07-02] MEDS: FUROSEMIDE 40 MG/4 ML INJ (LASIX) IVP SCH (09:38)
[2017-07-02] MEDS: fluCOnazole (DIFLUCAN) 100 MG TAB PO SCH (09:39)
[2017-07-02] MEDS: meTOprolol TARTRATE 25 MG (LOPRESSOR) TABLET PO SCH ×3 (09:40→20:15)
[2017-07-02] MEDS: TELMISARTAN 40 MG (MICARDIS) TAB PO SCH (09:40)
[2017-07-02] MEDS: ALLOPURINOL 100 MG (ZYLOPRIM) TAB PO SCH (09:40)
[2017-07-02] MEDS: PROMETHAZINE/ CODEINE SYRUP 5 ML UDC PO PRN ×2 (09:40→20:14)
[2017-07-02] MEDS: ISOSORBIDE MONONITRATE 60 MG (IMDUR) TAB PO SCH (09:40)
[2017-07-02] MEDS: amLODIPine 5 MG (NORVASC) TAB PO SCH ×2 (09:40→20:16)
[2017-07-02] MEDS: ASPIRIN 81 MG CHEW (CHILDREN'S ASA) PO SCH (09:40)
[2017-07-02 09:55] LABS: BASOPHILS % (AUTO) 0 % (0-10); EOSINOPHILS % (AUTO) 0 % (0-10); LYMPHOCYTES # (AUTO) 0.8 X 10^3 (1.0-4.0); LYMPHOCYTES % (AUTO) 16 % (12-44); MEAN CORPUSCULAR HEMOGLOBIN 32 PG (25-34); MEAN CORPUSCULAR HGB CONC 32 G/DL (32-36); MEAN CORPUSCULAR VOLUME 98 FL (80-99); MEAN PLATELET VOLUME 9.4 FL (7.4-10.4); MONOCYTES # (AUTO) 2.1 X 10^3 (0.0-1.0); MONOCYTES % (AUTO) 42 % (0-12); NEUTROPHILS % (AUTO) 41 % (42-75); RED BLOOD COUNT 2.62 10^6/uL (4.35-5.85); RED CELL DISTRIBUTION WIDTH 14.9 % (10.0-14.5); WHITE BLOOD COUNT 4.9 10^3/uL (4.3-11.0)
[2017-07-02 09:59] LABS: PLATELET COUNT 25 10^3/uL (130-400)
[2017-07-02 10:19] LABS: CALCIUM 9.8 MG/DL (8.5-10.1); CREATININE SERUM 1.6 MG/DL (0.60-1.30); MAGNESIUM 1.4 MG/DL (1.8-2.4); POTASSIUM 3.7 MMOL/L (3.6-5.0)
[2017-07-02] MEDS ORDERED: NS IV 500 ML 500 ML ONE (11:10)
[2017-07-02] MEDS ORDERED: NS IV 500 ML 500 ML IV SCH (11:30)
--- NOTE | 2017-07-02 12:31 | Progress Note-Hospitalist ---
Standard Progress Note Progress Notes/Assess & Plan Date Seen 07/02/17 Time Seen by Provider: 12:28 Assess & Plan/Chief Complaint The patient has completed this course of chemotherapy. He is receiving blood transfusions today. He is post inpatient LA and statistically would do better with a hemoglobin greater than 10. He reports his appetite is beginning to come back. He is still rather listless. Physical exam: Lungs are clear to auscultation. CV is irregular. Abdomen is obese and not tender to palpation. Extremities show no pedal edema. Impression: Acute myelogenous leukemia. 2.N STEMI during this admission. Plan: complete packed red blood cells and assess response and capabilities. Labs Laboratory Tests 07/01/17 08:31 07/02/17 09:30 ELVIA MARCOS MD Jul 02, 2017 12:31
[2017-07-02] MEDS: MAGNESIUM 1 GM/100 ML IVPB 100 ML IV SCH ×3 (17:10→19:39)
--- NOTE | 2017-07-02 17:14 | Oncology Progress Note ---
Subjective Time Seen by Provider: 16:10 Subjective/Events-last exam THIS IS A DUPLICATED NOTE WHICH I CAN NOT DELETE FROM THE SYSTEM Data Review Labs Laboratory Tests 07/01/17 11:46: Glucometer 147H 07/01/17 16:22: Glucometer 220H 07/01/17 20:29: Glucometer 169H 07/02/17 05:50: 07/02/17 09:30: Red Blood Count 2.62L, Hemoglobin 8.3L, Hematocrit 26L, Red Cell Distribution Width 14.9H, Platelet Count 25*L, Neutrophils (%) (Auto) 41L, Monocytes (%) ( Auto) 42H, Lymphocytes # (Auto) 0.8L, Monocytes # (Auto) 2.1H, Blood Urea Nitrogen 30H, Creatinine 1.60H, Glucose Level 114H, Magnesium Level 1.4L 07/02/17 10:45: Glucometer 141H 07/02/17 15:51: Glucometer 236H 07/02/17 20:18: Glucometer 221H 07/03/17 06:03: 07/03/17 09:10: Red Blood Count 2.76L, Hemoglobin 8.7L, Hematocrit 27L, Red Cell Distribution Width 14.9H, Platelet Count 20*L, Neutrophils (%) (Auto) 35L, Monocytes (%) ( Auto) 44H, Monocytes # (Auto) 2.2H, Blood Urea Nitrogen 31H, Creatinine 1.78H, Glucose Level 185H 07/03/17 10:33: Glucometer 205H 07/03/17 12:02: 07/03/17 16:00: 07/03/17 20:24: Glucometer 216H 07/04/17 05:59: Physical Exam Vital Signs Vital Sign - Last 12Hours 06/28/17 06/28/17 02:11 08:00 Temp 99.3 Pulse 88 Resp 22 B/P (MAP) 158/88 Pulse Ox 91 O2 Delivery Vapotherm O2 Flow Rate 17.00 FiO2 70 Capillary Refill : Less Than 3 Seconds General Appearance: No Apparent Distress Impression & Plan Impression & Plan Assess & Plan 1. 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 Plt counts are lower today at 25 as expected from chemo. No bleeding. Closely monitoring for now. Hb 8.2 and very tired. Will transfuse one unit RBC tomorrow morning per pt request. He wants to have a good sleep tonight. 2. [id number] followed by cardiology and receiving medical/conservative management; 3. Bilateral pneumonia with Fever/Cough/ worsening CXR findings--continue Cefepime and Levoflox. Appreciate Dr Anthony's help. 4. Pulmonary edema- Lasix given and pulmonary following 5. Atrial fibrillation-rate is in the 70s 6. Diabetes mellitus- 7. CAD history of stent placement; 8. Prognosis is poor. 9. Chronic renal failure. Cr 1.7 today. Cr range 1.6-1.9 in the past. Closely monitoring 10. Pt is DNR MANPREET GARCIA MD Jul 02, 2017 17:14
[2017-07-02] MEDS: ONDANSETRON 4 MG/2 ML (SDV) Z0FRAN IVP PRN (18:02)
--- NOTE | 2017-07-02 18:38 | Oncology Progress Note ---
Subjective Time Seen by Provider: 15:50 Subjective/Events-last exam Pt slept better last night but still woke up by cleaning person at night. He had one RBC today. Feeling better Data Review Labs Laboratory Tests 07/02/17 09:30 Laboratory Tests 06/29/17 21:01: Glucometer 133H 06/30/17 05:14: Glucometer 129H 06/30/17 06:30: Red Blood Count 2.77L, Hemoglobin 8.9L, Hematocrit 27L, Red Cell Distribution Width 14.9H, Platelet Count 34*L, Monocytes (%) (Auto) 30H, Monocytes # (Auto) 1.7H, Blood Urea Nitrogen 37H, Creatinine 1.51H, Glucose Level 108H, B-Type Natriuretic Peptide 351.7H 06/30/17 11:06: Glucometer 150H 06/30/17 16:50: Glucometer 239H 06/30/17 20:24: Glucometer 159H 07/01/17 05:21: Glucometer 166H 07/01/17 08:31: Red Blood Count 2.60L, Hemoglobin 8.2L, Hematocrit 26L, Mean Corpuscular Volume 100H, Mean Corpuscular Hemoglobin Concent 31L, Red Cell Distribution Width 15.3H , Platelet Count 25*L, Monocytes (%) (Auto) 29H, Monocytes # (Auto) 1.4H, Potassium Level 3.4L, Carbon Dioxide Level 35H, Blood Urea Nitrogen 37H, Creatinine 1.70H, Glucose Level 149H, Magnesium Level 1.4L 07/01/17 11:46: Glucometer 147H 07/01/17 16:22: Glucometer 220H 07/01/17 20:29: Glucometer 169H 07/02/17 05:50: 07/02/17 09:30: Red Blood Count 2.62L, Hemoglobin 8.3L, Hematocrit 26L, Red Cell Distribution Width 14.9H, Platelet Count 25*L, Neutrophils (%) (Auto) 41L, Monocytes (%) ( Auto) 42H, Lymphocytes # (Auto) 0.8L, Monocytes # (Auto) 2.1H, Blood Urea Nitrogen 30H, Creatinine 1.60H, Glucose Level 114H, Magnesium Level 1.4L 07/02/17 10:45: Glucometer 141H 07/02/17 15:51: Glucometer 236H Physical Exam Vital Signs Vital Sign - Last 12Hours 06/26/17 06/26/17 06/27/17 03:18 06:00 20:00 Temp 97.9 Pulse 72 Resp 18 B/P (MAP) 156/67 Pulse Ox 93 O2 Delivery OxyMask O2 Flow Rate 8.00 FiO2 70 Capillary Refill : Less Than 3 Seconds General Appearance: No Apparent Distress HEENT: PERRL/EOMI Neck: Supple Respiratory: No Accessory Muscle Use, No Respiratory Distress, Crackles Cardiovascular: Regular Rate, Rhythm, No Edema Gastrointestinal: Non Tender, Soft Extremity: No Pedal Edema Neurologic/Psychiatric: Alert, Oriented x3 Impression & Plan Impression & Plan Assess & Plan 1. 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 Plt counts are same at 25 today as expected from chemo. No bleeding. Closely monitoring for now. Hb 8.3 before transfusion, s/p one unit RBC and will check CBC tomorrow morning. He wants to have a good sleep tonight. 2. [id number] followed by cardiology and receiving medical/conservative management; 3. Bilateral pneumonia with Fever/Cough/ worsening CXR findings--continue Cefepime and Levoflox. Appreciate Dr Anthony's help. 4. Pulmonary edema- Lasix given and pulmonary following 5. Atrial fibrillation-rate is in the 70s 6. Diabetes mellitus- 7. CAD history of stent placement; 8. Prognosis is poor. 9. Chronic renal failure. Cr 1.6 today. Cr range 1.6-1.9 in the past. Closely monitoring 10. Pt is DNR MANPREET GARCIA MD Jul 02, 2017 18:37
[2017-07-02] MEDS: ACETAMINOPHEN 500 MG TAB (TYLENOL) PO PRN (20:15)
[2017-07-02] MEDS: POLYETHYLENE GLYCOL 17 GM (MIRALAX) PACK PO SCH (20:15)
[2017-07-02] MEDS: inSUlin DETERMIR 1 UNIT/0.01 ML (LEVEMIR) CHARGE PER UNIT SQ SCH (20:25)
[2017-07-03] MEDS: NYSTATIN ORAL SUSP 5 ML UDC PO SCH ×4 (00:42→17:39)
[2017-07-03] MEDS: RT-ALBUTEROL/IPRATROPIUM 3 ML (DUONEB) VIAL INH SCH ×6 (02:07→21:53)
[2017-07-03] MEDS: morphine INJ 4 MG/ML 1 ML (VIAL/SYRINGE) IVP PRN ×3 (03:27→17:36)
[2017-07-03] MEDS: PANTOPRAZOLE 40 MG (PROTONIX) TAB PO SCH (06:03)
[2017-07-03] MEDS: inSUlin (REGULAR) HUMAN 1 UNIT/0.01 ML (CHARGE PER UNIT) SC SCH ×4 (06:04→20:35)
[2017-07-03 08:00] VITALS: BP 137/63
[2017-07-03] MEDS: CEFEPIME 2 GM/NS 50 ML IVPB IV SCH ×2 (08:45)
[2017-07-03] MEDS: amLODIPine 5 MG (NORVASC) TAB PO SCH ×2 (08:45→20:23)
[2017-07-03] MEDS: ASPIRIN 81 MG CHEW (CHILDREN'S ASA) PO SCH (08:45)
[2017-07-03] MEDS: fluCOnazole (DIFLUCAN) 100 MG TAB PO SCH (08:45)
[2017-07-03] MEDS: TELMISARTAN 40 MG (MICARDIS) TAB PO SCH (08:45)
[2017-07-03] MEDS: ALLOPURINOL 100 MG (ZYLOPRIM) TAB PO SCH (08:45)
[2017-07-03] MEDS: meTOprolol TARTRATE 25 MG (LOPRESSOR) TABLET PO SCH ×3 (08:45→20:23)
[2017-07-03] MEDS: FUROSEMIDE 40 MG/4 ML INJ (LASIX) IVP SCH (08:45)
[2017-07-03] MEDS: ISOSORBIDE MONONITRATE 60 MG (IMDUR) TAB PO SCH (08:45)
[2017-07-03] MEDS: PROMETHAZINE/ CODEINE SYRUP 5 ML UDC PO PRN ×2 (08:57→20:35)
[2017-07-03 09:29] LABS: BASOPHILS % (AUTO) 0 % (0-10); EOSINOPHILS % (AUTO) 0 % (0-10); LYMPHOCYTES # (AUTO) 1.1 X 10^3 (1.0-4.0); LYMPHOCYTES % (AUTO) 22 % (12-44); MEAN CORPUSCULAR HEMOGLOBIN 32 PG (25-34); MEAN CORPUSCULAR HGB CONC 33 G/DL (32-36); MEAN CORPUSCULAR VOLUME 97 FL (80-99); MEAN PLATELET VOLUME 10.1 FL (7.4-10.4); MONOCYTES # (AUTO) 2.2 X 10^3 (0.0-1.0); MONOCYTES % (AUTO) 44 % (0-12); NEUTROPHILS # (AUTO) 1.8 X 10^3 (1.8-7.8); NEUTROPHILS % (AUTO) 35 % (42-75); RED BLOOD COUNT 2.76 10^6/uL (4.35-5.85); RED CELL DISTRIBUTION WIDTH 14.9 % (10.0-14.5); WHITE BLOOD COUNT 5.1 10^3/uL (4.3-11.0)
[2017-07-03 09:35] LABS: PLATELET COUNT 20 10^3/uL (130-400)
[2017-07-03 09:39] LABS: CALCIUM 9.5 MG/DL (8.5-10.1); CREATININE SERUM 1.78 MG/DL (0.60-1.30); POTASSIUM 3.7 MMOL/L (3.6-5.0)
[2017-07-03 11:54] VITALS: BP 136/56
[2017-07-03] MEDS ORDERED: NS IV 500 ML 500 ML ONE (14:31)
[2017-07-03] MEDS ORDERED: diphenhydrAMINE 25 MG TAB (BENADRYL) PO NR (15:15)
[2017-07-03] MEDS ORDERED: ACETAMINOPHEN 500 MG TAB (TYLENOL) PO NR (15:15)
[2017-07-03] MEDS: LEVOFLOXACIN 750 MG/D5W 150 ML (PRE-MIX) IV SCH (15:46)
[2017-07-03] MEDS: NS IV 500 ML 500 ML IV SCH (15:47)
[2017-07-03 16:05] VITALS: BP 112/68
[2017-07-03 16:20] VITALS: BP_SYST 116; BP_DIAS 67; BP_DIAS 87
--- NOTE | 2017-07-03 17:26 | Oncology Progress Note ---
Subjective Time Seen by Provider: 17:00 Subjective/Events-last exam Pt had petechia all over his body. Plt 20k today. Tmax 100. Cough is slightly better Data Review Labs Laboratory Tests 07/03/17 09:10 Laboratory Tests 06/30/17 20:24: Glucometer 159H 07/01/17 05:21: Glucometer 166H 07/01/17 08:31: Red Blood Count 2.60L, Hemoglobin 8.2L, Hematocrit 26L, Mean Corpuscular Volume 100H, Mean Corpuscular Hemoglobin Concent 31L, Red Cell Distribution Width 15.3H , Platelet Count 25*L, Monocytes (%) (Auto) 29H, Monocytes # (Auto) 1.4H, Potassium Level 3.4L, Carbon Dioxide Level 35H, Blood Urea Nitrogen 37H, Creatinine 1.70H, Glucose Level 149H, Magnesium Level 1.4L 07/01/17 11:46: Glucometer 147H 07/01/17 16:22: Glucometer 220H 07/01/17 20:29: Glucometer 169H 07/02/17 05:50: 07/02/17 09:30: Red Blood Count 2.62L, Hemoglobin 8.3L, Hematocrit 26L, Red Cell Distribution Width 14.9H, Platelet Count 25*L, Neutrophils (%) (Auto) 41L, Monocytes (%) ( Auto) 42H, Lymphocytes # (Auto) 0.8L, Monocytes # (Auto) 2.1H, Blood Urea Nitrogen 30H, Creatinine 1.60H, Glucose Level 114H, Magnesium Level 1.4L 07/02/17 10:45: Glucometer 141H 07/02/17 15:51: Glucometer 236H 07/02/17 20:18: Glucometer 221H 07/03/17 06:03: 07/03/17 09:10: Red Blood Count 2.76L, Hemoglobin 8.7L, Hematocrit 27L, Red Cell Distribution Width 14.9H, Platelet Count 20*L, Neutrophils (%) (Auto) 35L, Monocytes (%) ( Auto) 44H, Monocytes # (Auto) 2.2H, Blood Urea Nitrogen 31H, Creatinine 1.78H, Glucose Level 185H 07/03/17 10:33: Glucometer 205H 07/03/17 12:02: Laboratory Tests 07/03/17 09:10 Physical Exam Vital Signs Vital Sign - Last 12Hours 06/27/17 06/27/17 01:28 20:00 Temp 99.3 Pulse 70 Resp 18 B/P (MAP) 154/71 Pulse Ox 94 O2 Delivery High Flow N/C O2 Flow Rate 10.00 FiO2 70 Capillary Refill : Less Than 3 Seconds General Appearance: No Apparent Distress Neck: Non Tender, Supple Respiratory: No Accessory Muscle Use, No Respiratory Distress, Crackles Cardiovascular: Regular Rate, Rhythm Extremity: Non Tender, No Pedal Edema Neurologic/Psychiatric: Alert, Oriented x3 Skin: Petechia Impression & Plan Impression & Plan Assess & Plan 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 Plt counts 20k today and developed petechia. Will give one unit of Plt transfusion today. Hb 8.7 today, s/p one unit RBC 07/02/17. Will check CBC daily. 2. [id number]-[id number] followed by cardiology and receiving medical/conservative management; 3. Bilateral pneumonia with Fever/Cough/ worsening CXR findings--continue Cefepime and Levaquin. Appreciate Dr Anthony's help. 4. Pulmonary edema- Lasix given and pulmonary following 5. Atrial fibrillation-rate is in the 70s 6. Diabetes mellitus- 7. CAD history of stent placement; 8. Prognosis is poor. 9. Chronic renal failure. Cr 1.78 today. Cr range 1.6-1.9 in the past. Closely monitoring 10. Pt is DNR MANPREET GARCIA MD Jul 03, 2017 17:26
[2017-07-03 17:30] VITALS: BP 115/65
[2017-07-03] MEDS ORDERED: diphenhydrAMINE 50 MG/ML INJ (BENADRYL) ONE (18:50)
[2017-07-03] MEDS ORDERED: diphenhydrAMINE 50 MG/ML INJ (BENADRYL) IVP NR (19:00)
[2017-07-03 19:19] VITALS: BP 125/66
[2017-07-03] MEDS: TRIAMCINOLONE 0.5% OINT (KENALOG) 15 GM TUBE TOP SCH (20:24)
[2017-07-03] MEDS: POLYETHYLENE GLYCOL 17 GM (MIRALAX) PACK PO SCH (20:24)
[2017-07-03] MEDS: inSUlin DETERMIR 1 UNIT/0.01 ML (LEVEMIR) CHARGE PER UNIT SQ SCH (20:35)
[2017-07-04] MEDS: NYSTATIN ORAL SUSP 5 ML UDC PO SCH ×4 (00:35→17:30)
[2017-07-04] MEDS: PROMETHAZINE/ CODEINE SYRUP 5 ML UDC PO PRN ×2 (00:35→04:15)
[2017-07-04] MEDS: BENZONATATE 100 MG (TESSALON) CAPSULE PO PRN (00:42)
[2017-07-04] MEDS: RT-ALBUTEROL/IPRATROPIUM 3 ML (DUONEB) VIAL INH SCH ×6 (02:20→21:47)
[2017-07-04] MEDS: inSUlin (REGULAR) HUMAN 1 UNIT/0.01 ML (CHARGE PER UNIT) SC SCH ×4 (05:59→20:17)
[2017-07-04] MEDS: PANTOPRAZOLE 40 MG (PROTONIX) TAB PO SCH (06:02)
[2017-07-04 08:00] VITALS: BP 135/65
[2017-07-04] MEDS: RT-ALBUTEROL/IPRATROPIUM 3 ML (DUONEB) VIAL INH PRN (09:01)
[2017-07-04] MEDS: TELMISARTAN 40 MG (MICARDIS) TAB PO SCH (09:33)
[2017-07-04] MEDS: meTOprolol TARTRATE 25 MG (LOPRESSOR) TABLET PO SCH ×3 (09:33→20:17)
[2017-07-04] MEDS: ALLOPURINOL 100 MG (ZYLOPRIM) TAB PO SCH (09:34)
[2017-07-04] MEDS: FUROSEMIDE 40 MG/4 ML INJ (LASIX) IVP SCH (09:34)
[2017-07-04] MEDS: amLODIPine 5 MG (NORVASC) TAB PO SCH ×2 (09:34→20:17)
[2017-07-04] MEDS: ISOSORBIDE MONONITRATE 60 MG (IMDUR) TAB PO SCH (09:34)
[2017-07-04] MEDS: ASPIRIN 81 MG CHEW (CHILDREN'S ASA) PO SCH (09:34)
[2017-07-04] MEDS: fluCOnazole (DIFLUCAN) 100 MG TAB PO SCH (09:34)
[2017-07-04] MEDS: TRIAMCINOLONE 0.5% OINT (KENALOG) 15 GM TUBE TOP SCH ×2 (09:35→20:18)
--- NOTE | 2017-07-04 09:59 | Oncology Progress Note ---
Subjective Time Seen by Provider: 10:00 Subjective/Events-last exam Very tired. Still cough but can not bring up any sputum Had Plt transfusion yesterday with skin rash reaction. Much better now. Data Review Labs Laboratory Tests 07/04/17 09:30 Laboratory Tests 07/01/17 16:22: Glucometer 220H 07/01/17 20:29: Glucometer 169H 07/02/17 05:50: 07/02/17 09:30: Red Blood Count 2.62L, Hemoglobin 8.3L, Hematocrit 26L, Red Cell Distribution Width 14.9H, Platelet Count 25*L, Neutrophils (%) (Auto) 41L, Monocytes (%) ( Auto) 42H, Lymphocytes # (Auto) 0.8L, Monocytes # (Auto) 2.1H, Blood Urea Nitrogen 30H, Creatinine 1.60H, Glucose Level 114H, Magnesium Level 1.4L 07/02/17 10:45: Glucometer 141H 07/02/17 15:51: Glucometer 236H 07/02/17 20:18: Glucometer 221H 07/03/17 06:03: 07/03/17 09:10: Red Blood Count 2.76L, Hemoglobin 8.7L, Hematocrit 27L, Red Cell Distribution Width 14.9H, Platelet Count 20*L, Neutrophils (%) (Auto) 35L, Monocytes (%) ( Auto) 44H, Monocytes # (Auto) 2.2H, Blood Urea Nitrogen 31H, Creatinine 1.78H, Glucose Level 185H 07/03/17 10:33: Glucometer 205H 07/03/17 12:02: 07/03/17 16:00: 07/03/17 20:24: Glucometer 216H 07/04/17 05:59: 07/04/17 09:30: Red Blood Count 2.74L, Hemoglobin 8.6L, Hematocrit 27L, Red Cell Distribution Width 14.9H, Platelet Count 35*L, Mean Platelet Volume 10.8H, Neutrophils (%) ( Auto) 21L, Monocytes (%) (Auto) 49H, Neutrophils # (Auto) 1.5L, Monocytes # ( Auto) 3.5H, Blood Urea Nitrogen 31H, Creatinine 1.86H, Glucose Level 172H 07/04/17 10:35: Glucometer 178H 07/04/17 12:21: Laboratory Tests 07/04/17 09:30 Physical Exam Vital Signs Vital Sign - Last 12Hours 06/28/17 06/28/17 02:11 08:00 Temp 99.3 Pulse 88 Resp 22 B/P (MAP) 158/88 Pulse Ox 91 O2 Delivery Vapotherm O2 Flow Rate 17.00 FiO2 70 Capillary Refill : Less Than 3 Seconds General Appearance: No Apparent Distress, Other (lethargic) HEENT: PERRL/EOMI Neck: Non Tender, Supple Respiratory: No Accessory Muscle Use, No Respiratory Distress, Crackles Cardiovascular: Regular Rate, Rhythm Gastrointestinal: Non Tender, Soft Extremity: Non Tender, No Calf Tenderness, No Pedal Edema Neurologic/Psychiatric: Alert, Oriented x3 Skin: Petechia Impression & Plan Impression & Plan Assess & Plan 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 Plt counts 25k today after one unit plt transfusion 07/03/17. Petechia stable. Hb 8.6 today but very tired/lethargic. He is getting Lasix 80mg IV a day and Cr is up to 1.89 from 1.5. I felt his Hib is reflecting a concentrated number. I will give him one unit RBC today. Watch for fluid overload very carefully. Will check CBC daily. 2. [id number] followed by cardiology and receiving medical/conservative management; 3. Bilateral pneumonia with Fever/Cough/ worsening CXR findings--continue Cefepime and Levaquin. Appreciate Dr Anthony's help. 4. Pulmonary edema- Lasix given and pulmonary following 5. Atrial fibrillation-rate is in the 70s 6. Diabetes mellitus- 7. CAD history of stent placement; 8. Prognosis is poor. 9. Chronic renal failure. Cr 1.87 today. Cr range 1.6-1.9 in the past. Closely monitoring. Stop IV Lasix. Change to 40mg PO. 10. Pt is DNR MANPREET GARCIA MD Jul 04, 2017 09:59
[2017-07-04 10:05] LABS: BASOPHILS % (AUTO) 0 % (0-10); EOSINOPHILS % (AUTO) 0 % (0-10); LYMPHOCYTES # (AUTO) 2.1 X 10^3 (1.0-4.0); LYMPHOCYTES % (AUTO) 30 % (12-44); MEAN CORPUSCULAR HEMOGLOBIN 31 PG (25-34); MEAN CORPUSCULAR HGB CONC 32 G/DL (32-36); MEAN CORPUSCULAR VOLUME 98 FL (80-99); MEAN PLATELET VOLUME 10.8 FL (7.4-10.4); MONOCYTES # (AUTO) 3.5 X 10^3 (0.0-1.0); MONOCYTES % (AUTO) 49 % (0-12); NEUTROPHILS # (AUTO) 1.5 X 10^3 (1.8-7.8); NEUTROPHILS % (AUTO) 21 % (42-75); RED BLOOD COUNT 2.74 10^6/uL (4.35-5.85); RED CELL DISTRIBUTION WIDTH 14.9 % (10.0-14.5); WHITE BLOOD COUNT 7.2 10^3/uL (4.3-11.0)
[2017-07-04 10:09] LABS: PLATELET COUNT 35 10^3/uL (130-400)
[2017-07-04 10:24] LABS: CALCIUM 9.7 MG/DL (8.5-10.1); CREATININE SERUM 1.86 MG/DL (0.60-1.30); POTASSIUM 4.1 MMOL/L (3.6-5.0)
[2017-07-04] MEDS: DIAZEPAM 5 MG (VALIUM) TABLET PO PRN (11:08)
[2017-07-04] MEDS: morphine INJ 4 MG/ML 1 ML (VIAL/SYRINGE) IVP PRN (11:08)
[2017-07-04] MEDS ORDERED: ACETAMINOPHEN 500 MG TAB (TYLENOL) PO NR (14:30)
[2017-07-04] MEDS ORDERED: diphenhydrAMINE 25 MG TAB (BENADRYL) PO NR (15:30)
[2017-07-04] MEDS: NS IV 500 ML 500 ML IV SCH (17:30)
[2017-07-04 17:47] VITALS: BP 117/55
[2017-07-04 17:59] VITALS: BP 122/61
[2017-07-04 19:33] VITALS: BP 123/57
[2017-07-04 19:34] VITALS: BP 123/57
[2017-07-04 20:00] VITALS: BP 122/57
[2017-07-04] MEDS: POLYETHYLENE GLYCOL 17 GM (MIRALAX) PACK PO SCH (20:16)
[2017-07-04] MEDS: inSUlin DETERMIR 1 UNIT/0.01 ML (LEVEMIR) CHARGE PER UNIT SQ SCH (20:17)
[2017-07-05] MEDS: NYSTATIN ORAL SUSP 5 ML UDC PO SCH ×5 (00:08→23:03)
[2017-07-05] MEDS: NS IV 500 ML 500 ML IV SCH ×2 (01:16→18:14)
[2017-07-05] MEDS: RT-ALBUTEROL/IPRATROPIUM 3 ML (DUONEB) VIAL INH SCH ×6 (02:05→22:13)
[2017-07-05] MEDS: PANTOPRAZOLE 40 MG (PROTONIX) TAB PO SCH (05:57)
[2017-07-05] MEDS: PROMETHAZINE/ CODEINE SYRUP 5 ML UDC PO PRN ×2 (05:57→17:07)
[2017-07-05] MEDS: inSUlin (REGULAR) HUMAN 1 UNIT/0.01 ML (CHARGE PER UNIT) SC SCH ×4 (05:57→20:58)
[2017-07-05 08:00] VITALS: BP 129/64
[2017-07-05] MEDS: ASPIRIN 81 MG CHEW (CHILDREN'S ASA) PO SCH (09:49)
[2017-07-05] MEDS: amLODIPine 5 MG (NORVASC) TAB PO SCH ×2 (09:49→20:59)
[2017-07-05] MEDS: TELMISARTAN 40 MG (MICARDIS) TAB PO SCH (09:49)
[2017-07-05] MEDS: meTOprolol TARTRATE 25 MG (LOPRESSOR) TABLET PO SCH ×3 (09:49→20:59)
[2017-07-05] MEDS: ISOSORBIDE MONONITRATE 60 MG (IMDUR) TAB PO SCH (09:49)
[2017-07-05] MEDS: fluCOnazole (DIFLUCAN) 100 MG TAB PO SCH (09:49)
[2017-07-05] MEDS: ALLOPURINOL 100 MG (ZYLOPRIM) TAB PO SCH (09:50)
[2017-07-05] MEDS: FUROSEMIDE 40 MG (LASIX) TAB PO SCH (09:50)
[2017-07-05] MEDS: morphine INJ 4 MG/ML 1 ML (VIAL/SYRINGE) IVP PRN ×2 (09:57→13:11)
[2017-07-05 10:22] LABS: BASOPHILS % (AUTO) 0 % (0-10); EOSINOPHILS % (AUTO) 0 % (0-10); LYMPHOCYTES # (AUTO) 2.6 X 10^3 (1.0-4.0); LYMPHOCYTES % (AUTO) 36 % (12-44); MEAN CORPUSCULAR HEMOGLOBIN 32 PG (25-34); MEAN CORPUSCULAR HGB CONC 33 G/DL (32-36); MEAN CORPUSCULAR VOLUME 97 FL (80-99); MEAN PLATELET VOLUME 10.6 FL (7.4-10.4); MONOCYTES # (AUTO) 3.6 X 10^3 (0.0-1.0); MONOCYTES % (AUTO) 50 % (0-12); NEUTROPHILS % (AUTO) 14 % (42-75); RED BLOOD COUNT 2.76 10^6/uL (4.35-5.85); RED CELL DISTRIBUTION WIDTH 14.9 % (10.0-14.5); WHITE BLOOD COUNT 7.2 10^3/uL (4.3-11.0)
[2017-07-05 10:26] LABS: CALCIUM 9.7 MG/DL (8.5-10.1); CREATININE SERUM 1.92 MG/DL (0.60-1.30); POTASSIUM 3.8 MMOL/L (3.6-5.0)
[2017-07-05 11:12] LABS: PLATELET COUNT 31 10^3/uL (130-400)
[2017-07-05] MEDS ORDERED: MILK OF MAGNESIA 400 MG/5 ML 30 ML UDC PO NR (11:45)
[2017-07-05] MEDS: TRIAMCINOLONE 0.5% OINT (KENALOG) 15 GM TUBE TOP SCH ×2 (13:30→20:59)
--- NOTE | 2017-07-05 14:38 | Oncology Progress Note ---
Subjective Time Seen by Provider: 14:00 Subjective/Events-last exam c/o constipation. Feeling slightly better today Data Review Labs Laboratory Tests 07/05/17 10:00 Laboratory Tests 07/02/17 15:51: Glucometer 236H 07/02/17 20:18: Glucometer 221H 07/03/17 06:03: 07/03/17 09:10: Red Blood Count 2.76L, Hemoglobin 8.7L, Hematocrit 27L, Red Cell Distribution Width 14.9H, Platelet Count 20*L, Neutrophils (%) (Auto) 35L, Monocytes (%) ( Auto) 44H, Monocytes # (Auto) 2.2H, Blood Urea Nitrogen 31H, Creatinine 1.78H, Glucose Level 185H 07/03/17 10:33: Glucometer 205H 07/03/17 12:02: 07/03/17 16:00: 07/03/17 20:24: Glucometer 216H 07/04/17 05:59: 07/04/17 09:30: Red Blood Count 2.74L, Hemoglobin 8.6L, Hematocrit 27L, Red Cell Distribution Width 14.9H, Platelet Count 35*L, Mean Platelet Volume 10.8H, Neutrophils (%) ( Auto) 21L, Monocytes (%) (Auto) 49H, Neutrophils # (Auto) 1.5L, Monocytes # ( Auto) 3.5H, Blood Urea Nitrogen 31H, Creatinine 1.86H, Glucose Level 172H 07/04/17 10:35: Glucometer 178H 07/04/17 12:21: 07/04/17 17:27: Glucometer 170H 07/04/17 19:55: Glucometer 140H 07/05/17 05:55: 07/05/17 10:00: Red Blood Count 2.76L, Hemoglobin 8.8L, Hematocrit 27L, Red Cell Distribution Width 14.9H, Platelet Count 31*L, Mean Platelet Volume 10.6H, Neutrophils (%) ( Auto) 14L, Monocytes (%) (Auto) 50H, Neutrophils # (Auto) 1.0L, Monocytes # ( Auto) 3.6H, Blood Urea Nitrogen 31H, Creatinine 1.92H, Glucose Level 154H 07/05/17 10:57: Glucometer 179H Laboratory Tests 07/05/17 10:00 Physical Exam Vital Signs Vital Sign - Last 12Hours 06/29/17 06/29/17 00:00 02:57 Temp 99.2 Pulse 79 Resp 24 B/P (MAP) 148/65 Pulse Ox 93 O2 Delivery Vapotherm O2 Flow Rate 20.00 FiO2 80 Capillary Refill : Less Than 3 Seconds General Appearance: No Apparent Distress HEENT: PERRL/EOMI Neck: Non Tender, Supple Respiratory: No Accessory Muscle Use, No Respiratory Distress, Crackles Cardiovascular: Regular Rate, Rhythm Gastrointestinal: Soft, Distended Extremity: Non Tender, No Calf Tenderness, No Pedal Edema Neurologic/Psychiatric: Alert, Oriented x3 Impression & Plan Impression & Plan Assess & Plan 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 Plt counts 25k today after one unit plt transfusion 07/03/17. Petechia stable. Hb 8.8 today after one unit of RBC yesterday. He was getting Lasix 80mg IV daily and Cr is up to 1.98 from 1.89. I changed his IV Lasix yesterday but he had already got a dose. Watch for fluid overload very carefully. Will check CBC daily. 2. [id number] followed by cardiology and receiving medical/conservative management; 3. Bilateral pneumonia with Fever/Cough/ worsening CXR findings--continue Cefepime and Levaquin. Appreciate Dr Anthony's help. 4. Pulmonary edema- Lasix given and pulmonary following 5. Atrial fibrillation-rate is in the 70s 6. Diabetes mellitus- 7. CAD history of stent placement; 8. Prognosis is poor. 9. Chronic renal failure. Cr 1.98 today. Cr range 1.6-1.9 in the past. Closely monitoring. Repeat BMP tomorrow. 10. Pt is DNR 11. Milk milk if not working, then fleets enema. MANPREET GARCIA MD Jul 05, 2017 14:38
[2017-07-05] MEDS ORDERED: LEVOFLOXACIN 500 MG/100 ML IV 100 ML IV NR (16:00)
[2017-07-05] MEDS: CEFEPIME INJECTION 2,000 MG in NS (IVPB) 50 ML IV SCH (17:08)
[2017-07-05 20:00] VITALS: BP 114/54
[2017-07-05] MEDS: DIAZEPAM 5 MG (VALIUM) TABLET PO PRN (20:58)
[2017-07-05] MEDS: inSUlin DETERMIR 1 UNIT/0.01 ML (LEVEMIR) CHARGE PER UNIT SQ SCH (20:58)
[2017-07-05] MEDS: ACETAMINOPHEN 500 MG TAB (TYLENOL) PO PRN (20:59)
[2017-07-05] MEDS: POLYETHYLENE GLYCOL 17 GM (MIRALAX) PACK PO SCH (20:59)
[2017-07-05] MEDS: diphenhydrAMINE 50 MG/ML INJ (BENADRYL) IVP PRN (23:04)
[2017-07-06] MEDS: morphine INJ 4 MG/ML 1 ML (VIAL/SYRINGE) IVP PRN ×4 (01:47→16:23)
[2017-07-06] MEDS: RT-ALBUTEROL/IPRATROPIUM 3 ML (DUONEB) VIAL INH SCH ×6 (02:18→22:20)
[2017-07-06] MEDS: PANTOPRAZOLE 40 MG (PROTONIX) TAB PO SCH (05:28)
[2017-07-06] MEDS: NYSTATIN ORAL SUSP 5 ML UDC PO SCH ×3 (05:28→17:40)
[2017-07-06] MEDS: inSUlin (REGULAR) HUMAN 1 UNIT/0.01 ML (CHARGE PER UNIT) SC SCH ×4 (05:30→21:04)
[2017-07-06 08:00] VITALS: BP 136/58
[2017-07-06] MEDS: PROMETHAZINE/ CODEINE SYRUP 5 ML UDC PO PRN ×2 (09:01→15:29)
[2017-07-06] MEDS: FUROSEMIDE 40 MG (LASIX) TAB PO SCH (09:07)
[2017-07-06] MEDS: meTOprolol TARTRATE 25 MG (LOPRESSOR) TABLET PO SCH ×3 (09:07→20:13)
[2017-07-06] MEDS: ISOSORBIDE MONONITRATE 60 MG (IMDUR) TAB PO SCH (09:08)
[2017-07-06] MEDS: ALLOPURINOL 100 MG (ZYLOPRIM) TAB PO SCH (09:08)
[2017-07-06] MEDS: amLODIPine 5 MG (NORVASC) TAB PO SCH ×2 (09:08→20:13)
[2017-07-06] MEDS: TELMISARTAN 40 MG (MICARDIS) TAB PO SCH (09:08)
[2017-07-06] MEDS: fluCOnazole (DIFLUCAN) 100 MG TAB PO SCH (09:08)
[2017-07-06] MEDS: ASPIRIN 81 MG CHEW (CHILDREN'S ASA) PO SCH (09:08)
[2017-07-06] MEDS: TRIAMCINOLONE 0.5% OINT (KENALOG) 15 GM TUBE TOP SCH ×2 (09:09→20:14)
[2017-07-06 09:26] LABS: MEAN CORPUSCULAR HEMOGLOBIN 32 PG (25-34); MEAN CORPUSCULAR HGB CONC 33 G/DL (32-36); MEAN CORPUSCULAR VOLUME 97 FL (80-99); RED BLOOD COUNT 2.72 10^6/uL (4.35-5.85); RED CELL DISTRIBUTION WIDTH 14.8 % (10.0-14.5); WHITE BLOOD COUNT 7.1 10^3/uL (4.3-11.0)
[2017-07-06 09:28] LABS: PLATELET COUNT 24 10^3/uL (130-400)
[2017-07-06 09:38] LABS: CALCIUM 9.9 MG/DL (8.5-10.1); CREATININE SERUM 1.93 MG/DL (0.60-1.30); POTASSIUM 3.9 MMOL/L (3.6-5.0)
[2017-07-06 10:34] VITALS: BP 136/58
[2017-07-06] MEDS: diphenhydrAMINE 50 MG/ML INJ (BENADRYL) IVP PRN (10:49)
[2017-07-06] MEDS: NS IV 500 ML 500 ML IV SCH (11:39)
--- NOTE | 2017-07-06 13:34 | Oncology Progress Note ---
Subjective Time Seen by Provider: 12:30 Subjective/Events-last exam Feeling slightly stronger today. Feeling like going to have a bowel movement soon. He had milk mg. Data Review Labs Laboratory Tests 07/06/17 09:15 Laboratory Tests 07/03/17 16:00: 07/03/17 20:24: Glucometer 216H 07/04/17 05:59: 07/04/17 09:30: Red Blood Count 2.74L, Hemoglobin 8.6L, Hematocrit 27L, Red Cell Distribution Width 14.9H, Platelet Count 35*L, Mean Platelet Volume 10.8H, Neutrophils (%) ( Auto) 21L, Monocytes (%) (Auto) 49H, Neutrophils # (Auto) 1.5L, Monocytes # ( Auto) 3.5H, Blood Urea Nitrogen 31H, Creatinine 1.86H, Glucose Level 172H 07/04/17 10:35: Glucometer 178H 07/04/17 12:21: 07/04/17 17:27: Glucometer 170H 07/04/17 19:55: Glucometer 140H 07/05/17 05:55: 07/05/17 10:00: Red Blood Count 2.76L, Hemoglobin 8.8L, Hematocrit 27L, Red Cell Distribution Width 14.9H, Platelet Count 31*L, Mean Platelet Volume 10.6H, Neutrophils (%) ( Auto) 14L, Monocytes (%) (Auto) 50H, Neutrophils # (Auto) 1.0L, Monocytes # ( Auto) 3.6H, Blood Urea Nitrogen 31H, Creatinine 1.92H, Glucose Level 154H 07/05/17 10:57: Glucometer 179H 07/05/17 15:56: Glucometer 147H 07/05/17 20:36: Glucometer 237H 07/06/17 05:29: 07/06/17 09:15: Red Blood Count 2.72L, Hemoglobin 8.7L, Hematocrit 26L, Red Cell Distribution Width 14.8H, Platelet Count 24*L, Blood Urea Nitrogen 33H, Creatinine 1.93H, Glucose Level 68L 07/06/17 11:19: Glucometer 133H Physical Exam Vital Signs Vital Sign - Last 12Hours 06/30/17 06/30/17 00:00 00:12 Temp 99.0 Pulse 91 Resp 22 B/P (MAP) 138/60 Pulse Ox 90 O2 Delivery Vapotherm O2 Flow Rate 17.00 FiO2 65 Capillary Refill : Less Than 3 Seconds General Appearance: No Apparent Distress HEENT: PERRL/EOMI Neck: Non Tender, Supple Respiratory: No Accessory Muscle Use, No Respiratory Distress, Crackles Cardiovascular: Regular Rate, Rhythm Gastrointestinal: Soft, Distended Extremity: Non Tender, No Pedal Edema Neurologic/Psychiatric: Alert, Oriented x3 Skin: Other (No new petechia, old rash and petechia fading) Impression & Plan Impression & Plan Assess & Plan 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 Plt counts 24k today after one unit plt transfusion 07/03/17 complicated with itching rash. Petechia stable. Will not give more Plt today. Hb 8.7 today after one unit of RBC 07/04/17. 2. [id number] followed by cardiology and receiving medical/conservative management; 3. Bilateral pneumonia with Fever/Cough/ worsening CXR findings--continue Cefepime and Levaquin. Appreciate Dr Anthony's help. 4. Pulmonary edema- Lasix given and pulmonary following 5. Atrial fibrillation-rate is in the 70s 6. Diabetes mellitus- 7. CAD history of stent placement; 8. Prognosis is poor. 9. Chronic renal failure. Cr 1.93 today. Cr range 1.6-1.9 in the past. Closely monitoring. Changed IV Lasix 80mg daily to PO 40mg daily. Repeat BMP tomorrow. If still high, may need to hold off. 10. Pt is DNR 11. Constipation: Milk milk if not working, then fleets enema. Pt stated it is going to have the result. MANPREET GARCIA MD Jul 06, 2017 13:34
[2017-07-06] MEDS: CEFEPIME INJECTION 2,000 MG in NS (IVPB) 50 ML IV SCH (14:19)
[2017-07-06] MEDS: ONDANSETRON 4 MG/2 ML (SDV) Z0FRAN IVP PRN (14:30)
[2017-07-06] MEDS ORDERED: LEVOFLOXACIN 250 MG TAB (LEVAQUIN) PO SCH (16:00)
[2017-07-06] MEDS ORDERED: FUROSEMIDE 40 MG/4 ML INJ (LASIX) IVP NR (16:45)
[2017-07-06] MEDS: BENZONATATE 100 MG (TESSALON) CAPSULE PO PRN (18:31)
[2017-07-06] MEDS ORDERED: FLEET ENEMA ADULT 1 EA BTL PR PRN (19:00)
[2017-07-06 19:15] VITALS: BP 121/56
[2017-07-06] MEDS: POLYETHYLENE GLYCOL 17 GM (MIRALAX) PACK PO SCH (20:13)
[2017-07-06] MEDS: inSUlin DETERMIR 1 UNIT/0.01 ML (LEVEMIR) CHARGE PER UNIT SQ SCH (21:04)
[2017-07-07] MEDS: NYSTATIN ORAL SUSP 5 ML UDC PO SCH ×4 (00:45→17:25)
[2017-07-07] MEDS: RT-ALBUTEROL/IPRATROPIUM 3 ML (DUONEB) VIAL INH SCH ×6 (02:02→22:24)
[2017-07-07] MEDS: PANTOPRAZOLE 40 MG (PROTONIX) TAB PO SCH (06:43)
[2017-07-07] MEDS: inSUlin (REGULAR) HUMAN 1 UNIT/0.01 ML (CHARGE PER UNIT) SC SCH ×4 (06:43→20:57)
[2017-07-07 07:33] VITALS: BP 121/59
[2017-07-07 08:37] LABS: MEAN CORPUSCULAR HEMOGLOBIN 31 PG (25-34); MEAN CORPUSCULAR HGB CONC 32 G/DL (32-36); MEAN CORPUSCULAR VOLUME 97 FL (80-99); MEAN PLATELET VOLUME 10.5 FL (7.4-10.4); RED CELL DISTRIBUTION WIDTH 14.7 % (10.0-14.5); WHITE BLOOD COUNT 10.2 10^3/uL (4.3-11.0)
--- NOTE | 2017-07-07 08:39 | Pulmonary Progress Note ---
Subjective Time Seen by Provider: 10:23 Subjective/Events-last exam Pt complaining of nausea. Exam Exam Vital Signs Date Time Temp Pulse Resp B/P (MAP) Pulse Ox O2 Delivery O2 Flow Rate FiO2 07/07/17 07:33 97.8 89 24 121/59 96 High Flow N/C 5.00 07/07/17 06:53 93 Nasal Cannula 4.00 07/07/17 02:02 91 High Flow N/C 4.00 07/06/17 22:21 94 High Flow N/C 4.00 07/06/17 20:00 94 High Flow N/C 4.00 07/06/17 19:15 99.3 83 20 121/56 96 High Flow N/C 5.00 07/06/17 18:43 93 High Flow N/C 4.00 07/06/17 14:58 98 High Flow N/C 4.00 07/06/17 10:34 87 95 4 07/06/17 10:28 95 High Flow N/C 4.00 I & O 07/07/17 07:00 Intake Total 795 ml Output Total 675 ml Balance 120 ml General Appearance: No Apparent Distress HEENT: PERRL/EOMI Neck: Non Tender, Supple Respiratory: No Accessory Muscle Use, No Respiratory Distress, Crackles Cardiovascular: Regular Rate, Rhythm Gastrointestinal: normal bowel sounds, non tender, soft, no organomegaly Extremity: Non Tender, No Pedal Edema Neurologic/Psychiatric: Alert, Oriented x3 Skin: Other (No new petechia, old rash and petechia fading) Lymphatic: No Adenopathy Results Lab Laboratory Tests 07/05/17 10:00 07/06/17 09:15 Assessment/Plan Assessment/Plan Pulmonary edema- requiring 8-10liters of oxygen - 40mg daily -monitor -repeat CXR and BNP PNA -Currently on levaquin and cefepime currently 10 days of abx therapy -- i recommend D/C ing abx. -BC are neg -UA was negative and no sputum C&S NSTEMI with CP -Cardiology following Acute myelogenous leukemia -Oncology following Anemia s/p 2units of PRBC -Monitor H&H Afib - currently controlled Severe anemia s/p 2 units of PRBC DM- uncontrolled secondary to chemo 232 KERI KIM DO Jul 07, 2017 08:39
[2017-07-07 08:43] LABS: PLATELET COUNT 30 10^3/uL (130-400)
[2017-07-07 08:52] LABS: CREATININE SERUM 2.31 MG/DL (0.60-1.30); POTASSIUM 4.3 MMOL/L (3.6-5.0)
--- NOTE | 2017-07-07 09:15 | Cardiology Progress Note ---
Cardiology SOAP Progress Note Subjective: Continues to have cough. Rash improved. No further chest pain Objective: I&O/Vital Signs Vital Sign - Last 12Hours 07/06/17 07/07/17 07/07/17 07/07/17 22:21 02:02 06:53 07:33 Temp 97.8 Pulse 89 Resp 24 B/P (MAP) 121/59 Pulse Ox 94 91 93 96 O2 Delivery High Flow N/C High Flow N/C Nasal Cannula High Flow N/C O2 Flow Rate 4.00 4.00 4.00 5.00 Intake and Output 07/07/17 00:00 Intake Total 745 ml Output Total 500 ml Balance 245 ml Weight (Pounds): 209 Weight (Ounces): 1.0 Weight (Calculated Kilograms): 94.843479 Constitutional: AAO x 3, well-developed, well-nourished Respiratory: No accessory muscle use, other (diminished air entry at the bases ; coarse breath sounds mid- left side) Cardiovascular: regular rate-rhythm, S1 and S2, systolic murmur (soft RADHA at card base) Gastrointestional: soft, No guarding, No rebound, audible bowel sounds Extremities: pedal edema, other (petechiae noted), No clubbing, No cyanosis Neurologic/Psychiatric: oriented x 3, grossly intact, power is 5/5 both on sides Skin: rash, No rash on exposed areas, No ulcerations on exposed areas Results/Procedures: Labs Laboratory Tests 07/06/17 09:15: White Blood Count 7.1, Red Blood Count 2.72L, Hemoglobin 8.7L, Hematocrit 26L, Mean Corpuscular Volume 97, Mean Corpuscular Hemoglobin 32, Mean Corpuscular Hemoglobin Concent 33, Red Cell Distribution Width 14.8H, Platelet Count 24*L, Mean Platelet Volume 10.0, Neutrophils (%) (Auto) , Lymphocytes (%) (Auto) , Monocytes (%) (Auto) , Eosinophils (%) (Auto) , Basophils (%) (Auto) , Neutrophils # (Auto) , Lymphocytes # (Auto) , Monocytes # (Auto) , Eosinophils # (Auto) , Basophils # (Auto) , Sodium Level 139, Potassium Level 3.9, Chloride Level 100, Carbon Dioxide Level 29, Anion Gap 10, Blood Urea Nitrogen 33H, Creatinine 1.93H, Estimat Glomerular Filtration Rate 33, BUN/Creatinine Ratio 17 , Glucose Level 68L, Calcium Level 9.9 07/06/17 11:19: Glucometer 133H 07/06/17 15:54: Glucometer 131H 07/06/17 20:38: Glucometer 237H 07/07/17 06:42: Glucometer 97 07/07/17 08:26: White Blood Count 10.2, Red Blood Count 2.80L, Hemoglobin 8.7L, Hematocrit 27L, Mean Corpuscular Volume 97, Mean Corpuscular Hemoglobin 31, Mean Corpuscular Hemoglobin Concent 32, Red Cell Distribution Width 14.7H, Platelet Count 30*L, Mean Platelet Volume 10.5H, Neutrophils (%) (Auto) , Lymphocytes (%) (Auto) , Monocytes (%) (Auto) , Eosinophils (%) (Auto) , Basophils (%) (Auto) , Neutrophils # (Auto) , Lymphocytes # (Auto) , Monocytes # (Auto) , Eosinophils # (Auto) , Basophils # (Auto) , Sodium Level 137, Potassium Level 4.3, Chloride Level 98, Carbon Dioxide Level 28, Anion Gap 11, Blood Urea Nitrogen 41H, Creatinine 2.31H, Estimat Glomerular Filtration Rate 27, BUN/Creatinine Ratio 18 , Glucose Level 99, Calcium Level 10.0, B-Type Natriuretic Peptide 165.1H Microbiology 07/05/17 Blood Culture - Preliminary, Resulted No growth A/P: Assessment/Dx: Cough likely due to DANIELA-inhibitors and/or ac babb CHF and/or pneumonia/ bronchitis Ac NSTEMI, clinically stable Ac diastolic CHF - diuretics PAF Echo during this hosp (Dr Abreu): LVEF 45-50%, RVSP 70 mmHg Acute myeloid leukemia, 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 Monitor. Plan: Complex management due to multiple comorbidities Med therapy for acute coronary syndrome (due to pancytopenia and CKD) History of Atrial fibrillation: No oral anticoagulation. Probable pneumonia - pulmonary services managing Diuretics for CHF Anemia - followed by oncology Monitor labs closely Thank you for your consultation. Please call me if you have any questions. Rogelio Abreu MD, FACP, FACC, FSCAI, FHRS, CCDS Interventional Cardiology Cardiac Electrophysiology Vascular Medicine and Endovascular Interventions Asher ABREU MD Jul 07, 2017 9:15 am
[2017-07-07] MEDS: TELMISARTAN 40 MG (MICARDIS) TAB PO SCH (09:22)
[2017-07-07] MEDS: amLODIPine 5 MG (NORVASC) TAB PO SCH ×2 (09:22→20:50)
[2017-07-07] MEDS: fluCOnazole (DIFLUCAN) 100 MG TAB PO SCH (09:22)
[2017-07-07] MEDS: ISOSORBIDE MONONITRATE 60 MG (IMDUR) TAB PO SCH (09:22)
[2017-07-07] MEDS: meTOprolol TARTRATE 25 MG (LOPRESSOR) TABLET PO SCH ×3 (09:22→20:50)
[2017-07-07] MEDS: ASPIRIN 81 MG CHEW (CHILDREN'S ASA) PO SCH (09:22)
[2017-07-07] MEDS: ALLOPURINOL 100 MG (ZYLOPRIM) TAB PO SCH (09:22)
[2017-07-07] MEDS: morphine INJ 4 MG/ML 1 ML (VIAL/SYRINGE) IVP PRN ×2 (09:37→17:38)
[2017-07-07] MEDS: ONDANSETRON 4 MG/2 ML (SDV) Z0FRAN IVP PRN (09:37)
[2017-07-07] MEDS: FUROSEMIDE 40 MG (LASIX) TAB PO SCH (09:40)
[2017-07-07] MEDS: TRIAMCINOLONE 0.5% OINT (KENALOG) 15 GM TUBE TOP SCH ×2 (09:50→21:00)
[2017-07-07] MEDS ORDERED: PROMETHAZINE INJ 25 MG/ML (PHENERGAN) AMP IVP PRN ×2 (10:15→10:30)
[2017-07-07 10:18] LABS: ALBUMIN 2.8 GM/DL (3.2-4.5); BILIRUBIN,DIRECT 0.4 MG/DL (0.0-0.3); BILIRUBIN,INDIRECT 0.4 MG/DL; BILIRUBIN,TOTAL 0.8 MG/DL (0.1-1.0); TOTAL PROTEIN 5.6 GM/DL (6.4-8.2)
--- NOTE | 2017-07-07 10:27 | Diagnostic Imaging Report ---
Portable upright radiograph of the chest. INDICATION: Pleural effusion. FINDINGS: There are patchy infiltrates seen mostly at this time in the right perihilar and left lower lung, improved from 06/30/2017. The heart size is at the upper limits of normal. No significant effusion is evident on this portable radiograph. The mediastinum and minerva appear unchanged. There is an infusion port with the tip at the distal SVC level. IMPRESSION: Improving right perihilar and left basilar infiltrates. Dictated by: Dictated on workstation # [id number]
--- NOTE | 2017-07-07 11:56 | Progress Note-Hospitalist ---
Standard Progress Note Progress Notes/Assess & Plan Date Seen 07/07/17 Time Seen by Provider: 11:51 Assess & Plan/Chief Complaint The patient reports being tired all the time. He is able to rouse to talk. He seldom gets out of bed. His reports new evidence of petechiae over the lower extremities particularly the shins. He does not have much appetite but has been taking 2 or more units of ensure which would amount to 40 g of protein and 700 javan. Physical exam: He has a flat affect and appears depressed. Throat reveals no lesions. Lungs are clear to auscultation. CV is irregular. Abdomen is soft without tenderness. Extremities show abundant and bilateral petechia over the anterior lower legs. Impression: AML. 2.anemia. 3.thrombocytopenia. Discussion: The and I had a rather extensive private conversation lasting 20 minutes or more. She allows that they are unwilling to take a second course of chemotherapy. She feels that if support were pulled including IV fluids and blood transfusions that he would decline rather rapidly. She is interested in palliative care. This will be explored. Labs Laboratory Tests 07/06/17 09:15 07/07/17 08:26 ELVIA MARCOS MD Jul 07, 2017 11:56
--- NOTE | 2017-07-07 18:54 | Progress Note-Standard ---
Standard Progress Note Progress Notes/Assess & Plan Date Seen by Provider: Jul 07, 2017 Time Seen by Provider: 18:42 Progress/Assessment & Plan 82-year-old male with diagnosis of AML and pancytopenia. Patient was not felt to be a candidate for intensive therapy and decided to proceed with less intensive therapy. He completed treatment with Dacogen daily x 7 on 06/26/17. He developed chest pain and suffered a Non STEMI and atrial fibrillation with RVR approximately 2 weeks ago. He is on medical management for the coronary artery disease as well as the atrial fibrillation. No anticoagulation because of thrombocytopenia and risk of bleeding. Patient developed significant paroxysmal cough and worsening lung infiltrates and was on antibiotic therapy with cefepime and Levaquin with clinical improvement. Antibiotics were stopped today morning. Patient feels stronger than the past few days but these weaker than a week ago. Vital Sign - Last 12Hours Date Time Temp Pulse Resp B/P (MAP) Pulse Ox O2 Delivery O2 Flow Rate FiO2 07/07/17 17:40 99.6 07/07/17 14:43 90 Nasal Cannula 4.00 07/07/17 07:33 89 24 121/59 07/06/17 10:34 4 physical examination showed an elderly male, weak-appearing, awake and oriented and in no acute distress. Neck supple with no JVD. Lungs with few rhonchi bilaterally but no wheezes or rales. Cardiovascular exam was irregular with no murmurs or gallops. Extremities showed a few petechiae which is fading. Laboratory Tests 07/07/17 08:26 A/P: 1. Acute myeloid leukemia, not a candidate for intensive therapy. Status post treatment with Dacogen 7 days completed 06/26/2017. 2. Anemia and thrombocytopenia, probably due to AML and chemotherapy. Currently on transfusion support. Continue. 3. Probable pneumonia with the paroxysmal cough, status post antibiotic therapy with cefepime and Levaquin with the clinical improvement. Monitor. 4. NSTEMI and atrial fibrillation with RVR, on medical management. 5. Increasing WBC count, I will obtain a CBC with manual differential tomorrow morning. If this is due to progressive leukemia, I would discuss the best supportive care with them. SINA GREEN Jul 07, 2017 18:53
[2017-07-07] MEDS: POLYETHYLENE GLYCOL 17 GM (MIRALAX) PACK PO SCH (20:50)
[2017-07-07 20:55] VITALS: BP 118/56
[2017-07-07] MEDS: inSUlin DETERMIR 1 UNIT/0.01 ML (LEVEMIR) CHARGE PER UNIT SQ SCH (20:57)
[2017-07-08] VITALS (8 sets, daily range): BP systolic 101–128; BP diastolic 54–64
[2017-07-08] MEDS: NYSTATIN ORAL SUSP 5 ML UDC PO SCH ×4 (00:08→17:35)
[2017-07-08] MEDS: RT-ALBUTEROL/IPRATROPIUM 3 ML (DUONEB) VIAL INH SCH ×5 (01:58→18:00)
[2017-07-08] MEDS: PROMETHAZINE/ CODEINE SYRUP 5 ML UDC PO PRN ×3 (02:27→20:04)
[2017-07-08] MEDS: morphine INJ 4 MG/ML 1 ML (VIAL/SYRINGE) IVP PRN ×2 (02:35→17:41)
[2017-07-08 05:46] LABS: MEAN CORPUSCULAR HEMOGLOBIN 31 PG (25-34); MEAN CORPUSCULAR HGB CONC 32 G/DL (32-36); MEAN CORPUSCULAR VOLUME 98 FL (80-99); MEAN PLATELET VOLUME 9.2 FL (7.4-10.4); RED BLOOD COUNT 2.43 10^6/uL (4.35-5.85); RED CELL DISTRIBUTION WIDTH 14.6 % (10.0-14.5); WHITE BLOOD COUNT 10.3 10^3/uL (4.3-11.0)
[2017-07-08 06:21] LABS: ANISOCYTOSIS SLIGHT; ATYPICAL LYMPHOCYTES 64 %; BAND NEUTROPHILS 0 %; BASOPHILS % (MANUAL) 0 %; EOSINOPHILS % (MANUAL) 0 %; LYMPHOCYTES % (MANUAL) 16 %; METAMYELOCYTES % 1 %; MICROCYTOSIS SLIGHT; NEUTROPHILS % (MANUAL) 8 %; POLYCHROMASIA SLIGHT; TEAR DROP CELLS SLIGHT
[2017-07-08] MEDS: PANTOPRAZOLE 40 MG (PROTONIX) TAB PO SCH (06:28)
[2017-07-08 06:39] LABS: PLATELET COUNT 26 10^3/uL (130-400)
[2017-07-08 06:45] LABS: ALBUMIN 2.6 GM/DL (3.2-4.5); BILIRUBIN,TOTAL 0.7 MG/DL (0.1-1.0); CALCIUM 9.8 MG/DL (8.5-10.1); CREATININE SERUM 2.52 MG/DL (0.60-1.30); POTASSIUM 4.4 MMOL/L (3.6-5.0); TOTAL PROTEIN 5.3 GM/DL (6.4-8.2)
[2017-07-08] MEDS: inSUlin (REGULAR) HUMAN 1 UNIT/0.01 ML (CHARGE PER UNIT) SC SCH ×4 (06:49→21:37)
[2017-07-08] MEDS: TELMISARTAN 40 MG (MICARDIS) TAB PO SCH (09:24)
[2017-07-08] MEDS: meTOprolol TARTRATE 25 MG (LOPRESSOR) TABLET PO SCH ×3 (09:24→21:00)
[2017-07-08] MEDS: ISOSORBIDE MONONITRATE 60 MG (IMDUR) TAB PO SCH (09:24)
[2017-07-08] MEDS: amLODIPine 5 MG (NORVASC) TAB PO SCH ×2 (09:24→21:00)
[2017-07-08] MEDS: ALLOPURINOL 100 MG (ZYLOPRIM) TAB PO SCH (09:24)
[2017-07-08] MEDS: ASPIRIN 81 MG CHEW (CHILDREN'S ASA) PO SCH (09:24)
[2017-07-08] MEDS: TRIAMCINOLONE 0.5% OINT (KENALOG) 15 GM TUBE TOP SCH ×2 (09:25→21:38)
[2017-07-08] MEDS ORDERED: NS IV 500 ML 500 ML IV ONE (10:45)
[2017-07-08] MEDS ORDERED: ACETAMINOPHEN 500 MG TAB (TYLENOL) PO NR (11:00)
[2017-07-08] MEDS ORDERED: diphenhydrAMINE 25 MG TAB (BENADRYL) PO NR (11:00)
--- NOTE | 2017-07-08 17:22 | Progress Note-Standard ---
Standard Progress Note Progress Notes/Assess & Plan Date Seen by Provider: Jul 08, 2017 Time Seen by Provider: 17:13 Progress/Assessment & Plan 82-year-old male with diagnosis of AML and pancytopenia. Patient was not felt to be a candidate for intensive therapy and decided to proceed with less intensive therapy. He completed treatment with Dacogen daily x 7 on 06/26/17. He developed chest pain and suffered a Non STEMI and atrial fibrillation with RVR approximately 2 weeks ago. He is on medical management for the coronary artery disease as well as the atrial fibrillation. No anticoagulation because of thrombocytopenia and risk of bleeding. Patient developed significant paroxysmal cough and worsening lung infiltrates and was on antibiotic therapy with cefepime and Levaquin with clinical improvement. Antibiotics were stopped on 07/07/17. Generally feels weak but eating small amounts. He was able to sit up in the chair for short period. Vital Sign - Last 12Hours Date Time Temp Pulse Resp B/P (MAP) Pulse Ox O2 Delivery O2 Flow Rate FiO2 07/08/17 15:54 98.4 87 18 110/62 97 Nasal Cannula 4.00 07/06/17 10:34 4 Physical examination showed an elderly male, weak-appearing, awake and oriented , in no acute distress. Neck supple with no JVD. Lungs with few rhonchi bilaterally but no wheezes or rales. Cardiovascular exam was irregular with no murmurs or gallops. Extremities showed a few petechiae which is fading. Laboratory Tests 07/07/17 20:49: Glucometer 183H 07/08/17 05:37: White Blood Count 10.3, Red Blood Count 2.43L, Hemoglobin 7.6L, Hematocrit 24L, Mean Corpuscular Volume 98, Mean Corpuscular Hemoglobin 31, Mean Corpuscular Hemoglobin Concent 32, Red Cell Distribution Width 14.6H, Platelet Count 26*L, Mean Platelet Volume 9.2, Neutrophils (%) (Auto) , Lymphocytes (%) (Auto) , Monocytes (%) (Auto) , Eosinophils (%) (Auto) , Basophils (%) (Auto) , Neutrophils # (Auto) , Lymphocytes # (Auto) , Monocytes # (Auto) , Eosinophils # (Auto) , Basophils # (Auto) , Neutrophils % (Manual) 8, Lymphocytes % (Manual ) 16, Monocytes % (Manual) 11, Eosinophils % (Manual) 0, Basophils % (Manual) 0 , Metamyelocytes % 1, Band Neutrophils 0, Nucleated Red Blood Cells 1, Atypical Lymphocytes 64, Polychromasia SLIGHT, Anisocytosis SLIGHT, Microcytosis SLIGHT, Macrocytosis SLIGHT, Tear Drop Cells SLIGHT, Sodium Level 136, Potassium Level 4.4, Chloride Level 96L, Carbon Dioxide Level 29, Anion Gap 11, Blood Urea Nitrogen 48H, Creatinine 2.52H, Estimat Glomerular Filtration Rate 25, BUN/ Creatinine Ratio 19, Glucose Level 107H, Calcium Level 9.8, Total Bilirubin 0.7 , Aspartate Amino Transf (AST/SGOT) 22, Alanine Aminotransferase (ALT/SGPT) 13, Alkaline Phosphatase 87, Total Protein 5.3L, Albumin 2.6L 07/08/17 10:50: Glucometer 166H 07/08/17 15:45: Glucometer 162H Microbiology 07/05/17 Blood Culture - Preliminary, Resulted No growth I reviewed the peripheral smear and approximately 80 percent of the cells were immature monocytes of myeloblasts. A/P: 1. Acute myeloid leukemia, not a candidate for intensive therapy. Status post treatment with Dacogen 7 days completed 06/26/2017. 2. Anemia and thrombocytopenia, probably due to AML and chemotherapy. Will transfuse with packed red blood cells today. Monitor serially. 3. Probable pneumonia with the paroxysmal cough, status post antibiotic therapy with cefepime and Levaquin with clinical improvement. 4. NSTEMI and atrial fibrillation with RVR, on medical management. 5. Evidence of progressive AML with increasing WBC and blasts. I have reviewed these findings with the patient, his and his daughter and answered their questions. Options at this point include another course of chemotherapy with Dacogen with very small chance of response or proceeding with best supportive care. Patient has decided not to proceed with chemotherapy and we will continue best supportive care. We will still continue transfusion support as he wants to continue visiting with his family and grandkids. 6. Gradually worsening renal failure. I will discontinue scheduled Lasix. Monitor BMP in SINA Gomes Jul 08, 2017 17:22
[2017-07-08] MEDS: POLYETHYLENE GLYCOL 17 GM (MIRALAX) PACK PO SCH (21:36)
[2017-07-08] MEDS: inSUlin DETERMIR 1 UNIT/0.01 ML (LEVEMIR) CHARGE PER UNIT SQ SCH (21:37)
[2017-07-09] MEDS: PROMETHAZINE/ CODEINE SYRUP 5 ML UDC PO PRN (03:00)
[2017-07-09] MEDS: NYSTATIN ORAL SUSP 5 ML UDC PO SCH ×4 (06:12→18:31)
[2017-07-09] MEDS: inSUlin (REGULAR) HUMAN 1 UNIT/0.01 ML (CHARGE PER UNIT) SC SCH ×4 (06:12→20:55)
[2017-07-09] MEDS: PANTOPRAZOLE 40 MG (PROTONIX) TAB PO SCH (06:12)
[2017-07-09] MEDS: RT-ALBUTEROL/IPRATROPIUM 3 ML (DUONEB) VIAL INH SCH ×5 (06:25→22:37)
[2017-07-09 06:32] LABS: BASOPHILS % (AUTO) 0 % (0-10); EOSINOPHILS % (AUTO) 0 % (0-10); LYMPHOCYTES # (AUTO) 7.5 X 10^3 (1.0-4.0); LYMPHOCYTES % (AUTO) 78 % (12-44); MEAN CORPUSCULAR HEMOGLOBIN 31 PG (25-34); MEAN CORPUSCULAR HGB CONC 33 G/DL (32-36); MEAN CORPUSCULAR VOLUME 95 FL (80-99); MEAN PLATELET VOLUME 9.6 FL (7.4-10.4); MONOCYTES # (AUTO) 1.4 X 10^3 (0.0-1.0); MONOCYTES % (AUTO) 14 % (0-12); NEUTROPHILS # (AUTO) 0.7 X 10^3 (1.8-7.8); NEUTROPHILS % (AUTO) 8 % (42-75); RED BLOOD COUNT 2.79 10^6/uL (4.35-5.85); RED CELL DISTRIBUTION WIDTH 14.9 % (10.0-14.5); WHITE BLOOD COUNT 9.7 10^3/uL (4.3-11.0)
[2017-07-09 06:35] LABS: PLATELET COUNT 23 10^3/uL (130-400)
[2017-07-09 06:42] VITALS: BP 128/58
[2017-07-09 07:06] LABS: CALCIUM 9.8 MG/DL (8.5-10.1); CREATININE SERUM 2.6 MG/DL (0.60-1.30); POTASSIUM 4.4 MMOL/L (3.6-5.0)
--- NOTE | 2017-07-09 07:21 | Pulmonary Progress Note ---
Subjective Time Seen by Provider: 07:16 Subjective/Events-last exam Family/patient have decided to go with hospice. Exam Exam Vital Signs Date Time Temp Pulse Resp B/P (MAP) Pulse Ox O2 Delivery O2 Flow Rate FiO2 07/09/17 06:42 88 90 4 07/09/17 06:25 90 Nasal Cannula 4.00 07/08/17 20:15 Nasal Cannula 4.00 07/08/17 19:24 98.6 84 20 104/55 96 High Flow N/C 5.00 07/08/17 15:54 98.4 87 18 110/62 97 Nasal Cannula 4.00 07/08/17 14:07 98.6 82 18 101/60 98 Nasal Cannula 4.00 07/08/17 13:49 98.4 82 18 104/61 98 Nasal Cannula 4.00 07/08/17 13:24 98.2 98 20 104/64 98 Nasal Cannula 4.00 07/08/17 13:17 94 Nasal Cannula 4.00 07/08/17 11:23 99.1 98 20 113/55 97 Nasal Cannula 4.00 07/08/17 11:06 97.6 112 18 108/54 94 Nasal Cannula 4.00 07/08/17 10:07 95 Nasal Cannula 4.00 07/08/17 08:26 Nasal Cannula 4.00 07/08/17 08:00 98.1 100 22 128/58 99 High Flow N/C 5.00 I & O 07/09/17 07:00 Intake Total 670 ml Output Total 450 ml Balance 220 ml General Appearance: No Apparent Distress HEENT: PERRL/EOMI Neck: Non Tender, Supple Respiratory: No Accessory Muscle Use, No Respiratory Distress, Crackles Cardiovascular: Regular Rate, Rhythm Gastrointestinal: normal bowel sounds, non tender, soft, no organomegaly Extremity: Non Tender, No Pedal Edema Neurologic/Psychiatric: Alert, Oriented x3 Skin: Other (No new petechia, old rash and petechia fading) Lymphatic: No Adenopathy Results Lab Laboratory Tests 07/07/17 08:26 07/08/17 05:37 07/09/17 06:20 Assessment/Plan Assessment/Plan Pulmonary edema- requiring 8-10liters of oxygen - Lasix 40mg daily -- on hold secondary to renal failure -monitor PNA. -PNA is resolved Abx have been d/cd Renal failure -lasix is on hold -Consider d/cing micardis -monitor NSTEMI with CP -Cardiology following Acute myelogenous leukemia -Oncology following -Family/patient are refusing chemotherapy Anemia s/p 2units of PRBC -Monitor H&H Afib - currently controlled Severe anemia s/p 2 units of PRBC DM- uncontrolled secondary to chemo pt is going on hospice. Dr. Person is managing everything. I am going to sign off at this time please call with any questions. 232 KERI KIM DO Jul 09, 2017 07:21
[2017-07-09] MEDS: LACTATED RINGERS 1,000 ML IV SCH (08:06)
[2017-07-09] MEDS: BENZONATATE 100 MG (TESSALON) CAPSULE PO PRN (08:08)
[2017-07-09] MEDS: morphine INJ 4 MG/ML 1 ML (VIAL/SYRINGE) IVP PRN ×4 (08:15→20:55)
[2017-07-09 08:53] VITALS: BP 120/68
[2017-07-09] MEDS: amLODIPine 5 MG (NORVASC) TAB PO SCH ×2 (09:00→20:45)
[2017-07-09] MEDS: TELMISARTAN 40 MG (MICARDIS) TAB PO SCH (09:45)
[2017-07-09] MEDS: TRIAMCINOLONE 0.5% OINT (KENALOG) 15 GM TUBE TOP SCH ×2 (09:45→20:55)
[2017-07-09] MEDS: LORazepam INJ 2 MG/ML (ATIVAN) VIAL IVP PRN (09:51)
[2017-07-09] MEDS: ALLOPURINOL 100 MG (ZYLOPRIM) TAB PO SCH (09:57)
[2017-07-09] MEDS: meTOprolol TARTRATE 25 MG (LOPRESSOR) TABLET PO SCH ×3 (09:57→20:45)
[2017-07-09] MEDS: ASPIRIN 81 MG CHEW (CHILDREN'S ASA) PO SCH (09:57)
[2017-07-09] MEDS: ISOSORBIDE MONONITRATE 60 MG (IMDUR) TAB PO SCH (09:57)
--- NOTE | 2017-07-09 15:25 | Progress Note-Standard ---
Standard Progress Note Progress Notes/Assess & Plan Date Seen by Provider: Jul 09, 2017 Time Seen by Provider: 15:18 Progress/Assessment & Plan 82-year-old male with diagnosis of AML and pancytopenia. Patient was not felt to be a candidate for intensive therapy and decided to proceed with less intensive therapy. He completed treatment with Dacogen daily x 7 on 06/26/17. He developed chest pain and suffered a Non STEMI and atrial fibrillation with RVR approximately 2 weeks ago. He is on medical management for the coronary artery disease as well as the atrial fibrillation. No anticoagulation because of thrombocytopenia and risk of bleeding. Patient developed significant paroxysmal cough and worsening lung infiltrates and was on antibiotic therapy with cefepime and Levaquin with clinical improvement. Antibiotics were stopped on 07/07/17. Generally feels weak but eating small amounts. He complained of increased shortness of breath today which improves with morphine. She is using morphine a few times during the day. Patient and his family visited with hospice and is waiting to discuss with their daughters. Vital Sign - Last 12Hours Date Time Temp Pulse Resp B/P (MAP) Pulse Ox O2 Delivery O2 Flow Rate FiO2 07/09/17 10:15 95 Nasal Cannula 4.00 07/09/17 08:53 98.3 86 16 120/68 07/09/17 06:42 4 Physical examination showed an elderly male, weak-appearing, somnolent but easily arousable, in mild respiratory distress. Neck supple with no JVD. Lungs with few rhonchi bilaterally but no wheezes or rales. Cardiovascular exam was irregular with no murmurs or gallops. Extremities showed a few petechiae which is stable. Laboratory Tests 07/09/17 06:20 I reviewed the peripheral smear on 07/08/2017 and approximately 80 percent of the white blood cells were immature monocytes of myeloblasts. A/P: 1. Acute myeloid leukemia, not a candidate for intensive therapy. Status post treatment with Dacogen 7 days completed 06/26/2017. 2. Anemia and thrombocytopenia, probably due to AML and chemotherapy. On transfusion support. Monitor serially. 3. increased shortness of breath of undetermined etiology, continue morphine as needed along with best supportive care. 4. NSTEMI and atrial fibrillation with RVR, on medical management. 5. Evidence of progressive AML with increasing WBC and blasts. Patient has decided not to proceed with chemotherapy and we will continue best supportive care. The patient and family deciding about hospice care. 6. Gradually worsening renal failure. Monitor BMP in a.m. 7. Overall prognosis poor. SINA GREEN Jul 09, 2017 15:25
[2017-07-09] MEDS: ACETAMINOPHEN 500 MG TAB (TYLENOL) PO PRN (16:00)
[2017-07-09] MEDS: POLYETHYLENE GLYCOL 17 GM (MIRALAX) PACK PO SCH (20:45)
[2017-07-09 20:46] VITALS: BP 147/65
[2017-07-09] MEDS: inSUlin DETERMIR 1 UNIT/0.01 ML (LEVEMIR) CHARGE PER UNIT SQ SCH (20:55)
[2017-07-10] MEDS: NYSTATIN ORAL SUSP 5 ML UDC PO SCH ×4 (00:31→17:38)
[2017-07-10] MEDS: PROMETHAZINE/ CODEINE SYRUP 5 ML UDC PO PRN ×2 (02:14→06:13)
[2017-07-10] MEDS: morphine INJ 4 MG/ML 1 ML (VIAL/SYRINGE) IVP PRN ×3 (02:19→18:38)
[2017-07-10] MEDS: RT-ALBUTEROL/IPRATROPIUM 3 ML (DUONEB) VIAL INH SCH ×6 (02:50→22:32)
[2017-07-10] MEDS: LACTATED RINGERS 1,000 ML IV SCH (03:08)
[2017-07-10] MEDS: BENZONATATE 100 MG (TESSALON) CAPSULE PO PRN (04:34)
[2017-07-10 05:29] LABS: MEAN CORPUSCULAR HEMOGLOBIN 31 PG (25-34); MEAN CORPUSCULAR HGB CONC 33 G/DL (32-36); MEAN CORPUSCULAR VOLUME 96 FL (80-99); MEAN PLATELET VOLUME 10.4 FL (7.4-10.4); RED CELL DISTRIBUTION WIDTH 14.7 % (10.0-14.5)
[2017-07-10 05:39] LABS: PLATELET COUNT 26 10^3/uL (130-400)
[2017-07-10 05:49] LABS: CREATININE SERUM 2.34 MG/DL (0.60-1.30); POTASSIUM 4.6 MMOL/L (3.6-5.0)
[2017-07-10] MEDS: inSUlin (REGULAR) HUMAN 1 UNIT/0.01 ML (CHARGE PER UNIT) SC SCH ×4 (06:09→21:27)
[2017-07-10] MEDS: PANTOPRAZOLE 40 MG (PROTONIX) TAB PO SCH (06:13)
[2017-07-10 07:27] VITALS: BP 137/58
[2017-07-10] MEDS: ISOSORBIDE MONONITRATE 60 MG (IMDUR) TAB PO SCH (09:00)
[2017-07-10] MEDS: ALLOPURINOL 100 MG (ZYLOPRIM) TAB PO SCH (09:00)
[2017-07-10] MEDS: TELMISARTAN 40 MG (MICARDIS) TAB PO SCH (09:00)
[2017-07-10] MEDS: meTOprolol TARTRATE 25 MG (LOPRESSOR) TABLET PO SCH ×3 (09:00→21:27)
[2017-07-10] MEDS: amLODIPine 5 MG (NORVASC) TAB PO SCH ×2 (09:01→21:27)
[2017-07-10] MEDS: TRIAMCINOLONE 0.5% OINT (KENALOG) 15 GM TUBE TOP SCH ×2 (09:01→21:30)
[2017-07-10] MEDS: ASPIRIN 81 MG CHEW (CHILDREN'S ASA) PO SCH (09:01)
[2017-07-10] MEDS: LORazepam INJ 2 MG/ML (ATIVAN) VIAL IVP PRN (10:50)
[2017-07-10] MEDS: CATHETER FLUSH 10 ML SYR IV PRN (10:50)
--- NOTE | 2017-07-10 14:08 | Progress Note-Standard ---
Standard Progress Note Progress Notes/Assess & Plan Date Seen by Provider: Jul 10, 2017 Time Seen by Provider: 14:03 Progress/Assessment & Plan 82-year-old male with diagnosis of AML and pancytopenia. Patient was not felt to be a candidate for intensive therapy and decided to proceed with less intensive therapy. He completed treatment with Dacogen daily x 7 on 06/26/17. He developed chest pain and suffered a Non STEMI and atrial fibrillation with RVR approximately 2 weeks ago. He is on medical management for the coronary artery disease as well as the atrial fibrillation. No anticoagulation because of thrombocytopenia and risk of bleeding. Patient developed significant paroxysmal cough and worsening lung infiltrates and was on antibiotic therapy with cefepime and Levaquin with clinical improvement. Antibiotics were stopped on 07/07/17. Weaker today and napping but easily arousable. He complained of increased shortness of breath especially with paroxysmal cough. Morphine helps with air hunger. Patient and his family considering hospice. Vital Sign - Last 12Hours Date Time Temp Pulse Resp B/P (MAP) Pulse Ox O2 Delivery O2 Flow Rate FiO2 07/10/17 10:55 98.6 07/10/17 10:29 95 Nasal Cannula 4.00 07/10/17 07:27 90 27 137/58 07/09/17 06:42 4 Physical examination showed an elderly male, weak-appearing, somnolent but easily arousable, in no acute distress. Neck supple with no JVD. Lungs with few rhonchi bilaterally but no wheezes or rales. Cardiovascular exam was irregular with controlled rate, no murmurs or gallops heard. Extremities showed a few petechiae which is stable. Laboratory Tests 07/10/17 05:25 I reviewed the peripheral smear on 07/08/2017 and approximately 80 percent of the white blood cells were immature monocytes of myeloblasts. A/P: 1. Acute myeloid leukemia, not a candidate for intensive therapy. Status post treatment with Dacogen 7 days completed 06/26/2017. 2. Anemia and thrombocytopenia, probably due to AML and chemotherapy. On transfusion support. Monitor serially. 3. increased shortness of breath of undetermined etiology, continue morphine as needed along with best supportive care. 4. History of NSTEMI and atrial fibrillation with RVR, on medical management. 5. Evidence of progressive AML with increasing WBC and blasts. Patient has decided not to proceed with chemotherapy and we will continue best supportive care. 6. Gradually worsening renal failure. Monitor BMP in a.m. 7. Overall prognosis poor. SINA GREEN Jul 10, 2017 14:08
[2017-07-10 19:57] VITALS: BP 107/55
[2017-07-10] MEDS: inSUlin DETERMIR 1 UNIT/0.01 ML (LEVEMIR) CHARGE PER UNIT SQ SCH (21:27)
[2017-07-10] MEDS: POLYETHYLENE GLYCOL 17 GM (MIRALAX) PACK PO SCH (21:27)
[2017-07-11] MEDS: NYSTATIN ORAL SUSP 5 ML UDC PO SCH ×4 (00:01→18:46)
[2017-07-11] MEDS: RT-ALBUTEROL/IPRATROPIUM 3 ML (DUONEB) VIAL INH SCH ×6 (02:48→21:50)
[2017-07-11] MEDS: morphine INJ 4 MG/ML 1 ML (VIAL/SYRINGE) IVP PRN ×5 (02:55→21:02)
[2017-07-11] MEDS: PANTOPRAZOLE 40 MG (PROTONIX) TAB PO SCH (05:55)
[2017-07-11] MEDS: inSUlin (REGULAR) HUMAN 1 UNIT/0.01 ML (CHARGE PER UNIT) SC SCH ×4 (06:08→20:34)
[2017-07-11] MEDS: PROMETHAZINE/ CODEINE SYRUP 5 ML UDC PO PRN ×2 (06:09→23:18)
[2017-07-11 07:26] LABS: MEAN CORPUSCULAR HEMOGLOBIN 31 PG (25-34); MEAN CORPUSCULAR HGB CONC 32 G/DL (32-36); MEAN CORPUSCULAR VOLUME 96 FL (80-99); RED CELL DISTRIBUTION WIDTH 14.8 % (10.0-14.5); WHITE BLOOD COUNT 9.2 10^3/uL (4.3-11.0)
[2017-07-11 07:29] LABS: PLATELET COUNT 30 10^3/uL (130-400)
[2017-07-11 07:46] LABS: CALCIUM 10.2 MG/DL (8.5-10.1); CREATININE SERUM 2.25 MG/DL (0.60-1.30); POTASSIUM 4.7 MMOL/L (3.6-5.0)
[2017-07-11 08:00] VITALS: BP 137/55
[2017-07-11] MEDS: TRIAMCINOLONE 0.5% OINT (KENALOG) 15 GM TUBE TOP SCH ×3 (08:40→21:08)
[2017-07-11] MEDS: ASPIRIN 81 MG CHEW (CHILDREN'S ASA) PO SCH (08:40)
[2017-07-11] MEDS: amLODIPine 5 MG (NORVASC) TAB PO SCH ×2 (08:40→20:52)
[2017-07-11] MEDS: meTOprolol TARTRATE 25 MG (LOPRESSOR) TABLET PO SCH ×3 (08:40→20:52)
[2017-07-11] MEDS: ISOSORBIDE MONONITRATE 60 MG (IMDUR) TAB PO SCH (08:40)
[2017-07-11] MEDS: TELMISARTAN 40 MG (MICARDIS) TAB PO SCH (08:40)
[2017-07-11] MEDS: BENZONATATE 100 MG (TESSALON) CAPSULE PO PRN (08:40)
[2017-07-11] MEDS: ALLOPURINOL 100 MG (ZYLOPRIM) TAB PO SCH (08:40)
--- NOTE | 2017-07-11 15:36 | Progress Note-Standard ---
Standard Progress Note Progress Notes/Assess & Plan Date Seen by Provider: Jul 11, 2017 Time Seen by Provider: 15:30 Progress/Assessment & Plan 82-year-old male with diagnosis of AML and pancytopenia. Patient was not felt to be a candidate for intensive therapy and decided to proceed with less intensive therapy. He completed treatment with Dacogen daily x 7 on 06/26/17. He developed chest pain and suffered a Non STEMI and atrial fibrillation with RVR approximately 2 weeks ago and is on medical management. No anticoagulation because of thrombocytopenia and risk of bleeding. Patient developed significant paroxysmal cough and worsening lung infiltrates and was on antibiotic therapy with cefepime and Levaquin with clinical improvement. Antibiotics were stopped on 07/07/17. Patient is becoming weaker gradually and is not eating or drinking much. Morphine helps with generalized discomfort and air hunger. Patient and his family wants to proceed with hospice care but his indicated that she will not be able to take care of him at home. We will discuss this with social worker masters and hospice and make appropriate arrangements. Vital Sign - Last 12Hours Date Time Temp Pulse Resp B/P (MAP) Pulse Ox O2 Delivery O2 Flow Rate FiO2 07/11/17 14:29 91 Nasal Cannula 3.00 07/11/17 08:00 98.0 84 16 137/55 07/09/17 06:42 4 Physical examination showed an elderly male, weak-appearing, somnolent but arousable, in no acute distress. Neck supple with no JVD. Lungs with few rhonchi bilaterally but no wheezes or rales. Cardiovascular exam was irregular with controlled rate, no murmurs or gallops heard. Extremities showed a few petechiae which is stable. Laboratory Tests 07/11/17 06:05 A/P: 1. Acute myeloid leukemia, not a candidate for intensive therapy. Status post treatment with Dacogen 7 days completed 06/26/2017. 2. Anemia and thrombocytopenia, probably due to AML and chemotherapy. On transfusion support. Monitor serially. 3. increasing discomfort, continue morphine as needed along with best supportive care. 4. History of NSTEMI and atrial fibrillation with RVR, on medical management. 5. Evidence of progressive AML with increasing WBC and blasts. Patient has decided to proceed with best supportive care. Will consider hospice. 6. Gradually worsening renal failure. Monitor BMP in a.m. 7. Overall prognosis poor. SINA GREEN Jul 11, 2017 15:36
[2017-07-11 19:34] VITALS: BP 122/55
[2017-07-11 20:52] VITALS: BP 115/52
[2017-07-11] MEDS: inSUlin DETERMIR 1 UNIT/0.01 ML (LEVEMIR) CHARGE PER UNIT SQ SCH (20:54)
[2017-07-11] MEDS: POLYETHYLENE GLYCOL 17 GM (MIRALAX) PACK PO SCH (20:54)
[2017-07-12] MEDS: NYSTATIN ORAL SUSP 5 ML UDC PO SCH ×5 (00:42→23:40)
[2017-07-12] MEDS: morphine INJ 4 MG/ML 1 ML (VIAL/SYRINGE) IVP PRN ×2 (02:06→05:11)
[2017-07-12] MEDS: RT-ALBUTEROL/IPRATROPIUM 3 ML (DUONEB) VIAL INH SCH ×7 (02:30→18:37)
[2017-07-12] MEDS: inSUlin (REGULAR) HUMAN 1 UNIT/0.01 ML (CHARGE PER UNIT) SC SCH ×4 (06:32→21:50)
[2017-07-12] MEDS: PANTOPRAZOLE 40 MG (PROTONIX) TAB PO SCH (06:39)
[2017-07-12 06:55] LABS: BASOPHILS % (AUTO) 0 % (0-10); EOSINOPHILS % (AUTO) 0 % (0-10); LYMPHOCYTES # (AUTO) 5.8 X 10^3 (1.0-4.0); LYMPHOCYTES % (AUTO) 72 % (12-44); MEAN CORPUSCULAR HEMOGLOBIN 31 PG (25-34); MEAN CORPUSCULAR HGB CONC 32 G/DL (32-36); MEAN CORPUSCULAR VOLUME 96 FL (80-99); MEAN PLATELET VOLUME 9.5 FL (7.4-10.4); MONOCYTES # (AUTO) 1.9 X 10^3 (0.0-1.0); MONOCYTES % (AUTO) 23 % (0-12); NEUTROPHILS # (AUTO) 0.4 X 10^3 (1.8-7.8); NEUTROPHILS % (AUTO) 5 % (42-75); RED BLOOD COUNT 2.66 10^6/uL (4.35-5.85); RED CELL DISTRIBUTION WIDTH 14.5 % (10.0-14.5); WHITE BLOOD COUNT 8.1 10^3/uL (4.3-11.0)
[2017-07-12 07:11] LABS: CALCIUM 10.3 MG/DL (8.5-10.1); CREATININE SERUM 1.91 MG/DL (0.60-1.30); POTASSIUM 4.5 MMOL/L (3.6-5.0)
[2017-07-12 07:23] LABS: PLATELET COUNT 31 10^3/uL (130-400)
[2017-07-12 08:00] VITALS: BP 163/80
[2017-07-12] MEDS: TELMISARTAN 40 MG (MICARDIS) TAB PO SCH (09:49)
[2017-07-12] MEDS: amLODIPine 5 MG (NORVASC) TAB PO SCH ×2 (09:49→21:42)
[2017-07-12] MEDS: ASPIRIN 81 MG CHEW (CHILDREN'S ASA) PO SCH (09:50)
[2017-07-12] MEDS: meTOprolol TARTRATE 25 MG (LOPRESSOR) TABLET PO SCH ×3 (09:50→21:42)
[2017-07-12] MEDS: ISOSORBIDE MONONITRATE 60 MG (IMDUR) TAB PO SCH (09:50)
[2017-07-12] MEDS: BENZONATATE 100 MG (TESSALON) CAPSULE PO PRN (09:50)
[2017-07-12] MEDS: ALLOPURINOL 100 MG (ZYLOPRIM) TAB PO SCH (09:50)
[2017-07-12] MEDS: TRIAMCINOLONE 0.5% OINT (KENALOG) 15 GM TUBE TOP SCH ×2 (09:54→21:48)
[2017-07-12 10:24] VITALS: BP 163/80
[2017-07-12] MEDS ORDERED: morphine PCA 30 MG/30 ML VIAL IV PRN (10:45)
--- NOTE | 2017-07-12 10:53 | Progress Note-Standard ---
Standard Progress Note Progress Notes/Assess & Plan Date Seen by Provider: Jul 12, 2017 Time Seen by Provider: 10:52 Progress/Assessment & Plan 82-year-old male with diagnosis of AML and pancytopenia. Patient was not felt to be a candidate for intensive therapy and decided to proceed with less intensive therapy. He completed treatment with Dacogen daily x 7 on 06/26/17. He developed chest pain and suffered a Non STEMI and atrial fibrillation with RVR approximately 2 weeks ago and is on medical management. No anticoagulation because of thrombocytopenia and risk of bleeding. Patient developed significant paroxysmal cough and worsening lung infiltrates and was on antibiotic therapy with cefepime and Levaquin with clinical improvement. Antibiotics were stopped on 07/07/17. Patient is becoming weaker gradually and is not eating or drinking much. Morphine helps with generalized discomfort and air hunger. Patient required morphine boluses 4 to 5 times through last night and this AM. Patient and his family wants to proceed with hospice care but his indicated that she will not be able to take care of him at home. We will discuss this with social work nurse and hospice and make appropriate arrangements. Vital Sign - Last 12Hours Date Time Temp Pulse Resp B/P (MAP) Pulse Ox O2 Delivery O2 Flow Rate FiO2 07/12/17 10:24 86 94 07/12/17 10:20 Nasal Cannula 3.50 07/12/17 08:00 98.7 20 163/80 07/09/17 06:42 4 Physical examination showed an elderly male, weak-appearing, somnolent but arousable, in no acute distress. Neck supple with no JVD. Lungs with few rhonchi bilaterally but no wheezes or rales. Cardiovascular exam was irregular with controlled rate, no murmurs or gallops heard. Extremities showed a few petechiae which is stable. Laboratory Tests 07/12/17 06:40 A/P: 1. Acute myeloid leukemia, not a candidate for intensive therapy. Status post treatment with Dacogen 7 days completed 06/26/2017. 2. Anemia and thrombocytopenia, probably due to AML and chemotherapy. On transfusion support. Monitor serially. 3. increasing discomfort, continue morphine as needed along with best supportive care. Will start morphine by [employer]. 4. History of NSTEMI and atrial fibrillation with RVR, on medical management. 5. Evidence of progressive AML with increasing WBC and blasts. Patient has decided to proceed with best supportive care. Will consider hospice. 6. Gradually worsening renal failure. Monitor BMP in a.m. 7. Overall prognosis poor. SINA GREEN Jul 12, 2017 10:53
[2017-07-12] MEDS ORDERED: morphine PCA 30 MG/30 ML VIAL IV SCH (11:00)
[2017-07-12] MEDS: NS IV 1000 ML 1,000 ML IV SCH (11:30)
[2017-07-12] MEDS: PROMETHAZINE/ CODEINE SYRUP 5 ML UDC PO PRN (13:04)
[2017-07-12] MEDS: POLYETHYLENE GLYCOL 17 GM (MIRALAX) PACK PO SCH (21:48)
[2017-07-12] MEDS: ACETAMINOPHEN 500 MG TAB (TYLENOL) PO PRN (21:49)
[2017-07-12] MEDS: inSUlin DETERMIR 1 UNIT/0.01 ML (LEVEMIR) CHARGE PER UNIT SQ SCH (21:49)
[2017-07-12 22:00] VITALS: BP 110/53
[2017-07-13] MEDS: RT-ALBUTEROL/IPRATROPIUM 3 ML (DUONEB) VIAL INH SCH ×4 (06:20→18:40)
[2017-07-13] MEDS: NYSTATIN ORAL SUSP 5 ML UDC PO SCH ×4 (06:52→23:23)
[2017-07-13] MEDS: PANTOPRAZOLE 40 MG (PROTONIX) TAB PO SCH (06:52)
[2017-07-13] MEDS: inSUlin (REGULAR) HUMAN 1 UNIT/0.01 ML (CHARGE PER UNIT) SC SCH ×4 (06:52→21:08)
[2017-07-13 07:11] LABS: BASOPHILS % (AUTO) 0 % (0-10); EOSINOPHILS % (AUTO) 0 % (0-10); LYMPHOCYTES # (AUTO) 3.7 X 10^3 (1.0-4.0); LYMPHOCYTES % (AUTO) 50 % (12-44); MEAN CORPUSCULAR HEMOGLOBIN 31 PG (25-34); MEAN CORPUSCULAR HGB CONC 32 G/DL (32-36); MEAN CORPUSCULAR VOLUME 96 FL (80-99); MONOCYTES # (AUTO) 3.6 X 10^3 (0.0-1.0); MONOCYTES % (AUTO) 48 % (0-12); NEUTROPHILS # (AUTO) 0.2 X 10^3 (1.8-7.8); NEUTROPHILS % (AUTO) 2 % (42-75); RED BLOOD COUNT 2.65 10^6/uL (4.35-5.85); RED CELL DISTRIBUTION WIDTH 14.3 % (10.0-14.5); WHITE BLOOD COUNT 7.5 10^3/uL (4.3-11.0)
[2017-07-13 07:22] LABS: PLATELET COUNT 34 10^3/uL (130-400)
[2017-07-13 07:35] LABS: CALCIUM 10.1 MG/DL (8.5-10.1); CREATININE SERUM 1.85 MG/DL (0.60-1.30); POTASSIUM 4.3 MMOL/L (3.6-5.0)
[2017-07-13 08:00] VITALS: BP 135/65
[2017-07-13] MEDS: TRIAMCINOLONE 0.5% OINT (KENALOG) 15 GM TUBE TOP SCH ×2 (09:00→20:19)
[2017-07-13] MEDS: ASPIRIN 81 MG CHEW (CHILDREN'S ASA) PO SCH (09:17)
[2017-07-13] MEDS: ISOSORBIDE MONONITRATE 60 MG (IMDUR) TAB PO SCH (09:17)
[2017-07-13] MEDS: meTOprolol TARTRATE 25 MG (LOPRESSOR) TABLET PO SCH ×3 (09:17→20:14)
[2017-07-13] MEDS: amLODIPine 5 MG (NORVASC) TAB PO SCH ×2 (09:17→20:14)
[2017-07-13] MEDS: TELMISARTAN 40 MG (MICARDIS) TAB PO SCH (09:17)
[2017-07-13] MEDS: PROMETHAZINE/ CODEINE SYRUP 5 ML UDC PO PRN (09:17)
[2017-07-13] MEDS: ALLOPURINOL 100 MG (ZYLOPRIM) TAB PO SCH (09:17)
--- NOTE | 2017-07-13 10:58 | Progress Note-Standard ---
Standard Progress Note Progress Notes/Assess & Plan Date Seen by Provider: Jul 13, 2017 Time Seen by Provider: 10:49 Progress/Assessment & Plan 82-year-old male with diagnosis of AML and pancytopenia. Patient was not felt to be a candidate for intensive therapy and decided to proceed with less intensive therapy. He completed treatment with Dacogen daily x 7 on 06/26/17. He developed chest pain and suffered a Non STEMI and atrial fibrillation with RVR approximately 2 weeks ago and is on medical management. No anticoagulation because of thrombocytopenia and risk of bleeding. Patient developed significant paroxysmal cough and worsening lung infiltrates and was on antibiotic therapy with cefepime and Levaquin with clinical improvement. Antibiotics were stopped on 07/07/17. Patient is becoming weaker gradually and is not eating or drinking much. Morphine helps with generalized discomfort and air hunger. patient was started on morphine by [facility] yesterday and has used 12 mg over the last 24 hours. Patient and his family wants to proceed with hospice care but his indicated that she will not be able to take care of him at home. We will discuss this with social service agency director and hospice and make appropriate arrangements. Vital Sign - Last 12Hours Date Time Temp Pulse Resp B/P (MAP) Pulse Ox O2 Delivery O2 Flow Rate FiO2 07/13/17 10:16 95 Nasal Cannula 2.00 07/13/17 08:00 20 07/13/17 08:00 98.7 116 135/65 07/09/17 06:42 4 Physical examination showed an elderly male, weak-appearing, somnolent but arousable, in no acute distress. Neck supple with no JVD. Lungs with few rhonchi bilaterally but no wheezes or rales. Cardiovascular exam was irregular with borderline tachycardia, no murmurs or gallops heard. Extremities showed no edema and no new crops of petechiae. Laboratory Tests 07/13/17 07:00 A/P: 1. Acute myeloid leukemia, not a candidate for intensive therapy. Status post treatment with Dacogen 7 days completed 06/26/2017. 2. Anemia and thrombocytopenia, probably due to AML and chemotherapy. On transfusion support. Monitor serially. 3. Increasing discomfort, continue morphine by [employer]. Will start 0.5 mg CI with 1 mg bolus every 30 minutes prn. 4. History of NSTEMI and atrial fibrillation with RVR, on medical management. 5. Evidence of residual AML with persistent WBC and blasts. Patient has decided to proceed with best supportive care. Will consider hospice. 6. CKD stage 3. Monitor BMP in a.m. 7. Overall prognosis poor. SINA GREEN Jul 13, 2017 10:58
[2017-07-13] MEDS ORDERED: morphine PCA 30 MG/30 ML VIAL IV SCH (11:00)
[2017-07-13] MEDS: NS IV 1000 ML 1,000 ML IV SCH (11:49)
[2017-07-13 20:14] VITALS: BP 143/64
[2017-07-13] MEDS: POLYETHYLENE GLYCOL 17 GM (MIRALAX) PACK PO SCH (20:14)
[2017-07-13] MEDS: inSUlin DETERMIR 1 UNIT/0.01 ML (LEVEMIR) CHARGE PER UNIT SQ SCH (21:12)
[2017-07-14] MEDS: inSUlin (REGULAR) HUMAN 1 UNIT/0.01 ML (CHARGE PER UNIT) SC SCH ×4 (05:37→21:07)
[2017-07-14] MEDS: NYSTATIN ORAL SUSP 5 ML UDC PO SCH ×4 (05:37→23:29)
[2017-07-14] MEDS: PANTOPRAZOLE 40 MG (PROTONIX) TAB PO SCH (05:37)
[2017-07-14] MEDS: ONDANSETRON 4 MG/2 ML (SDV) Z0FRAN IVP PRN ×2 (06:19→12:44)
[2017-07-14 06:31] VITALS: BP 146/67
[2017-07-14] MEDS: RT-ALBUTEROL/IPRATROPIUM 3 ML (DUONEB) VIAL INH SCH ×4 (07:06→18:47)
[2017-07-14 07:54] LABS: MEAN CORPUSCULAR HEMOGLOBIN 31 PG (25-34); MEAN CORPUSCULAR HGB CONC 32 G/DL (32-36); MEAN CORPUSCULAR VOLUME 97 FL (80-99); MEAN PLATELET VOLUME 9.2 FL (7.4-10.4); RED BLOOD COUNT 2.56 10^6/uL (4.35-5.85); RED CELL DISTRIBUTION WIDTH 14.4 % (10.0-14.5); WHITE BLOOD COUNT 9.5 10^3/uL (4.3-11.0)
[2017-07-14 07:59] LABS: PLATELET COUNT 34 10^3/uL (130-400)
[2017-07-14 08:00] VITALS: BP 143/63
[2017-07-14 08:14] LABS: CALCIUM 10.2 MG/DL (8.5-10.1); CREATININE SERUM 1.85 MG/DL (0.60-1.30); POTASSIUM 4.4 MMOL/L (3.6-5.0)
[2017-07-14] MEDS: ASPIRIN 81 MG CHEW (CHILDREN'S ASA) PO SCH (08:59)
[2017-07-14] MEDS: TELMISARTAN 40 MG (MICARDIS) TAB PO SCH (08:59)
[2017-07-14] MEDS: amLODIPine 5 MG (NORVASC) TAB PO SCH ×2 (08:59→21:06)
[2017-07-14] MEDS: ALLOPURINOL 100 MG (ZYLOPRIM) TAB PO SCH (08:59)
[2017-07-14] MEDS: ISOSORBIDE MONONITRATE 60 MG (IMDUR) TAB PO SCH (08:59)
[2017-07-14] MEDS: meTOprolol TARTRATE 25 MG (LOPRESSOR) TABLET PO SCH ×3 (08:59→21:06)
[2017-07-14] MEDS: TRIAMCINOLONE 0.5% OINT (KENALOG) 15 GM TUBE TOP SCH ×2 (09:00→21:00)
[2017-07-14] MEDS: NS IV 1000 ML 1,000 ML IV SCH (12:35)
--- NOTE | 2017-07-14 16:44 | Progress Note-Standard ---
Standard Progress Note Progress Notes/Assess & Plan Date Seen by Provider: Jul 14, 2017 Time Seen by Provider: 16:39 Progress/Assessment & Plan 82-year-old male with diagnosis of AML and pancytopenia. Patient was not felt to be a candidate for intensive therapy and decided to proceed with less intensive therapy. He completed treatment with Dacogen daily x 7 on 06/26/17. He developed chest pain and suffered a Non STEMI and atrial fibrillation with RVR approximately 2 weeks ago and is on medical management. No anticoagulation because of thrombocytopenia and risk of bleeding. Patient developed significant paroxysmal cough and worsening lung infiltrates and was on antibiotic therapy with cefepime and Levaquin with clinical improvement. Antibiotics were stopped on 07/07/17. Patient is becoming weaker. He has not eaten anything and is taking a few sips of liquids daily. Morphine helps with generalized discomfort and air hunger. He is on 0.5 mg/hr CI with 1 mg bolus every 30 minutes as needed. If he is requiring more, will titrate the CI dose. Vital Sign - Last 12Hours Date Time Temp Pulse Resp B/P (MAP) Pulse Ox O2 Delivery O2 Flow Rate FiO2 07/14/17 15:03 92 Nasal Cannula 2.00 07/14/17 08:00 98.6 93 20 143/63 07/09/17 06:42 4 Physical examination showed an elderly male, weak-appearing, somnolent but arousable, in no acute distress. Neck supple with no JVD. Lungs with few rhonchi bilaterally but no wheezes or rales. Cardiovascular exam was irregular with borderline tachycardia, no murmurs or gallops heard. Extremities showed no edema and no new crops of petechiae. Laboratory Tests 07/13/17 07:00 A/P: 1. Acute myeloid leukemia, not a candidate for intensive therapy. Status post treatment with Dacogen 7 days completed 06/26/2017. 2. Anemia and thrombocytopenia, probably due to AML and chemotherapy. Counts fairly stable for several days and not required transfusion. Monitor serially. 3. Increasing discomfort, continue morphine by [employer]. Currently on 0.5 mg CI with 1 mg bolus every 30 minutes prn. 4. History of NSTEMI and atrial fibrillation with RVR, on medical management. 5. Evidence of residual AML with persistent WBC and blasts. Patient has decided to proceed with best supportive care. 6. CKD stage 3. Monitor BMP in a.m. 7. Overall prognosis poor. SINA GREEN Jul 14, 2017 16:44
[2017-07-14 20:59] VITALS: BP 116/64
[2017-07-14] MEDS: inSUlin DETERMIR 1 UNIT/0.01 ML (LEVEMIR) CHARGE PER UNIT SQ SCH (21:06)
[2017-07-14] MEDS: POLYETHYLENE GLYCOL 17 GM (MIRALAX) PACK PO SCH (21:06)
[2017-07-15] MEDS: inSUlin (REGULAR) HUMAN 1 UNIT/0.01 ML (CHARGE PER UNIT) SC SCH ×4 (05:34→20:31)
[2017-07-15] MEDS: NYSTATIN ORAL SUSP 5 ML UDC PO SCH ×3 (05:35→17:28)
[2017-07-15] MEDS: PANTOPRAZOLE 40 MG (PROTONIX) TAB PO SCH (05:36)
[2017-07-15 05:56] LABS: BASOPHILS % (AUTO) 0 % (0-10); EOSINOPHILS % (AUTO) 0 % (0-10); LYMPHOCYTES # (AUTO) 4.4 X 10^3 (1.0-4.0); LYMPHOCYTES % (AUTO) 49 % (12-44); MEAN CORPUSCULAR HEMOGLOBIN 31 PG (25-34); MEAN CORPUSCULAR HGB CONC 32 G/DL (32-36); MEAN CORPUSCULAR VOLUME 97 FL (80-99); MEAN PLATELET VOLUME 9.8 FL (7.4-10.4); MONOCYTES # (AUTO) 3.9 X 10^3 (0.0-1.0); MONOCYTES % (AUTO) 43 % (0-12); NEUTROPHILS # (AUTO) 0.7 X 10^3 (1.8-7.8); NEUTROPHILS % (AUTO) 8 % (42-75); RED BLOOD COUNT 2.61 10^6/uL (4.35-5.85); RED CELL DISTRIBUTION WIDTH 14.3 % (10.0-14.5); WHITE BLOOD COUNT 9.1 10^3/uL (4.3-11.0)
[2017-07-15 06:08] LABS: CALCIUM 9.8 MG/DL (8.5-10.1); CREATININE SERUM 1.91 MG/DL (0.60-1.30); POTASSIUM 4.5 MMOL/L (3.6-5.0)
[2017-07-15 06:11] LABS: PLATELET COUNT 33 10^3/uL (130-400)
[2017-07-15 07:02] VITALS: BP 123/60
[2017-07-15] MEDS: RT-ALBUTEROL/IPRATROPIUM 3 ML (DUONEB) VIAL INH SCH ×4 (07:02→19:00)
[2017-07-15 08:00] VITALS: BP 123/60
[2017-07-15] MEDS: TRIAMCINOLONE 0.5% OINT (KENALOG) 15 GM TUBE TOP SCH ×2 (08:07→20:33)
[2017-07-15] MEDS: ALLOPURINOL 100 MG (ZYLOPRIM) TAB PO SCH (08:40)
[2017-07-15] MEDS: amLODIPine 5 MG (NORVASC) TAB PO SCH ×2 (08:40→20:27)
[2017-07-15] MEDS: TELMISARTAN 40 MG (MICARDIS) TAB PO SCH (08:40)
[2017-07-15] MEDS: ISOSORBIDE MONONITRATE 60 MG (IMDUR) TAB PO SCH (08:40)
[2017-07-15] MEDS: ASPIRIN 81 MG CHEW (CHILDREN'S ASA) PO SCH (08:41)
[2017-07-15] MEDS: meTOprolol TARTRATE 25 MG (LOPRESSOR) TABLET PO SCH ×3 (08:41→20:28)
[2017-07-15] MEDS: NS IV 1000 ML 1,000 ML IV SCH ×2 (11:02→20:40)
[2017-07-15] MEDS ORDERED: morphine PCA 30 MG/30 ML VIAL IV SCH (11:45)
--- NOTE | 2017-07-15 11:51 | Progress Note-Standard ---
Standard Progress Note Progress Notes/Assess & Plan Date Seen by Provider: Jul 15, 2017 Time Seen by Provider: 11:45 Progress/Assessment & Plan 82-year-old male with diagnosis of AML and pancytopenia. Patient was not felt to be a candidate for intensive therapy and decided to proceed with less intensive therapy. He completed treatment with Dacogen daily x 7 on 06/26/17. He developed chest pain and suffered a Non STEMI and atrial fibrillation with RVR approximately 3 weeks ago and is on medical management. No anticoagulation because of thrombocytopenia and risk of bleeding. Patient developed significant paroxysmal cough and worsening lung infiltrates and was on antibiotic therapy with cefepime and Levaquin with clinical improvement. Antibiotics were stopped on 07/07/17. Patient is weaker. Appetite low and is taking a few sips of liquids. Morphine helps with generalized discomfort and air hunger. He is on 0.5 mg/hr CI with 1 mg bolus every 30 minutes as needed. He has used more than 7 boluses in the past 24 hours. Will increase basal rate to 0.8 mg/hr continuous with 1 mg bolus every 30 minutes as needed. Vital Sign - Last 12Hours Date Time Temp Pulse Resp B/P (MAP) Pulse Ox O2 Delivery O2 Flow Rate FiO2 07/15/17 11:16 90 Nasal Cannula 2.00 07/15/17 08:00 99.5 91 20 123/60 07/15/17 07:02 2 Physical examination showed an elderly male, weak-appearing, in no acute distress. Neck supple with no JVD. Lungs with few rhonchi bilaterally but no wheezes or rales. Cardiovascular exam was irregular in rhythm, no murmurs or gallops heard. Extremities showed trace edema and no petechiae. Laboratory Tests 07/15/17 05:44 A/P: 1. Acute myeloid leukemia, not a candidate for intensive therapy. Status post treatment with Dacogen 7 days completed 06/26/2017. 2. Anemia and thrombocytopenia, probably due to AML and chemotherapy. Counts fairly stable for several days and not required transfusion. Monitor serially. 3. Increasing morphine use, change morphine by [employer] INS[employer]OR to 0.8 mg CI with 1 mg bolus every 30 minutes prn. 4. History of NSTEMI and atrial fibrillation with RVR, on medical management. 5. Evidence of residual AML with persistent WBC and blasts. Patient has decided to proceed with best supportive care. 6. CKD stage 3. Monitor CMP in a.m. 7. Overall prognosis poor. SINA GREEN Jul 15, 2017 11:51
[2017-07-15] MEDS: POLYETHYLENE GLYCOL 17 GM (MIRALAX) PACK PO SCH (20:04)
[2017-07-15 20:30] VITALS: BP 123/55
[2017-07-15] MEDS: ACETAMINOPHEN 500 MG TAB (TYLENOL) PO PRN (20:44)
[2017-07-15] MEDS: inSUlin DETERMIR 1 UNIT/0.01 ML (LEVEMIR) CHARGE PER UNIT SQ SCH (20:45)
[2017-07-15] MEDS: RT-ALBUTEROL/IPRATROPIUM 3 ML (DUONEB) VIAL INH PRN (20:47)
[2017-07-16] MEDS: PANTOPRAZOLE 40 MG (PROTONIX) TAB PO SCH (05:12)
[2017-07-16] MEDS: NYSTATIN ORAL SUSP 5 ML UDC PO SCH ×3 (05:12→13:36)
[2017-07-16 05:33] LABS: BASOPHILS % (AUTO) 0 % (0-10); EOSINOPHILS % (AUTO) 0 % (0-10); LYMPHOCYTES # (AUTO) 3.4 X 10^3 (1.0-4.0); LYMPHOCYTES % (AUTO) 44 % (12-44); MEAN CORPUSCULAR HEMOGLOBIN 31 PG (25-34); MEAN CORPUSCULAR HGB CONC 32 G/DL (32-36); MEAN CORPUSCULAR VOLUME 97 FL (80-99); MEAN PLATELET VOLUME 9.7 FL (7.4-10.4); MONOCYTES # (AUTO) 3.6 X 10^3 (0.0-1.0); MONOCYTES % (AUTO) 47 % (0-12); NEUTROPHILS # (AUTO) 0.7 X 10^3 (1.8-7.8); NEUTROPHILS % (AUTO) 9 % (42-75); RED BLOOD COUNT 2.48 10^6/uL (4.35-5.85); RED CELL DISTRIBUTION WIDTH 14.1 % (10.0-14.5); WHITE BLOOD COUNT 7.6 10^3/uL (4.3-11.0)
[2017-07-16 05:35] LABS: PLATELET COUNT 38 10^3/uL (130-400)
[2017-07-16 05:49] LABS: ALBUMIN 2.5 GM/DL (3.2-4.5); BILIRUBIN,TOTAL 0.6 MG/DL (0.1-1.0); CALCIUM 9.8 MG/DL (8.5-10.1); CREATININE SERUM 2.01 MG/DL (0.60-1.30); POTASSIUM 4.2 MMOL/L (3.6-5.0); TOTAL PROTEIN 5.6 GM/DL (6.4-8.2)
[2017-07-16] MEDS: inSUlin (REGULAR) HUMAN 1 UNIT/0.01 ML (CHARGE PER UNIT) SC SCH ×4 (05:57→21:07)
[2017-07-16] MEDS: RT-ALBUTEROL/IPRATROPIUM 3 ML (DUONEB) VIAL INH SCH ×4 (06:35→19:50)
[2017-07-16 08:00] VITALS: BP 118/52
[2017-07-16] MEDS: TELMISARTAN 40 MG (MICARDIS) TAB PO SCH (08:58)
[2017-07-16] MEDS: ISOSORBIDE MONONITRATE 60 MG (IMDUR) TAB PO SCH (08:58)
[2017-07-16] MEDS: TRIAMCINOLONE 0.5% OINT (KENALOG) 15 GM TUBE TOP SCH ×2 (08:59→20:08)
[2017-07-16] MEDS: meTOprolol TARTRATE 25 MG (LOPRESSOR) TABLET PO SCH ×3 (08:59→20:07)
[2017-07-16] MEDS: ASPIRIN 81 MG CHEW (CHILDREN'S ASA) PO SCH (08:59)
[2017-07-16] MEDS: ALLOPURINOL 100 MG (ZYLOPRIM) TAB PO SCH (08:59)
[2017-07-16] MEDS: amLODIPine 5 MG (NORVASC) TAB PO SCH ×2 (08:59→20:07)
--- NOTE | 2017-07-16 15:51 | Progress Note-Standard ---
Standard Progress Note Progress Notes/Assess & Plan Date Seen by Provider: Jul 16, 2017 Time Seen by Provider: 15:45 Progress/Assessment & Plan 82-year-old male with diagnosis of AML and pancytopenia. Patient was not felt to be a candidate for intensive therapy and decided to proceed with less intensive therapy. He completed treatment with Dacogen daily x 7 on 06/26/17. He developed chest pain and suffered a Non STEMI and atrial fibrillation with RVR approximately 3 weeks ago and is on medical management. No anticoagulation because of thrombocytopenia and risk of bleeding. Patient developed significant paroxysmal cough and worsening lung infiltrates and was on antibiotic therapy with cefepime and Levaquin with clinical improvement. Antibiotics were stopped on 07/07/17. Patient is feeling slightly better today. He has taken a few bites of solid food today and his taste is returning. Morphine helps with generalized discomfort and air hunger. He is on 0.8 mg/hr CI with 1 mg bolus every 30 minutes as needed. He has used several boluses in the past 24 hours. Will increase basal rate to 1.0 mg/hr continuous with 1 mg bolus every hour as needed. Vital Sign - Last 12Hours Date Time Temp Pulse Resp B/P (MAP) Pulse Ox O2 Delivery O2 Flow Rate FiO2 07/16/17 14:57 95 Nasal Cannula 2.00 07/16/17 08:00 96.7 83 24 118/52 07/15/17 07:02 2 Physical examination showed an elderly male, awake and oriented,weak-appearing, in no acute distress. Neck supple with no JVD. Lungs with few rhonchi bilaterally but no wheezes or rales. Cardiovascular exam was irregular in rhythm, no murmurs or gallops heard. Extremities showed no edema and no petechiae. Laboratory Tests 07/16/17 05:20 A/P: 1. Acute myeloid leukemia, not a candidate for intensive therapy. Status post treatment with Dacogen 7 days completed 06/26/2017. 2. Anemia and thrombocytopenia, probably due to AML and chemotherapy. hemoglobin at 7.6 but no symptoms and I will continue surveillance. 3. Increasing morphine use, change morphine by CANCER PROGRAM DIRECTOR to 1.0 mg CI with 1 mg bolus every hour prn. 4. History of NSTEMI and atrial fibrillation with RVR, on medical management. 5. Evidence of residual AML with persistent WBC and blasts. Patient has decided to proceed with best supportive care. 6. CKD stage 3. Monitor CMP in a.m. 7. Overall prognosis poor. Discussions held with patient and his daughter Shelbi about discharge plans. If he is feeling better, they would like to take him home with hospice care. His youngest daughter who has POA will be here Friday morning and I will discuss the plan with her also. SINA GREEN Jul 16, 2017 15:51
[2017-07-16] MEDS: ACETAMINOPHEN 500 MG TAB (TYLENOL) PO PRN (17:17)
[2017-07-16] MEDS: morphine PCA 30 MG/30 ML VIAL IV SCH (17:19)
[2017-07-16] MEDS: ONDANSETRON 4 MG/2 ML (SDV) Z0FRAN IVP PRN (18:40)
[2017-07-16 19:34] VITALS: BP 130/57
[2017-07-16] MEDS: POLYETHYLENE GLYCOL 17 GM (MIRALAX) PACK PO SCH (20:07)
[2017-07-16] MEDS: inSUlin DETERMIR 1 UNIT/0.01 ML (LEVEMIR) CHARGE PER UNIT SQ SCH (21:07)
[2017-07-17] MEDS: NS IV 1000 ML 1,000 ML IV SCH (04:56)
[2017-07-17] MEDS: PANTOPRAZOLE 40 MG (PROTONIX) TAB PO SCH (05:23)
[2017-07-17 05:33] LABS: BASOPHILS % (AUTO) 0 % (0-10); EOSINOPHILS % (AUTO) 0 % (0-10); LYMPHOCYTES # (AUTO) 2.8 X 10^3 (1.0-4.0); LYMPHOCYTES % (AUTO) 40 % (12-44); MEAN CORPUSCULAR HEMOGLOBIN 31 PG (25-34); MEAN CORPUSCULAR HGB CONC 32 G/DL (32-36); MEAN CORPUSCULAR VOLUME 96 FL (80-99); MEAN PLATELET VOLUME 9.9 FL (7.4-10.4); MONOCYTES # (AUTO) 3.4 X 10^3 (0.0-1.0); MONOCYTES % (AUTO) 49 % (0-12); NEUTROPHILS # (AUTO) 0.8 X 10^3 (1.8-7.8); NEUTROPHILS % (AUTO) 11 % (42-75); RED BLOOD COUNT 2.49 10^6/uL (4.35-5.85); RED CELL DISTRIBUTION WIDTH 13.9 % (10.0-14.5)
[2017-07-17 05:38] LABS: PLATELET COUNT 35 10^3/uL (130-400)
[2017-07-17 05:52] LABS: CALCIUM 9.5 MG/DL (8.5-10.1); CREATININE SERUM 1.94 MG/DL (0.60-1.30); POTASSIUM 4.2 MMOL/L (3.6-5.0)
[2017-07-17] MEDS: inSUlin (REGULAR) HUMAN 1 UNIT/0.01 ML (CHARGE PER UNIT) SC SCH ×4 (06:00→20:59)
[2017-07-17] MEDS: RT-ALBUTEROL/IPRATROPIUM 3 ML (DUONEB) VIAL INH SCH ×4 (07:10→19:25)
[2017-07-17 08:10] VITALS: BP 134/63
[2017-07-17] MEDS: TRIAMCINOLONE 0.5% OINT (KENALOG) 15 GM TUBE TOP SCH ×2 (09:37→21:01)
[2017-07-17] MEDS: ISOSORBIDE MONONITRATE 60 MG (IMDUR) TAB PO SCH (09:37)
[2017-07-17] MEDS: ASPIRIN 81 MG CHEW (CHILDREN'S ASA) PO SCH (09:37)
[2017-07-17] MEDS: amLODIPine 5 MG (NORVASC) TAB PO SCH ×2 (09:38→20:59)
[2017-07-17] MEDS: TELMISARTAN 40 MG (MICARDIS) TAB PO SCH (09:38)
[2017-07-17] MEDS: meTOprolol TARTRATE 25 MG (LOPRESSOR) TABLET PO SCH ×3 (09:38→20:59)
--- NOTE | 2017-07-17 17:57 | Progress Note-Standard ---
Standard Progress Note Progress Notes/Assess & Plan Date Seen by Provider: Jul 17, 2017 Time Seen by Provider: 17:52 Progress/Assessment & Plan 82-year-old male with diagnosis of AML and pancytopenia. Patient was not felt to be a candidate for intensive therapy and decided to proceed with less intensive therapy. He completed treatment with Dacogen daily x 7 on 06/26/17. He developed chest pain and suffered a Non STEMI and atrial fibrillation with RVR approximately 3 weeks ago and is on medical management. No anticoagulation because of thrombocytopenia and risk of bleeding. Patient developed significant paroxysmal cough and worsening lung infiltrates and was on antibiotic therapy with cefepime and Levaquin with clinical improvement. Antibiotics were stopped on 07/07/17. Patient is feeling very weak today. He denied chest pain but has HDEZ. Morphine helps with air hunger. He is on 1.0 mg/hr CI with 1 mg bolus every hour as needed. He has used 3 boluses through the day. Vital Sign - Last 12Hours Date Time Temp Pulse Resp B/P (MAP) Pulse Ox O2 Delivery O2 Flow Rate FiO2 07/17/17 15:18 93 Nasal Cannula 2.00 07/17/17 08:10 99.8 93 18 134/63 07/15/17 07:02 2 Physical examination showed an elderly male, awake and oriented,weak-appearing, in mild respiratory distress. Neck supple with no JVD. Lungs with few rhonchi bilaterally but no wheezes or rales. Cardiovascular exam was irregular in rhythm, no murmurs or gallops heard. Extremities showed no edema and no petechiae. Left groin lesion packed with no drainage. Laboratory Tests 07/17/17 05:20 A/P: 1. Acute myeloid leukemia, not a candidate for intensive therapy. Status post treatment with Dacogen 7 days completed 06/26/2017. 2. Anemia and thrombocytopenia, probably due to AML and chemotherapy. hemoglobin at 7.6 with increasing weakness. We will transfuse 2 units of PRBCs with premedications today. 3. Increasing morphine use, change morphine by FRUIT OR NUT CROPS FARM MANAGER to 1.0 mg CI with 1 mg bolus every hour prn. 4. History of NSTEMI and atrial fibrillation with RVR, on medical management. 5. Evidence of residual AML with persistent WBC and blasts. Patient has decided to proceed with best supportive care. 6. CKD stage 3. Monitor CMP in a.m. 7. Overall prognosis poor. Discussions held with patient and his daughter Shelbi about discharge plans. If he is feeling better, they would like to take him home with hospice care. His youngest daughter who has POA will be here Friday morning and I will discuss the plan with her also. SINA GREEN Jul 17, 2017 17:57
[2017-07-17] MEDS: morphine PCA 30 MG/30 ML VIAL IV SCH (18:35)
[2017-07-17 20:00] VITALS: BP 124/60
[2017-07-17] MEDS: POLYETHYLENE GLYCOL 17 GM (MIRALAX) PACK PO SCH (20:59)
[2017-07-17] MEDS: inSUlin DETERMIR 1 UNIT/0.01 ML (LEVEMIR) CHARGE PER UNIT SQ SCH (20:59)
[2017-07-17] MEDS ORDERED: ACETAMINOPHEN 500 MG TAB (TYLENOL) PO ONE (23:30)
[2017-07-17] MEDS ORDERED: diphenhydrAMINE 25 MG TAB (BENADRYL) PO ONE (23:30)
[2017-07-17] MEDS ORDERED: NS IV 500 ML 500 ML ONE (23:51)
[2017-07-18] VITALS (9 sets, daily range): BP systolic 117–136; BP diastolic 57–65
[2017-07-18] MEDS: inSUlin (REGULAR) HUMAN 1 UNIT/0.01 ML (CHARGE PER UNIT) SC SCH ×3 (05:12→21:33)
[2017-07-18 06:15] LABS: BASOPHILS % (AUTO) 0 % (0-10); EOSINOPHILS % (AUTO) 0 % (0-10); LYMPHOCYTES # (AUTO) 4.7 X 10^3 (1.0-4.0); LYMPHOCYTES % (AUTO) 48 % (12-44); MEAN CORPUSCULAR HEMOGLOBIN 31 PG (25-34); MEAN CORPUSCULAR HGB CONC 33 G/DL (32-36); MEAN CORPUSCULAR VOLUME 95 FL (80-99); MEAN PLATELET VOLUME 10.5 FL (7.4-10.4); MONOCYTES # (AUTO) 3.9 X 10^3 (0.0-1.0); MONOCYTES % (AUTO) 39 % (0-12); NEUTROPHILS # (AUTO) 1.3 X 10^3 (1.8-7.8); NEUTROPHILS % (AUTO) 13 % (42-75); RED BLOOD COUNT 2.99 10^6/uL (4.35-5.85); RED CELL DISTRIBUTION WIDTH 14.3 % (10.0-14.5); WHITE BLOOD COUNT 9.9 10^3/uL (4.3-11.0)
[2017-07-18 06:26] LABS: PLATELET COUNT 30 10^3/uL (130-400)
[2017-07-18 06:41] LABS: ALBUMIN 2.6 GM/DL (3.2-4.5); BILIRUBIN,TOTAL 0.9 MG/DL (0.1-1.0); CALCIUM 9.8 MG/DL (8.5-10.1); CREATININE SERUM 1.8 MG/DL (0.60-1.30); TOTAL PROTEIN 5.9 GM/DL (6.4-8.2)
[2017-07-18] MEDS: RT-ALBUTEROL/IPRATROPIUM 3 ML (DUONEB) VIAL INH SCH ×4 (07:39→18:32)
[2017-07-18] MEDS: PANTOPRAZOLE 40 MG (PROTONIX) TAB PO SCH (08:52)
[2017-07-18] MEDS: TELMISARTAN 40 MG (MICARDIS) TAB PO SCH (08:52)
[2017-07-18] MEDS: amLODIPine 5 MG (NORVASC) TAB PO SCH ×2 (08:52→21:33)
[2017-07-18] MEDS: meTOprolol TARTRATE 25 MG (LOPRESSOR) TABLET PO SCH ×3 (08:52→21:33)
[2017-07-18] MEDS: ISOSORBIDE MONONITRATE 60 MG (IMDUR) TAB PO SCH (08:53)
[2017-07-18] MEDS: ASPIRIN 81 MG CHEW (CHILDREN'S ASA) PO SCH (08:53)
[2017-07-18] MEDS: NS IV 1000 ML 1,000 ML IV SCH (11:05)
[2017-07-18] MEDS: TRIAMCINOLONE 0.5% OINT (KENALOG) 15 GM TUBE TOP SCH ×2 (11:06→21:33)
--- NOTE | 2017-07-18 13:33 | Progress Note-Standard ---
Standard Progress Note Progress Notes/Assess & Plan Date Seen by Provider: Jul 18, 2017 Time Seen by Provider: 13:25 Progress/Assessment & Plan 82-year-old male with diagnosis of AML and pancytopenia. Patient was not felt to be a candidate for intensive therapy and decided to proceed with less intensive therapy. He completed treatment with Dacogen daily x 7 on 06/26/17. He developed chest pain and suffered a Non STEMI and atrial fibrillation with RVR approximately 3 weeks ago and is on medical management. No anticoagulation because of thrombocytopenia and risk of bleeding. Patient developed significant paroxysmal cough and worsening lung infiltrates and was on antibiotic therapy with cefepime and Levaquin with clinical improvement. Antibiotics were stopped on 07/07/17. Patient is feeling weak today as he didn't sleep well due to blood transfusion. He denied chest pain, palpitations or orthopnea. He is on morphine 1.0 mg/hr CI with 1 mg bolus every hour as needed. He has used few boluses through the last 24 hours. Blood sugars low in AM. Vital Sign - Last 12Hours Date Time Temp Pulse Resp B/P (MAP) Pulse Ox O2 Delivery O2 Flow Rate FiO2 07/18/17 12:00 98.7 76 20 118/57 94 Nasal Cannula 2.00 07/15/17 07:02 2 Physical examination showed an elderly male, awake and oriented,weak-appearing, in mild respiratory distress. Neck supple with no JVD. Lungs with few rhonchi bilaterally but no wheezes or rales. Cardiovascular exam was irregular in rhythm, no murmurs or gallops heard. Extremities showed no edema and no petechiae. Left groin lesion packed with no drainage. Laboratory Tests 07/18/17 05:45 A/P: 1. Acute myeloid leukemia, not a candidate for intensive therapy. Status post treatment with Dacogen 7 days completed 06/26/2017. 2. Anemia and thrombocytopenia, probably due to AML and chemotherapy. hemoglobin improved with transfusion. Platelets stable. 3. Currently on morphine by STRETCHER HELPER to 1.0 mg CI with 1 mg bolus every hour prn. Will increase basal rate to 1.2 mg/hr. 4. History of NSTEMI and atrial fibrillation with RVR, on medical management. 5. Evidence of residual AML with persistent WBC and blasts. Patient has decided to proceed with best supportive care. 6. CKD stage 3. Monitor serially. 7. Overall prognosis poor. Discussions held with patient, his and his daughter in presence of Trinity (social media marketer) about discharge plans. The patient and his family would prefer to take him home with hospice and wanted to talk to [facility] today afternoon. Continue lab work and transfusion support for now. If stable will plan discharge early to mid next week with hospice. 8. No oncology coverage for this weekend. SINA GREEN Jul 18, 2017 13:33
[2017-07-18] MEDS ORDERED: inSUlin (REGULAR) HUMAN 1 UNIT/0.01 ML (CHARGE PER UNIT) SC SCH (16:00)
[2017-07-18] MEDS: morphine PCA 30 MG/30 ML VIAL IV SCH (16:37)
[2017-07-18] MEDS: POLYETHYLENE GLYCOL 17 GM (MIRALAX) PACK PO SCH (21:32)
[2017-07-18] MEDS: inSUlin DETERMIR 1 UNIT/0.01 ML (LEVEMIR) CHARGE PER UNIT SQ SCH (21:33)
[2017-07-19 05:26] LABS: BASOPHILS % (AUTO) 0 % (0-10); EOSINOPHILS % (AUTO) 0 % (0-10); LYMPHOCYTES # (AUTO) 3.7 X 10^3 (1.0-4.0); LYMPHOCYTES % (AUTO) 47 % (12-44); MEAN CORPUSCULAR HEMOGLOBIN 30 PG (25-34); MEAN CORPUSCULAR HGB CONC 32 G/DL (32-36); MEAN CORPUSCULAR VOLUME 94 FL (80-99); MEAN PLATELET VOLUME 10.8 FL (7.4-10.4); MONOCYTES # (AUTO) 2.8 X 10^3 (0.0-1.0); MONOCYTES % (AUTO) 36 % (0-12); NEUTROPHILS # (AUTO) 1.4 X 10^3 (1.8-7.8); NEUTROPHILS % (AUTO) 17 % (42-75); RED BLOOD COUNT 2.91 10^6/uL (4.35-5.85); RED CELL DISTRIBUTION WIDTH 14.6 % (10.0-14.5); WHITE BLOOD COUNT 7.9 10^3/uL (4.3-11.0)
[2017-07-19 05:30] LABS: PLATELET COUNT 28 10^3/uL (130-400)
[2017-07-19] MEDS: inSUlin (REGULAR) HUMAN 1 UNIT/0.01 ML (CHARGE PER UNIT) SC SCH ×4 (05:34→20:37)
[2017-07-19 05:53] LABS: CALCIUM 9.4 MG/DL (8.5-10.1); CREATININE SERUM 1.68 MG/DL (0.60-1.30); POTASSIUM 4.1 MMOL/L (3.6-5.0)
[2017-07-19] MEDS: PANTOPRAZOLE 40 MG (PROTONIX) TAB PO SCH (06:23)
[2017-07-19] MEDS: RT-ALBUTEROL/IPRATROPIUM 3 ML (DUONEB) VIAL INH SCH ×4 (07:00→18:47)
[2017-07-19 07:53] VITALS: BP 138/63
[2017-07-19] MEDS: TRIAMCINOLONE 0.5% OINT (KENALOG) 15 GM TUBE TOP SCH ×2 (08:17→20:37)
[2017-07-19] MEDS: ONDANSETRON 4 MG/2 ML (SDV) Z0FRAN IVP PRN (09:31)
[2017-07-19] MEDS: ACETAMINOPHEN 500 MG TAB (TYLENOL) PO PRN (09:33)
[2017-07-19] MEDS: meTOprolol TARTRATE 25 MG (LOPRESSOR) TABLET PO SCH ×3 (09:33→20:37)
[2017-07-19] MEDS: ASPIRIN 81 MG CHEW (CHILDREN'S ASA) PO SCH (09:34)
[2017-07-19] MEDS: ISOSORBIDE MONONITRATE 60 MG (IMDUR) TAB PO SCH (09:34)
[2017-07-19] MEDS: TELMISARTAN 40 MG (MICARDIS) TAB PO SCH (09:34)
[2017-07-19] MEDS: amLODIPine 5 MG (NORVASC) TAB PO SCH ×2 (09:34→20:37)
[2017-07-19 10:53] VITALS: BP 138/63
--- NOTE | 2017-07-19 12:04 | Progress Note-Hospitalist ---
Subjective HPI/CC On Admission Date Seen by Provider: Jul 19, 2017 Time Seen by Provider: 11:45 Subjective/Events-last exam patient complains of fatigue. He did have a temperature that resolved with Tylenol. He is looking forward to going home next Friday with [facility] Review of Systems General: Chills, Fatigue Neurological: Weakness Objective Exam Vital Signs Vital Sign - Last 12Hours 07/13/17 07/13/17 07/15/17 04:04 06:58 07:02 Resp 20 Pulse Ox 97 O2 Delivery Nasal Cannula O2 Flow Rate 3.50 FiO2 2 Capillary Refill : Less Than 3 Seconds General Appearance: Chronically ill Respiratory: Lungs Clear, Normal Breath Sounds, No Accessory Muscle Use Cardiovascular: Regular Rate, Rhythm, No Gallop Gastrointestinal: No Organomegaly, Non Tender, Soft Rectal: Deferred Extremity: Pedal Edema Results/Procedures Lab Laboratory Tests 07/19/17 05:05 Assessment/Plan Assessment and Plan Assess & Plan/Chief Complaint 1. Acute myeloid leukemia, not a candidate for intensive therapy. Status post treatment with Dacogen 7 days completed 06/26/2017. 2. Anemia and thrombocytopenia, probably due to AML and chemotherapy. hemoglobin improved with transfusion. Platelets stable. 3. Currently on morphine by C++ PROFESSOR to 1.0 mg CI with 1 mg bolus every hour prn. Will increase basal rate to 1.2 mg/hr. 4. History of NSTEMI and atrial fibrillation with RVR, on medical management. 5. Evidence of residual AML with persistent WBC and blasts. Patient has decided to proceed with best supportive care. 6. CKD stage 3. Monitor serially. 7. Overall prognosis poor. Discussions held with patient, his and his daughter in presence of Trinity (social media project manager) about discharge plans. The patient and his family would prefer to take him home with hospice and shows [facility]. Continue lab work and transfusion support for now. If stable will plan discharge early to mid next week with hospice. SINA GREEN Jul 18, 2017 13:33 ABEBE WALLACE MD Jul 19, 2017 12:04
[2017-07-19] MEDS: NS IV 1000 ML 1,000 ML IV SCH (13:50)
[2017-07-19] MEDS: morphine PCA 30 MG/30 ML VIAL IV SCH (16:09)
[2017-07-19 20:23] VITALS: BP 127/60
[2017-07-19] MEDS: POLYETHYLENE GLYCOL 17 GM (MIRALAX) PACK PO SCH (20:36)
[2017-07-19] MEDS: inSUlin DETERMIR 1 UNIT/0.01 ML (LEVEMIR) CHARGE PER UNIT SQ SCH (20:36)
[2017-07-20] MEDS: inSUlin (REGULAR) HUMAN 1 UNIT/0.01 ML (CHARGE PER UNIT) SC SCH ×4 (06:19→21:12)
[2017-07-20] MEDS: PANTOPRAZOLE 40 MG (PROTONIX) TAB PO SCH (06:19)
[2017-07-20] MEDS: RT-ALBUTEROL/IPRATROPIUM 3 ML (DUONEB) VIAL INH SCH ×4 (07:00→19:00)
[2017-07-20] MEDS: ONDANSETRON 4 MG/2 ML (SDV) Z0FRAN IVP PRN (07:56)
[2017-07-20] MEDS: TRIAMCINOLONE 0.5% OINT (KENALOG) 15 GM TUBE TOP SCH ×2 (07:57→21:12)
[2017-07-20] MEDS: ACETAMINOPHEN 500 MG TAB (TYLENOL) PO PRN (07:57)
[2017-07-20 08:00] VITALS: BP 142/63
[2017-07-20] MEDS: ASPIRIN 81 MG CHEW (CHILDREN'S ASA) PO SCH (08:56)
[2017-07-20] MEDS: NS IV 1000 ML 1,000 ML IV SCH (08:56)
[2017-07-20] MEDS: meTOprolol TARTRATE 25 MG (LOPRESSOR) TABLET PO SCH ×3 (08:56→21:24)
[2017-07-20] MEDS: amLODIPine 5 MG (NORVASC) TAB PO SCH ×2 (08:56→21:24)
[2017-07-20] MEDS: TELMISARTAN 40 MG (MICARDIS) TAB PO SCH (08:56)
[2017-07-20] MEDS: ISOSORBIDE MONONITRATE 60 MG (IMDUR) TAB PO SCH (08:56)
[2017-07-20] MEDS: CATHETER FLUSH 10 ML SYR IV PRN (10:29)
--- NOTE | 2017-07-20 11:15 | Progress Note-Hospitalist ---
Subjective HPI/CC On Admission Date Seen by Provider: Jul 20, 2017 Time Seen by Provider: 10:00 Subjective/Events-last exam patient says had nausea today and slight emesis. Febrile overnight up to about 100. No complaints of any new pain or other symptoms. He hopes to get strong enough to go through another round of chemotherapy Review of Systems Gastrointestinal: Nausea, Vomiting Neurological: Weakness Objective Exam Vital Signs Vital Sign - Last 12Hours 07/14/17 07/14/17 07/15/17 05:37 06:31 07:02 Temp 99.1 Pulse 94 Resp 18 B/P (MAP) 146/67 Pulse Ox 94 O2 Delivery Nasal Cannula O2 Flow Rate 2.50 FiO2 2 Capillary Refill : Less Than 3 Seconds General Appearance: Chronically ill HEENT: Pale Conjunctivae (R) Neck: Limited Range of Motion Respiratory: Lungs Clear, Normal Breath Sounds, No Accessory Muscle Use Cardiovascular: Regular Rate, Rhythm, No Gallop Gastrointestinal: Soft, Other (decreased bowel sounds) Extremity: Non Tender, No Calf Tenderness Neurologic/Psychiatric: Alert, Depressed Affect Assessment/Plan Assessment and Plan Assess & Plan/Chief Complaint 1. Acute myeloid leukemia, not a candidate for intensive therapy. Status post treatment with Dacogen 7 days completed 06/26/2017. 2. Anemia and thrombocytopenia, probably due to AML and chemotherapy. hemoglobin improved with transfusion. Platelets stable. 3. Currently on morphine by WOOD DOWEL MACHINE OPERATOR to 1.0 mg CI with 1 mg bolus every hour prn. Will increase basal rate to 1.2 mg/hr. 4. History of NSTEMI and atrial fibrillation with RVR, on medical management. 5. Evidence of residual AML with persistent WBC and blasts. Patient has decided to proceed with best supportive care. 6. CKD stage 3. Monitor serially. 7. Overall prognosis poor. Discussions held with patient, his and his daughter in presence of Trinity (case management social worker) about discharge plans. The patient and his family would prefer to take him home with hospice and shows [facility]. Continue lab work and transfusion support for now. If stable will plan discharge early to mid next week with hospice. 8. nausea with slight emesis may be secondary to morphine will monitor for now 9. Fever we'll check a UA and a chest x-ray today Jul 18, 2017 13:33 ABEBE WALLACE MD Jul 20, 2017 11:15
--- NOTE | 2017-07-20 12:25 | Diagnostic Imaging Report ---
EXAM: Portable erect AP chest at 11:15 a.m. INDICATION: Fever. FINDINGS: In the interval since the prior exam of 07/07/17, the atelectasis/infiltrate involving the left lung base has increased. The vague area of increased density along the periphery of the right mid lung noted previously is again evident and essentially no different. There may be some atelectasis/infiltrate and fluid in the right lung base, as well. This is essentially no different. The heart is stable in size. The mediastinum is not widened. The osseous structures are intact. The right-sided Port-A-Cath noted previously remains in good position. IMPRESSION: The appearance of the chest has worsened since the previous study as there is greater involvement of the left lung base by pneumonia/atelectasis. A followup exam would be recommended for continued study. Dictated by: Dictated on workstation # [id number]
[2017-07-20 14:12] LABS: BILIRUBIN,URINE NEGATIVE (NEGATIVE); KETONES,URINE NEGATIVE (NEGATIVE); NITRITE,URINE NEGATIVE (NEGATIVE); PH,URINE 5 (5-9); PROTEIN,URINE 2+ (NEGATIVE); UROBILINOGEN,URINE NORMAL (NORMAL)
[2017-07-20 14:13] LABS: LEUKOCYTE ESTERASE ,URINE NEGATIVE (NEGATIVE); SQUAMOUS EPITHELIAL CELL,UR 0-2 /HPF; WBC,URINE 0-2 /HPF
[2017-07-20] MEDS ORDERED: HALOPERIDOL 2 MG (HALDOL) TABLET PO PRN (15:15)
[2017-07-20] MEDS: morphine PCA 30 MG/30 ML VIAL IV SCH (18:25)
[2017-07-20 19:56] VITALS: BP 128/59
[2017-07-20] MEDS: POLYETHYLENE GLYCOL 17 GM (MIRALAX) PACK PO SCH (21:24)
[2017-07-20] MEDS: inSUlin DETERMIR 1 UNIT/0.01 ML (LEVEMIR) CHARGE PER UNIT SQ SCH (21:26)
[2017-07-21] MEDS: inSUlin (REGULAR) HUMAN 1 UNIT/0.01 ML (CHARGE PER UNIT) SC SCH ×4 (05:33→20:30)
[2017-07-21] MEDS: PANTOPRAZOLE 40 MG (PROTONIX) TAB PO SCH (06:26)
[2017-07-21] MEDS: RT-ALBUTEROL/IPRATROPIUM 3 ML (DUONEB) VIAL INH SCH ×4 (06:37→19:45)
[2017-07-21 07:00] LABS: ALBUMIN 2.5 GM/DL (3.2-4.5); BILIRUBIN,TOTAL 0.8 MG/DL (0.1-1.0); CALCIUM 9.5 MG/DL (8.5-10.1); CREATININE SERUM 1.7 MG/DL (0.60-1.30); POTASSIUM 3.9 MMOL/L (3.6-5.0); TOTAL PROTEIN 5.5 GM/DL (6.4-8.2)
[2017-07-21 07:02] LABS: BASOPHILS % (AUTO) 0 % (0-10); EOSINOPHILS % (AUTO) 0 % (0-10); LYMPHOCYTES # (AUTO) 3.3 X 10^3 (1.0-4.0); LYMPHOCYTES % (AUTO) 39 % (12-44); MEAN CORPUSCULAR HEMOGLOBIN 31 PG (25-34); MEAN CORPUSCULAR HGB CONC 32 G/DL (32-36); MEAN CORPUSCULAR VOLUME 94 FL (80-99); MONOCYTES # (AUTO) 3.4 X 10^3 (0.0-1.0); MONOCYTES % (AUTO) 40 % (0-12); NEUTROPHILS # (AUTO) 1.7 X 10^3 (1.8-7.8); NEUTROPHILS % (AUTO) 20 % (42-75); RED BLOOD COUNT 3.04 10^6/uL (4.35-5.85); RED CELL DISTRIBUTION WIDTH 14.4 % (10.0-14.5); WHITE BLOOD COUNT 8.5 10^3/uL (4.3-11.0)
[2017-07-21 07:19] LABS: PLATELET COUNT 19 10^3/uL (130-400)
[2017-07-21 08:00] VITALS: BP 136/73
[2017-07-21] MEDS: ISOSORBIDE MONONITRATE 60 MG (IMDUR) TAB PO SCH (09:08)
[2017-07-21] MEDS: TELMISARTAN 40 MG (MICARDIS) TAB PO SCH (09:08)
[2017-07-21] MEDS: amLODIPine 5 MG (NORVASC) TAB PO SCH ×2 (09:08→20:25)
[2017-07-21] MEDS: meTOprolol TARTRATE 25 MG (LOPRESSOR) TABLET PO SCH ×3 (09:08→20:25)
[2017-07-21] MEDS: ASPIRIN 81 MG CHEW (CHILDREN'S ASA) PO SCH (09:09)
[2017-07-21] MEDS: TRIAMCINOLONE 0.5% OINT (KENALOG) 15 GM TUBE TOP SCH ×2 (09:11→20:26)
[2017-07-21] MEDS: NS IV 1000 ML 1,000 ML IV SCH (09:37)
--- NOTE | 2017-07-21 17:04 | Progress Note-Standard ---
Standard Progress Note Progress Notes/Assess & Plan Date Seen by Provider: Jul 21, 2017 Time Seen by Provider: 16:58 Progress/Assessment & Plan 82-year-old male with diagnosis of AML and pancytopenia. Patient was not felt to be a candidate for intensive therapy and decided to proceed with less intensive therapy. He completed treatment with Dacogen daily x 7 on 06/26/17. He developed chest pain and suffered a Non STEMI and atrial fibrillation with RVR approximately 3 weeks ago and is on medical management. No anticoagulation because of thrombocytopenia and risk of bleeding. Patient developed significant paroxysmal cough and worsening lung infiltrates and was on antibiotic therapy with cefepime and Levaquin with clinical improvement. Antibiotics were stopped on 07/07/17. Patient is feeling weak today as he didn't sleep well last night due to fever. No significant cough or SOB. He denied chest pain, palpitations or orthopnea. He is on morphine 1.2 mg/hr CI with 1 mg bolus every hour as needed. Vital Sign - Last 12Hours Date Time Temp Pulse Resp B/P (MAP) Pulse Ox O2 Delivery O2 Flow Rate FiO2 07/21/17 14:32 96 Nasal Cannula 2.00 07/21/17 09:30 99.0 07/21/17 08:00 98 20 136/73 07/19/17 10:53 2 Physical examination showed an elderly male, awake and oriented,weak-appearing, in no acute distress. Neck supple with no JVD. Lungs with few rhonchi bilaterally but no wheezes or rales. Cardiovascular exam was irregular in rhythm, borderline tachycardic, no murmurs or gallops heard. Extremities showed no edema and no petechiae. Left groin lesion stable with no drainage. Laboratory Tests 07/21/17 06:25 A/P: 1. Acute myeloid leukemia, not a candidate for intensive therapy. Status post treatment with Dacogen 7 days completed 06/26/2017. 2. Anemia and thrombocytopenia, probably due to AML and chemotherapy. hemoglobin stable after transfusion. Platelets declining. 3. Currently on morphine by DIRECTOR ORANGE to 1.2 mg CI with 1 mg bolus every hour prn. 4. History of NSTEMI and atrial fibrillation with RVR, on medical management. 5. Evidence of residual AML with persistent blasts in smear. Patient has decided to proceed with best supportive care. 6. CKD stage 3. Monitor serially. 7. Overall prognosis poor. [facility] making arrangements with possible d/ c by midweek. SINA GREEN Jul 21, 2017 17:04
[2017-07-21 19:15] VITALS: BP 132/62
[2017-07-21] MEDS: POLYETHYLENE GLYCOL 17 GM (MIRALAX) PACK PO SCH (20:25)
[2017-07-21] MEDS: inSUlin DETERMIR 1 UNIT/0.01 ML (LEVEMIR) CHARGE PER UNIT SQ SCH (20:33)
[2017-07-22] VITALS (7 sets, daily range): BP systolic 125–161; BP diastolic 54–73
[2017-07-22] MEDS: morphine PCA 30 MG/30 ML VIAL IV SCH ×2 (00:06→21:31)
[2017-07-22 05:20] LABS: BASOPHILS % (AUTO) 0 % (0-10); EOSINOPHILS # (AUTO) 0.1 10^3/uL (0.0-0.3); EOSINOPHILS % (AUTO) 1 % (0-10); LYMPHOCYTES # (AUTO) 3.3 X 10^3 (1.0-4.0); LYMPHOCYTES % (AUTO) 37 % (12-44); MEAN CORPUSCULAR HEMOGLOBIN 31 PG (25-34); MEAN CORPUSCULAR HGB CONC 33 G/DL (32-36); MEAN CORPUSCULAR VOLUME 94 FL (80-99); MEAN PLATELET VOLUME 10.2 FL (7.4-10.4); MONOCYTES # (AUTO) 3.5 X 10^3 (0.0-1.0); MONOCYTES % (AUTO) 40 % (0-12); NEUTROPHILS % (AUTO) 22 % (42-75); RED BLOOD COUNT 2.92 10^6/uL (4.35-5.85); RED CELL DISTRIBUTION WIDTH 14.3 % (10.0-14.5); WHITE BLOOD COUNT 8.9 10^3/uL (4.3-11.0)
[2017-07-22 05:22] LABS: PLATELET COUNT 15 10^3/uL (130-400)
[2017-07-22] MEDS: PANTOPRAZOLE 40 MG (PROTONIX) TAB PO SCH (05:32)
[2017-07-22 05:35] LABS: CALCIUM 9.5 MG/DL (8.5-10.1); CREATININE SERUM 1.6 MG/DL (0.60-1.30); POTASSIUM 3.6 MMOL/L (3.6-5.0)
[2017-07-22] MEDS: inSUlin (REGULAR) HUMAN 1 UNIT/0.01 ML (CHARGE PER UNIT) SC SCH ×4 (05:48→21:18)
[2017-07-22] MEDS: RT-ALBUTEROL/IPRATROPIUM 3 ML (DUONEB) VIAL INH SCH ×4 (07:08→19:00)
[2017-07-22] MEDS: meTOprolol TARTRATE 25 MG (LOPRESSOR) TABLET PO SCH ×3 (08:37→21:32)
[2017-07-22] MEDS: ISOSORBIDE MONONITRATE 60 MG (IMDUR) TAB PO SCH (08:37)
[2017-07-22] MEDS: TRIAMCINOLONE 0.5% OINT (KENALOG) 15 GM TUBE TOP SCH ×2 (08:38→21:32)
[2017-07-22] MEDS: amLODIPine 5 MG (NORVASC) TAB PO SCH ×2 (08:38→21:31)
[2017-07-22] MEDS: TELMISARTAN 40 MG (MICARDIS) TAB PO SCH (08:38)
[2017-07-22] MEDS: ASPIRIN 81 MG CHEW (CHILDREN'S ASA) PO SCH (08:38)
[2017-07-22] MEDS ORDERED: ACETAMINOPHEN 500 MG TAB (TYLENOL) PO NR (09:00)
[2017-07-22] MEDS ORDERED: diphenhydrAMINE 25 MG TAB (BENADRYL) PO NR (09:00)
[2017-07-22] MEDS ORDERED: NS IV 500 ML 500 ML IV SCH (10:15)
[2017-07-22] MEDS: NS IV 1000 ML 1,000 ML IV SCH (11:36)
--- NOTE | 2017-07-22 16:43 | Progress Note-Standard ---
Standard Progress Note Progress Notes/Assess & Plan Date Seen by Provider: Jul 22, 2017 Time Seen by Provider: 16:39 Progress/Assessment & Plan 82-year-old male with diagnosis of AML and pancytopenia. Patient was not felt to be a candidate for intensive therapy and decided to proceed with less intensive therapy. He completed treatment with Dacogen daily x 7 on 06/26/17. He developed chest pain and suffered a Non STEMI and atrial fibrillation with RVR approximately 3 weeks ago and is on medical management. No anticoagulation because of thrombocytopenia and risk of bleeding. Patient developed significant paroxysmal cough and worsening lung infiltrates and was on antibiotic therapy with cefepime and Levaquin with clinical improvement. Antibiotics were stopped on 07/07/17. Patient is feeling weak but stable. Still having low grade fevers. No significant cough or SOB. He denied chest pain, palpitations or orthopnea. He is on morphine 1.2 mg/hr CI with 1 mg bolus every hour as needed. Vital Sign - Last 12Hours Date Time Temp Pulse Resp B/P (MAP) Pulse Ox O2 Delivery O2 Flow Rate FiO2 07/22/17 15:10 99.3 100 18 125/73 98 Nasal Cannula 2.50 07/22/17 07:08 24 Physical examination showed an elderly male, awake and oriented, weak-appearing , in no acute distress. Neck supple with no JVD. Lungs with few rhonchi bilaterally but no wheezes or rales. Cardiovascular exam was irregular in rhythm, borderline tachycardic, no murmurs or gallops heard. Extremities showed few petechiae. Left groin lesion stable with no drainage. Laboratory Tests 07/22/17 05:15 A/P: 1. Acute myeloid leukemia, not a candidate for intensive therapy. Status post treatment with Dacogen 7 days completed 06/26/2017. 2. Anemia and thrombocytopenia due to AML. Will transfuse 1 unit of PRBC and 1 unit of platelets today. 3. Currently on morphine by CAR SALESMAN to 1.2 mg CI with 1 mg bolus every hour prn. Continue. 4. History of NSTEMI and atrial fibrillation with RVR, on medical management. 5. Evidence of residual AML with persistent blasts in smear. Patient has decided to proceed with best supportive care. 6. CKD stage 3. Monitor serially. 7. Overall prognosis poor. [facility] making arrangements with possible d/ c tomorrow. SINA GREEN Jul 22, 2017 16:43
[2017-07-22] MEDS: POLYETHYLENE GLYCOL 17 GM (MIRALAX) PACK PO SCH (21:31)
[2017-07-22] MEDS: inSUlin DETERMIR 1 UNIT/0.01 ML (LEVEMIR) CHARGE PER UNIT SQ SCH (21:31)
[2017-07-23 05:17] LABS: BASOPHILS % (AUTO) 0 % (0-10); EOSINOPHILS # (AUTO) 0.1 10^3/uL (0.0-0.3); EOSINOPHILS % (AUTO) 1 % (0-10); LYMPHOCYTES # (AUTO) 2.8 X 10^3 (1.0-4.0); LYMPHOCYTES % (AUTO) 38 % (12-44); MEAN CORPUSCULAR HEMOGLOBIN 31 PG (25-34); MEAN CORPUSCULAR HGB CONC 33 G/DL (32-36); MEAN CORPUSCULAR VOLUME 92 FL (80-99); MEAN PLATELET VOLUME 10.4 FL (7.4-10.4); MONOCYTES # (AUTO) 3.1 X 10^3 (0.0-1.0); MONOCYTES % (AUTO) 40 % (0-12); NEUTROPHILS # (AUTO) 1.6 X 10^3 (1.8-7.8); NEUTROPHILS % (AUTO) 21 % (42-75); RED BLOOD COUNT 3.21 10^6/uL (4.35-5.85); RED CELL DISTRIBUTION WIDTH 14.7 % (10.0-14.5); WHITE BLOOD COUNT 7.6 10^3/uL (4.3-11.0)
[2017-07-23 05:34] LABS: CALCIUM 9.5 MG/DL (8.5-10.1); CREATININE SERUM 1.55 MG/DL (0.60-1.30); POTASSIUM 3.8 MMOL/L (3.6-5.0)
[2017-07-23 05:38] LABS: PLATELET COUNT 28 10^3/uL (130-400)
[2017-07-23] MEDS: inSUlin (REGULAR) HUMAN 1 UNIT/0.01 ML (CHARGE PER UNIT) SC SCH ×2 (06:07→11:08)
[2017-07-23] MEDS: ONDANSETRON 4 MG/2 ML (SDV) Z0FRAN IVP PRN (06:11)
[2017-07-23] MEDS: PANTOPRAZOLE 40 MG (PROTONIX) TAB PO SCH (06:11)
[2017-07-23] MEDS: RT-ALBUTEROL/IPRATROPIUM 3 ML (DUONEB) VIAL INH SCH ×2 (07:00→10:10)
[2017-07-23 08:00] VITALS: BP 145/66
[2017-07-23] MEDS: meTOprolol TARTRATE 25 MG (LOPRESSOR) TABLET PO SCH ×2 (08:35→15:05)
[2017-07-23] MEDS: ASPIRIN 81 MG CHEW (CHILDREN'S ASA) PO SCH (08:35)
[2017-07-23] MEDS: ISOSORBIDE MONONITRATE 60 MG (IMDUR) TAB PO SCH (08:35)
[2017-07-23] MEDS: amLODIPine 5 MG (NORVASC) TAB PO SCH (08:35)
[2017-07-23] MEDS: TELMISARTAN 40 MG (MICARDIS) TAB PO SCH (08:35)
[2017-07-23] MEDS: TRIAMCINOLONE 0.5% OINT (KENALOG) 15 GM TUBE TOP SCH (09:44)
[2017-07-23] MEDS: NS IV 1000 ML 1,000 ML IV SCH (10:57)
[2017-07-23] MEDS ORDERED: LORazepam INJ 2 MG/ML (ATIVAN) VIAL IVP NR (14:15)
[2017-07-23] MEDS ORDERED: TRIA15OI9 TOP (14:26)
[2017-07-23] MEDS ORDERED: POLY17PO23 PO (14:26)
[2017-07-23] MEDS ORDERED: HALO2TAB PO (14:26)
[2017-07-23] MEDS ORDERED: METO-333 PO (14:26)
[2017-07-23] MEDS ORDERED: ISM60TCR PO (14:26)
[2017-07-23] MEDS ORDERED: NITR0.4T SL (14:26)
[2017-07-23] MEDS ORDERED: IPRA3AMP INH (14:26)
[2017-07-23] MEDS ORDERED: MORP1VIA IV (14:26)
--- NOTE | 2017-07-23 14:28 | Discharge Inst-Simple/Standard ---
Discharge Inst-Standard Discharge Medications New, Converted or Re-Newed RX: Other Patient Instructions/Follow Up Plan of Care/Instructions/FU: [facility] hospice will follow patient. Activity as Tolerated: Yes Discharge Diet: No Restrictions SINA GREEN Jul 23, 2017 14:28
[2017-07-23 18:01] VITALS: BP 145/66
--- NOTE | 2017-07-24 05:09 | DISCHARGE SUMMARY ---
DATE OF SERVICE: 07/23/2017 FINAL DIAGNOSES: 1. Acute myeloid leukemia. 2. Chemotherapy with Dacogen. 3. Pancytopenia, due to above, requiring packed red blood cells and platelet transfusion intermittently. 4. Pneumonia. 5. Atrial fibrillation with rapid ventricular response. 6. Non-ST elevated myocardial infarction. BRIEF HISTORY AND HOSPITAL COURSE: The patient is an 82-year-old male who was diagnosed with acute myeloid leukemia and pancytopenia recently. He was transferred from [facility] to [facility] for further management. He was initially admitted to the hospitalist service and discussions were held about treatment options. He was not a candidate for aggressive chemotherapy and less intense treatment with Dacogen was discussed versus supportive care. The patient wanted to try the chemotherapy and a course of Dacogen over 7 days was given to him. Blood counts were monitored serially and packed red blood cells and platelets transfused as needed. The patient developed atrial fibrillation with rapid ventricular response and had cardiology evaluation completed. Work up showed that he had suffered a small non-ST elevated OK. His cardiac medications were adjusted and rate controlled. He was not felt to be a candidate for chronic anticoagulation for stroke prophylaxis because of the thrombocytopenia and risk for bleeding. A pulmonary consultation was also obtained because of hypoxia and worsening lung infiltrates. A clinical diagnosis of pneumonia was made and he was treated with broad spectrum antibiotics Cefepime and Levaquin for 10 days with clinical improvement. The patient did have a left groin open wound prior to his transfer to [place] from [facility] and . This continued to remain open, but did not have evidence of secondary infection. This was being dressed on a regular basis with packing. The patient was started on physical therapy, but because of his generalized fatigue, could not continue this regularly and was not gaining much strength. After 3 weeks from the chemotherapy, discussions were held with the patient and his family about further options. Since he was not gaining strength and was weaker, it was decided by the patient that he was not going to try a 2nd course of chemotherapy. At this point, discussions were held with them regarding discharge planning. Options were either home with hospice or an assisted care facility. The patient and his family decided that they wanted to try to take him home with the help of hospice. In the interim, because of persistent air hunger and pain, he was started on morphine by [employer] at a very low dose and was gradually titrated. At the time of discharge, he was on 1.2 mg of morphine per hour continuous infusion with a 1 mg bolus every 1 hour on a p.r.n. basis. He was comfortable at this dose and his breathing was stable. The patient and his family interviewed different hospices and eventually they decided to proceed with [facility]. Arrangements were completed with the help of secondary social studies teacher and on 07/23/2017, he was discharged home with hospice. DISCHARGE MEDICATIONS: 1. Morphine by [employer] at 1.2 mg per hour continuous infusion with 1 mg bolus every 1 hour as needed. 2. He will continue on DuoNeb by nebulizer 4 times daily. 3. Extended release isosorbide mononitrate 60 mg daily. 4. Metoprolol 25 mg p.o. t.i.d. 5. Nitroglycerin 0.4 mg sublingual on a p.r.n. basis for chest pain. 6. Haldol 1 mg p.o. q.8 hours p.r.n. agitation. 7. MiraLax 17 g p.o. daily. 8. Triamcinolone acetate topically twice daily to the left groin wound. 9. Amlodipine 5 mg p.o. b.i.d. 10. Aspirin 81 mg p.o. 3 times a week on Friday, Friday, Friday. 11. Metformin 1000 mg p.o. b.i.d. with meals. 12. Multivitamin daily. 13. Fish oil daily. 14. Omeprazole 20 mg daily. 15. Telmisartan 80 mg p.o. daily. During the hospitalization, carvedilol, Zetia, fenofibrate, ramipril and cyanocobalamin were stopped. He will continue as a DNR with hospice and will proceed with supportive care. We will continue with CBC with auto diff on a p.r.n. basis for symptoms to rule out anemia or thrombocytopenia causing bleeding. He will receive a transfusion with either packed red blood cells or platelets only for symptoms. His overall prognosis is poor. The patient and his family understand this and want to proceed with supportive care alone. He will be transported home by EMS as he is unable to sit in a private vehicle for the trip. Job ID: [id number] DocumentID: [id number] Dictated Date: 07/23/2017 15:36:51 Transportation Worker Date: 07/24/2017 05:08:20 Dictated By: SINA GREEN MD MTDD
== END 2017-07-23 18:10 | disposition hospice, home (50) | DRG 834 ==
LOC: 4TH 11:40
PROVIDERS: ADMIT Internal Medicine; ATTEND Internal Medicine Hematology & Oncology
DX: C92.00 Acute myeloblastic leukemia, not having achieved remission (principal); I21.4 Non-ST elevation (NSTEMI) myocardial infarction; I48.2 Chronic atrial fibrillation; I13.0 Hypertensive heart and chronic kidney disease with heart failure and stage 1 through stage 4 chronic kidney disease, or unspecified chronic kidney disease; I50.31 Acute diastolic (congestive) heart failure; I50.1 Left ventricular failure, unspecified; J18.9 Pneumonia, unspecified organism; J44.9 Chronic obstructive pulmonary disease, unspecified; Z66 Do not resuscitate; N18.3 Chronic kidney disease, stage 3 (moderate); D64.9 Anemia, unspecified; E11.65 Type 2 diabetes mellitus with hyperglycemia; K21.9 Gastro-esophageal reflux disease without esophagitis; K44.9 Diaphragmatic hernia without obstruction or gangrene; I25.10 Atherosclerotic heart disease of native coronary artery without angina pectoris; D69.6 Thrombocytopenia, unspecified; H91.90 Unspecified hearing loss, unspecified ear; H40.9 Unspecified glaucoma; Z95.5 Presence of coronary angioplasty implant and graft; Z79.4 Long term (current) use of insulin; T45.1X5A Adverse effect of antineoplastic and immunosuppressive drugs, initial encounter; K59.00 Constipation, unspecified
CPT/HCPCS: 36415; 71010; 80048; 80053; 80076; 81000; 82805; 82962; 83605; 83735; 83880; 84100; 85007; 85025; 85027; 85610; 85730; 86850; 86900; 86901; 86920; 87040; 94010; 94640; 94664; 94760; 96375; 96413

== ENCOUNTER 2017-06-27 14:50 | Outpatient (RCR) | payer MEDICARE ==
[~2017-06-27 14:50] MED LIST changes: +NS IV 500 ML (CANCER CENTER) 500 ML ONE
[2017-07-23] MEDS ORDERED: LORazepam INJ 2 MG/ML (ATIVAN) VIAL ONE (14:09)
[2017-07-23] MEDS ORDERED: ISM60TCR PO (14:26)
[2017-07-23] MEDS ORDERED: MORP1VIA IV (14:26)
[2017-07-23] MEDS ORDERED: IPRA3AMP INH (14:26)
[2017-07-23] MEDS ORDERED: HALO2TAB PO (14:26)
[2017-07-23] MEDS ORDERED: METO-333 PO (14:26)
[2017-07-23] MEDS ORDERED: POLY17PO23 PO (14:26)
[2017-07-23] MEDS ORDERED: TRIA15OI9 TOP (14:26)
[2017-07-23] MEDS ORDERED: NITR0.4T SL (14:26)
== END 2017-08-30 | disposition home or self-care (01) ==
LOC: ONC 14:50
PROVIDERS: ATTEND Internal Medicine Hematology & Oncology
DX: C92.00 Acute myeloblastic leukemia, not having achieved remission (principal); I25.10 Atherosclerotic heart disease of native coronary artery without angina pectoris; I48.0 Paroxysmal atrial fibrillation; I10 Essential (primary) hypertension; E11.9 Type 2 diabetes mellitus without complications; K21.9 Gastro-esophageal reflux disease without esophagitis; K44.9 Diaphragmatic hernia without obstruction or gangrene; Z95.5 Presence of coronary angioplasty implant and graft; Z79.899 Other long term (current) drug therapy